=== PATIENT | female | born 1945 | race Caucasian/White ===

== ENCOUNTER → 2017-08-24 11:31 | Outpatient (CLI) | payer MEDICARE, SELFPAY ==
[2017-08-24 15:32] LABS: Absolute Lymphocyte Count 2.12 X10^3/ul (0.83-4.51); Absolute Neutrophil Count 5.3 X10^3/uL (2.0-7.7); Basophil# 0.02 X10^3/uL; Basophil% 0.2 % (0-1); Eosinophil# 0.14 X10^3/uL; Eosinophils% 1.7 % (0-5); Hematocrit 41.8 % (37-47); Hemoglobin 13.4 g/dl (12.0-15.0); Lymphocyte # 2.12 X10^3/ul (4.0); Lymphocyte % 25.7 % (19-41); Mean Corp Hgb Conc 32.1 g/gl (32-36); Mean Corpuscular Volume 93.5 fL (81-99); Mean Platelet Vol. 9.8 fl (6.2-12.0); Monocyte# 0.67 X10^3/uL; Monocyte% 8.1 % (0-10); Neutrophil # 5.28 X10^3/uL (2.7-7.7); Neutrophil % 64.2 % (47-70); Platelet Count 317 K/mm3 (150-450); RBC Distribution Width CV 13.1 % (11.6-14.6); RBC Distribution Width SD 44.9 fl (35.1-43.9); Red Blood Count 4.47 M/mm3 (4.2-5.4); White Blood Count 8.2 K/mm3 (4.4-11.0)
[2017-08-24 15:37] LABS: POSITIVE COUNT NO; POSITIVE DIFFERENTIAL NO; POSITIVE MORPHOLOGY NO
[2017-08-24 16:17] LABS: Vitamin D,25 Hydroxy 26.7 ng/mL (29.95-100.01)
[2017-08-24 16:21] LABS: AST(SGOT) 28 U/L (15-37); Alanine Aminotransfer ALT/SGPT 40 U/L (13-56); Albumin, Serum 3.7 g/dL (3.2-5.0); Alkaline Phosphatase 74 U/L (45-117); Anion Gap 7 (5-15); BUN 11 mg/dL (7-18); Calcium,Total 9.5 mg/dL (8.5-10.1); Chloride 107 mmol/L (98-107); Creatinine, Serum 0.79 mg/dL (0.55-1.02); EST Glomerular Filtration Rate 77 mL/min (>60); Est Glom Filt Rate - Afr Amer 93 mL/min (>60); Globulin 3.6 g/dL (2.2-4.2); Glucose 140 mg/dL (74-106); Potassium 4.1 mmol/L (3.5-5.1); Protein, Total 7.3 g/dL (6.4-8.2); Sodium Level 142 mmol/L (136-145); Thyroid Stim Hormone (TSH) 1.67 uIU/mL (0.358-3.74)
[2017-08-26 11:43] LABS: Hep C Antibodies 0.1 s/co ratio (0.0-0.9)
== END ==
PROVIDERS: Family Provider Family Medicine Geriatric Medicine; PCP Family Medicine Geriatric Medicine; Visit Provider Family Medicine Geriatric Medicine
DX: E11.9 Type 2 diabetes mellitus without complications (principal); I10 Essential (primary) hypertension; E55.9 Vitamin D deficiency, unspecified; Z13.89 Encounter for screening for other disorder
CPT/HCPCS: 36415; 80053; 82306; 84443; 85025; 86803

== ENCOUNTER → 2018-02-06 13:24 | Outpatient (CLI) | payer MEDICARE, OTHER, SELFPAY | PROVIDERS: Family Provider Family Medicine Geriatric Medicine; PCP Family Medicine Geriatric Medicine; Visit Provider Family Medicine Geriatric Medicine | DX: N39.0 Urinary tract infection, site not specified (principal) | CPT/HCPCS: 87086 ==

== ENCOUNTER → 2018-02-21 11:51 | Outpatient (CLI) | payer MEDICARE, OTHER, SELFPAY ==
[2018-02-21 12:32] LABS: Absolute Lymphocyte Count 1.87 X10^3/ul (0.83-4.51); Basophil# 0.03 X10^3/uL; Basophil% 0.4 % (0-1); Eosinophil# 0.18 X10^3/uL; Eosinophils% 2.3 % (0-5); Hemoglobin 13.5 g/dl (12.0-15.0); Lymphocyte # 1.87 X10^3/ul (4.0); Lymphocyte % 24.3 % (19-41); Mean Corp Hgb Conc 32.1 g/gl (32-36); Mean Corpuscular Hgb 30.3 pg (27.0-32.0); Mean Corpuscular Volume 94.2 fL (81-99); Monocyte# 0.62 X10^3/uL; Monocyte% 8.1 % (0-10); Neutrophil # 4.97 X10^3/uL (2.7-7.7); Neutrophil % 64.5 % (47-70); Platelet Count 280 K/mm3 (150-450); RBC Distribution Width SD 43.3 fl (35.1-43.9); Red Blood Count 4.46 M/mm3 (4.2-5.4); White Blood Count 7.7 K/mm3 (4.4-11.0)
[2018-02-21 12:41] LABS: POSITIVE COUNT NO; POSITIVE DIFFERENTIAL NO; POSITIVE MORPHOLOGY NO
[2018-02-21 12:52] LABS: Vitamin D,25 Hydroxy 18.6 ng/mL (29.95-100.01)
[2018-02-21 12:57] LABS: AST(SGOT) 40 U/L (15-37); Alanine Aminotransfer ALT/SGPT 53 U/L (13-56); Albumin, Serum 3.8 g/dL (3.2-5.0); Alkaline Phosphatase 78 U/L (45-117); Anion Gap 6 (5-15); BUN 9 mg/dL (7-18); BUN/Creat Ratio 11.9 RATIO (10-20); Calcium,Total 9.2 mg/dL (8.5-10.1); Chloride 105 mmol/L (98-107); Creatinine, Serum 0.76 mg/dL (0.55-1.02); EST Glomerular Filtration Rate 80 mL/min (>60); Est Glom Filt Rate - Afr Amer 97 mL/min (>60); Globulin 3.9 g/dL (2.2-4.2); Glucose 176 mg/dL (74-106); Protein, Total 7.7 g/dL (6.4-8.2); Sodium Level 139 mmol/L (136-145)
== END ==
PROVIDERS: PCP Family Medicine Geriatric Medicine; Visit Provider Family Medicine Geriatric Medicine
DX: E11.9 Type 2 diabetes mellitus without complications (principal); I10 Essential (primary) hypertension; E55.9 Vitamin D deficiency, unspecified
CPT/HCPCS: 36415; 80053; 82306; 84443; 85025

== ENCOUNTER → 2018-08-25 10:14 | Outpatient (CLI) | payer MEDICARE, OTHER, SELFPAY ==
[2017-12-21 13:46] VITALS: BMI 30.7
[2018-08-25 10:53] LABS: Absolute Lymphocyte Count 2.08 X10^3/ul (0.83-4.51); Basophil# 0.03 X10^3/uL; Basophil% 0.4 % (0-1); Eosinophils% 2.8 % (0-5); Hematocrit 41.6 % (37-47); Hemoglobin 13.5 g/dl (12.0-15.0); Lymphocyte # 2.08 X10^3/ul (4.0); Lymphocyte % 29.5 % (19-41); Mean Corp Hgb Conc 32.5 g/gl (32-36); Mean Corpuscular Hgb 29.8 pg (27.0-32.0); Mean Corpuscular Volume 91.8 fL (81-99); Mean Platelet Vol. 10.4 fl (6.2-12.0); Monocyte# 0.69 X10^3/uL; Monocyte% 9.8 % (0-10); Neutrophil # 4.04 X10^3/uL (2.7-7.7); Neutrophil % 57.2 % (47-70); Platelet Count 297 K/mm3 (150-450); RBC Distribution Width CV 13.1 % (11.6-14.6); RBC Distribution Width SD 43.2 fl (35.1-43.9); Red Blood Count 4.53 M/mm3 (4.2-5.4); White Blood Count 7.1 K/mm3 (4.4-11.0)
[2018-08-25 10:56] LABS: POSITIVE COUNT NO; POSITIVE DIFFERENTIAL NO; POSITIVE MORPHOLOGY NO
[2018-08-25 11:27] LABS: Vitamin D,25 Hydroxy 25.5 ng/mL (29.95-100.01)
[2018-08-25 11:34] LABS: AST(SGOT) 48 U/L (15-37); Alanine Aminotransfer ALT/SGPT 51 U/L (13-56); Albumin, Serum 3.7 g/dL (3.2-5.0); Alkaline Phosphatase 75 U/L (45-117); Anion Gap 2 (5-15); BUN 11 mg/dL (7-18); BUN/Creat Ratio 14.6 RATIO (10-20); Calcium,Total 9.7 mg/dL (8.5-10.1); Chloride 107 mmol/L (98-107); Creatinine, Serum 0.76 mg/dL (0.55-1.02); EST Glomerular Filtration Rate 80 mL/min (>60); Est Glom Filt Rate - Afr Amer 97 mL/min (>60); Globulin 3.8 g/dL (2.2-4.2); Glucose 177 mg/dL (74-106); Potassium 4.1 mmol/L (3.5-5.1); Protein, Total 7.5 g/dL (6.4-8.2); Sodium Level 138 mmol/L (136-145); Thyroid Stim Hormone (TSH) 3.28 uIU/mL (0.358-3.74)
== END ==
PROVIDERS: Family Provider Family Medicine Geriatric Medicine; PCP Family Medicine Geriatric Medicine; Referring Provider Family Medicine Geriatric Medicine; Visit Provider Family Medicine Geriatric Medicine
DX: E11.9 Type 2 diabetes mellitus without complications (principal); I10 Essential (primary) hypertension; E55.9 Vitamin D deficiency, unspecified
CPT/HCPCS: 36415; 80053; 82306; 84443; 85025

== ENCOUNTER → 2018-08-29 10:54 | Outpatient (CLI) | payer MEDICARE, OTHER, SELFPAY ==
--- NOTE | 2018-08-29 09:30 | LES_PTH ---
PATIENT: ALFRED HARRIS LOC: [facility] U#:[id number] AGE/SX: 79/F ROOM: RE08/29/[address]: Dr. Segundo Roper MD : [id number] BED: DIS: SPEC #: [id number] RECD: 08/29/18 12:49 STATUS: ARABELLA BERT #: [id number] DANIEL: 08/29/18 09:[address]: Segundo Roper Chi DEPT: SURGICAL PATHOLOGY RECD BY: Morgan Abdullahi Tissues: Skin of arm Procedures: Surgery Specimen Level IV HEADER OPERATION: Biopsy PRE-OP DIAGNOSIS: Left upper arm lesion TISSUE SUBMITTED: Left upper arm MICROSCOPIC DIAGNOSIS Skin of left upper arm, shave biopsy: Verrucoid keratosis, inflamed. Solar elastosis. No evidence of malignancy. See comment. AM:wencesalo 08/30/18 COMMENT The lesion is completely excised in the planes examined. MICROSCOPIC DESCRIPTION Slides are reviewed. GROSS DESCRIPTION Received is one container labeled with the patient's name and not further designated. The specimen consists of a light richard shave biopsy of skin measuring 1.2 x 1 cm. The cutaneous surface contains an exophytic richard-white lesion measuring 0.3 cm in maximal dimension. The specimen is inked, sectioned and totally submitted in one cassette. / AM:wenceslao 08/29/18 TC:5 [facility]: [id number]
== END ==
LOC: POLAB3 10:56 → LABSPEC 11:00
PROVIDERS: Family Provider Family Medicine Geriatric Medicine; PCP Family Medicine Geriatric Medicine; Visit Provider Family Medicine Geriatric Medicine
DX: L98.9 Disorder of the skin and subcutaneous tissue, unspecified (principal)
CPT/HCPCS: 88305

== ENCOUNTER → 2018-11-23 09:42 | Outpatient (CLI) | payer MEDICARE, OTHER, SELFPAY ==
[2017-12-21 13:46] VITALS: BMI 30.7
[2018-11-23 12:27] LABS: Absolute Lymphocyte Count 1.99 X10^3/uL (0.83-4.51); Absolute Neutrophil Count 3.9 X10^3/uL (2.0-7.7); Basophil# 0.06 X10^3/uL; Basophil% 0.9 % (0-1); Eosinophil# 0.26 X10^3/uL; Eosinophils% 3.8 % (0-5); Hematocrit 41.8 % (37-47); Hemoglobin 13.4 g/dL (12.0-15.0); Lymphocyte # 1.99 X10^3/ul (4.0); Lymphocyte % 29.4 % (19-41); Mean Corp Hgb Conc 32.1 g/dL (32-36); Mean Corpuscular Hgb 30.6 pg (27.0-32.0); Mean Corpuscular Volume 95.4 fL (81-99); Mean Platelet Vol. 11.2 fl (6.2-12.0); Monocyte# 0.56 X10^3/uL; Monocyte% 8.3 % (0-10); NRBC Flagged by Analyzer 0 % (0-5); Neutrophil # 3.88 X10^3/uL (2.7-7.7); Neutrophil % 57.3 % (47-70); Platelet Count 250 K/mm3 (150-450); RBC Distribution Width CV 12.7 % (11.6-14.6); RBC Distribution Width SD 44.4 fl (35.1-43.9); Red Blood Count 4.38 M/mm3 (4.2-5.4); White Blood Count 6.8 K/mm3 (4.4-11.0)
[2018-11-23 12:52] LABS: Vitamin D,25 Hydroxy 19.2 ng/mL (29.95-100.01)
[2018-11-23 12:55] LABS: AST(SGOT) 40 U/L (15-37); Alanine Aminotransfer ALT/SGPT 56 U/L (13-56); Albumin, Serum 3.8 g/dL (3.2-5.0); Alkaline Phosphatase 79 U/L (45-117); Anion Gap 6 (5-15); BUN 12 mg/dL (7-18); BUN/Creat Ratio 14.6 RATIO (10-20); Calcium,Total 9.5 mg/dL (8.5-10.1); Chloride 107 mmol/L (98-107); Creatinine, Serum 0.82 mg/dL (0.55-1.02); EST Glomerular Filtration Rate 73 mL/min (>60); Est Glom Filt Rate - Afr Amer 88 mL/min (>60); Glucose 212 mg/dL (74-106); Potassium 4.1 mmol/L (3.5-5.1); Protein, Total 7.8 g/dL (6.4-8.2); Sodium Level 138 mmol/L (136-145); Thyroid Stim Hormone (TSH) 3.55 uIU/mL (0.358-3.74)
== END ==
PROVIDERS: Family Provider Family Medicine Geriatric Medicine; PCP Family Medicine Geriatric Medicine; Visit Provider Family Medicine Geriatric Medicine
DX: E11.9 Type 2 diabetes mellitus without complications (principal); I10 Essential (primary) hypertension; E55.9 Vitamin D deficiency, unspecified
CPT/HCPCS: 36415; 80053; 82306; 84443; 85025

== ENCOUNTER → 2019-05-24 10:22 | Outpatient (CLI) | payer MEDICARE, OTHER, SELFPAY ==
[2018-12-29 15:09] VITALS: BMI 30.2
[2019-05-24 12:33] LABS: Absolute Lymphocyte Count 2.08 X10^3/uL (0.83-4.51); Absolute Neutrophil Count 4.1 X10^3/uL (2.0-7.7); Basophil# 0.05 X10^3/uL; Basophil% 0.7 % (0-1); Eosinophil# 0.38 X10^3/uL; Eosinophils% 5.2 % (0-5); Hematocrit 42.9 % (37-47); Hemoglobin 13.5 g/dL (12.0-15.0); Lymphocyte # 2.08 X10^3/ul (4.0); Lymphocyte % 28.4 % (19-41); Mean Corp Hgb Conc 31.5 g/dL (32-36); Mean Corpuscular Hgb 29.9 pg (27.0-32.0); Mean Corpuscular Volume 94.9 fL (81-99); Mean Platelet Vol. 10.5 fl (6.2-12.0); Monocyte# 0.68 X10^3/uL; Monocyte% 9.3 % (0-10); NRBC Flagged by Analyzer 0 % (0-5); Neutrophil # 4.13 X10^3/uL (2.7-7.7); Neutrophil % 56.3 % (47-70); Platelet Count 331 K/mm3 (150-450); RBC Distribution Width CV 13.1 % (11.6-14.6); RBC Distribution Width SD 45.4 fl (35.1-43.9); Red Blood Count 4.52 M/mm3 (4.2-5.4); White Blood Count 7.3 K/mm3 (4.4-11.0)
[2019-05-24 12:39] LABS: Vitamin D,25 Hydroxy 20.2 ng/mL (29.95-100.01)
[2019-05-24 12:42] LABS: AST(SGOT) 40 U/L (15-37); Alanine Aminotransfer ALT/SGPT 45 U/L (13-56); Albumin, Serum 3.8 g/dL (3.2-5.0); Alkaline Phosphatase 68 U/L (45-117); Anion Gap 4 (5-15); BUN 9 mg/dL (7-18); BUN/Creat Ratio 12.9 RATIO (10-20); Calcium,Total 9.5 mg/dL (8.5-10.1); Chloride 107 mmol/L (98-107); EST Glomerular Filtration Rate 88 mL/min (>60); Est Glom Filt Rate - Afr Amer 107 mL/min (>60); Globulin 3.9 g/dL (2.2-4.2); Glucose 150 mg/dL (74-106); Potassium 4.1 mmol/L (3.5-5.1); Protein, Total 7.7 g/dL (6.4-8.2); Sodium Level 141 mmol/L (136-145); Thyroid Stim Hormone (TSH) 2.76 uIU/mL (0.358-3.74)
== END ==
PROVIDERS: PCP Family Medicine Geriatric Medicine; Visit Provider Family Medicine Geriatric Medicine
DX: E11.65 Type 2 diabetes mellitus with hyperglycemia (principal); I10 Essential (primary) hypertension; E55.9 Vitamin D deficiency, unspecified
CPT/HCPCS: 36415; 80053; 82306; 84443; 85025

== ENCOUNTER → 2019-06-11 12:49 | Outpatient (CLI) | payer MEDICARE, OTHER, SELFPAY ==
[2019-06-06 09:08] VITALS: BMI 30.2
--- NOTE | 2019-06-11 12:50 | BI_ITS ---
MAMMOGRAPHY - BILATERAL SCREENING REASON FOR EXAM: Female, 73 years old. Routine annual screening examination. PERTINENT HISTORY: Non-contributory. TECHNIQUE: Digital bilateral breast antonio (3D mammographic acquisition) in the CC and MLO projections. 2-D mediolateral oblique (MLO) and craniocaudad (CC) views of both breasts were obtained. CAD: Full Field Digital Mammography with Computer Added Detection was performed. COMPARISON: Comparison is made with prior study of August 23, 2014 and August 18, 2011. FINDINGS: Breast Composition: There are scattered areas of fibroglandular density. There are no dominant masses or suspicious calcifications. Stable benign-appearing bilateral axillary lymph nodes. No other significant abnormalities are identified. There has been no significant change since the prior study. BI/SCREEN MAMM (CAD) W/ANTONIO BILAT IMPRESSION: Stable bilateral screening mammogram. Yearly follow-up mammogram recommended. (A) ASSESSMENT CATEGORY: BIRADS Category 2: Benign. A letter regarding these results will be sent to the patient by the facility within 30 days. Approximately 10% of breast cancers are not detected by mammography. A normal mammogram should not delay biopsy of a clinically suspicious abnormality. [id number] Electronically Signed: Kp Whitman, at 13:44 EDT , Service support ,
== END ==
PROVIDERS: PCP Family Medicine Geriatric Medicine; Referring Provider Nurse Practitioner Women's Health; Visit Provider Nurse Practitioner Women's Health
DX: Z12.31 Encounter for screening mammogram for malignant neoplasm of breast (principal)
CPT/HCPCS: 77063; 77067

== ENCOUNTER → 2019-08-29 14:10 | Outpatient (CLI) | payer MEDICARE, OTHER, SELFPAY ==
[2019-06-06 09:08] VITALS: BMI 30.2
[2019-08-29 15:53] LABS: Absolute Lymphocyte Count 3.02 X10^3/uL (0.83-4.51); Absolute Neutrophil Count 4.5 X10^3/uL (2.0-7.7); Basophil# 0.07 X10^3/uL; Basophil% 0.8 % (0-1); Eosinophil# 0.25 X10^3/uL; Eosinophils% 2.9 % (0-5); Hematocrit 41.2 % (37-47); Lymphocyte # 3.02 X10^3/ul (4.0); Mean Corp Hgb Conc 31.6 g/dL (32-36); Mean Corpuscular Hgb 29.7 pg (27.0-32.0); Mean Corpuscular Volume 94.1 fL (81-99); Monocyte# 0.78 X10^3/uL; NRBC Flagged by Analyzer 0 % (0-5); Neutrophil % 52.1 % (47-70); Platelet Count 334 K/mm3 (150-450); RBC Distribution Width SD 44.6 fl (35.1-43.9); Red Blood Count 4.38 M/mm3 (4.2-5.4); White Blood Count 8.6 K/mm3 (4.4-11.0)
[2019-08-29 16:08] LABS: Vitamin D,25 Hydroxy 20.8 ng/mL
[2019-08-29 16:19] LABS: ALB/GLOB Ratio 1.1 RATIO (0.9-2.4); AST(SGOT) 36 U/L (15-37); Alanine Aminotransfer ALT/SGPT 40 U/L (13-56); Albumin, Serum 3.9 g/dL (3.2-5.0); Alkaline Phosphatase 72 U/L (45-117); Anion Gap 8 (5-15); BUN 11 mg/dL (7-18); BUN/Creat Ratio 14.9 RATIO (10-20); Calcium,Total 9.9 mg/dL (8.5-10.1); Chloride 108 mmol/L (98-107); Creatinine, Serum 0.74 mg/dL (0.55-1.02); EST Glomerular Filtration Rate 82 mL/min (>60); Est Glom Filt Rate - Afr Amer 99 mL/min (>60); Globulin 3.7 g/dL (2.2-4.2); Glucose 90 mg/dL (74-106); Potassium 4.5 mmol/L (3.5-5.1); Protein, Total 7.6 g/dL (6.4-8.2); Sodium Level 142 mmol/L (136-145); Thyroid Stim Hormone (TSH) 2.41 uIU/mL (0.358-3.74)
== END ==
PROVIDERS: PCP Family Medicine Geriatric Medicine; Visit Provider Family Medicine Geriatric Medicine
DX: E11.9 Type 2 diabetes mellitus without complications (principal); I10 Essential (primary) hypertension; E55.9 Vitamin D deficiency, unspecified
CPT/HCPCS: 36415; 80053; 82306; 84443; 85025

== ENCOUNTER → 2019-12-17 15:28 | Outpatient (CLI) | payer MEDICARE, OTHER, SELFPAY ==
[2019-06-06 09:08] VITALS: BMI 30.2
--- NOTE | 2019-12-17 15:35 | RAD_ITS ---
STUDY: X-RAY - LUMBAR SPINE REASON FOR EXAM: Female, 74 years old. LOW BACK PAIN SINCE TUESDAY TECHNIQUE: 3 view(s) of the lumbar spine were obtained. COMPARISON: October 15, 2010 lumbar spine x-ray FINDINGS: Normal lumbar lordosis. There is no substantial scoliosis. There is a normal alignment of the vertebrae. There is multilevel mild disc space narrowing worse in prior studies. There is multilevel spondylosis. Findings are similar to the prior study. Findings a worsening at L5-S1. There is atherosclerotic calcification of the abdominal aorta without a demonstrated aneurysm. RAD/Lumbar Spine 2 or 3 Views IMPRESSION: Multilevel degenerative change of the lumbar spine with mild interval worsening over time since 2010. No visualized acute loss of height or alignment. Electronically Signed: Carla Barrett MD at 5:01 EDT Tel , Service support ,
== END ==
PROVIDERS: PCP Family Medicine Geriatric Medicine; Referring Provider Family Medicine Geriatric Medicine; Visit Provider Family Medicine Geriatric Medicine
DX: M54.5 Low back pain (principal)
CPT/HCPCS: 72100

== ENCOUNTER → 2020-02-21 13:39 | Outpatient (CLI) | payer MEDICARE, OTHER, SELFPAY ==
[2019-12-19 13:40] VITALS: BMI 29.7
[2020-02-21 17:08] LABS: Absolute Lymphocyte Count 2.36 X10^3/uL (0.83-4.51); Absolute Neutrophil Count 5.5 X10^3/uL (2.0-7.7); Basophil# 0.04 X10^3/uL; Basophil% 0.5 % (0-1); Eosinophil# 0.12 X10^3/uL; Eosinophils% 1.4 % (0-5); Hematocrit 41.3 % (37-47); Lymphocyte # 2.36 X10^3/ul (4.0); Lymphocyte % 27.3 % (19-41); Mean Corp Hgb Conc 31.5 g/dL (32-36); Mean Corpuscular Hgb 30.7 pg (27.0-32.0); Mean Corpuscular Volume 97.6 fL (81-99); Mean Platelet Vol. 10.6 fl (6.2-12.0); Monocyte# 0.64 X10^3/uL; Monocyte% 7.4 % (0-10); NRBC Flagged by Analyzer 0 % (0-5); Neutrophil # 5.45 X10^3/uL (2.7-7.7); Neutrophil % 63.1 % (47-70); Platelet Count 370 K/mm3 (150-450); RBC Distribution Width CV 13.2 % (11.6-14.6); RBC Distribution Width SD 47.2 fl (35.1-43.9); Red Blood Count 4.23 M/mm3 (4.2-5.4); White Blood Count 8.6 K/mm3 (4.4-11.0)
[2020-02-21 17:18] LABS: Vitamin D,25 Hydroxy 20.6 ng/mL
[2020-02-21 17:27] LABS: ALB/GLOB Ratio 1.2 RATIO (0.9-2.4); AST(SGOT) 26 U/L (15-37); Alanine Aminotransfer ALT/SGPT 37 U/L (13-56); Alkaline Phosphatase 57 U/L (45-117); Anion Gap 5 (5-15); BUN 15 mg/dL (7-18); BUN/Creat Ratio 19.7 RATIO (10-20); Calcium,Total 9.5 mg/dL (8.5-10.1); Chloride 105 mmol/L (98-107); Creatinine, Serum 0.76 mg/dL (0.55-1.02); EST Glomerular Filtration Rate 79 mL/min (>60); Est Glom Filt Rate - Afr Amer 96 mL/min (>60); Globulin 3.4 g/dL (2.2-4.2); Glucose 101 mg/dL (74-106); Potassium 4.2 mmol/L (3.5-5.1); Protein, Total 7.4 g/dL (6.4-8.2); Sodium Level 138 mmol/L (136-145); Thyroid Stim Hormone (TSH) 1.88 uIU/mL (0.358-3.74)
== END ==
PROVIDERS: PCP Family Medicine Geriatric Medicine; Visit Provider Family Medicine Geriatric Medicine
DX: E11.9 Type 2 diabetes mellitus without complications (principal); I10 Essential (primary) hypertension; E55.9 Vitamin D deficiency, unspecified
CPT/HCPCS: 36415; 80053; 82306; 84443; 85025

== ENCOUNTER → 2020-04-16 | Outpatient (CLI) | payer MEDICARE, OTHER, SELFPAY ==
[2019-12-19 13:40] VITALS: BMI 29.7
== END | disposition home or self-care (01) ==
LOC: LABSPEC 11:27
PROVIDERS: PCP Family Medicine Geriatric Medicine; Visit Provider Family Medicine Geriatric Medicine
DX: N39.0 Urinary tract infection, site not specified (principal)
CPT/HCPCS: 87086; 87088; 87186

== ENCOUNTER 2020-05-01 12:30 | Outpatient (RCR) | payer MEDICARE, OTHER, SELFPAY ==
[2019-12-19 13:40] VITALS: BMI 29.7
--- NOTE | 2020-04-23 12:56 | HP.PTEVAL ---
Patient's Visit Information ALFRED HARRIS is a 74 year old F referred to Physical Therapy by Dr. Segundo Roper MD with a diagnosis of LOW BACK PAIN. Date of Evaluation: 04/23/20 Physical Therapist: Sri Marcial PT, Cert MDT - Visit Plan Frequency: 2-3x /Week Duration: 4-6 Weeks Plan: US, POSTURE CORRECTION/STRENGTHENING, INSTRUCTION IN APPROPRIATE BODY MECHANICS AND ACTIVITY MODIFICATIONS. DLS STARTING WITH A NEUTRAL SPINE PROGRESSING ROM TOLERATED. ARISTEO LE ROM, STRETCHING AND STRENGTHENING. HEP INSTRUCTION. - Subjective Work/Leisure: RETIRED. Disability: NO. Present symptoms: ARISTEO LOW BACK PAIN RIGHT > LEFT. Present since: 4 MONTHS AGO. APRIL 14 2020 COULDN'T GET OUT OF BED. Pain Scale: WORST 12/10, LEAST 2/10. Currently: 2/10. Commenced as a result of: DROVE ABOUT 1,000 MILES IN A FEW DAYS AND THEN COULDN'T HARDLY WALK. Symptoms at onset: LOW BACK. Worse: SITTING, TRYING TO WALK, TRYING TO LIFT ANYTHING, ROLLING OVER IN BED, LAUGHING, RISING FROM SITTING. Better: STANDING STILL. Disturbed sleep: NO. Previous history/Previous treatment: 2010 HAD BACK PAIN AND HAD TESTING THAT REVEALED DDD. PAIN MEDS. Treatment this episode: PAIN MEDS. [address] HUSSEIN OFFICE. PREDNISONE - JUST WENT OFF OF IT YESTERDAY - HELPED A LOT. NO BACK SURGERY. NO ANDREA'S. Coughing/sneezing/straining: NO. Gait: NORMAL NOW - DID THREE MILES THE OTHER DAY. TWO MILES YESTERDAY. Difficulty initiating urinatin: CURRENTLY HAS UTI DX'D LAST WEEK. ON MEDICINE. Accidents: NO. Unexplained weight loss: NO. Imaging: RECENT LUMBAR X-RAYS DEC 2019 SHOWING PROGRESSED DDD. NO MRI. PMH: NIDDM. Recent major surgery: HEART CATH A FEW YEARS AGO. COLON RECONSTRUCTION FROM INFECTION A FEW YEARS AGO. - Objective Sitting/Standing Posture: POOR. Lordosis: REDUCED. Lateral shift: NO. Relevant shift: N/A. Active Correction of posture: NE. Other Observations: INDEP GAIT INTO PT WITH NO GROSS DEVIATIONS NOTED, NO AD'S. INDEP TRANSFER SIT TO STAND WITHOUT UE ASSIST. Motor deficit: ARISTEO LE'S GROSSLY 5/5 WITH MMT'ING EXCEPT HIPS 4/5. Sensory deficit: ARISTEO LE'S INTACT AND SYMMETRICAL. ROM deficit: TIGHT ARISTEO LE HIP FLEXORS, HS'S AND GASTROC SOLEUS COMPLEX'S. Reflexes: NT. Dural Signs: NEGATIVE ARISTEO LE'S. Lumbar mvmt loss: flex - MIN - PULLING IN LOW BACK AND BACK OF LEGS. ext - MOD - NE. R SG - MOD. L SG - MOD. PATIENT DENIES INCREASED PAIN WITH LUMBAR ROM TESTING ALL PLANES TODAY. Core strength: POOR. Palpation: INCREASED MUSCLE TONE ARISTEO LUMBAR PARASPINALS BUT NO ACUTE TENDERNESS. TREATMENT: NEUROMUSCULAR REEDUCATION - RETRAINING OF MVMT AND POSTURE FOR SITTING, LYING AND STANDING ACTIVITIES. - Goals Goal 1:: DECREASE C/O LOW BACK PAIN Goal Time Frame: 4-6 Weeks Goal 2:: IMPROVE LIFTING, SITTING, TRAVEL AND HOMEMAKING FUNCTION. Goal Time Frame: 4-6 Weeks Goal 3:: INSTRUCT IN PROPHYLAXIS Goal Time Frame: 4-6 Weeks - Anticipated Interventions Patient/Client Instruction: Educate patient on: Condition, Plan of Care, Risk Factors, Benefits of Fitness Program For the Purpose of:: To improve self management Therapeutic Exercise to Include: Strength training, Body mechanics, Postural training, Flexibilty training, Neuromotor development, Dynamic Lumbar Stabilization For the Purpose of:: To decrease pain, To increase ROM, To improve muscle performance and motor function, To increase tolerance to activity/condition/position, To improve ability of physical actions for home/community/work/leisure Cryotherapy (ice pack, ice massage): Yes Thermo therapy (hot pack): Yes Ultrasound (thermal/non thermal): Yes For the Purpose of:: To decrease pain, To improve nutrient delivery to tissue Thank you for the opportunity to evaluate your patient. For Medicare and Medicare HMO plans, please review the plan of care and approve it. It will need to be FAXED BACK to us at [phone] for Medicare purposes. For Medicare only, by signing this I certify the plan of care. Please let me know if there are questions or concerns regarding this plan of care. Physician Signature: Date:
--- NOTE | 2020-08-17 14:41 | HP.PT.NRP ---
ALFRED HARRIS was seen in my office for initial evaluation on 04/23/20. The following Plan of Care was established for this patient: Initial Frequency: 2-3x /Week Initial Duration: 4-6 Weeks Patient/Client Instruction: Educate patient on: Condition, Plan of Care, Risk Factors, Benefits of Fitness Program For the Purpose of:: To improve self management Therapeutic Exercise to Include: Strength training, Body mechanics, Postural training, Flexibilty training, Neuromotor development, Dynamic Lumbar Stabilization For the Purpose of:: To decrease pain, To increase ROM, To improve muscle performance and motor function, To increase tolerance to activity/condition/position, To improve ability of physical actions for home/community/work/leisure Cryotherapy (ice pack, ice massage): Yes Thermo therapy (hot pack): Yes Ultrasound (thermal/non thermal): Yes For the Purpose of:: To decrease pain, To improve nutrient delivery to tissue This patient was last seen in our office 05/01/20. Pertinent comments regarding their Physical therapy will appear below: This patient has not returned to Physical Therapy and is appropriate to return to MD for further follow-up as needed. At this point I will be discontinuing this patient from physical therapy. I would be happy to see this patient again in the future if found appropriate by the physician. Thank you! Sri Marcial, PT, Cert MDT
== END 2020-05-01 19:00 | disposition home or self-care (01) ==
LOC: PT 12:30
PROVIDERS: PCP Family Medicine Geriatric Medicine; Referring Provider Family Medicine Geriatric Medicine; Visit Provider Family Medicine Geriatric Medicine
DX: M54.5 Low back pain (principal)
CPT/HCPCS: 97110; 97112; 97162; 97530

== ENCOUNTER 2020-05-15 14:38 | Emergency (ER) | payer MEDICARE, OTHER, SELFPAY ==
[2019-12-19 13:40] VITALS: BMI 29.7
[2020-05-15 14:39] VITALS: BP 131/67; PULSE 96; RESP 18; TEMP 35.6; O2SAT 93; BMI 28.0
--- NOTE | 2020-05-15 14:53 | EKG12_ITS ---
Test Reason : GEN ILLNESS Blood Pressure : / mmHG Vent. Rate : 089 BPM Atrial Rate : 089 BPM P-R Int : 122 ms QRS Dur : 070 ms QT Int : 346 ms P-R-T Axes : 041 012 065 degrees QTc Int : 420 ms Normal sinus rhythm Nonspecific ST abnormality Abnormal ECG Confirmed by LINDA MORALES, ANA ([id number]), commercial production editor MARIANA MIMS ([id number]) on 05/19/2020 12:31:35 P M Referred By: CL Confirmed By:VONNIE MCKEON MD
--- NOTE | 2020-05-15 15:15 | RAD_ITS ---
STUDY: X-RAY CHEST REASON FOR EXAM: Female, 74 years old. COVID SYMPTOMS SINCE 05/06. PT STILL HAVING CHILLS, COUGH SORE THROAT TECHNIQUE: Single AP portable view of the chest. COMPARISON: None. FINDINGS: Ill-defined subpleural groundglass opacities are seen more prominent in the lung bases , may represent atypical pneumonia or viral pneumonia (COVID-19 ?). There is no demonstrated pleural abnormality. Normal size heart. Normal mediastinum and perla. Normal visualized pulmonary arteries. Normal visualized aortic arch and descending thoracic aorta. Normal visualized thoracic spine. Normal visualized ribs, clavicles, and shoulders. There is no demonstrated abnormality of the visualized soft tissue structures of the upper abdomen. RAD/Chest 1 View (Portable) IMPRESSION: Possible mild viral pneumonia (COVID-19 ?). Electronically Signed: Shayla Dickey MD at 16:18 EST Tel , Service support ,
[2020-05-15 15:32] LABS: Absolute Lymphocyte Count 1.17 X10^3/uL (0.83-4.51); Basophil# 0.01 X10^3/uL; Basophil% 0.2 % (0-1); Eosinophil# 0.03 X10^3/uL; Eosinophils% 0.5 % (0-5); Hematocrit 40.2 % (37-47); Lymphocyte # 1.17 X10^3/ul (4.0); Lymphocyte % 20.7 % (19-41); Mean Corp Hgb Conc 32.3 g/dL (32-36); Mean Corpuscular Hgb 30.3 pg (27.0-32.0); Mean Corpuscular Volume 93.7 fL (81-99); Mean Platelet Vol. 9.4 fl (6.2-12.0); Monocyte# 0.42 X10^3/uL; Monocyte% 7.4 % (0-10); NRBC Flagged by Analyzer 0 % (0-5); Neutrophil # 4.01 X10^3/uL (2.7-7.7); Neutrophil % 70.8 % (47-70); POSITIVE MORPHOLOGY YES; Platelet Count 333 K/mm3 (150-450); RBC Distribution Width CV 12.8 % (11.6-14.6); RBC Distribution Width SD 43.8 fl (35.1-43.9); Red Blood Count 4.29 M/mm3 (4.2-5.4); White Blood Count 5.7 K/mm3 (4.4-11.0)
--- NOTE | 2020-05-15 15:33 | ED.DCSUM_ITS ---
History of Present Illness Chief Complaint: General Illness Informant: Patient, Family Narrative: 74-year-old female presents with concern for feeling unwell. States is been present over the past 9 days. States that she has had a headache as well as chills. States she has slight cough. Complains of malaise with nausea. Denies any vomiting or abdominal pain. Denies any urinary symptoms. Patient is concerned she has coronavirus. No sick contacts. Past Medical History - Allergies and Home Meds Allergies/Adverse Reactions: Allergies chlorzoxazone [From Parafon Forte] Allergy (Verified 05/15/20 14:41) Unknown ciprofloxacin [From Cipro] Allergy (Verified 05/15/20 14:41) Unknown lovastatin [From Mevacor] Allergy (Verified 05/15/20 14:41) Unknown metronidazole [From Flagyl] Allergy (Verified 05/15/20 14:41) Unknown naproxen [From Naprosyn] Allergy (Verified 05/15/20 14:41) Unknown tramadol Allergy (Verified 05/15/20 14:41) Unknown Primary Care Physician: Segundo Roper Chi, MD [Primary Care Provider] - Prior records reviewed: Yes Past Medical History: - - HTN, DMII, Hypothyroidism Surgical History: noncontributory Lives: Spouse/ Significant Other Smoking Status: Former smoker Alcohol: None Drugs: None Review of Systems General: Reports: Chills, Malaise. Denies: Fever, Sweats Eyes: Denies: Visual changes - bilaterally, Diplopia ENT: Denies: Rhinorrhea, Sore throat Cardiovascular: Denies: Chest pain, Palpitations Respiratory: Reports: Cough. Denies: Dyspnea, Dyspnea on exertion Gastrointestinal: Reports: Nausea. Denies: Abdominal pain, Vomiting, Diarrhea, Melena, Hematochezia Genitourinary: Denies: Dysuria, Hematuria, Frequency Musculoskeletal: Denies: Back pain, Extremity Pain Skin: Denies: Rash, Wounds Neurological: Reports: Headache. Denies: Weakness, Numbness Physical Exam Vital Signs/Narrative: Vital Signs Temp Pulse Resp BP Pulse Ox 05/15/20 14:39 96.0 F L 96 18 131/67 H 93 Inital Vital Signs reviewed: Yes General: Well nourished, Well developed, No Acute Distress Head: Normocephalic, Atraumatic Eyes: Perrl, EOMI ENT: Moist mucous membranes, No rhinorrhea Neck: Supple, Nontender Cardiovascular: Regular rate, Regular rhythm, No murmurs Respiratory: No distress, CTA bilaterally, Chest nontender Abdomen: Soft, Nontender, Nondistended, Normal bowel sounds Back: Nontender, Normal Inspection Extremities: Nontender, No edema Skin: Normal color, No rash Neurological: Alert, Oriented x3, Cranial nerves II-XII grossly intact, Normal Strength, Normal Sensation Psychological: Normal affect, Normal Mood Diagnostic/Tx/Re-eval Chest X-Ray - ED: 1 View, Read by ED Physician, Read by Radiologist, Normal Clinical Impression(s) from Imaging Studies Chest X-Ray 05/15/20 15:15 IMPRESSION: Possible mild viral pneumonia (COVID-19 ?). Electronically Signed: Shayla Dickey MD at 16:18 EST Tel , Service support , Laboratory Data 05/15/20 05/15/20 05/15/20 15:25 15:25 15:25 WBC 5.7 RBC 4.29 Hgb 13.0 Hct 40.2 MCV 93.7 MCH 30.3 MCHC 32.3 RDW Std Deviation 43.8 RDW Coeff of Manish 12.8 Plt Count 333 MPV 9.4 Immature Gran % (Auto) 0.400 Neut % (Auto) 70.8 H Lymph % (Auto) 20.7 Mcnairy % (Auto) 7.4 Eos % (Auto) 0.5 Baso % (Auto) 0.2 Absolute Neuts (auto) 4.0 Absolute Lymphs (auto) 1.17 Nucleated RBC % 0 Atypical Lymphocytes RARE Platelet Estimate ADEQUATE Plt Morphology Comment LARGE RBC Morphology N CHROM Anisocytosis RARE Macrocytosis RARE Sodium 139 Potassium 3.8 Chloride 105 Carbon Dioxide 28.0 Anion Gap 6 BUN 9 Creatinine 0.71 Estim Creat Clear Calc 40.22 Est GFR (MDRD) Af Amer 103 Est GFR (MDRD) Non-Af 85 BUN/Creatinine Ratio 12.6 Glucose 101 Lactic Acid 1.7 Calcium 9.3 Total Bilirubin 0.30 AST 21 ALT 31 Alkaline Phosphatase 71 Troponin I < 0.015 C-React Prot Ext Range 16.90 H Total Protein 7.2 Albumin 3.4 Globulin 3.8 Albumin/Globulin Ratio 0.9 - Rhythm Strip Rhythm Strip: Sinus Rhythm Rate: 89 - EKG Initial EKG Interpretation: Sinus Rhythm - Sinus rhythm at 89 bpm. RI interval of 122 ms. QTC of [address] changes. No evidence of acute ischemia. - Medical Decision Making Patient appears well and nontoxic. Vital signs within normal limits. No hypoxemia. Lab work within normal limits. Chest x-ray interpreted by myself shows no evidence of cardiomegaly or infiltrate. Radiology concurs. Coronavirus positive. Patient ambulated and maintain oxygen saturations above 94%. Patient will be advised to continued self-isolation as well as supportive care at home. Asked to return for worsening shortness of breath. Patient agreeable and discharged home in stable condition. Impression: 1. COVID-19 2. Weakness ED Disposition - Plan for ED Patient: Disposition: Home or Assisted Living Instructions: Coronavirus Disease 2019 (COVID-19): Overview, Coronavirus Disease 2019 (COVID-19): Caring for Yourself or Others Referrals: Segundo Roper Chi, MD [Primary Care Provider] - 2 Days
[2020-05-15] MEDS: Acetaminophen 500 MG Tablet 1000 MG PO (15:36)
[2020-05-15 15:44] LABS: Differential Indicated SCAN CRITERIA MET
[2020-05-15 15:58] LABS: ALB/GLOB Ratio 0.9 RATIO (0.9-2.4); AST(SGOT) 21 U/L (15-37); Alanine Aminotransfer ALT/SGPT 31 U/L (13-56); Albumin, Serum 3.4 g/dL (3.2-5.0); Alkaline Phosphatase 71 U/L (45-117); Anion Gap 6 (5-15); BUN 9 mg/dL (7-18); BUN/Creat Ratio 12.6 RATIO (10-20); Calcium,Total 9.3 mg/dL (8.5-10.1); Chloride 105 mmol/L (98-107); Creatinine, Serum 0.71 mg/dL (0.55-1.02); EST Glomerular Filtration Rate 85 mL/min (>60); Est Glom Filt Rate - Afr Amer 103 mL/min (>60); Estimated Creatinine Clearance 40.22 ml/min; Globulin 3.8 g/dL (2.2-4.2); Glucose 101 mg/dL (74-106); Lactic Acid 1.7 mmol/L (0.4-1.9); Potassium 3.8 mmol/L (3.5-5.1); Protein, Total 7.2 g/dL (6.4-8.2); Sodium Level 139 mmol/L (136-145)
[2020-05-15 16:19] LABS: Anisocytosis RARE; Atypical Lymphocyte RARE %; Macrocytosis RARE; Platelet Estimate ADEQUATE (ADEQ); Platelet Morphology LARGE; Red Cell Morphology N CHROM NORMAL (NORM C&C)
[2020-05-15 16:52] VITALS: BP 106/64; PULSE 108; RESP 19; O2SAT 92
== END 2020-05-15 17:13 | disposition home or self-care (01) ==
PROVIDERS: Emergency Provider Emergency Medicine; PCP Family Medicine Geriatric Medicine
DX: U07.1 COVID-19 (principal); R53.1 Weakness; E11.9 Type 2 diabetes mellitus without complications; I10 Essential (primary) hypertension; E03.9 Hypothyroidism, unspecified; Z79.84 Long term (current) use of oral hypoglycemic drugs; Z79.82 Long term (current) use of aspirin; Z79.899 Other long term (current) drug therapy; Z87.891 Personal history of nicotine dependence
CPT/HCPCS: 71045; 80053; 83605; 84484; 85025; 86140; 87426; 87804; 93005; 96360; 96361; 99285; A4216

== ENCOUNTER 2020-07-31 06:56 | Outpatient (RCR) | payer MEDICARE, OTHER, SELFPAY | END 2020-09-09 23:59 | LOC: IMMUN 06:56 | PROVIDERS: PCP Family Medicine Geriatric Medicine; Referring Provider Family Medicine; Visit Provider Family Medicine | DX: Z23 Encounter for immunization (principal) | CPT/HCPCS: 0001A; 0002A; 91300 ==

== ENCOUNTER → 2020-09-11 11:19 | Outpatient (CLI) | payer MEDICARE, OTHER, SELFPAY ==
[2020-09-11 12:30] LABS: Absolute Lymphocyte Count 2.21 X10^3/uL (0.83-4.51); Absolute Neutrophil Count 5.5 X10^3/uL (2.0-7.7); Basophil# 0.06 X10^3/uL; Basophil% 0.7 % (0-1); Eosinophil# 0.13 X10^3/uL; Eosinophils% 1.5 % (0-5); Hematocrit 42.1 % (37-47); Hemoglobin 13.3 g/dL (12.0-15.0); Lymphocyte # 2.21 X10^3/ul (0.83-4.51); Lymphocyte % 25.5 % (19-41); Mean Corp Hgb Conc 31.6 g/dL (32-36); Mean Corpuscular Hgb 29.6 pg (27.0-32.0); Mean Corpuscular Volume 93.8 fL (81-99); Mean Platelet Vol. 10.6 fl (6.2-12.0); Monocyte# 0.79 X10^3/uL; Monocyte% 9.1 % (0-10); NRBC Flagged by Analyzer 0 % (0-5); Neutrophil # 5.45 X10^3/uL (2.7-7.7); Neutrophil % 62.9 % (47-70); Platelet Count 337 K/mm3 (150-450); RBC Distribution Width CV 13.2 % (11.6-14.6); RBC Distribution Width SD 45.4 fl (35.1-43.9); Red Blood Count 4.49 M/mm3 (4.2-5.4); White Blood Count 8.7 K/mm3 (4.4-11.0)
[2020-09-11 12:47] LABS: Vitamin D,25 Hydroxy 24.6 ng/mL
[2020-09-11 12:53] LABS: AST(SGOT) 23 U/L (15-37); Alanine Aminotransfer ALT/SGPT 34 U/L (13-56); Albumin, Serum 3.8 g/dL (3.2-5.0); Alkaline Phosphatase 63 U/L (45-117); Anion Gap 7 (5-15); BUN 9 mg/dL (7-18); BUN/Creat Ratio 11.9 RATIO (10-20); Calcium,Total 9.6 mg/dL (8.5-10.1); Chloride 108 mmol/L (98-107); Creatinine, Serum 0.75 mg/dL (0.55-1.02); EST Glomerular Filtration Rate 80 mL/min (>60); Est Glom Filt Rate - Afr Amer 97 mL/min (>60); Globulin 3.7 g/dL (2.2-4.2); Glucose 128 mg/dL (74-106); Potassium 4.3 mmol/L (3.5-5.1); Protein, Total 7.5 g/dL (6.4-8.2); Sodium Level 141 mmol/L (136-145); Thyroid Stim Hormone (TSH) 2.44 uIU/mL (0.358-3.74)
== END ==
PROVIDERS: PCP Family Medicine Geriatric Medicine; Visit Provider Family Medicine Geriatric Medicine
DX: E11.9 Type 2 diabetes mellitus without complications (principal); E55.9 Vitamin D deficiency, unspecified; I10 Essential (primary) hypertension
CPT/HCPCS: 36415; 80053; 82306; 84443; 85025

== ENCOUNTER → 2021-03-12 09:25 | Outpatient (CLI) | payer MEDICARE, OTHER, SELFPAY ==
[2021-03-12 12:08] LABS: Absolute Lymphocyte Count 2.14 X10^3/uL (0.83-4.51); Absolute Neutrophil Count 3.9 X10^3/uL (2.0-7.7); Basophil# 0.05 X10^3/uL; Basophil% 0.7 % (0-1); Eosinophil# 0.16 X10^3/uL; Eosinophils% 2.3 % (0-5); Hematocrit 41.3 % (37-47); Hemoglobin 13.3 g/dL (12.0-15.0); Lymphocyte # 2.14 X10^3/ul (0.83-4.51); Lymphocyte % 31.3 % (19-41); Mean Corp Hgb Conc 32.2 g/dL (32-36); Mean Corpuscular Hgb 30.3 pg (27.0-32.0); Mean Corpuscular Volume 94.1 fL (81-99); Mean Platelet Vol. 10.7 fl (6.2-12.0); Monocyte# 0.54 X10^3/uL; Monocyte% 7.9 % (0-10); NRBC Flagged by Analyzer 0 % (0-5); Neutrophil # 3.92 X10^3/uL (2.7-7.7); Neutrophil % 57.5 % (47-70); Platelet Count 323 K/mm3 (150-450); RBC Distribution Width CV 12.8 % (11.6-14.6); Red Blood Count 4.39 M/mm3 (4.2-5.4); White Blood Count 6.8 K/mm3 (4.4-11.0)
[2021-03-12 12:24] LABS: Vitamin D,25 Hydroxy 15.4 ng/mL
[2021-03-12 12:31] LABS: AST(SGOT) 31 U/L (15-37); Alanine Aminotransfer ALT/SGPT 44 U/L (13-56); Albumin, Serum 3.7 g/dL (3.2-5.0); Alkaline Phosphatase 59 U/L (45-117); Anion Gap 7 (5-15); BUN 10 mg/dL (7-18); BUN/Creat Ratio 12.6 RATIO (10-20); Calcium,Total 9.4 mg/dL (8.5-10.1); Chloride 106 mmol/L (98-107); EST Glomerular Filtration Rate 75 mL/min (>60); Est Glom Filt Rate - Afr Amer 91 mL/min (>60); Globulin 3.8 g/dL (2.2-4.2); Glucose 164 mg/dL (74-106); Potassium 4.3 mmol/L (3.5-5.1); Protein, Total 7.5 g/dL (6.4-8.2); Sodium Level 139 mmol/L (136-145); Thyroid Stim Hormone (TSH) 2.26 uIU/mL (0.358-3.74)
== END ==
PROVIDERS: PCP Family Medicine Geriatric Medicine; Visit Provider Family Medicine Geriatric Medicine
DX: E11.9 Type 2 diabetes mellitus without complications (principal); I10 Essential (primary) hypertension; E55.9 Vitamin D deficiency, unspecified
CPT/HCPCS: 36415; 80053; 82306; 84443; 85025

== ENCOUNTER → 2021-09-17 | Outpatient (CLI) | payer MEDICARE, OTHER, SELFPAY ==
[2021-09-17 11:52] LABS: Absolute Lymphocyte Count 2.67 X10^3/uL (0.83-4.51); Absolute Neutrophil Count 4.2 X10^3/uL (2.0-7.7); Basophil# 0.06 X10^3/uL; Basophil% 0.8 % (0-1); Eosinophil# 0.14 X10^3/uL; Eosinophils% 1.8 % (0-5); Hematocrit 39.3 % (37-47); Hemoglobin 12.6 g/dL (12.0-15.0); Lymphocyte # 2.67 X10^3/ul (0.83-4.51); Lymphocyte % 33.5 % (19-41); Mean Corp Hgb Conc 32.1 g/dL (32-36); Mean Corpuscular Hgb 30.1 pg (27.0-32.0); Mean Corpuscular Volume 93.8 fL (81-99); Mean Platelet Vol. 10.5 fl (6.2-12.0); Monocyte# 0.84 X10^3/uL; Monocyte% 10.6 % (0-10); NRBC Flagged by Analyzer 0 % (0-5); Neutrophil # 4.23 X10^3/uL (2.7-7.7); Platelet Count 332 K/mm3 (150-450); RBC Distribution Width SD 44.3 fl (35.1-43.9); Red Blood Count 4.19 M/mm3 (4.2-5.4)
[2021-09-17 12:08] LABS: Vitamin D,25 Hydroxy 21.3 ng/mL
[2021-09-17 12:18] LABS: ALB/GLOB Ratio 1.1 RATIO (0.9-2.4); AST(SGOT) 36 U/L (15-37); Alanine Aminotransfer ALT/SGPT 40 U/L (13-56); Albumin, Serum 3.8 g/dL (3.2-5.0); Alkaline Phosphatase 56 U/L (45-117); Anion Gap 8 (5-15); BUN 16 mg/dL (7-18); BUN/Creat Ratio 19.8 RATIO (10-20); Calcium,Total 9.3 mg/dL (8.5-10.1); Chloride 107 mmol/L (98-107); Creatinine, Serum 0.81 mg/dL (0.55-1.02); EST Glomerular Filtration Rate 74 mL/min (>60); Est Glom Filt Rate - Afr Amer 89 mL/min (>60); Globulin 3.6 g/dL (2.2-4.2); Glucose 131 mg/dL (74-106); Protein, Total 7.4 g/dL (6.4-8.2); Sodium Level 140 mmol/L (136-145); Thyroid Stim Hormone (TSH) 2.36 uIU/mL (0.358-3.74)
== END | disposition home or self-care (01) ==
LOC: POLAB3 09:02
PROVIDERS: PCP Family Medicine Geriatric Medicine; Visit Provider Family Medicine Geriatric Medicine
DX: I10 Essential (primary) hypertension (principal); E11.9 Type 2 diabetes mellitus without complications; E55.9 Vitamin D deficiency, unspecified
CPT/HCPCS: 36415; 80053; 82306; 84443; 85025

== ENCOUNTER → 2022-03-18 | Outpatient (CLI) | payer MEDICARE, OTHER, SELFPAY ==
[2022-03-18 10:33] LABS: Absolute Lymphocyte Count 2.32 X10^3/uL (0.83-4.51); Basophil# 0.05 X10^3/uL; Basophil% 0.7 % (0-1); Eosinophil# 0.17 X10^3/uL; Eosinophils% 2.4 % (0-5); Hematocrit 41.1 % (37-47); Lymphocyte # 2.32 X10^3/ul (0.83-4.51); Lymphocyte % 32.4 % (19-41); Mean Corp Hgb Conc 31.6 g/dL (32-36); Mean Corpuscular Hgb 29.9 pg (27.0-32.0); Mean Corpuscular Volume 94.5 fL (81-99); Mean Platelet Vol. 10.4 fl (6.2-12.0); Monocyte# 0.63 X10^3/uL; Monocyte% 8.8 % (0-10); NRBC Flagged by Analyzer 0 % (0-5); Neutrophil # 3.98 X10^3/uL (2.7-7.7); Neutrophil % 55.6 % (47-70); Platelet Count 314 K/mm3 (150-450); RBC Distribution Width CV 12.6 % (11.6-14.6); RBC Distribution Width SD 43.2 fl (35.1-43.9); Red Blood Count 4.35 M/mm3 (4.2-5.4); White Blood Count 7.2 K/mm3 (4.4-11.0)
[2022-03-18 11:52] LABS: ALB/GLOB Ratio 1.1 RATIO (0.9-2.4); AST(SGOT) 38 U/L (15-37); Alanine Aminotransfer ALT/SGPT 42 U/L (13-56); Albumin, Serum 3.9 g/dL (3.2-5.0); Alkaline Phosphatase 59 U/L (45-117); Anion Gap 5 (5-15); BUN 10 mg/dL (7-18); BUN/Creat Ratio 13.9 RATIO (10-20); Calcium,Total 9.8 mg/dL (8.5-10.1); Chloride 105 mmol/L (98-107); Creatinine, Serum 0.72 mg/dL (0.55-1.02); EST Glomerular Filtration Rate 84 mL/min (>60); Est Glom Filt Rate - Afr Amer 101 mL/min (>60); Globulin 3.7 g/dL (2.2-4.2); Glucose 129 mg/dL (74-106); Potassium 4.1 mmol/L (3.5-5.1); Protein, Total 7.6 g/dL (6.4-8.2); Sodium Level 140 mmol/L (136-145); Thyroid Stim Hormone (TSH) 3.14 uIU/mL (0.358-3.74)
== END | disposition home or self-care (01) ==
LOC: POLAB3 09:42
PROVIDERS: PCP Family Medicine Geriatric Medicine; Visit Provider Family Medicine Geriatric Medicine
DX: E55.9 Vitamin D deficiency, unspecified (principal); E11.21 Type 2 diabetes mellitus with diabetic nephropathy; I10 Essential (primary) hypertension
CPT/HCPCS: 36415; 80053; 82306; 84443; 85025

== ENCOUNTER → 2022-06-22 | Outpatient (CLI) | payer MEDICARE, OTHER, SELFPAY ==
--- NOTE | 2022-06-22 14:15 | RAD_ITS ---
INDICATION: CONGESTIONS OF RESP TRACT EXAMINATION/TECHNIQUE: X-RAY - XR Chest 2 Views COMPARISON: 05/15/2020 FINDINGS: LINES/DEVICES: None. LUNGS: New mild bibasilar interstitial infiltrates. MEDIASTINUM AND CARDIOVASCULAR STRUCTURES: Cardiac silhouette not enlarged. Central airways and mediastinal contour are unremarkable. BONES AND SOFT TISSUES: Unremarkable. RAD/Chest PA and Lateral IMPRESSION: Bibasilar interstitial infiltrates. Electronically Signed: Renan Dooley MD, KARY at 16:57 EDT ,
== END | disposition home or self-care (01) ==
LOC: RAD 14:06
PROVIDERS: PCP Family Medicine Geriatric Medicine; Visit Provider Family Medicine Geriatric Medicine
DX: R91.8 Other nonspecific abnormal finding of lung field (principal)
CPT/HCPCS: 71046

== ENCOUNTER 2022-06-23 17:34 | Inpatient (IN) | payer MEDICARE, OTHER, SELFPAY ==
[2022-06-23 17:34] VITALS: BP 156/87; PULSE 105; RESP 18; TEMP 36.4; O2SAT 96; BMI 28.9
[2022-06-23 17:51] VITALS: RESP 19; O2SAT 97
[2022-06-23 19:21] LABS: Absolute Lymphocyte Count 1.76 X10^3/uL (0.83-4.51); Absolute Neutrophil Count 16.7 X10^3/uL (2.0-7.7); Basophil# 0.04 X10^3/uL; Basophil% 0.2 % (0-1); Hemoglobin 12.6 g/dL (12.0-15.0); Lymphocyte # 1.76 X10^3/ul (0.83-4.51); Lymphocyte % 8.8 % (19-41); Mean Corp Hgb Conc 32.3 g/dL (32-36); Mean Corpuscular Hgb 30.2 pg (27.0-32.0); Mean Corpuscular Volume 93.5 fL (81-99); Monocyte# 1.34 X10^3/uL; Monocyte% 6.7 % (0-10); NRBC Flagged by Analyzer 0 % (0-5); Neutrophil % 83.6 % (47-70); Platelet Count 356 K/mm3 (150-450); RBC Distribution Width CV 13.2 % (11.6-14.6); RBC Distribution Width SD 44.8 fl (35.1-43.9); Red Blood Count 4.17 M/mm3 (4.2-5.4)
[2022-06-23 19:34] VITALS: PULSE 91; RESP 16; O2SAT 95; O2SAT 97
[2022-06-23 19:36] LABS: Anion Gap 9 (5-15); BUN 20 mg/dL (7-18); BUN/Creat Ratio 18.9 RATIO (10-20); Calcium,Total 9.6 mg/dL (8.5-10.1); Chloride 108 mmol/L (98-107); Creatinine, Serum 1.06 mg/dL (0.55-1.02); EST Glomerular Filtration Rate 54 mL/min (>60); Est Glom Filt Rate - Afr Amer 65 mL/min (>60); Estimated Creatinine Clearance 36.83 ml/min; Glucose 310 mg/dL (74-106); Potassium 4.5 mmol/L (3.5-5.1); Sodium Level 140 mmol/L (136-145)
--- NOTE | 2022-06-23 19:39 | EX.ED.DYSGE1 ---
HPI History of Present Illness Chief Complaint: Shortness of Breath Detail of Chief Complaint: Contacted by Dr. Roper because chest x-ray was interpreted as bilateral inte Informant: patient Onset/Context/Timing Onset: - (Sinus likes symptoms that started 2 weeks ago.) Context: Sudden Onset Timing: Lasts (No longer has upper respiratory symptoms.) Quality: Read HPI narrative Location: Per HPI narrative Maximum Severity: Moderate Worsened by: Midsternal chest discomfort with walking to the mailbox and going up and do Relieved by: Rest Associated Symptoms Associated Symptoms: Dyspnea Narrative Narrative: Patient is a 76-year-old woman who has history of heart disease, diabetes, hypertension, GERD who was sent to the emergency department because radiologist interpreted her chest x-ray as bilateral interstitial basilar infiltrates. The x-ray was reviewed by me. I do not agree with the radiology interpretation. Patient does report midsternal chest discomfort described as a pressure sensation that occurred when she walked to the mailbox today and stopped after resting for 3 minutes. She also had chest discomfort going up a flight of steps that was alleviated after she rested for several minutes. This was associated with shortness of breath. There was no nausea, vomiting or diaphoresis. The pain did not radiate. Patient denies fever, chills night sweats. She denies headache, ocular auditory symptoms. She states when she had the nasal congestion that started greater than 2 weeks ago she had pressure in the frontal region. Patient does report cough. She has cough productive of clear to white sputum for the past several days. She has not smoked in 14 years. She denies history of PE or DVT. She denies leg pain, swelling or discoloration. She denies symptoms of claudication. She denies pleuritic chest pain. She denies GI or symptoms. She denies neurologic symptoms. Prior similar symptoms: No Recent Illness/Hospitalization: No PFSH PFS Medical History Atherosclerotic heart disease of [place] coronary artery without angina pectoris GERD (gastroesophageal reflux disease) HTN (hypertension) Hyperlipidemia Hypothyroidism Type 2 diabetes mellitus Home Medications famotidine 40 mg tablet (Pepcid) 40 mg PO DAILY 10/11/16 [History Last Taken Unknown] levothyroxine 50 mcg tablet 50 mcg PO DAILY 10/11/16 [History Last Taken 10/12/16] losartan 50 mg tablet 50 mg PO DAILY 10/11/16 [History Last Taken 10/12/16] nitroglycerin 0.4 mg sublingual tablet 0.4 mg sublingual Q5M PRN Chest Pain 10/11/16 [History Last Taken Unknown] simvastatin 80 mg tablet 80 mg PO DAILY 10/11/16 [History Last Taken Unknown] clobetasol 0.05 % topical cream 1 applic topical DAILY 06/06/19 [History Last Taken Unknown] estradiol 0.01% (0.1 mg/gram) vaginal cream (Estrace) See Rx Instructions vaginal .COMPLEX #42.5 grams 06/06/19 [Rx Last Taken Unknown] metformin 500 mg tablet 500 mg PO TID 12/19/19 [History Last Taken Unknown] aspirin 81 mg tablet,delayed release 81 mg PO .every other day 03/13/21 [History Last Taken Unknown] albuterol sulfate 90 mcg/actuation aerosol inhaler 2 puff inhalation Q6H PRN Wheezing 06/23/22 [History Last Taken Unknown] cefdinir 300 mg capsule 300 mg PO BID 06/23/22 [History Last Taken Unknown] codeine 10 mg-guaifenesin 100 mg/5 mL oral liquid ml 06/23/22 [History Last Taken Unknown] doxycycline hyclate 100 mg tablet 100 mg PO BID 06/23/22 [History Last Taken Unknown] prednisone 10 mg tablet 10 mg PO BID 06/23/22 [History Last Taken Unknown] Allergy/AdvReac Type Severity Reaction Status Date / Time chlorzoxazone Allergy Unknown Verified 06/23/22 17:37 [From Parafon Forte] ciprofloxacin [From Cipro] Allergy Unknown Verified 06/23/22 17:37 lovastatin [From Mevacor] Allergy Unknown Verified 06/23/22 17:37 metronidazole [From Flagyl] Allergy Unknown Verified 06/23/22 17:37 naproxen [From Naprosyn] Allergy Unknown Verified 06/23/22 17:37 tramadol Allergy Unknown Verified 06/23/22 17:37 Family History Father Diabetes Brother Colon cancer 2015 diagnosis Surgical History History of delivery History of colon resection Social History Smoking Status: Former smoker alcohol intake: never substance use type: does not use caffeine: Yes what type of physical activity do you participate in: walking seatbelt use: always do you feel safe at home: Yes additional social history: [employer] are retired ROS ROS ED Constitutional Constitutional ED: Denies chills, fever(s), subjective, sweats or weight loss Eyes Eyes: Denies blurry vision, change in vision or diplopia ENT ENT ED: Denies ear pain, rhinorrhea or sore throat Cardiovascular Cardiovascular: Reports chest pain; Denies orthopnea, palpitations, paroxysmal nocturnal dyspnea or racing heartbeat Respiratory/Chest Respiratory/Chest: Reports cough, dyspnea, dyspnea on exertion and sputum; Denies orthopnea or paroxysmal nocturnal dyspnea Gastrointestinal Gastrointestinal: Denies abdominal pain, constipation, diarrhea, melena, nausea or vomiting Genitourinary Genitourinary ED: Denies dysuria, hematuria or urinary frequency Musculoskeletal Musculoskeletal: Denies arthralgias, back pain, myalgias or neck pain Integumentary Denies Abrasions or rash Neurologic Neurologic: Denies headache(s), paresthesias or weakness Psychiatric Psychiatric: Denies anxiety Endocrine Endocrinology: Denies cold intolerance or heat intolerance Hematologic/Lymphatic Hematologic/Lymphatic: Reports systems reviewed and no addt'l complaints, except as documented EXAM Physical Exam Const Vital Signs: 06/23/22 17:34 06/23/22 17:51 06/23/22 17:51 Temperature 97.5 F L Temperature Source Temporal Pulse Rate 105 H Respiratory Rate 18 19 H Respiratory Effort Respiratory Depth Respiratory Pattern Blood Pressure 156/87 H Blood Pressure Mean 110 Pulse Ox 96 97 97 Oxygen Delivery Method Room Air Room Air Room Air 06/23/22 19:34 06/23/22 19:34 06/23/22 21:31 Temperature 98.3 F Temperature Source Oral Pulse Rate 91 87 Respiratory Rate 16 18 Respiratory Effort Normal Non-Labored Respiratory Depth Normal Respiratory Pattern Normal Blood Pressure 123/68 H Blood Pressure Mean 86 Pulse Ox 97 95 Oxygen Delivery Method Room Air Room Air Room Air 06/23/22 21:31 06/23/22 22:30 Temperature 98.2 F Temperature Source Oral Pulse Rate 84 Respiratory Rate 18 Respiratory Effort Respiratory Depth Respiratory Pattern Blood Pressure 123/68 H 136/73 H Blood Pressure Mean 86 94 Pulse Ox 95 Oxygen Delivery Method Room Air Positive well nourished and well developed General Appearance ED: well developed and NAD; Negative for cyanotic or diaphoretic HEENT Reports moist mucous membranes HEENT Narrative: There is no tenderness over the frontal, ethmoid or maxillary sinuses. TMs are normal. Posterior pharynx out erythema or exudate. Uvula is midline. Nares patent without discharge. Eyes PERRL and EOMs intact bilaterally General Eye ED: Negative for pale conjunctiva or scleral icterus Neck no lymphadenopathy and supple Neck Narrative: Trachea is midline. The inspiratory expiratory stridor. Chest Wall inspection of chest normal and palpation of chest normal Resp normal respiratory effort and clear to auscultation bilaterally Resp Narrative: No egophony. There is no tactile or vocal fremitus. Auscultation: Negative for rales, rhonchi, wheezes or diminished lung sounds Cardio regular rhythm, S1 normal heart sound, S2 normal heart sound and no murmurs Rate: tachycardic GI normal to inspection, nondistended, normoactive bowel sounds, non-tender, non-distended and no masses; Negative for hepatosplenomegaly Auscultation: normoactive bowel sounds Palpation: soft Back/Spine no CVA tenderness Extremity normal to inspection Extremity Narrative: There is no asymmetry, swelling, discoloration, leg vein distention, palpable cords or tenderness along the distribution of the deep venous system. General Extremety ED: Negative for edema General Extremity: Negative for edema Neuro oriented x3 and CN's II-XII intact bilaterally Sensorium / Orientation: alert Skin no rashes or lesions noted, no wounds and skin turgor normal MDM MDM MDM Narrative Medical decision making narrative: Certain patient's chest discomfort is cardiac in etiology. Will obtain EKG to evaluate for ischemia and troponin to rule out injury. CBC was obtained to assess white count differential and H&H. Basic metabolic panel was obtained to assess for renal function in the event she needs a CTA because PE is in the differential. Chest x-ray was not repeated. The x-ray that was performed earlier today was reviewed and as previously stated I do not agree with the radiologist interpretation. History & Record Review Discussion w/independent historian: Patient and Family Additional record(s) reviewed:: Prior inpatient record and Prior labs Lab Data Attestation: I reviewed the patient's lab results. Lab results narrative: White count is elevated at 20,000 with slight shift with no bandemia. There is no evidence of anemia. Basic metabolic panel reveals a creatinine of 1.06 with a GFR of 54. Blood sugar is elevated 310 with a normal CO2 and anion gap. Labs: Laboratory Results - last 24 hr 06/23/22 06/23/22 06/23/22 19:15 19:15 19:15 WBC 20.0 H RBC 4.17 L Hgb 12.6 Hct 39.0 MCV 93.5 MCH 30.2 MCHC 32.3 RDW Std Deviation 44.8 H RDW Coeff of Manish 13.2 Plt Count 356 MPV 10.0 Immature Gran % (Auto) 0.700 Neut % (Auto) 83.6 H Lymph % (Auto) 8.8 L Hood % (Auto) 6.7 Eos % (Auto) 0.0 Baso % (Auto) 0.2 Absolute Neuts (auto) 16.7 H Absolute Lymphs (auto) 1.76 Nucleated RBC % 0 D-Dimer Quant (PE/DVT) Sodium 140 Potassium 4.5 Chloride 108 H Carbon Dioxide 23.0 Anion Gap 9 BUN 20 H Creatinine 1.06 H Estim Creat Clear Calc 36.83 Est GFR (MDRD) Af Amer 65 Est GFR (MDRD) Non-Af 54 L BUN/Creatinine Ratio 18.9 Glucose 310 H Lactic Acid Calcium 9.6 Troponin I High Sens 6 06/23/22 06/23/22 19:53 19:53 WBC RBC Hgb Hct MCV MCH MCHC RDW Std Deviation RDW Coeff of Manish Plt Count MPV Immature Gran % (Auto) Neut % (Auto) Lymph % (Auto) Hood % (Auto) Eos % (Auto) Baso % (Auto) Absolute Neuts (auto) Absolute Lymphs (auto) Nucleated RBC % D-Dimer Quant (PE/DVT) 0.39 Sodium Potassium Chloride Carbon Dioxide Anion Gap BUN Creatinine Estim Creat Clear Calc Est GFR (MDRD) Af Amer Est GFR (MDRD) Non-Af BUN/Creatinine Ratio Glucose Lactic Acid 3.5 H* Calcium Troponin I High Sens Radiography Diagnostic Testing: Clinical Impression(s) from Imaging Studies Chest CT 06/23/22 21:45 IMPRESSION: Tiny groundglass nodules scattered throughout both lungs are probably infectious/inflammatory. Electronically Signed: Tristin Ng MD at 22:13 EDT , EKG Initial EKG: Attestation: I personally reviewed and interpreted this EKG as follows: Interpretation: Sinus Rhythm (EKG is normal. Ventricular rate is 82. ID interval is 126. QRS duration 80 ms. QT durations 150 ms. [place] is normal.) Treatment and Re-Evaluation :: Patient received IV antibiotics. Case discussed with hospitalist. Discharge Plan Dx/Rx/DC Orders Clinical Impression: Bilateral interstitial pneumonia, Hyperlipidemia, Type 2 diabetes mellitus, HTN (hypertension), Acidosis, lactic, Exertional chest pain Disposition Disposition: Acute Care Hospital [facility]
[2022-06-23 20:37] LABS: D-Dimer Quantitative (DVT/PE) 0.39 FEU/ug/m (0.27-0.49)
[2022-06-23 20:43] LABS: Troponin-I HS 6 pg/mL (3.0-54.0)
[2022-06-23 20:56] LABS: Lactic Acid 3.5 mmol/L (0.4-1.9)
[2022-06-23 21:31] VITALS: BP 123/68; PULSE 87; RESP 18; TEMP 36.8; O2SAT 95
--- NOTE | 2022-06-23 21:45 | CT_ITS ---
INDICATION: Leukocytosis, respiratory symptoms EXAMINATION: CT CHEST WITHOUT CONTRAST - CT Chest W/O Contrast Injection TECHNIQUE: Helically acquired images were obtained of the chest. A radiation dose optimization technique was used for this scan. IV Contrast dosage and agent: None. COMPARISON: None. FINDINGS: LUNGS, PLEURA AND LARGE AIRWAYS: Numerous tiny groundglass nodules scattered throughout both lungs. No pleural effusion or thickening. No pneumothorax. THYROID: No thyroid lesions. HEART AND PERICARDIUM: Heart size is normal. No pericardial effusion. CORONARY ARTERIES: Coronary artery calcification is seen. VESSELS: Thoracic aorta is not dilated. MEDIASTINUM AND BIENVENIDO: No mediastinal or hilar adenopathy. Esophagus is unremarkable. No hiatal hernia. UPPER ABDOMEN: No acute abnormal finding. BONES: Thoracic spine degenerative change. CT/Chest without Contrast IMPRESSION: Tiny groundglass nodules scattered throughout both lungs are probably infectious/inflammatory. Electronically Signed: Tristin Ng MD at 22:13 EDT ,
[2022-06-23 22:30] VITALS: BP 136/73; PULSE 84; RESP 18; TEMP 36.8; O2SAT 95
--- NOTE | 2022-06-23 23:06 | HP.PCM_ITS ---
HPI - General General Date of Admission: 06/23/22 Date of Service: 06/23/22 Chief Complaint: Cough, congestion, dyspnea, chest heaviness. HPI Narrative The patient is a 76 y/o F w/ PMHx: Hx Bowel obstruction requiring partial resection, Overweight, HTN, HLD, GERD, Hypothyroidism, Diabetes mellitus type II, Nonobstructive CAD, Former tobacco use who presents to the [facility] ED on 06/23/22 from her PCP Office Dr. Roper secondary to history of persistent worsening cough, congestion, dyspnea, chest heaviness ongoing x2 weeks with recent checks x-ray demonstrating bilateral pneumonia with initially more sinus type symptoms that started at the onset 2 weeks prior with concurrent midsternal chest discomfort specifically while active improving with rest. She reported specifically discomfort when going to the mailbox and upstairs with associated dyspnea. She denies any nausea, emesis or diaphoresis. Pain remained in the midsternal chest region and was described as primarily a pressure-like sensation. She denies any recent history of fevers or chills with her recent viral illness. She does report a headache as well as pressure in the frontal sinus region initially with onset of her illness. She has been coughing with a white to clear sputum over the last several days. No one else in her family has been ill. Work-up in the ED included T97.5, heart rate 105, BP 156/87, respiratory rate 18, 96% on room air, CBC with WC 20, hemoglobin 12.6, platelet 356 with significant left shift, recent chest x-ray performed 06/22/2022 with noted bibasilar interstitial infiltrate, BMP with chloride 108, BUN/creatinine 20/1.06, glucose 310, lactic acid 3.5, troponin 6, D-dimer 0.39, CT Chest w/ tiny groundglass nodules scattered throughout both lungs are probably infectious/inflammatory, EKG SR without acute evidence of ischemia. In the ED patient ministered IV azithromycin and Rocephin. [facility] Medical History (Updated 06/24/22 @ 01:[address] Stacy Phan MD) Atherosclerotic heart disease of [place] coronary artery without angina pectoris Former tobacco use GERD (gastroesophageal reflux disease) HTN (hypertension) Hyperlipidemia Hypothyroidism Type 2 diabetes mellitus Home Medications famotidine 40 mg tablet (Pepcid) 40 mg PO QHS acid reflux 10/11/16 [History Last Taken Unknown] levothyroxine 50 mcg tablet 50 mcg PO DAILY hypothyroidism 10/11/16 [History Last Taken 10/12/16] losartan 50 mg tablet 50 mg PO DAILY high bp 10/11/16 [History Last Taken 10/12/16] nitroglycerin 0.4 mg sublingual tablet 0.4 mg sublingual Q5M PRN Chest Pain 10/11/16 [History Last Taken Unknown] simvastatin 80 mg tablet 80 mg PO DAILY high cholesterol 10/11/16 [History Last Taken Unknown] clobetasol 0.05 % topical cream 1 applic topical DAILY itching 06/06/19 [History Last Taken Unknown] metformin 500 mg tablet 500 mg PO TID diabetes 12/19/19 [History Last Taken Unknown] aspirin 81 mg tablet,delayed release 81 mg PO .every other day heart health 03/13/21 [History Last Taken Unknown] albuterol sulfate 90 mcg/actuation aerosol inhaler 2 puff inhalation Q6H PRN Wheezing 06/23/22 [History Last Taken Unknown] cefdinir 300 mg capsule 300 mg PO BID resp infection 06/23/22 [History Last Taken Unknown] codeine 10 mg-guaifenesin 100 mg/5 mL oral liquid 10 ml PO Q4H cough 06/23/22 [History Last Taken Unknown] doxycycline hyclate 100 mg tablet 100 mg PO BID resp infection 06/23/22 [History Last Taken Unknown] prednisone 10 mg tablet 10 mg PO BID resp infection 06/23/22 [History Last Taken Unknown] Allergy/AdvReac Type Severity Reaction Status Date / Time chlorzoxazone Allergy Unknown Verified 06/23/22 17:37 [From Parafon Forte] ciprofloxacin [From Cipro] Allergy Unknown Verified 06/23/22 17:37 lovastatin [From Mevacor] Allergy Unknown Verified 06/23/22 17:37 metronidazole [From Flagyl] Allergy Unknown Verified 06/23/22 17:37 naproxen [From Naprosyn] Allergy Unknown Verified 06/23/22 17:37 tramadol Allergy Unknown Verified 06/23/22 17:37 Family History (Updated 06/24/22 @ 01:[address] Stacy Phan MD) Father Diabetes Brother Colon cancer 2015 diagnosis Mother Thyroid disorder Surgical History (Updated 06/24/22 @ 01:[address] Stacy Phan MD) History of delivery History of colon resection Social History (Updated 06/24/22 @ 01:[address] Stacy Phan MD) household members: spouse and family Smoking Status: Former smoker how long ago did patient quit smoking: Quit age 62, smoked 1/2 ppd from teen until quit. alcohol intake: never substance use type: does not use caffeine: Yes what type of physical activity do you participate in: walking seatbelt use: always do you feel safe at home: Yes additional social history: Randolph- Both are retired ROS ROS Narrative Admission Review of Systems: CONSTITUTIONAL: No weight loss, fever, chills, + weakness or fatigue. HEENT: Facial pressure/congestion. Eyes: No visual loss, blurred vision, double vision or yellow sclerae. Ears, Nose, Throat: No hearing loss, sneezing. SKIN: No rash or itching, lesions, wounds. CARDIOVASCULAR: + chest pain, chest pressure or chest discomfort. No palpita tions, edema, orthopnea, syncopal events. RESPIRATORY: + shortness of breath, cough without marked sputum. No wheezing, hemoptysis. GASTROINTESTINAL: No anorexia, nausea, vomiting or diarrhea, abdominal pain, melena, BRBPR. GENITOURINARY: No dysuria, frequency, urgency or retention. NEUROLOGICAL: No headache, dizziness, syncope, paralysis, ataxia, numbness or tingling in the extremities, focal weakness, change in bowel or bladder control, seizure. MUSCULOSKELETAL: No muscle, back pain, joint pain or stiffness. HEMATOLOGIC: No anemia, bleeding or bruising. LYMPHATICS: No enlarged nodes. No history of splenectomy. PSYCHIATRIC: No history of depression or anxiety. ENDOCRINOLOGIC: No reports of sweating, cold or heat intolerance. No polyuria or polydipsia. ALLERGIES: No history of asthma, hives, eczema or rhinitis Vital Signs Vital Signs Vital Signs: 06/23/22 17:34 06/23/22 17:51 06/23/22 17:51 Temperature 97.5 F L Temperature Source Temporal Pulse Rate 105 H Respiratory Rate 18 19 H Respiratory Effort Respiratory Depth Respiratory Pattern Blood Pressure 156/87 H Blood Pressure Mean 110 Pulse Ox 96 97 97 Oxygen Delivery Method Room Air Room Air Room Air 06/23/22 19:34 06/23/22 19:34 06/23/22 21:31 Temperature 98.3 F Temperature Source Oral Pulse Rate 91 87 Respiratory Rate 16 18 Respiratory Effort Normal Non-Labored Respiratory Depth Normal Respiratory Pattern Normal Blood Pressure 123/68 H Blood Pressure Mean 86 Pulse Ox 97 95 Oxygen Delivery Method Room Air Room Air Room Air 06/23/22 21:31 06/23/22 22:30 Temperature 98.2 F Temperature Source Oral Pulse Rate 84 Respiratory Rate 18 Respiratory Effort Respiratory Depth Respiratory Pattern Blood Pressure 123/68 H 136/73 H Blood Pressure Mean 86 94 Pulse Ox 95 Oxygen Delivery Method Room Air Weight Weight: 158 lb Body Mass Index (BMI) 28.9 Physical Exam Narrative Physical Examination: General: Awake, alert, oriented x 3 and cooperative, seated upright in the ED bed, fatigued, no acute distress. Skin: Normal color, normal turgor, no icterus, no cyanosis. HEENT: AT/NC, EOMI, PERRLA, mildly dry MM, no carotid bruits or JVD noted. Lungs: Diminished, greater bases, mildly decreased right base to mid posteriorly compared to left, mildly coarse right base, no current wheezing or any evidence of respiratory distress. Heart: Mildly tachycardic with regular rhythm; no gallop, rub audible. Abdomen: Soft, overweight, NTTP, ND, mildly hyperactive BS, no HSM. Extremities: No cyanosis, clubbing, or edema. Neurological: Patient awake, alert, oriented as noted, cognitive function in tact; pupils equally reactive to light and accommodation, cranial nerves II-XII grossly normal, moving all 4 extremities, no focal deficits, strength mildly to moderately decreased given ongoing illness and acute presentation. Psychiatric: Affect appears fatigued, no acute evidence of depressive or anxiety feelings. Results Lab / Micro Data Result Diagrams: 06/23/22 19:15 06/23/22 19:15 Labs: Laboratory Results - last 24 hr 06/23/22 19:15: WBC 20.0 H, RBC 4.17 L, Hgb 12.6, Hct 39.0, MCV 93.5, MCH 30.2, MCHC 32.3, RDW Std Deviation 44.8 H, RDW Coeff of Manish 13.2, Plt Count 356, MPV 10.0, Immature Gran % (Auto) 0.700, Neut % (Auto) 83.6 H, Lymph % (Auto) 8.8 L, [place] % (Auto) 6.7, Eos % (Auto) 0.0, Baso % (Auto) 0.2, Absolute Neuts (auto) 16.7 H, Absolute Lymphs (auto) 1.76, Nucleated RBC % 0 06/23/22 19:15: Sodium 140, Potassium 4.5, Chloride 108 H, Carbon Dioxide 23.0, Anion Gap 9, BUN 20 H, Creatinine 1.06 H, Estim Creat Clear Calc 36.83, Est GFR (MDRD) Af Amer 65, Est GFR (MDRD) Non-Af 54 L, BUN/Creatinine Ratio 18.9, Glu cose 310 H, Calcium 9.6 06/23/22 19:15: Troponin I High Sens 6 06/23/22 19:53: D-Dimer Quant (PE/DVT) 0.39 06/23/22 19:53: Lactic Acid 3.5 H* Radiology Impression Chest CT 06/23/22 21:45 IMPRESSION: Tiny groundglass nodules scattered throughout both lungs are probably infectious/inflammatory. Electronically Signed: Tristin Ng MD at 22:13 EDT , Assessment & Plan Assessment/Plan (1) Bilateral interstitial pneumonia: PLAN: Plan The patient is a 76 y/o F w/ PMHx: Hx Bowel obstruction requiring partial resection, Overweight, HTN, HLD, GERD, Hypothyroidism, Diabetes mellitus type II, Nonobstructive CAD, Former tobacco use who presents to the [facility] ED on 06/23/22 from her PCP Office Dr. Roper secondary to history of persistent worsening cough, congestion, dyspnea, chest heaviness ongoing x2 weeks with recent checks x-ray demonstrating bilateral pneumonia with initially more sinus type symptoms that started at the onset 2 weeks prior with concurrent midsternal chest discomfort specifically while active improving with rest. #1. Bilateral bibasilar pneumonia, community-acquired with associated lactic acidosis: Will PCU given concurrent #2, maintain on oxygen with wean as tolerated to room air, PRN albuterol, maintained on IV Rocephin and Azithromycin, HOB, IS parameters w/ pending sputum cultures, full respiratory viral panel, COVID PCR and urine antigens. Bld cx x 2 obtained in the ED. #2. Chest Pain, likely related with #1 but still certainly given underlying h istory does have elevated cardiac risk factors: EKG in ED SR without acute evidence of ischemia, initial trop 6. Will maintain on monitored bed to assure no acute myocardial infarction with serial cardiac enzymes and EKGs. Given number 1 we will continue to treat and if appropriate may necessitate future cardiac stress testing pending further enzyme trending, EKGs. Magnesium level requested. FLP in AM. ASA, NG, morphine. #3. Mild acute renal insufficiency: Admission BUN/creatinine 20/1.06, baseline creatinine primarily 0.7-0.8, will continue hydration, repeat CMP in AM. #4. Nonobstructive CAD: Patient previously following with Dr. Lundberg, will continue aspirin, statin, losartan, not on any beta-yoandy therapy. #5. Diabetes mellitus type II with hyperglycemia, likely secondary to acute presentation #1: Hold oral home regimen, ADA diet, accu checks w/ ISS. #6. Hypertension: Continue home regimen including losartan, PRN hydralazine. #7. Hyperlipidemia: We will continue patient on statin therapy. #8. Hypothyroidism: We will continue patient home levothyroxine regimen. #9. GERD: We will continue patient on famotidine regimen. #10. Overweight: Weight loss and lifestyle changes encouraged. #11. Former tobacco use: Encourage continued tobacco cessation. #12. DVT prophylaxis: Lovenox. #13. CODE status: Patient AMBROSE is her and daughter as secondary and living will is currently in place. Discussed CODE status at length including difference between FULL code, DNR-CCA and DNR-CC status. Following discussions about the differences in these status, requested Full Code status. Advanced Care Planning Face to Face Time: 16 minutes. Admission Evaluation Time spent evaluating chart, patient history, patient evaluation, care planning and discussion with specialists: 76 minutes. Charges/Coding Visit Charges Inpatient E&M: 43808 Init Hosp L3 Procedures Hospitalists Procedures: 25275 Advncd Care Plan 30 Min
[2022-06-23 23:27] LABS: Magnesium 1.5 mg/dL (1.6-2.6)
[2022-06-24] VITALS (8 sets, daily range): BP systolic 119–136; BP diastolic 64–77; PULSE 71–86; RESP 15–20; TEMP 36.6–36.9; O2SAT 95–99; BMI 28.5
[2022-06-24 00:15] LABS: Reflex Lactate? Y
[2022-06-24] MEDS: 0.9% Normal Saline 1,000 ML 125 ML IV (01:00)
[2022-06-24 01:22] LABS: Lactic Acid 3.9 mmol/L (0.4-1.9)
[2022-06-24 01:58] LABS: Troponin-I HS 6 pg/mL (3.0-54.0)
[2022-06-24 03:59] LABS: Absolute Lymphocyte Count 1.69 X10^3/uL (0.83-4.51); Absolute Neutrophil Count 13.8 X10^3/uL (2.0-7.7); Basophil# 0.02 X10^3/uL; Basophil% 0.1 % (0-1); Hematocrit 35.6 % (37-47); Hemoglobin 11.8 g/dL (12.0-15.0); Lymphocyte # 1.69 X10^3/ul (0.83-4.51); Mean Corp Hgb Conc 33.1 g/dL (32-36); Mean Corpuscular Hgb 31.2 pg (27.0-32.0); Mean Corpuscular Volume 94.2 fL (81-99); Mean Platelet Vol. 10.2 fl (6.2-12.0); Monocyte# 1.33 X10^3/uL; Monocyte% 7.8 % (0-10); NRBC Flagged by Analyzer 0 % (0-5); Neutrophil % 81.3 % (47-70); Platelet Count 309 K/mm3 (150-450); RBC Distribution Width CV 13.2 % (11.6-14.6); RBC Distribution Width SD 44.9 fl (35.1-43.9); Red Blood Count 3.78 M/mm3 (4.2-5.4)
[2022-06-24 04:18] LABS: Troponin-I HS 6 pg/mL (3.0-54.0)
[2022-06-24 04:27] LABS: AST(SGOT) 21 U/L (15-37); Alanine Aminotransfer ALT/SGPT 35 U/L (13-56); Albumin, Serum 3.3 g/dL (3.2-5.0); Alkaline Phosphatase 57 U/L (45-117); Anion Gap 9 (5-15); BUN 22 mg/dL (7-18); BUN/Creat Ratio 23.3 RATIO (10-20); Calcium,Total 8.9 mg/dL (8.5-10.1); Chloride 110 mmol/L (98-107); Cholesterol 134 mg/dL (200); Creatinine, Serum 0.94 mg/dL (0.55-1.02); EST Glomerular Filtration Rate 61 mL/min (>60); Est Glom Filt Rate - Afr Amer 74 mL/min (>60); Estimated Creatinine Clearance 41.53 ml/min; Globulin 3.2 g/dL (2.2-4.2); Glucose 331 mg/dL (74-106); High Density Lipoprotein 43 mg/dL; Potassium 4.5 mmol/L (3.5-5.1); Protein, Total 6.5 g/dL (6.4-8.2); Sodium Level 142 mmol/L (136-145); Triglycerides 102 mg/dL; Very Low Density Lipoprotein 20 mg/dL (5-40)
[2022-06-24] MEDS: Levothyroxine 50 MCG Tablet PO (05:56)
[2022-06-24] MEDS: Insulin Lispro 100 UNIT/ML INSULN.PEN SC ×2 (06:41→11:44)
[2022-06-24 07:05] LABS: Bedside Glucose 206 mg/dL (74-106)
[2022-06-24 07:12] LABS: M R Staph aureus DNA By PCR Negative (Negative); Probe Check PASS; Specimen Processing Control PASS
[2022-06-24] MEDS: Aspirin E.C. 81 MG Tablet PO (08:33)
[2022-06-24] MEDS: Famotidine 20 MG Tablet 40 MG PO (08:33)
[2022-06-24] MEDS: Enoxaparin 40 MG/0.4 ML Syringe SC (08:33)
[2022-06-24] MEDS: Losartan Potassium 50 MG Tablet PO (08:34)
[2022-06-24] MEDS: Glucerna Shake 120 ML LIQUID PO ×2 (08:35→11:45)
--- NOTE | 2022-06-24 09:22 | PN.HOSP_ITS ---
Reason for Visit Reason for Visit: Diagnoses Interstitial pulmonary disease, unspecified (06/23/22) Subjective Subjective Patient is a 76-year-old lady admitted with shortness of breath and persistent cough. Checks x-ray demonstrated bilateral infiltrates. An assessment of pneumonia made admitted for further inpatient treatment Objective Data Objective Data Vital Signs: Vital Signs Temp Pulse Resp BP Pulse Ox O2 Del Method 97.8 F 71 15 129/65 H 95 Room Air 06/24/22 08:28 06/24/22 08:28 06/24/22 08:28 06/24/22 08:28 06/24/22 08:28 06/24/22 08:30 Oxygen Delivery Method Room Air Weight: 70.8 kg Body Mass Index (BMI) 28.5 Intake & Output: Intake and Output for Last 24 Hours 06/22/22 06/23/22 06/24/22 23:59 23:59 23:59 Intake Total 305 / 305 Balance 305 / 305 Lab / Micro Data Result Diagrams: 06/24/22 03:37 06/24/22 03:37 Labs: Laboratory Results - last 24 hr 06/23/22 19:15: WBC 20.0 H, RBC 4.17 L, Hgb 12.6, Hct 39.0, MCV 93.5, MCH 30.2, MCHC 32.3, RDW Std Deviation 44.8 H, RDW Coeff of Manish 13.2, Plt Count 356, MPV 10.0, Immature Gran % (Auto) 0.700, Neut % (Auto) 83.6 H, Lymph % (Auto) 8.8 L, [place] % (Auto) 6.7, Eos % (Auto) 0.0, Baso % (Auto) 0.2, Absolute Neuts (auto) 16.7 H, Absolute Lymphs (auto) 1.76, Nucleated RBC % 0 06/23/22 19:15: Sodium 140, Potassium 4.5, Chloride 108 H, Carbon Dioxide 23.0, Anion Gap 9, BUN 20 H, Creatinine 1.06 H, Estim Creat Clear Calc 36.83, Est GFR (MDRD) Af Amer 65, Est GFR (MDRD) Non-Af 54 L, BUN/Creatinine Ratio 18.9, Glucose 310 H, Calcium 9.6 06/23/22 19:15: Troponin I High Sens 6 06/23/22 19:15: Magnesium 1.5 L 06/23/22 19:53: D-Dimer Quant (PE/DVT) 0.39 06/23/22 19:53: Lactic Acid 3.5 H* 06/23/22 23:25: COVID-19 (MAGGY) Not Detected 06/24/22 00:40: Lactic Acid 3.9 H* 06/24/22 01:20: MRSA (PCR) Negative 06/24/22 01:30: Troponin I High Sens 6 06/24/22 03:37: WBC 17.0 H, RBC 3.78 L, Hgb 11.8 L, Hct 35.6 L, MCV 94.2, MCH 31.2, MCHC 33.1, RDW Std Deviation 44.9 H, RDW Coeff of Manish 13.2, Plt Count 309, MPV 10.2, Immature Gran % (Auto) 0.800, Neut % (Auto) 81.3 H, Lymph % (Auto) 10.0 L, [place] % (Auto) 7.8, Eos % (Auto) 0.0, Baso % (Auto) 0.1, Absolute Neuts (auto) 13.8 H, Absolute Lymphs (auto) 1.69, Nucleated RBC % 0 06/24/22 03:37: Sodium 142, Potassium 4.5, Chloride 110 H, Carbon Dioxide 23.0, Anion Gap 9, BUN 22 H, Creatinine 0.94, Estim Creat Clear Calc 41.53, Est GFR (MDRD) Af Amer 74, Est GFR (MDRD) Non-Af 61, BUN/Creatinine Ratio 23.3 H, Glucose 331 H, Calcium 8.9, Total Bilirubin 0.10 L, AST 21, ALT 35, Alkaline Phosphatase 57, Total Protein 6.5, Albumin 3.3, Globulin 3.2, Albumin/Globulin Ratio 1.0, Triglycerides 102, Cholesterol 134, LDL Cholesterol 71, VLDL Cholesterol 20, HDL Cholesterol 43 06/24/22 03:37: Troponin I High Sens 6 06/24/22 06:42: POC Glucose 206 H Micro: Microbiology 06/24/22 01:15 Urine, Clean Catch Streptococcus pneumoniae Antigen (M - Final 06/24/22 01:15 Urine, Clean Catch Legionella Antigen - Final 06/23/22 23:25 Mucosa - Nasopharyngeal Respiratory Panel (PCR) - Final Radiography Diagnostic Testing: Radiology Impression Chest CT 06/23/22 21:45 IMPRESSION: Tiny groundglass nodules scattered throughout both lungs are probably infectious/inflammatory. Electronically Signed: Tristin Ng MD at 22:13 EDT , Physical Exam Narrative GENERAL: cooperative HEENT: Atraumatic; normocephalic EYES; Anicteric, Normal Conjunctiva NECK; supple, normal thyroid, RESPIRATORY: Diminished to auscultation CARDIOVASCULAR: Regular S1 S2, GI: soft, normoactive bowel sounds, : No Renal angle tenderness; EXTREMITIES: No edema, no clubbing, MUSCULOSKELETAL: no muscle wasting NEURO: Awake; no lateralizing signs. SKIN: No Rash PSYCH; Flat affect Assessment & Plan Assessment/Plan (1) Bilateral interstitial pneumonia: PLAN: Plan Patient is a 76-year-old lady admitted with shortness of breath and persistent cough. Checks x-ray demonstrated bilateral infiltrates. An assessment of pneumonia made admitted for further inpatient treatment 1. Pneumonia - Suspected to be secondary to streptococcal pneumonia, Blood and sputum cultures sent. Patient placed on Rocephin and Zithromax and placed on oxygen titrated to keep Pulse Ox greater than 90 2. Lactic acidosis ? Patient did not meet criteria for sepsis lactic acidosis attributed to increased work of breathing as well as patient being on metformin 3. Diabetes mellitus type II -patient's oral hypoglycemics held. Placed on long acting insulin, Accu-Cheks a.c. and at bedtime and covered with sliding scale insulin 4. Dyslipidemia -Patient is on statin therapy, continued at home dose 5. Hypertension - Blood pressure controlled, home medications continued with dose adjustment as needed 6. Hypothyroidism - Patient is on levothyroxine home dose continued 7. GERD ? Patient is on Pepcid at home 8. DVT prophylaxis - On enoxaparin Time spent in the patient's overall evaluation,decision-making process, review of diagnostic data, adjustment of management, discussion with other providers, nursing nursing and ancillary staff involved in patient's care documentation,40 Minutes Charges/Coding Visit Charges Inpatient E&M: 28717 Subs Hosp L2
--- NOTE | 2022-06-24 10:48 | DS.PCM_ITS ---
Providers Date of Admission: 06/23/22 Primary Care Physician: Dr. Segundo Roper MD Reason For Visit: BL PNA, CHEST PAIN Diagnosis Discharge Diagnosis (1) Bilateral interstitial pneumonia: Status: Acute Code(s): J84.9 - Interstitial pulmonary disease, unspecified Plan Patient is a 76-year-old lady admitted with shortness of breath and persistent cough. Checks x-ray demonstrated bilateral infiltrates. An assessment of pneum onia made admitted for further inpatient treatment 1. Pneumonia - Suspected to be secondary to streptococcal pneumonia, Blood and sputum cultures sent. Patient placed on Rocephin and Zithromax and placed on oxygen titrated to keep Pulse Ox greater than 90 2. Lactic acidosis ? Patient did not meet criteria for sepsis lactic acidosis attributed to increased work of breathing as well as patient being on metformin 3. Diabetes mellitus type II -patient's oral hypoglycemics held. Placed on long acting insulin, Accu-Cheks a.c. and at bedtime and covered with sliding scale insulin 4. Dyslipidemia -Patient is on statin therapy, continued at home dose 5. Hypertension - Blood pressure controlled, home medications continued with dose adjustment as needed 6. Hypothyroidism - Patient is on levothyroxine home dose continued 7. GERD ? Patient is on Pepcid at home 8. DVT prophylaxis - On enoxaparin Patient was expected to stay for at least 2 midnight however her recovery was much faster than anticipated and moreover patient requested to be discharged home. She was discharged home on azithromycin and cefdinir for 5 additional days. Time spent in the patient's overall evaluation,decision-making process, review of diagnostic data, adjustment of management, discussion with other providers, nursing nursing and ancillary staff involved in patient's care documentation,40 Minutes Medications at Discharge Home Medications famotidine 40 mg tablet (Pepcid) 40 mg PO QHS acid reflux 10/11/16 levothyroxine 50 mcg tablet 50 mcg PO DAILY hypothyroidism 10/11/16 losartan 50 mg tablet 50 mg PO DAILY high bp 10/11/16 nitroglycerin 0.4 mg sublingual tablet 0.4 mg sublingual Q5M PRN Chest Pain 10/11/16 simvastatin 80 mg tablet 80 mg PO DAILY high cholesterol 10/11/16 clobetasol 0.05 % topical cream 1 applic topical DAILY itching 06/06/19 metformin 500 mg tablet 500 mg PO TID diabetes 12/19/19 aspirin 81 mg tablet,delayed release 81 mg PO .every other day heart health 03/13/21 albuterol sulfate 90 mcg/actuation aerosol inhaler 2 puff inhalation Q6H PRN Wheezing 06/23/22 codeine 10 mg-guaifenesin 100 mg/5 mL oral liquid 10 ml PO Q4H cough 06/23/22 prednisone 10 mg tablet 10 mg PO BID resp infection 06/23/22 azithromycin 500 mg tablet (Zithromax) 500 mg PO DAILY 5 days #5 tabs 06/24/22 cefdinir 300 mg capsule 300 mg PO BID resp infection #10 caps 06/24/22 Hospital Course Summary of Care Provided Minutes Spent on Discharge: 35 Physical Exam Narrative GENERAL: cooperative HEENT: Atraumatic; normocephalic EYES; Anicteric, Normal Conjunctiva NECK; supple, normal thyroid, RESPIRATORY: Diminished to auscultation CARDIOVASCULAR: Regular S1 S2, GI: soft, normoactive bowel sounds, : No Renal angle tenderness; EXTREMITIES: No edema, no clubbing, MUSCULOSKELETAL: no muscle wasting NEURO: Awake; no lateralizing signs. SKIN: No Rash PSYCH; Flat affect Weight / BMI Weight Weight: 70.8 kg Body Mass Index (BMI) 28.5 ABG / Lab / Microbiology Data Result Diagrams: 06/24/22 03:37 06/24/22 03:37 Laboratory: Laboratory Results - last 24 hr 06/23/22 19:15: WBC 20.0 H, RBC 4.17 L, Hgb 12.6, Hct 39.0, MCV 93.5, MCH 30.2, MCHC 32.3, RDW Std Deviation 44.8 H, RDW Coeff of Manish 13.2, Plt Count 356, MPV 10.0, Immature Gran % (Auto) 0.700, Neut % (Auto) 83.6 H, Lymph % (Auto) 8.8 L, [place] % (Auto) 6.7, Eos % (Auto) 0.0, Baso % (Auto) 0.2, Absolute Neuts (auto) 16.7 H, Absolute Lymphs (auto) 1.76, Nucleated RBC % 0 06/23/22 19:15: Sodium 140, Potassium 4.5, Chloride 108 H, Carbon Dioxide 23.0, Anion Gap 9, BUN 20 H, Creatinine 1.06 H, Estim Creat Clear Calc 36.83, Est GFR (MDRD) Af Amer 65, Est GFR (MDRD) Non-Af 54 L, BUN/Creatinine Ratio 18.9, Glucose 310 H, Calcium 9.6 06/23/22 19:15: Troponin I High Sens 6 06/23/22 19:15: Magnesium 1.5 L 06/23/22 19:53: D-Dimer Quant (PE/DVT) 0.39 06/23/22 19:53: Lactic Acid 3.5 H* 06/23/22 23:25: COVID-19 (MAGGY) Not Detected 06/24/22 00:40: Lactic Acid 3.9 H* 06/24/22 01:20: MRSA (PCR) Negative 06/24/22 01:30: Troponin I High Sens 6 06/24/22 03:37: WBC 17.0 H, RBC 3.78 L, Hgb 11.8 L, Hct 35.6 L, MCV 94.2, MCH 31.2, MCHC 33.1, RDW Std Deviation 44.9 H, RDW Coeff of Manish 13.2, Plt Count 309, MPV 10.2, Immature Gran % (Auto) 0.800, Neut % (Auto) 81.3 H, Lymph % (Auto) 10.0 L, [place] % (Auto) 7.8, Eos % (Auto) 0.0, Baso % (Auto) 0.1, Absolute Neuts (auto) 13.8 H, Absolute Lymphs (auto) 1.69, Nucleated RBC % 0 06/24/22 03:37: Sodium 142, Potassium 4.5, Chloride 110 H, Carbon Dioxide 23.0, Anion Gap 9, BUN 22 H, Creatinine 0.94, Estim Creat Clear Calc 41.53, Est GFR (MDRD) Af Amer 74, Est GFR (MDRD) Non-Af 61, BUN/Creatinine Ratio 23.3 H, Glucose 331 H, Calcium 8.9, Total Bilirubin 0.10 L, AST 21, ALT 35, Alkaline Phosphatase 57, Total Protein 6.5, Albumin 3.3, Globulin 3.2, Albumin/Globulin Ratio 1.0, Triglycerides 102, Cholesterol 134, LDL Cholesterol 71, VLDL Cholesterol 20, HDL Cholesterol 43 06/24/22 03:37: Troponin I High Sens 6 06/24/22 06:42: POC Glucose 206 H Microbiology: Microbiology 06/24/22 01:15 Urine, Clean Catch Streptococcus pneumoniae Antigen (M - Final 06/24/22 01:15 Urine, Clean Catch Legionella Antigen - Final 06/23/22 23:25 Mucosa - Nasopharyngeal Respiratory Panel (PCR) - Final Radiography Diagnostic Testing: Radiology Impression Chest CT 06/23/22 21:45 IMPRESSION: Tiny groundglass nodules scattered throughout both lungs are probably infectious/inflammatory. Electronically Signed: Tristin Ng MD at 22:13 EDT , D/C Instructions Discharge Diet: No restrictions Discharge Activity: Return to Normal Activity Call your doctor if you observe: Fever of 101 or Higher, Shortness of breath, Fainting spells and Chest pain Meaningful Use Info Meaningful Use Diagnoses (Choose all that apply): None applicable Discharge Plan Admission Admit Date/Time: 06/23/22 23:07 Attending Provider: Guanako Gary Primary Care Provider: Segundo Roper Chi Consulting Providers: Stacy Phan Discharge Orders/Prescriptions Prescriptions: New azithromycin [Zithromax] 500 mg tablet 500 mg PO DAILY 5 Days Qty: 5 0RF Continued clobetasol 0.05 % cream 1 applic TOPICAL DAILY losartan 50 MG tablet 50 mg PO DAILY famotidine [Pepcid] 40 MG tablet 40 mg PO QHS simvastatin 80 MG tablet 80 mg PO DAILY levothyroxine 50 MCG tablet 50 mcg PO DAILY nitroglycerin 0.4 MG tablet 0.4 mg SUBLINGUAL Q5M PRN (Reason: Chest Pain) metformin 500 mg tablet 500 mg PO TID aspirin 81 mg tablet,delayed release (DR/EC) 81 mg PO .every other day prednisone 10 mg tablet 10 mg PO BID Label Comments: TAKE 3 TABLETS BY MOUTH EVERY DAY FOR 2 DAYS, then TAKE 2 TABLETS BY MOUTH EVERY DAY FOR 2 DAYS, then TAKE 1 TABLET BY MOUTH EVERY DAY FOR 2 DAYS Rx Instructions: taper codeine-guaifenesin 10-100 mg/5 mL liquid 10 ml PO Q4H Label Comments: Take 10ml BY MOUTH EVERY 4 HOURS albuterol sulfate 90 mcg/actuation HFA aerosol inhaler 2 puff INHALATION Q6H PRN (Reason: Wheezing) Label Comments: Inhale 2 (TWO) puffs EVERY 4 HOURS NEEDED cefdinir 300 mg capsule 300 mg PO BID Qty: 10 0RF Discontinued doxycycline hyclate 100 mg tablet 100 mg PO BID Label Comments: TAKE 1 TABLET BY MOUTH TWICE DAILY Referrals / Follow Up: Segundo Roper Chi, MD [Primary Care Provider] - Disposition Disposition (needs filled in before D/C Order can be placed): Home, Self Care Charges/Coding Visit Charges Inpatient E&M: 17134 Disch Hosp >30min
--- NOTE | 2022-06-24 11:30 | CASEMGMT ---
RN CM Face to Face with patient for initial transition planning/care coordination assessment. RN CM introduced self and role at [facility]. Patient lying in bed, alert and oriented. Patient willing to participate in assessment and is able to answer all questions appropriately. Care providers, pharmacy, and demographics verified. Patient wishes to discharge home, denies need for home health at this time. Patient states she has no further needs or concerns at this time. CM to follow for discharge planning needs that may arise. 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 3 steps and railing to enter the home. Transportation: self, DME/HHC: Patient states she has raised toilet. Patient denies previous HHC or SNF. Disposition Plan: Patient to discharge home with family support and follow-up plans in place. Britney MARTINEZ, RN, CM
[2022-06-24 12:06] LABS: Bedside Glucose 224 mg/dL (74-106)
== END 2022-06-24 12:57 | disposition home or self-care (01) | DRG 195 ==
LOC: ED 23:28 → PCU 23:32
PROVIDERS: Admitting Provider Family Medicine; Emergency Provider Emergency Medicine; PCP Family Medicine Geriatric Medicine; Visit Provider Internal Medicine
DX: J15.4 Pneumonia due to other streptococci (principal); E03.9 Hypothyroidism, unspecified; E11.65 Type 2 diabetes mellitus with hyperglycemia; I25.10 Atherosclerotic heart disease of native coronary artery without angina pectoris; I10 Essential (primary) hypertension; K21.9 Gastro-esophageal reflux disease without esophagitis; E78.5 Hyperlipidemia, unspecified; E66.3 Overweight; Z68.28 Body mass index [BMI] 28.0-28.9, adult; Z79.82 Long term (current) use of aspirin; Z79.84 Long term (current) use of oral hypoglycemic drugs; Z79.890 Hormone replacement therapy; Z79.899 Other long term (current) drug therapy; Z87.891 Personal history of nicotine dependence; N28.9 Disorder of kidney and ureter, unspecified
CPT/HCPCS: 36415; 71046; 71250; 80048; 80053; 80061; 82962; 83605; 83735; 84484; 85025; 85379; 87040; 87449; 87633; 87635; 87641; 93005; 94668; 94760; 97802; 99285; J7030; A4216; J0696; U0003; U0005

== ENCOUNTER → 2022-07-02 | Outpatient (CLI) | payer MEDICARE, OTHER, SELFPAY ==
--- NOTE | 2022-07-02 11:56 | RAD_ITS ---
EXAM: XR ABDOMEN, 1 VIEW CLINICAL INDICATION: DIARRHEA TECHNIQUE: Frontal supine view of the abdomen/pelvis. This report was created using [employer] report generation technology. COMPARISON: None. FINDINGS: LOWER THORAX: The visualized lung bases are clear. GASTROINTESTINAL TRACT: 3 views of the abdomen show scattered gas within the colon which is normal in caliber. Air-fluid levels are seen within the ascending colon, consistent with the clinical history of diarrhea. No large or small bowel distention is identified. ORGANS: Unremarkable as visualized. No organomegaly. No abnormal calcifications. BONES/JOINTS: Mild lumbar levoscoliosis. Degenerative spurring about the lumbar disc spaces with disc space narrowing at the L3/4 and L4/5 levels. Lumbar facet arthritis. SOFT TISSUES: Atherosclerotic vascular calcification. No acute pathology. RAD/Abd Inc Decub and/or Erect IMPRESSION: Air-fluid levels within the descending colon consistent with the clinical history of diarrhea. No colonic distention. No findings of small bowel obstruction. Electronically Signed: Tuan Munoz MD at 23:51 EDT ,
== END | disposition home or self-care (01) ==
PROVIDERS: PCP Family Medicine Geriatric Medicine; Visit Provider Family Medicine Geriatric Medicine
DX: R19.7 Diarrhea, unspecified (principal)
CPT/HCPCS: 74019; 82274; 83630; 87177; 87209; 87493

== ENCOUNTER → 2022-09-22 | Outpatient (CLI) | payer MEDICARE, OTHER, SELFPAY ==
[2022-09-22 10:24] LABS: Absolute Neutrophil Count 4.1 X10^3/uL (2.0-7.7); Basophil# 0.07 X10^3/uL; Basophil% 0.9 % (0-1); Eosinophil# 0.26 X10^3/uL; Eosinophils% 3.4 % (0-5); Hematocrit 41.5 % (37-47); Hemoglobin 12.8 g/dL (12.0-15.0); Lymphocyte % 32.7 % (19-41); Mean Corp Hgb Conc 30.8 g/dL (32-36); Mean Corpuscular Hgb 29.8 pg (27.0-32.0); Mean Corpuscular Volume 96.5 fL (81-99); Mean Platelet Vol. 10.3 fl (6.2-12.0); Monocyte# 0.68 X10^3/uL; Monocyte% 8.9 % (0-10); NRBC Flagged by Analyzer 0 % (0-5); Neutrophil # 4.12 X10^3/uL (2.7-7.7); Neutrophil % 53.8 % (47-70); Platelet Count 309 K/mm3 (150-450); RBC Distribution Width CV 12.6 % (11.6-14.6); RBC Distribution Width SD 44.7 fl (35.1-43.9); White Blood Count 7.7 K/mm3 (4.4-11.0)
[2022-09-22 10:56] LABS: Vitamin D,25 Hydroxy 25.6 ng/mL
[2022-09-22 11:02] LABS: ALB/GLOB Ratio 1.2 RATIO (0.9-2.4); AST(SGOT) 32 U/L (15-37); Alanine Aminotransfer ALT/SGPT 38 U/L (13-56); Alkaline Phosphatase 53 U/L (45-117); Anion Gap 3 (5-15); BUN 13 mg/dL (7-18); BUN/Creat Ratio 19.4 RATIO (10-20); Calcium,Total 9.5 mg/dL (8.5-10.1); Chloride 109 mmol/L (98-107); Creatinine, Serum 0.67 mg/dL (0.55-1.02); EST Glomerular Filtration Rate 91 mL/min (>60); Est Glom Filt Rate - Afr Amer 111 mL/min (>60); Globulin 3.4 g/dL (2.2-4.2); Glucose 137 mg/dL (74-106); Potassium 5.2 mmol/L (3.5-5.1); Protein, Total 7.4 g/dL (6.4-8.2); Sodium Level 140 mmol/L (136-145); Thyroid Stim Hormone (TSH) 2.93 uIU/mL (0.358-3.74)
== END | disposition home or self-care (01) ==
LOC: LAB 09:49
PROVIDERS: PCP Family Medicine Geriatric Medicine; Referring Provider Family Medicine Geriatric Medicine; Visit Provider Family Medicine Geriatric Medicine
DX: E11.65 Type 2 diabetes mellitus with hyperglycemia (principal); I10 Essential (primary) hypertension; E55.9 Vitamin D deficiency, unspecified
CPT/HCPCS: 36415; 80053; 82306; 84443; 85025

== ENCOUNTER → 2022-09-29 | Outpatient (CLI) | payer MEDICARE, OTHER, SELFPAY ==
[2022-09-29 11:04] LABS: Anion Gap 5 (5-15); BUN 10 mg/dL (7-18); BUN/Creat Ratio 12.2 RATIO (10-20); Calcium,Total 9.8 mg/dL (8.5-10.1); Chloride 106 mmol/L (98-107); Creatinine, Serum 0.82 mg/dL (0.55-1.02); EST Glomerular Filtration Rate 72 mL/min (>60); Est Glom Filt Rate - Afr Amer 88 mL/min (>60); Glucose 162 mg/dL (74-106); Potassium 4.1 mmol/L (3.5-5.1); Sodium Level 140 mmol/L (136-145)
== END | disposition home or self-care (01) ==
LOC: LAB 09:57
PROVIDERS: PCP Family Medicine Geriatric Medicine; Referring Provider Family Medicine Geriatric Medicine; Visit Provider Family Medicine Geriatric Medicine
DX: E87.5 Hyperkalemia (principal)
CPT/HCPCS: 36415; 80048

== ENCOUNTER → 2023-03-21 | Outpatient (CLI) | payer MEDICARE, OTHER, SELFPAY ==
[2023-03-21 11:22] LABS: Absolute Lymphocyte Count 2.16 X10^3/uL (0.83-4.51); Absolute Neutrophil Count 3.6 X10^3/uL (2.0-7.7); Basophil# 0.05 X10^3/uL; Basophil% 0.8 % (0-1); Eosinophil# 0.25 X10^3/uL; Eosinophils% 3.8 % (0-5); Hematocrit 39.1 % (37-47); Hemoglobin 12.2 g/dL (12.0-15.0); Lymphocyte # 2.16 X10^3/ul (0.83-4.51); Lymphocyte % 32.7 % (19-41); Mean Corp Hgb Conc 31.2 g/dL (32-36); Mean Corpuscular Hgb 29.5 pg (27.0-32.0); Mean Corpuscular Volume 94.7 fL (81-99); Mean Platelet Vol. 10.5 fl (6.2-12.0); Monocyte% 7.6 % (0-10); NRBC Flagged by Analyzer 0 % (0-5); Neutrophil # 3.64 X10^3/uL (2.7-7.7); Neutrophil % 54.9 % (47-70); Platelet Count 299 K/mm3 (150-450); RBC Distribution Width CV 12.5 % (11.6-14.6); RBC Distribution Width SD 43.4 fl (35.1-43.9); Red Blood Count 4.13 M/mm3 (4.2-5.4); White Blood Count 6.6 K/mm3 (4.4-11.0)
[2023-03-21 11:35] LABS: Vitamin D,25 Hydroxy 15.2 ng/mL
[2023-03-21 11:46] LABS: AST(SGOT) 31 U/L (15-37); Alanine Aminotransfer ALT/SGPT 35 U/L (13-56); Albumin, Serum 3.7 g/dL (3.2-5.0); Alkaline Phosphatase 62 U/L (45-117); Anion Gap 5 (5-15); BUN 10 mg/dL (7-18); BUN/Creat Ratio 12.6 RATIO (10-20); Calcium,Total 9.3 mg/dL (8.5-10.1); Chloride 108 mmol/L (98-107); Creatinine, Serum 0.79 mg/dL (0.55-1.02); EST Glomerular Filtration Rate 75 mL/min (>60); Est Glom Filt Rate - Afr Amer 91 mL/min (>60); Globulin 3.7 g/dL (2.2-4.2); Glucose 193 mg/dL (74-106); Potassium 4.2 mmol/L (3.5-5.1); Protein, Total 7.4 g/dL (6.4-8.2); Sodium Level 142 mmol/L (136-145); Thyroid Stim Hormone (TSH) 2.92 uIU/mL (0.358-3.74)
== END | disposition home or self-care (01) ==
LOC: POLAB3 10:21
PROVIDERS: PCP Family Medicine Geriatric Medicine; Visit Provider Family Medicine Geriatric Medicine
DX: E11.65 Type 2 diabetes mellitus with hyperglycemia (principal); I10 Essential (primary) hypertension; E55.9 Vitamin D deficiency, unspecified
CPT/HCPCS: 36415; 80053; 82306; 84443; 85025

== ENCOUNTER → 2023-03-25 | Outpatient (CLI) | payer MEDICARE, OTHER, SELFPAY ==
--- NOTE | 2023-03-25 08:15 | US_ITS ---
STUDY: ABDOMINAL ULTRASOUND - RIGHT UPPER QUADRANT REASON FOR VISIT: Female, 77 years old Diarrhea TECHNIQUE: Ultrasound evaluation of the right upper quadrant was performed with real-time and static garces-scale imaging. TECHNICAL QUALITY: Adequate. COMPARISON: None. FINDINGS: Liver: The liver measures 16.7 cm. There is increased echogenicity consistent with fatty infiltration. The bile ducts are within normal limits. There is hepatic color flow. The direction of portal flow is hepatopetal. There is no demonstrated mass lesion. Gallbladder: Normal distended gallbladder. The gallbladder wall measures 2.0 mm. There is a negative sonographic Camilo''s sign. There is no pericholecystic fluid. There are no gallstones. Common Bile Duct (C.B.D.): The common bile duct measures 5.1 mm. Pancreas: Normal size of the head, body and tail of the pancreas. There is normal echogenicity of the pancreas. There is no demonstrated pancreatic mass or cyst. Right Kidney: Normal size of the right kidney. The right kidney measures 11 cm x 4.8 centimeter x 4.3 cm. Normal renal cortex. The right cortex measures 1.4 cm. There is no demonstrated renal mass or cyst. There is no right hydronephrosis. US/Abdomen Limited IMPRESSION: Fatty infiltration of the liver. Electronically Signed: Kp Whitman MD at 13:26 EST ,
== END | disposition home or self-care (01) ==
LOC: US 08:14
PROVIDERS: PCP Family Medicine Geriatric Medicine; Referring Provider Family Medicine Geriatric Medicine; Visit Provider Family Medicine Geriatric Medicine
DX: R19.7 Diarrhea, unspecified (principal)
CPT/HCPCS: 76705

== ENCOUNTER → 2023-09-26 | Outpatient (CLI) | payer MEDICARE, OTHER, SELFPAY ==
[2023-09-26 12:15] LABS: Absolute Lymphocyte Count 2.66 X10^3/uL (0.83-4.51); Absolute Neutrophil Count 4.2 X10^3/uL (2.0-7.7); Basophil# 0.07 X10^3/uL; Basophil% 0.9 % (0-1); Eosinophil# 0.29 X10^3/uL; Eosinophils% 3.7 % (0-5); Hematocrit 40.8 % (37-47); Hemoglobin 12.8 g/dL (12.0-15.0); Lymphocyte # 2.66 X10^3/ul (0.83-4.51); Lymphocyte % 33.8 % (19-41); Mean Corp Hgb Conc 31.4 g/dL (32-36); Mean Corpuscular Hgb 28.8 pg (27.0-32.0); Mean Corpuscular Volume 91.9 fL (81-99); Mean Platelet Vol. 10.5 fl (6.2-12.0); Monocyte# 0.68 X10^3/uL; Monocyte% 8.6 % (0-10); NRBC Flagged by Analyzer 0 % (0-5); Neutrophil # 4.15 X10^3/uL (2.7-7.7); Neutrophil % 52.7 % (47-70); Platelet Count 276 K/mm3 (150-450); RBC Distribution Width CV 13.2 % (11.6-14.6); RBC Distribution Width SD 45.3 fl (35.1-43.9); Red Blood Count 4.44 M/mm3 (4.2-5.4); White Blood Count 7.9 K/mm3 (4.4-11.0)
[2023-09-26 12:46] LABS: Vitamin D,25 Hydroxy 21.2 ng/mL
[2023-09-26 13:07] LABS: AST(SGOT) 30 U/L (15-37); Alanine Aminotransfer ALT/SGPT 32 U/L (13-56); Albumin, Serum 3.8 g/dL (3.2-5.0); Alkaline Phosphatase 66 U/L (45-117); Anion Gap 6 (5-15); BUN 9 mg/dL (7-18); BUN/Creat Ratio 10.6 RATIO (10-20); Calcium,Total 9.7 mg/dL (8.5-10.1); Chloride 107 mmol/L (98-107); Creatinine, Serum 0.85 mg/dL (0.55-1.02); EST Glomerular Filtration Rate 69 mL/min (>60); Est Glom Filt Rate - Afr Amer 84 mL/min (>60); Globulin 3.7 g/dL (2.2-4.2); Glucose 117 mg/dL (74-106); Protein, Total 7.5 g/dL (6.4-8.2); Sodium Level 141 mmol/L (136-145)
== END | disposition home or self-care (01) ==
LOC: LAB 11:06
PROVIDERS: PCP Family Medicine Geriatric Medicine; Visit Provider Family Medicine Geriatric Medicine
DX: I10 Essential (primary) hypertension (principal); E55.9 Vitamin D deficiency, unspecified
CPT/HCPCS: 36415; 80053; 82306; 84443; 85025

== ENCOUNTER → 2023-11-07 | Outpatient (CLI) | payer MEDICARE, OTHER, SELFPAY ==
[2023-11-07 12:58] LABS: Thyroid Stim Hormone (TSH) 1.85 uIU/mL (0.358-3.74)
== END | disposition home or self-care (01) ==
PROVIDERS: PCP Family Medicine Geriatric Medicine; Referring Provider Family Medicine Geriatric Medicine; Visit Provider Family Medicine Geriatric Medicine
DX: E03.9 Hypothyroidism, unspecified (principal)
CPT/HCPCS: 36415; 84443

== ENCOUNTER → 2023-11-18 | Outpatient (CLI) | payer MEDICARE, OTHER, SELFPAY ==
--- NOTE | 2023-11-18 08:39 | US_ITS ---
STUDY: ABDOMINAL ULTRASOUND - RIGHT UPPER QUADRANT; ELASTOGRAPHY REASON FOR VISIT: Female, 78 years old. Fatty infiltration of liver. TECHNIQUE: Ultrasound evaluation of the right upper quadrant was performed with real-time and static garces-scale imaging. Point quantification shear wave elastography was performed ([email or web address]). TECHNICAL QUALITY: Adequate. COMPARISON: Comparison is made with prior study March 25, [id number]. FINDINGS: Liver: The liver measures 17.8 cm. There is increased echogenicity consistent with fatty infiltration. The bile ducts are within normal limits. There is hepatic color flow. The direction of portal flow is hepatopetal. There is no demonstrated mass lesion. Median liver stiffness measured 13.5 kPa. Gallbladder: Normal distended gallbladder. The gallbladder wall measures 2.3 mm. There is a negative sonographic Camilo''s sign. There is no pericholecystic fluid. There are no gallstones. Common Bile Duct (C.B.D.): The common bile duct measures 5. mm. Pancreas: There is normal echogenicity of the visualized pancreas. There is no demonstrated pancreatic mass or cyst. Right Kidney: Normal size of the right kidney. The right kidney measures 10.1 cm x 4.6 x 3.9 cm. Normal renal cortex. The right cortex measures 1.0 cm. There is no demonstrated renal mass or cyst. There is no right hydronephrosis. US/ABD Limited w/ Elastography IMPRESSION: 1. Liver stiffness measures 13.5 kPa compatible with F3-F4 (Moderate to severe liver fibrosis) Metavir score. Electronically Signed: Kp Whitman MD at 13:28 EDT ,
== END | disposition home or self-care (01) ==
LOC: US 08:37
PROVIDERS: PCP Family Medicine Geriatric Medicine; Referring Provider Family Medicine Geriatric Medicine; Visit Provider Family Medicine Geriatric Medicine
DX: K74.60 Unspecified cirrhosis of liver (principal); K76.0 Fatty (change of) liver, not elsewhere classified
CPT/HCPCS: 76705; 76981

== ENCOUNTER 2023-12-01 08:46 | Outpatient (CLI) | payer MEDICARE, OTHER, SELFPAY ==
[2023-12-01] VITALS (13 sets, daily range): BP systolic 107–141; BP diastolic 55–96; PULSE 64–70; RESP 10–18; TEMP 36.6; O2SAT 91–100; BMI 26.6
[2023-12-01 09:11] LABS: Platelet Count 281 K/mm3 (150-450)
[2023-12-01 09:13] LABS: Partial Thromboplast Time 27.3 Seconds (24.1-36.2); Prothrombin Time (Protime)PT. 13.2 SECONDS (11.7-14.9)
[2023-12-01] MEDS: 0.9% Normal Saline (250mL Bag) 250 ML 15 ML IV (09:36)
[2023-12-01] MEDS: Midazolam 2 MG/2 ML Syringe IV (09:49)
[2023-12-01] MEDS: fentaNYL 100 MCG/2 ML Ampul IV (09:51)
[2023-12-01] MEDS: 0.9% Saline Lock 10 ML Syringe IV (09:57)
[2023-12-01] MEDS: Lidocaine 2% (20 ml mdv) 20 ML Vial INFILT (10:08)
--- NOTE | 2023-12-01 10:10 | LIVB_PTH ---
PATHOLOGY RESULTS PATIENT: ALFRED HARRIS LOC: CT U#:[id number] AGE/SX: 78/F ROOM: RE12/01/[address]: Dr. Segundo Roper MD : 1945 BED: DIS: 12/01/2023 SPEC #: [id number] RECD: 12/01/23 10:21 STATUS: ARABELLA NATALIOZabrina #: [id number] DANIEL: 12/01/23 10:[address]: Segundo Roper Chi DEPT: SURGICAL PATHOLOGY RECD BY: Beto Avina ENTERED: 12/01/23 11:19 SP TYPE: LIVER BX Tissues: Liver, NOS Procedures: PAS with Diastase (control) Trichrome (control) Special Stain Group I PAS Stain (control) Surgery Specimen Level V Retic (control) Iron Stain (control) HEADER OPERATION: CT guided liver biopsy PRE-OP DIAGNOSIS: Cirrhosis TISSUE SUBMITTED: 18 gauge x4 cores MICROSCOPIC DIAGNOSIS Liver, CT guided core biopsy: Consistent with cirrhosis. See microscopic description and comment. 12/02/2023 COMMENT Correlation with clinical, laboratory, radiologic findings and appropriate follow up are necessary. MICROSCOPIC DESCRIPTION Slides are reviewed. The specimen showed liver parenchymal tissue with distortion of normal lobular architecture into multiple nodules divided by fibrous septa. Hepatocytes in the nodules show macrovesicular steatosis. Fibrous septa in between the nodules show chronic inflammatory cell infiltrates. Iron stain does not show iron deposition. Trichrome and reticulin stain highlights the fibrous septa in between the hepatocyte nodules. PAS statin with and without diastase do not abnormal accumulation of protein. All stains are performed with appropriate matched controls. GROSS DESCRIPTION Received is one container labeled with the patient's name and not further designated. The specimen consists of multiple elongated fragments of richard soft tissue measuring in aggregate 1.5 x 0.5 x 0.1cm. The entire specimen is submitted in one cassette. 12/01/2023 TC:5 CPT:11269, 77111 x5
--- NOTE | 2023-12-01 11:37 | PCM.OP.PRO ---
Procedure Report Date of Procedure: 12/01/23 Assessment & Plan Assessment/Plan (1) Fatty liver: PLAN: PROCEDURE: CT DIRECTED CORE LIVER BIOPSY ORDERING PROVIDER: Dr. oRper INDICATION: Female, 78 years old. Fatty liver. PROVIDER: CAROL Garcia CONSENT: Written informed consent was obtained having explained the risks, benefits and alternatives in detail with the patient who accepted the risks and agreed to proceed. Laboratory review and clinical assessment was performed. PRE-PROCEDURE SEDATION ASSESSMENT: Current history and physical dictated by referring provider and reviewed. No clinical changes since date of exam. Patient has a Mallampati Score of Class 1 and ASA Class of 3. PROCEDURAL SEDATION PROTOCOL: The Drugs used were: 2 mg Versed, IV, and 50 mcg Fentanyl, IV. The sedation time was: 23 minutes, starting at 9:49 AM and terminated at 10:12 AM. The procedural sedation protocol was independently monitored by the department nurse. RADIATION DOSAGE (If Supplied By Facility): CTDIvol = 20.04 mGy, DLP = 772.99 mGycm Individualized dose optimization techniques were used for this CT. TECHNIQUE: The patient was placed in a supine position. Using CT image guidance with image documentation, a suitable location in the left lobe of the liver was identified. The skin surface was prepped with betadine and draped in a sterile fashion. 2% lidocaine was used for local anesthesia. Using an anterior approach, puncture of the liver was uneventful with an 18-gauge core needle system. 6, 18-gauge core samples were obtained, and submitted in formalin to the pathologist for further assessment. The needle was removed. An occlusive sterile dressing was applied. Patient tolerated the procedure well, and returned to the holding bay for nursing monitoring. IMPRESSION: 1. CT directed core needle biopsy of the liver, using CT image guidance with image documentation as described. 2. Procedural Sedation protocol utilized with independent monitoring. Procedures Radiology Radiology CT Procedures: 53666 Biopsy Liver Multi Select Codes Radiology Radiology CT Procedures: 76057-07 CT guidance parenchymal tissue
== END 2023-12-01 23:59 | disposition home or self-care (01) ==
LOC: CT 08:47
PROVIDERS: Nurse Practitioner Acute Care; PCP Family Medicine Geriatric Medicine; Referring Provider Family Medicine Geriatric Medicine; Visit Provider Family Medicine Geriatric Medicine
DX: K74.60 Unspecified cirrhosis of liver (principal); E11.65 Type 2 diabetes mellitus with hyperglycemia; E03.9 Hypothyroidism, unspecified; K86.81 Exocrine pancreatic insufficiency; D49.0 Neoplasm of unspecified behavior of digestive system; I10 Essential (primary) hypertension; K22.10 Ulcer of esophagus without bleeding; K21.9 Gastro-esophageal reflux disease without esophagitis; E55.9 Vitamin D deficiency, unspecified; E87.5 Hyperkalemia; M54.31 Sciatica, right side; Z79.899 Other long term (current) drug therapy
CPT/HCPCS: 47000; 36415; 77012; 85049; 85610; 85730; 88307; 88312; 99156; J7050; A4216

== ENCOUNTER → 2023-12-21 | Outpatient (CLI) | payer MEDICARE, OTHER, SELFPAY ==
[2023-12-21 15:32] LABS: CRP < 2.90 mg/L (0.0-3.0)
[2023-12-23 16:10] LABS: Endomysial Antibody IgA Negative (Negative); Immunoglobulin A 291 mg/dL (64-422); t-Transglutaminase IgA <2 U/mL (0-3)
[2023-12-27 03:07] LABS: Pancreatic Elastase, Fecal > 800 (>200)
[2023-12-29 18:08] LABS: Fats, Neutral Normal (.); Fats, Total Increased (.)
== END | disposition home or self-care (01) ==
PROVIDERS: PCP Family Medicine Geriatric Medicine; Referring Provider Internal Medicine Gastroenterology; Visit Provider Internal Medicine Gastroenterology
DX: R19.7 Diarrhea, unspecified (principal)
CPT/HCPCS: 36415; 82653; 82705; 82784; 83516; 86140; 86255

== ENCOUNTER → 2024-01-09 | Outpatient (CLI) | payer MEDICARE, OTHER, SELFPAY ==
[2024-01-11 05:07] LABS: Pancreatic Elastase, Fecal > 800 (>200)
== END | disposition home or self-care (01) ==
LOC: LAB.FUTURE 10:42 → LABSPEC 10:42
PROVIDERS: PCP Family Medicine Geriatric Medicine; Referring Provider Internal Medicine Gastroenterology; Visit Provider Internal Medicine Gastroenterology
DX: R19.5 Other fecal abnormalities (principal)
CPT/HCPCS: 82653

== ENCOUNTER → 2024-03-26 | Outpatient (CLI) | payer MEDICARE, OTHER, SELFPAY ==
[2024-03-26 12:11] LABS: Absolute Lymphocyte Count 2.21 X10^3/uL (0.83-4.51); Absolute Neutrophil Count 4.6 X10^3/uL (2.0-7.7); Basophil# 0.04 X10^3/uL; Basophil% 0.5 % (0-1); Eosinophil# 0.22 X10^3/uL; Eosinophils% 2.8 % (0-5); Hematocrit 40.9 % (37-47); Hemoglobin 12.6 g/dL (12.0-15.0); Lymphocyte # 2.21 X10^3/ul (0.83-4.51); Lymphocyte % 28.6 % (19-41); Mean Corp Hgb Conc 30.8 g/dL (32-36); Mean Corpuscular Hgb 28.8 pg (27.0-32.0); Mean Corpuscular Volume 93.6 fL (81-99); Mean Platelet Vol. 10.5 fl (6.2-12.0); Monocyte# 0.64 X10^3/uL; Monocyte% 8.3 % (0-10); NRBC Flagged by Analyzer 0 % (0-5); Neutrophil # 4.59 X10^3/uL (2.7-7.7); Neutrophil % 59.5 % (47-70); Platelet Count 303 K/mm3 (150-450); RBC Distribution Width CV 12.6 % (11.6-14.6); RBC Distribution Width SD 43.1 fl (35.1-43.9); Red Blood Count 4.37 M/mm3 (4.2-5.4); White Blood Count 7.7 K/mm3 (4.4-11.0)
[2024-03-26 12:43] LABS: Vitamin D,25 Hydroxy 8.3 ng/mL
[2024-03-26 12:50] LABS: AST(SGOT) 23 U/L (15-37); Alanine Aminotransfer ALT/SGPT 30 U/L (13-56); Albumin, Serum 3.8 g/dL (3.2-5.0); Alkaline Phosphatase 73 U/L (45-117); Anion Gap 4 (5-15); BUN 11 mg/dL (7-18); BUN/Creat Ratio 13.4 RATIO (10-20); Calcium,Total 9.8 mg/dL (8.5-10.1); Chloride 108 mmol/L (98-107); Creatinine, Serum 0.82 mg/dL (0.55-1.02); EST Glomerular Filtration Rate 72 mL/min (>60); Est Glom Filt Rate - Afr Amer 87 mL/min (>60); Glucose 151 mg/dL (74-106); Protein, Total 7.8 g/dL (6.4-8.2); Sodium Level 141 mmol/L (136-145)
== END | disposition home or self-care (01) ==
LOC: LAB 11:12
PROVIDERS: PCP Family Medicine Geriatric Medicine; Referring Provider Family Medicine Geriatric Medicine; Visit Provider Family Medicine Geriatric Medicine
DX: E11.65 Type 2 diabetes mellitus with hyperglycemia (principal); I10 Essential (primary) hypertension; E55.9 Vitamin D deficiency, unspecified
CPT/HCPCS: 36415; 80053; 82306; 84443; 85025

== ENCOUNTER → 2024-06-07 | Outpatient (CLI) | payer MEDICARE, OTHER, SELFPAY ==
[2024-06-07 12:35] LABS: Hematocrit 38.2 % (37-47); Hemoglobin 12.2 g/dL (12.0-15.0); Mean Corp Hgb Conc 31.9 g/dL (32-36); Mean Corpuscular Hgb 29.7 pg (27.0-32.0); Mean Corpuscular Volume 92.9 fL (81-99); Mean Platelet Vol. 10.3 fl (6.2-12.0); Platelet Count 273 K/mm3 (150-450); RBC Distribution Width CV 12.9 % (11.6-14.6); RBC Distribution Width SD 43.8 fl (35.1-43.9); Red Blood Count 4.11 M/mm3 (4.2-5.4); White Blood Count 6.7 K/mm3 (4.4-11.0)
[2024-06-07 12:47] LABS: Partial Thromboplast Time 27.7 Seconds (24.1-36.2); Prothrombin Time (Protime)PT. 13.4 SECONDS (11.7-14.9)
[2024-06-07 13:15] LABS: ALB/GLOB Ratio 1.5 RATIO (0.9-2.4); AST(SGOT) 36 U/L (<=31); Alanine Aminotransfer ALT/SGPT 30 U/L (<=34); Albumin, Serum 4.2 g/dL (3.4-4.8); Alkaline Phosphatase 68 U/L (35-104); Anion Gap 13 (5-15); BUN 11 mg/dL (4-19); BUN/Creat Ratio 12.2 RATIO (10-20); Calcium,Total 9.8 mg/dL (7.6-11.0); Carbon Dioxide 23.4 mmol/L (21.0-32.0); Chloride 105 mmol/L (98-108); Creatinine, Serum 0.88 mg/dL (0.70-1.20); EST Glomerular Filtration Rate 68 (>60); Globulin 2.9 g/dL (2.2-4.2); Glucose 251 mg/dL (70-99); Potassium 4.1 mmol/L (3.3-5.1); Protein, Total 7.1 g/dL (5.9-8.4); Sodium Level 141 mmol/L (133-145); Total Bilirubin 0.32 mg/dL (0.00-1.30)
[2024-06-08 04:07] LABS: AFP, Tumor Marker 2.1 ng/mL (0.0-9.2)
== END | disposition home or self-care (01) ==
PROVIDERS: PCP Family Medicine Geriatric Medicine; Referring Provider Internal Medicine Gastroenterology; Visit Provider Internal Medicine Gastroenterology
DX: K74.60 Unspecified cirrhosis of liver (principal)
CPT/HCPCS: 36415; 80053; 82105; 85027; 85610; 85730

== ENCOUNTER → 2024-06-27 | Outpatient (CLI) | payer MEDICARE, OTHER, SELFPAY ==
--- NOTE | 2024-06-27 10:29 | MRI_ITS ---
PROCEDURE: MRI of the abdomen without and with intravenous contrast. 06/27/2024 REASON FOR EXAM: Liver cirrhosis. TECHNIQUE: Multiplanar, multisequence MRI images of the abdomen were obtained without and with intravenous contrast. 13 cc Clariscan IV contrast was administered. COMPARISON: Abdominal ultrasound 11/18/2023 no prior abdominal MRI. FINDINGS: [id number] degenerative changes of the present in the spine. The included osseous structures otherwise grossly unremarkable. Heart is not enlarged. No sizable pericardial effusion. Lower lungs are grossly clear. No large abdominal wall defect. The included bowel segments are unremarkable, although evaluation is limited. No upper abdominal ascites or adenopathy. No filling defects in the gallbladder. No abnormal dilation of the biliary tree. Patchy wall thickening of the stomach may be due to lack of distention versus peristalsis. No significant signal dropout of the liver parenchyma on out of phase images, to suggest significant fatty metamorphosis. The abdominal aorta is normal in caliber with a moderate amount of atherosclerotic change. The adrenal glands and spleen are unremarkable. Kidneys are symmetric in size and enhancement. No solid-appearing renal mass or obstructive uropathy. There is a nonenhancing T2 hyperintense well-marginated 7 mm cyst of the pancreatic tail image 58 axial postcontrast images. The remainder of the pancreas is unremarkable. Gently lobulated contour of the liver may be due to early cirrhosis. No enhancing T2 hyperintense liver lesion. MRI/MRI Abd WITH and W/O Contrast IMPRESSION: Gently lobulated contour of the liver may be due to early cirrhosis. No enhanc ing liver lesion. No upper abdominal ascites or adenopathy. Nonenhancing 7 mm cyst distal pancreatic tail. This could represent a mildly d ilated side duct or IPMN. Suggest follow-up abdominal MRI in 6 months to document stability. The remaining solid organs of the abdomen are unremarkable. No filling defects in the gallbladder or abnormal dilation of the biliary tree. Moderate atherosclerotic change of the abdominal aorta. Reading Location: [facility]
== END | disposition home or self-care (01) ==
LOC: MRI 10:07
PROVIDERS: PCP Family Medicine Geriatric Medicine; Referring Provider Internal Medicine Gastroenterology; Visit Provider Internal Medicine Gastroenterology
DX: K74.60 Unspecified cirrhosis of liver (principal)
CPT/HCPCS: 74183

== ENCOUNTER → 2024-07-17 | Outpatient (CLI) | payer MEDICARE, OTHER, SELFPAY ==
[2024-07-17 18:32] LABS: Hemoglobin 12.4 g/dL (12.0-15.0); Mean Corp Hgb Conc 32.6 g/dL (32-36); Mean Corpuscular Hgb 29.9 pg (27.0-32.0); Mean Corpuscular Volume 91.6 fL (81-99); Platelet Count 291 K/mm3 (150-450); RBC Distribution Width CV 12.7 % (11.6-14.6); Red Blood Count 4.15 M/mm3 (4.2-5.4); White Blood Count 8.3 K/mm3 (4.4-11.0)
[2024-07-17 18:40] LABS: Prothrombin Time (Protime)PT. 13.4 SECONDS (11.7-14.9)
[2024-07-17 19:04] LABS: ALB/GLOB Ratio 1.5 RATIO (0.9-2.4); AST(SGOT) 34 U/L (<=31); Alanine Aminotransfer ALT/SGPT 27 U/L (<=34); Albumin, Serum 4.4 g/dL (3.4-4.8); Alkaline Phosphatase 68 U/L (35-104); Anion Gap 14 (5-15); BUN 11 mg/dL (4-19); BUN/Creat Ratio 14.3 RATIO (10-20); Calcium,Total 10.2 mg/dL (7.6-11.0); Carbon Dioxide 22.4 mmol/L (21.0-32.0); Chloride 106 mmol/L (98-108); Creatinine, Serum 0.77 mg/dL (0.70-1.20); EST Glomerular Filtration Rate 79 (>60); Glucose 102 mg/dL (70-99); Potassium 4.5 mmol/L (3.3-5.1); Protein, Total 7.4 g/dL (5.9-8.4); Sodium Level 142 mmol/L (133-145); Total Bilirubin 0.26 mg/dL (0.00-1.30)
[2024-07-17 19:58] LABS: Partial Thromboplast Time 28.1 Seconds (24.1-36.2)
== END | disposition home or self-care (01) ==
LOC: MTLAB 14:06
PROVIDERS: PCP Family Medicine Geriatric Medicine; Referring Provider Internal Medicine Gastroenterology; Visit Provider Internal Medicine Gastroenterology
DX: K74.60 Unspecified cirrhosis of liver (principal)
CPT/HCPCS: 36415; 80053; 82105; 85027; 85610; 85730

== ENCOUNTER → 2024-09-26 | Outpatient (CLI) | payer MEDICARE, OTHER, SELFPAY ==
[2024-09-26 11:05] LABS: Absolute Lymphocyte Count 2.34 X10^3/uL (0.83-4.51); Absolute Neutrophil Count 4.2 X10^3/uL (2.0-7.7); Basophil# 0.06 X10^3/uL; Basophil% 0.8 % (0-1); Eosinophil# 0.21 X10^3/uL; Eosinophils% 2.8 % (0-5); Hematocrit 37.9 % (37-47); Hemoglobin 12.2 g/dL (12.0-15.0); Lymphocyte # 2.34 X10^3/ul (0.83-4.51); Lymphocyte % 31.3 % (19-41); Mean Corp Hgb Conc 32.2 g/dL (32-36); Mean Corpuscular Hgb 29.5 pg (27.0-32.0); Mean Corpuscular Volume 91.5 fL (81-99); Mean Platelet Vol. 10.2 fl (6.2-12.0); Monocyte# 0.66 X10^3/uL; Monocyte% 8.8 % (0-10); NRBC Flagged by Analyzer 0 % (0-5); Neutrophil % 56.2 % (47-70); Platelet Count 277 K/mm3 (150-450); RBC Distribution Width CV 12.7 % (11.6-14.6); Red Blood Count 4.14 M/mm3 (4.2-5.4); White Blood Count 7.5 K/mm3 (4.4-11.0)
[2024-09-26 11:59] LABS: ALB/GLOB Ratio 1.5 RATIO (0.9-2.4); AST(SGOT) 39 U/L (<=31); Alanine Aminotransfer ALT/SGPT 27 U/L (<=34); Albumin, Serum 4.2 g/dL (3.4-4.8); Alkaline Phosphatase 69 U/L (35-104); Anion Gap 11 (5-15); BUN 10 mg/dL (4-19); BUN/Creat Ratio 12.9 RATIO (10-20); Calcium,Total 9.9 mg/dL (7.6-11.0); Carbon Dioxide 25.2 mmol/L (21.0-32.0); Chloride 104 mmol/L (98-108); EST Glomerular Filtration Rate 76 (>60); Globulin 2.9 g/dL (2.2-4.2); Glucose 183 mg/dL (70-99); Potassium 4.4 mmol/L (3.3-5.1); Protein, Total 7.1 g/dL (5.9-8.4); Sodium Level 141 mmol/L (133-145); Total Bilirubin 0.34 mg/dL (0.00-1.30)
[2024-09-26 12:05] LABS: Thyroid Stim Hormone (TSH) 0.598 uIU/mL (0.300-4.200); Vitamin D,25 Hydroxy 19.3 ng/mL (30-100)
== END | disposition home or self-care (01) ==
LOC: LAB 10:51
PROVIDERS: PCP Family Medicine Geriatric Medicine; Referring Provider Family Medicine Geriatric Medicine; Visit Provider Family Medicine Geriatric Medicine
DX: E11.65 Type 2 diabetes mellitus with hyperglycemia (principal); I10 Essential (primary) hypertension; E55.9 Vitamin D deficiency, unspecified
CPT/HCPCS: 36415; 80053; 82306; 84443; 85025

== ENCOUNTER → 2025-02-04 | Outpatient (CLI) | payer MEDICARE, OTHER, SELFPAY ==
[2025-02-04 18:03] LABS: Hematocrit 37.8 % (37-47); Hemoglobin 12.1 g/dL (12.0-15.0); Mean Corp Hgb Conc 32.0 g/dL (32-36); Mean Corpuscular Volume 91.1 fL (81-99); Mean Platelet Vol. 11.0 fl (6.2-12.0); Platelet Count 309 K/mm3 (150-450); RBC Distribution Width CV 12.9 % (11.6-14.6); RBC Distribution Width SD 42.3 fl (35.1-43.9); Red Blood Count 4.15 M/mm3 (4.2-5.4); White Blood Count 8.1 K/mm3 (4.4-11.0)
[2025-02-04 18:09] LABS: AST(SGOT) 29 U/L (<=31); Alanine Aminotransfer ALT/SGPT 21 U/L (<=34); Albumin, Serum 4.4 g/dL (3.4-4.8); Alkaline Phosphatase 68 U/L (35-104); Anion Gap 13 (5-15); BUN 11 mg/dL (4-19); BUN/Creat Ratio 13.0 RATIO (10-20); Calcium,Total 9.9 mg/dL (7.6-11.0); Carbon Dioxide 23.9 mmol/L (21.0-32.0); Chloride 104 mmol/L (98-108); Globulin 3.0 g/dL (2.2-4.2); Glucose 107 mg/dL (70-99); Potassium 4.2 mmol/L (3.3-5.1)
[2025-02-04 18:40] LABS: Prothrombin Time (Protime)PT. 13.1 SECONDS (11.7-14.9)
[2025-02-04 18:41] LABS: Partial Thromboplast Time 28.0 Seconds (24.1-36.2)
== END | disposition home or self-care (01) ==
LOC: MTLAB 15:34
PROVIDERS: PCP Family Medicine Geriatric Medicine; Referring Provider Internal Medicine Gastroenterology; Visit Provider Internal Medicine Gastroenterology
DX: K74.60 Unspecified cirrhosis of liver (principal)
CPT/HCPCS: 36415; 80053; 82105; 85027; 85610; 85730

== ENCOUNTER → 2025-02-16 | Outpatient (CLI) | payer MEDICARE, OTHER, SELFPAY ==
--- OUTSIDE RECORDS SUMMARY | 2025-02-16 07:38 | XMS RPT_ITS | CCD ---
Author Organization [facility] Care Team Providers Care Network Support Manager Name Role Phone Bianka Barrett Unavailable Mala GE, Bernie Manzanares Unavailable Unavailable Nela GE, Anni Mosley Unavailable Stormy Bautista Unavailable Unavailable Stormy Bautista Unavailable Unavailable Bianka Barrett Unavailable Nela GE, Anni Mosley Unavailable Bebo Hoyt Unavailable Unavailable [facility] Nurse Unavailable Unavailable Nela GE, Anni Mosley Unavailable Haider, JOO, Pamela Ann Unavailable UnavailDr. Segundo Hinds Chi Primary Care Provider Dr. Jaspreet Bahena Emergency Provider [phone] Stacy Phan Admit Provider Dr. Stacy Phan Other Provider Dr. Guanako Gary Attending Provider Unavailable Dr. Guanako Gary Other Provider Unavailable Judson, Segundo Chi Primary Care Provider [phone] RAMANA MULTANI Attending Unavailable JUDSON, SEGUNDO CHI Primary Care Unavailable CLAYTON, TEMI Tijerina Referring Unavailable JUDSON, SEGUNDO CHI Primary Care Unavailable CLAYTONTEMI Referring Unavailable CLAYTONTEMI T Referring Unavailable JUDSON, SEGUNDO CHI Primary Care Unavailable CLAYTON TEMI T Attending Unavailable JUDSON, SEGUNDO CHI Primary Care Unavailable CLAYTON TEMI T Attending Unavailable JUDSON, SEGUNDO CHI Primary Care Unavailable JUDSON, SEGUNDO CHI Primary Care Unavailable CLAYTON TEMI T Attending Unavailable CLAYTON TEMI T Referring Unavailable JUDSON, SEGUNDO CHI Primary Care Unavailable CLAYTON TEMI T Referring Unavailable JUDSON, SEGUNDO CHI Primary Care Unavailable Judson MORALES, Dr. Segundo Posadas Primary Care Provider Judson MORALES, Dr. Segundo Posadas Attending Provider Judson MORALES, Dr. Segundo Posadas Referring Provider Mala MORALES, Dr. Rothman Attending Provider Mala MORALES, Dr. Rothman Referring Provider Judson MORALES, Dr. Segundo Posadas Primary Care Provider Judson MORALES, Dr. Segundo Posadas Attending Provider Judson MORALES, Dr. Segundo Posadas Referring Provider Jabour, Vincent Referring Unavailable Jabour, Vincent Attending Unavailable Judson, Segundo Chi Primary Care Unavailable Jabour, Vincent Referring Unavailable Jabour, Vincent Attending Unavailable Judson, Segundo Chi Primary Care Unavailable Jabour, Vincent Referring Unavailable Jabour, Vincent Attending Unavailable Judson, Segundo Chi Primary Care Unavailable Judson, Segundo Chi Primary Care Unavailable Judson, Segundo Chi Attending Unavailable Judson, Segundo Chi Referring Unavailable Jabour, Dougieent Referring Unavailable Judson, Segundo Chi Primary Care Unavailable Jabour, Dougieent Attending Unavailable Judson, Segundo Chi Primary Care Unavailable Jabour, Dougieent Referring Unavailable Jabour, Dougieent Attending Unavailable Judson, Segundo Chi Attending Unavailable Judson, Segundo Chi Referring Unavailable Judson, Segundo Chi Primary Care Unavailable Allergies Allergy Classification Reported Allergen(s) Allergy Type Date of Onset Reaction(s) Facility (11 sources) ciprofloxacin drug allergy 09-22-2016 [facility] Work Phone: (11 sources) lovastatin drug allergy 09-22-2016 [facility] Work Phone: (11 sources) metroNIDAZOLE drug allergy 09-22-2016 [facility] Work Phone: (11 sources) naproxen drug allergy 09-22-2016 [facility] Work Phone: (20 sources) traMADol; Translations: [TRAMADOL] drug allergy 09-22-2016 Unknown [facility] Work Phone: (11 sources) PARAFON FORTE drug allergy 09-22-2016 [facility] Work Phone: (20 sources) Chlorzoxazone; Translations: [CHLORZOXAZONE] Drug Allergy 12-08-2004 Unknown [facility] (20 sources) Ciprofloxacin; Translations: [CIPROFLOXACIN] Drug Allergy 12-08-2004 Unknown [facility] (20 sources) Lovastatin; Translations: [LOVASTATIN] Drug Allergy 12-08-2004 Unknown [facility] (13 sources) metroNIDAZOLE Drug Allergy 03-13-2021 Unknown [facility] (20 sources) Naproxen; Translations: [NAPROXEN] Drug Allergy 12-08-2004 [facility] (12 sources) metroNIDAZOLE; Translations: [METRONIDAZOLE HCL] Drug Allergy 12-08-2004 [facility] (1 source) Chlorzoxazone Drug Allergy 06-23-2022 [facility] Repository (1 source) Ciprofloxacin Drug Allergy 06-23-2022 [facility] Repository (1 source) Lovastatin Drug Allergy 06-23-2022 [facility] Repository (1 source) metroNIDAZOLE Drug Allergy 06-23-2022 [facility] Repository (1 source) Naproxen Drug Allergy 06-23-2022 [facility] Repository Medications Current Medications Medication Drug Class(es) Dates Sig (Normalized) Sig (Original) atorvastatin 40 mg oral tablet (10 sources) HMG-CoA Reductase Inhibitor Start: 04-30-2010 take 1 tablet by mouth once daily atorvastatin (LIPITOR) 40 mg ORAL tablet Indications: Other and unspecified hyperlipidemia Take one(1) tablet daily. 30 Tab 11 04/30/2010 Active CALTRATE-600 PLUS VITAMIN D3 600 MG-400 UNIT TAB (10 sources) Start: 06-21-2006 CALTRATE-600 PLUS VITAMIN D3 600 MG-400 UNIT TAB Take one(1) tablet daily. 0 06/21/2006 Active enteric contrast (will be provided with radiology test) (1 source) Start: 08-24-2023 End: 08-25-2023 enteric contrast (will be provided with radiology test) For CT ABD/PEL W IVCON Routine order Administer, As Directed One Time Only, via Oral, Rectal, both Oral and Rectal, Enteric Tube, Stoma or Indwelling Catheter, Enteric Contrast as designated per enteric contrast guidelines 1 Each 0 08/24/2023 08/25/2023 Active estradiol 0.1 mg/ml vaginal cream (3 sources) Estrogen Start: 06-06-2019 Estradiol (Estrace) 0.01 % (0.1 mg/gram) cream Active 0 VAGINAL .COMPLEX 42.5 June 06, 2019 1:00am pea sized amount VAGINAL twice a week famotidine 40 mg oral tablet (20 sources) Histamine-2 Receptor Antagonist Start: 09-22-2016 take 1 tablet by mouth at bedtime Famotidine (Pepcid) 40 MG tablet Active 40 mg PO AT BEDTIME October 11, 2016 12:00am acid reflux iv contrast (will be provided with radiology test) (2 sources) Start: 09-11-2023 End: 09-12-2023 iv contrast (will be provided with radiology test) MRI PANC/ARISTEO Inject, intravenously, once for 1 dose. No IV access, insert saline lock prior to the beginning of sedation, infusion, injection of imaging exam. Discontinue saline lock post exam. If Pt. has a central line or IVAD, may access for administration according to line specific nursing protocol. Once exam is complete flush line and de-access according to line specific nursing protocol in the MR contrast administration guidelines link. 1 Each 0 09/11/2023 09/12/2023 Active Start: 08-24-2023 End: 08-25-2023 iv contrast (will be provide d with radiology test) CT ABD/PEL -Inject, intravenously, once for 1 dose.No IV access, insert saline lock prior to the beginning of sedation, infusion, injection of imaging exam. Discontinue saline lock post exam. If Pt. has a central line or IVAD, may access for administration according to line specific nursing protocol. Once exam is complete flush line and de-access according to line specific nursing protocol in the CT contrast administration guidelines link. 1 Each 0 08/24/2023 08/25/2023 Active levothyroxine sodium 0.05 mg oral tablet (20 sources) l-Thyroxine Start: 09-22-2016 take 1 tablet by mouth once daily Levothyroxine 50 MCG tablet Active 50 ug PO DAILY October 11, 2016 12:00am hypothyroidism take 1 capsule by [facility] once daily before breakfast levothyroxine 50 mcg cap Take 50 mcg by mouth daily before breakfast. 0 Active losartan potassium 50 mg oral tablet (20 sources) Angiotensin 2 Receptor Yoandy Start: 09-22-2016 take 1 tablet by mouth once daily Losartan 50 MG tablet Active 50 mg PO DAILY October 11, 2016 12:00am high bp metFORMIN hydrochloride 500 mg oral tablet (20 sources) Biguanide Start: 12-19-2019 take 1 tablet by mouth three times daily Metformin 500 mg tablet Active 500 mg PO THREE TIMES A DAY December 19, 2019 1:41pm diabetes Start: 09-22-2016 End: 12-19-2019 take 1 tablet by mouth twice daily at mealtime Metformin 500 MG tablet Discontinued 500 mg PO TWICE DAILY WITH MEALS October 11, 2016 12:00am December 19, 2019 1:43pm naproxen sodium 220 mg oral capsule (10 sources) Nonsteroidal Anti-inflammatory Drug naproxen sodium (ALEVE) 220 mg cap Take by mouth as needed (pain). 0 Active omega-3 fatty acids(FISH OIL 500 MG CAP) (10 sources) Start: 008 omega-3 fatty acids(FISH OIL 500 MG CAP) two capsules daily 0 03/15/2008 Active omeprazole 40 mg delayed release oral capsule (10 sources) Proton Pump Inhibitor Start: End: take 1 capsule by mouth once daily omeprazole (PRILOSEC) 40 mg capsule Take 1 capsule by mouth once daily. 30 capsule 0 08/15/2023 Active ONE DAILY MULTI-VITAMIN TAB (10 sources) Start: 007 ONE DAILY MULTI-VITAMIN TAB Take one(1) tablet daily. 0 06/21/2006 Active polyethylene glycol 3350 94068 mg powder for oral solution (10 sources) Osmotic Laxative Start: 011 Polyethylene Glycol 3350 (MIRALAX) 17 gram/dose ORAL powder Indications: Unspecified constipation Use as directed. 4 g 11 04/30/2010 Active polyethylene glycol 3350 945421 mg / potassium chloride 2970 mg / sodium bicarbonate 6740 mg / sodium chloride 5860 mg / sodium sulfate 64710 mg powder for oral solution (12 sources) Osmotic Laxative Start: 024 peg 3350-Electrolytes (GOLYTELY) 236-22.74-6.74 -5.86 gram suspension Indications: Abdominal pain, right lower quadrant Take as directed. 1 Each 0 08/12/2023 Active Start: 08-12-2023 End: 08-12-2023 peg 3350-Electrolytes (GOLYT RYAN) 236-22.74-6.74 -5.86 gram suspension Indications: Abdominal pain, right lower quadrant , Abnormal weight loss , Diarrhea, unspecified type Take 4,000 mL by mouth one time only for 1 dose. Refer to printed prep instructions from your provider. 4000 mL 0 08/12/2023 08/12/2023 Start: 11-06-2009 End: 08-12-2023 PEG 3350-ELECTROLYTES 236 G- 22.74 G-6.74 G-5.86 G ORAL SOLUTION Indications: Diverticulitis of colon (without mention of hemorrhage)(562.11) , Abdominal pain, right lower quadrant Take as directed. 1 0 11/06/2009 08/12/2023 Discontinued simvastatin 80 mg oral tablet (20 sources) HMG-CoA Reductase Inhibitor Start: 09-22-2016 take 1 tablet by mouth once daily Simvastatin 80 MG tablet Active 80 mg PO DAILY October 11, 2016 12:00am high cholesterol Completed/Discontinued Medications Medication Drug Class(es) Dates Sig (Normalized) Sig (Original) [id number] 200 actuat albuterol 0.09 mg/actuat metered dose inhaler (20 sources) beta2-Adrenergic Agonist Start: 06-23-2022 End: 12-01-2023 Albuterol Sulfate 90 mcg/actuation HFA aerosol inhaler Discontinued 2 NMA INHALATION EVERY 6 HOURS as needed for Wheezing June 23, 2022 12:00am December 01, 2023 9:18am Start: 06-23-2022 take 1 puff(s) by in halation every six hours Albuterol Sulfate Active 2 PUFF INHALATION EVERY 6 HOURS June 22, 2022 11:00pm Start: 02-23-2010 take 1 puff(s) by in halation once daily as needed for wheezing albuterol 90 mcg/Actuation INHALATION Aero Indications: Cough Inhale one(1) - two(2) puffs four(4) times a day as needed for wheezing and shortness of breath. 1 Inhaler 0 02/23/2010 Active aspirin 81 mg delayed release oral tablet (20 sources) Nonsteroidal Anti-inflammatory Drug Start: 03-13-2021 End: 12-01-2023 take 1 tablet by mouth every other day Aspirin 81 mg tablet,delayed release (DR/EC) Discontinued 81 mg PO .every other day March 13, 2021 12:02pm December 01, 2023 9:18am heart health Start: 09-23-2016 End: 03-13-2021 take 1 tablet by mouth once daily Aspirin 81 MG tablet,delayed release (DR/EC) Discontinued 81 mg PO DAILY October 11, 2016 12:00am March 13, 2021 12:02pm azithromycin 500 mg oral tablet (10 sources) Macrolide Antimicrobial Start: 06-24-2022 End: 12-01-2023 take 1 tablet by mouth once daily Azithromycin (Zithromax) 500 mg tablet Discontinued 500 mg PO DAILY 5 5 0 June 24, 2022 12:00am December 01, 2023 9:19am calcium chloride 0.0014 meq/ml / potassium chloride 0.004 meq/ml / sodium chloride 0.103 meq/ml / sodium lactate 0.028 meq/ml injectable solution (1 source) Start: 08-15-2023 End: 08-15-2023 lactated ringers iv infusion cefdinir 300 mg oral capsule (20 sources) Cephalosporin Antibacterial Start: 06-23-2022 End: 12-01-2023 take 1 capsule by mouth twice daily Cefdinir 300 mg capsule Discontinued 300 mg PO TWICE A DAY 10 0 June 24, 2022 10:42am December 01, 2023 9:19am resp infection clobetasol propionate 0.5 mg/ml topical cream (20 sources) Corticosteroid Start: 06-06-2019 End: 12-01-2023 Clobetasol 0.05 % cream Discontinued 1 NMA TOPICAL DAILY June 06, 2019 1:00am December 01, 2023 9:19am itching clobetasol (YUDY VATE) 0.05 % cream Apply 1 g to affected area two times a day. 0 Active clopidogrel 75 mg oral tablet (20 sources) P2Y12 Platelet Inhibitor Start: 09-23-2016 End: 12-21-2017 take 1 tablet by mouth once daily Clopidogrel 75 MG tablet Discontinued 75 mg PO DAILY October 11, 2016 12:00am December 21, 2017 1:47pm codeine phosphate 2 mg/ml / guaiFENesin 20 mg/ml oral solution (11 sources) Opioid Agonist Start: 06-23-2022 End: 12-01-2023 take 1 mL by mouth every four hours Codeine-Guaifenesin 10-100 mg/5 mL liquid Discontinued 10 mL PO Q4H June 23, 2022 12:00am December 01, 2023 9:19am cough Start: 06-23-2022 take 1 mL by mouth e very four hours Codeine-Guaifenesin Active 10 ML PO Q4H June 22, 2022 11:00pm Start: 06-23-2022 Codeine-Guaife nesin Active ML June 23, 2022 12:00am doxycycline hyclate 100 mg oral tablet (11 sources) Tetracycline-class Drug Start: 06-23-2022 End: 06-24-2022 take 1 tablet by mouth twice daily Doxycycline Hyclate 100 mg tablet Discontinued 100 mg PO TWICE A DAY June 23, 2022 12:00am June 24, 2022 10:41am resp infection lansoprazole 30 mg delayed release oral capsule (1 source) Proton Pump Inhibitor Start: 03-02-2010 End: 08-12-2023 take 1 tablet by mouth once daily lansoprazole (PREVACID) 30 mg ORAL capsule Take one(1) tablet daily. 30 Cap 11 03/02/2010 08/12/2023 Discontinued (Other) lisinopril 5 mg oral tablet (20 sources) Angiotensin Converting Enzyme Inhibitor Start: 09-22-2016 End: 09-23-2016 take 1 tablet by mouth once daily LISINOPRIL 5 MG TABS One tablet by mouth daily LISINOPRIL [id number] Anni Rondon RN nitroglycerin 0.4 mg sublingual tablet (20 sources) Nitrate Vasodilator Start: 09-23-2016 End: 12-01-2023 Nitroglycerin 0.4 MG tablet Discontinued 0.4 mg SL Q5M as needed for Chest Pain October 11, 2016 12:00am December 01, 2023 9:20am predniSONE 10 mg oral tablet (11 sources) Start: 06-23-2022 End: 12-01-2023 take 1 tablet by mouth twice daily Prednisone 10 mg tablet Discontinued 10 mg PO TWICE A DAY June 23, 2022 12:00am December 01, 2023 9:20am resp infection taper Vitamin B Complex (20 sources) Start: 10-11-2016 End: 12-21-2017 Vitamin B Complex Discontinued 1 EACH PO DAILY October 10, 2016 11:00pm December 21, 2017 12:47pm Start: 10-11-2016 End: 12-21-2017 Vitamin B Complex Discontinu ed 1 EACH PO DAILY October 11, 2016 12:00am December 21, 2017 1:47pm Start: 09-22-2016 take 1 tablet by bishop [facility] once daily VITAMIN B COMPLEX TABS One tablet by mouth daily B COMPLEX VITAMINS [id number] Anni Rondon RN Start: 09-22-2016 End: 12-23-2016 take 1 tablet by mouth once daily VITAMIN B COMPLEX TABS One tablet by mouth daily B COMPLEX VITAMINS [id number] Tristin Lundberg MD Start: 09-22-2016 End: 12-23-2016 take 1 tablet by mouth once daily VITAMIN B COMPLEX TABS One tablet by mouth daily B COMPLEX VITAMINS [id number] Tristin Lundberg MD Start: 09-22-2016 take 1 tablet by bishop [facility] once daily VITAMIN B COMPLEX TABS One tablet by mouth daily B COMPLEX VITAMINS [id number] Anni Rondon RN Vitamin B Complex 1 EACH tablet (4 sources) Start: 10-11-2016 End: 12-21-2017 Vitamin B Complex 1 EACH tab let Discontinued 1 NMA PO DAILY October 11, 2016 12:00am December 21, 2017 1:47pm Problems Active Problems Problem Classification Problem Date Documented Da te Episodic/Chronic Abdominal hernia (10 sources) Diaphragmatic hernia; Translations: [Diaphragmatic hernia without obstruction or gangrene] 03-08-2005 Episodic Abdominal pain (20 sources) Right lower quadrant pain; Translations: [Right lower quadrant pain] Onset: 8 Resolved: 1 08-12-2023 Episodic Coronary atherosclerosis and other heart disease (20 sources) Coronary arteriosclerosis; Translations: [Angina pectoris] Onset: 7 12-23-2016 Chronic Diabetes mellitus with complications (1 source) Type 2 diabetes mellitus with hyperglycemia; Translations: [Type 2 diabetes mellitus with hyperglycemia] Onset: 5 Chronic Diabetes mellitus without complication (20 sources) Type 2 diabetes mellitus without complications; Translations: [Type 2 diabetes mellitus] 09-22-2016 Chronic Disorders of lipid metabolism (20 sources) Hyperlipidemia; Translations: [Hyperlipidemia, unspecified] Onset: 5 09-22-2016 Chronic Diverticulosis and diverticulitis (20 sources) Diverticulitis of large intestine without perforation or abscess without bleeding; Translations: [Diverticulitis of colon (without mention of hemorrhage)] Onset: 8 Resolved: 0 03-19-2008 Chronic Esophageal disorders (20 sources) Gastroesophageal reflux disease; Translations: [Gastro-esophageal reflux disease without esophagitis] Onset: 5 09-22-2016 Chronic Essential hypertension (19 sources) Hypertensive disorder; Translations: [Essential (primary) hypertension] 06-23-2022 Chronic Fluid and electrolyte disorders (17 sources) Lactic acidosis; Translations: [Lactic acidosis] 06-23-2022 Episodic Heart valve disorders (10 sources) Rheumatic mitral valve disease, unspecified; Translations: [Mitral valve disorders] Onset: 5 12-08-2004 Chronic Neoplasms of unspecified nature or uncertain behavior (1 source) Benign neoplasm of pancreas; Translations: [Neoplasm of unspecified behavior of digestive system] 10-25-2023 Episodic Nonspecific chest pain (17 sources) Chest pain on exertion; Translations: [Chest pain, unspecified] 06-23-2022 Episodic Osteoarthritis (20 sources) Degenerative joint disease involving multiple joints; Translations: [Polyosteoarthritis, unspecified] Onset: 5 Resolved: 0 03-08-2005 Chronic Other gastrointestinal disorders (2 sources) Diarrhea; Translations: [Diarrhea, unspecified] 08-12-2023 Episodic Other gastrointestinal disorders (1 source) Diarrhea, unspecified; Translations: [Diarrhea, unspecified type] Onset: 4 Episodic Other liver diseases (4 sources) Steatosis of liver; Translations: [Fatty (change of) liver, not elsewhere classified] 12-01-2023 Chronic Other liver diseases (2 sources) Unspecified cirrhosis of liver; Translations: [Unspecified cirrhosis of liver] Onset: 5 Chronic Other lower respiratory disease (11 sources) Interstitial pneumonia; Translations: [Interstitial pulmonary disease, unspecified] 06-23-2022 Chronic Other lower respiratory disease (6 sources) Interstitial pulmonary disease, unspecified; Translations: [Other specified alveolar and parietoalveolar pneumonopathies] 06-23-2022 Chronic Other lower respiratory disease (1 source) Multiple nodules of lung; Translations: [Other nonspecific abnormal finding of lung field] 10-25-2023 Episodic Other nutritional; endocrine; and metabolic disorders (9 sources) Body mass index (BMI) 31.0-31.9, adult; Translations: [Body mass index (BMI) 31.0-31.9, adult] Onset: 7 09-23-2016 Chronic Other nutritional; endocrine; and metabolic disorders (4 sources) Abnormal weight loss; Translations: [Abnormal weight loss] 08-12-2023 Episodic Other nutritional; endocrine; and metabolic disorders (1 source) Abnormal weight loss; Translations: [Abnormal weight loss] Onset: 4 Episodic Other screening for suspected conditions (not mental disorders or infectious disease) (2 sources) Patient encounter status; Translations: [Encounter for screening for malignant neoplasm of colon] Onset: 4 08-15-2023 Episodic Pancreatic disorders (not diabetes) (3 sources) Mass of pancreas; Translations: [Other specified diseases of pancreas] Onset: 4 09-11-2023 Episodic Thyroid disorders (20 sources) Hypothyroidism; Translations: [Hypothyroidism, unspecified] 09-22-2016 Chronic Past or Other Problems Problem Classification Problem Date Documented Da te Episodic/Chronic Cardiac dysrhythmias (2 sources) Palpitations; Translations: [Palpitations] Onset: 12-23-2016 12-23-2016 Episodic Gastrointestinal hemorrhage (10 sources) Hematochezia; Translations: [Melena] Onset: 08-13-2005 Resolved: 10-29-2009 10-29-2009 Episodic Hemorrhoids (10 sources) Hemorrhoids; Translations: [Unspecified hemorrhoids] Onset: 06-14-2005 06-14-2005 Episodic Other gastrointestinal disorders (10 sources) Constipation; Translations: [Constipation, unspecified] Onset: 11-28-2009 11-28-2009 Episodic Other inflammatory condition of skin (10 sources) Psoriasis; Translations: [Other psoriasis] Onset: 03-07-2006 Resolved: 10-29-2009 10-29-2009 Chronic Other non-traumatic joint disorders (10 sources) Soft tissue lesion of shoulder region; Translations: [Other specified joint disorders, unspecified shoulder] Onset: 11-07-2008 Resolved: 10-29-2009 10-29-2009 Episodic Other screening for suspected conditions (not mental disorders or infectious disease) (11 sources) Abnormal result of cardiovascular function study, unspecified; Translations: [Abnormal result of cardiovascular function study, unspecified] Onset: 09-22-2016 09-22-2016 Episodic Results Test Name Value Interpretation Reference Range Facility AFP, Tumor Markeron 02-07-20 25 AFP TUMOR AMRIYA < 1.8 Normal 0.0-9.2 [facility] Comment on above: Order Comment: N Result Comment: [facility] Electrochemiluminescence Immunoassay (ECLIA) Values obtained with different assay methods or kits cannot be used interchangeably. Results cannot be interpreted as absolute evidence of the presence or absence of malignant disease. This test is not interpretable in females. Performed at: [address] [id number] Barrel Cleaner: Stephan Smith PhD, Phone: [phone] Performed By: #### L 300.3900, L3300.0700, L100.0500, L300.4310, L500.4050 #### [facility] [address] [place], [address] CBC-Complete Blood Cnt No Di ffon 02-04-2025 Erythrocyte distribution width (RBC) [Ratio] 12.9 % Normal 11.6-14.6 [facility] Comment on above: Performed By: #### L 300.3900, L3300.0700, L100.0500, L300.4310, L500.4050 #### [facility] [address] [place], [address] Hematocrit (Bld) [Volume fraction] 37.8 % Normal 37-47 [facility] Comment on above: Performed By: #### L 300.3900, L3300.0700, L100.0500, L300.4310, L500.4050 #### [facility] [address] [place], [address] Hemoglobin (Bld) [Mass/Vol] 12.1 g/dL Normal 12.0-15.0 [facility] Comment on above: Performed By: #### L 300.3900, L3300.0700, L100.0500, L300.4310, L500.4050 #### [facility] [address] [place], [address] MCH (RBC) [Entitic mass] 29.2 pg Normal 27.0-32.0 [facility] Comment on above: Performed By: #### L 300.3900, L3300.0700, L100.0500, L300.4310, L500.4050 #### [facility] [address] [place], [address] MCHC (RBC) [Mass/Vol] 32.0 g/dL Normal 32-36 [facility] Comment on above: Performed By: #### L 300.3900, L3300.0700, L100.0500, L300.4310, L500.4050 #### [facility] [address] [place], [address] MCV (RBC) [Entitic vol] 91.1 fL Normal 81-99 [facility] Comment on above: Performed By: #### L 300.3900, L3300.0700, L100.0500, L300.4310, L500.4050 #### [facility] [address] [place], [address] Platelet mean volume (Bld) [Entitic vol] 11.0 fL Normal 6.2-12.0 [facility] Comment on above: Performed By: #### L 300.3900, L3300.0700, L100.0500, L300.4310, L500.4050 #### [facility] Laboratory [address] [place], [address] Platelets (Bld) [#/Vol] 309 10*3/uL Normal 150-450 [facility] Comment on above: Performed By: #### L 300.3900, L3300.0700, L100.0500, L300.4310, L500.4050 #### [facility] Laboratory [address] [place], [address] RBC (Bld) [#/Vol] 4.15 10*6/uL Low 4.2-5.4 [facility] Comment on above: Performed By: #### L 300.3900, L3300.0700, L100.0500, L300.4310, L500.4050 #### [facility] Laboratory [address] [place], [address] RDW SD 42.3 fl Normal 35.1-43.9 [facility] Comment on above: Performed By: #### L 300.3900, L3300.0700, L100.0500, L300.4310, L500.4050 #### [facility] Laboratory [address] [place], [address] WBC (Bld) [#/Vol] 8.1 10*3/uL Normal 4.4-11.0 [facility] Comment on above: Performed By: #### L 300.3900, L3300.0700, L100.0500, L300.4310, L500.4050 #### [facility] Laboratory [address] [place], [address] Comprehensive Metabolic Prof [facility] 02-04-2025 Albumin [Mass/Vol] 4.4 g/dL Normal 3.4-4.8 [facility] Comment on above: Order Comment: COPY TO DR. CONN Performed By: #### L 300.3900, L3300.0700, L100.0500, L300.4310, L500.4050 #### [facility] Laboratory [address] [place], [address] Albumin/Globulin [Mass ratio] 1.5 {ratio} Normal 0.9-2.4 [facility] Comment on above: Order Comment: COPY TO DR. CONN Performed By: #### L 300.3900, L3300.0700, L100.0500, L300.4310, L500.4050 #### [facility] Laboratory [address] [place], [address] ALK PHOS 68 U/L Normal 35-104 [facility] Comment on above: Order Comment: COPY TO DR. CONN Performed By: #### L 300.3900, L3300.0700, L100.0500, L300.4310, L500.4050 #### [facility] Laboratory [address] [place], [address] ALT [Catalytic activity/Vol] 21 U/L Normal <=34 [facility] Comment on above: Order Comment: COPY TO DR. CONN Performed By: #### L 300.3900, L3300.0700, L100.0500, L300.4310, L500.4050 #### [facility] Laboratory [address] [place], [address] AST [Catalytic activity/Vol] 29 U/L Normal <=31 [facility] Comment on above: Order Comment: COPY TO DR. CONN Performed By: #### L 300.3900, L3300.0700, L100.0500, L300.4310, L500.4050 #### [facility] Laboratory [address] [place], [address] Bilirubin [Mass/Vol] 0.34 mg/dL Normal 0.00-1.30 [facility] Comment on above: Order Comment: COPY TO DR. CONN Performed By: #### L 300.3900, L3300.0700, L100.0500, L300.4310, L500.4050 #### [facility] Laboratory [address] [place], [address] BUN/CRE 13.0 RATIO Normal 10-20 [facility] Comment on above: Order Comment: COPY TO DR. CONN Performed By: #### L 300.3900, L3300.0700, L100.0500, L300.4310, L500.4050 #### [facility] Laboratory [address] [place], [address] Calcium [Mass/Vol] 9.9 mg/dL Normal 7.6-11.0 [facility] Comment on above: Order Comment: COPY TO DR. CONN Performed By: #### L 300.3900, L3300.0700, L100.0500, L300.4310, L500.4050 #### [facility] Laboratory [address] [place], [address] Chloride [Moles/Vol] 104 mmol/L Normal 98-108 [facility] Comment on above: Order Comment: COPY TO DR. CONN Performed By: #### L 300.3900, L3300.0700, L100.0500, L300.4310, L500.4050 #### [facility] Laboratory [address] [place], [address] CO2 [Moles/Vol] 23.9 mmol/L Normal 21.0-32.0 [facility] Comment on above: Order Comment: COPY TO DR. CONN Performed By: #### L 300.3900, L3300.0700, L100.0500, L300.4310, L500.4050 #### [facility] Laboratory [address] [place], [address] Creatinine [Mass/Vol] 0.83 mg/dL Normal 0.70-1.20 [facility] Comment on above: Order Comment: COPY TO DR. CONN Performed By: #### L 300.3900, L3300.0700, L100.0500, L300.4310, L500.4050 #### [facility] Laboratory [address] [place], [address] GAP 13 Normal 5-15 [facility] Comment on above: Order Comment: COPY TO DR. CONN Performed By: #### L 300.3900, L3300.0700, L100.0500, L300.4310, L500.4050 #### [facility] Laboratory [address] [place], [address] GFR/1.73 sq M.predicted among non-blacks MDRD (S/P/Bld) [Vol rate/Area] 73 mL/min/{1.73_m2} Normal >60 [facility] Comment on above: Order Comment: COPY TO DR. CONN Result Comment: mL/m in/1.73m2 CKD-EPI Creatinine Equation (2020) Performed By: #### L 300.3900, L3300.0700, L100.0500, L300.4310, L500.4050 #### [facility] Laboratory [address] [place], [address] Globulin (S) [Mass/Vol] 3.0 g/dL Normal 2.2-4.2 [facility] Comment on above: Order Comment: COPY TO DR. CONN Performed By: #### L 300.3900, L3300.0700, L100.0500, L300.4310, L500.4050 #### [facility] Laboratory [address] [place], [address] Glucose [Mass/Vol] 107 mg/dL High 70-99 [facility] Comment on above: Order Comment: COPY TO DR. CONN Performed By: #### L 300.3900, L3300.0700, L100.0500, L300.4310, L500.4050 #### [facility] Laboratory [address] [place], [address] Potassium [Moles/Vol] 4.2 mmol/L Normal 3.3-5.1 [facility] Comment on above: Order Comment: COPY TO DR. CONN Performed By: #### L 300.3900, L3300.0700, L100.0500, L300.4310, L500.4050 #### [facility] Laboratory [address] [place], [address] Sodium [Moles/Vol] 141 mmol/L Normal 133-145 [facility] Comment on above: Order Comment: COPY TO DR. CONN Performed By: #### L 300.3900, L3300.0700, L100.0500, L300.4310, L500.4050 #### [facility] Laboratory [address] [place], [address] T PROT 7.4 g/dL Normal 5.9-8.4 [facility] Comment on above: Order Comment: COPY TO DR. CONN Performed By: #### L 300.3900, L3300.0700, L100.0500, L300.4310, L500.4050 #### [facility] Laboratory [address] [place], [address] Urea nitrogen [Mass/Vol] 11 mg/dL Normal 4-19 [facility] Comment on above: Order Comment: COPY TO DR. CONN Performed By: #### L 300.3900, L3300.0700, L100.0500, L300.4310, L500.4050 #### [facility] Laboratory [address] [place], [address] ( Partial Thromboplast Timeon 02-04-2025 aPTT Coag (Bld) [Time] 28.0 s Normal 24.1-36.2 [facility] Comment on above: Performed By: #### L 300.3900, L3300.0700, L100.0500, L300.4310, L500.4050 #### [facility] Laboratory [address] [place], [address] Prothrombin Time w/INRon INR Coag (PPP) [Relative time] 1.0 {INR} Normal [facility] Comment on above: Performed By: #### L 300.3900, L3300.0700, L100.0500, L300.4310, L500.4050 #### [facility] Laboratory [address] [place], [place], [address] PT Coag (PPP) [Time] 13.1 s Normal 11.7-14.9 [facility] Comment on above: Performed By: #### L 300.3900, L3300.0700, L100.0500, L300.4310, L500.4050 #### [facility] Laboratory [address] [place], [place], [address] Absolute lymphocyte countOrd ered By: Segundo Conn on 09-26-2024 Lymphocytes Auto (Unsp spec) [#/Vol] 2.34 10*3/uL 0.83-4.51 [facility] Absolute neutrophil countOrd ered By: Segunod Alvarezok on 09-26-2024 Neutrophils (Bld) [#/Vol] 4.2 10*3/uL 2.0-7.7 [facility] Anion gap in Serum or Plasma Ordered By: Segundo Judson on 09-26-2024 Anion gap [Moles/Vol] 11 mmol/L 5- [facility] Automated lymphocyte count a s percentage of total leukocytesOrdered By: Segundo Conn on 09-26-2024 Lymphocytes/100 WBC Auto (Unsp spec) 31.3 % - [facility] BUN/creatinine ratioOrdered By: Segundo Judson on 09-26-2024 Urea nitrogen/Creatinine [Mass ratio] 12.9 mg/mg 10-20 [facility] Basophil percentageOrdered B y: Segundo Conn on 09-26-2024 Basophils/100 WBC (Bld) 0.8 % 0-1 [facility] Bilirubin, totalOrdered By: Segundo Conn on 09-26-2024 Bilirubin [Mass/Vol] 0.34 mg/dL 0.00-1.30 [facility] CBC W/Diff, Automatedon 09-03 Absolute Lymph 2.34 X10 3/uL Normal 0.83-4.51 [facility] Comment on above: Performed By: #### L 300.3900, L3300.0700, L100.0500, L300.4310, L500.4050 #### [facility] Laboratory [address] [place], [address] Absolute Neut 4.2 X10 3/uL Normal 2.0-7.7 [facility] Comment on above: Performed By: #### L 300.3900, L3300.0700, L100.0500, L300.4310, L500.4050 #### [facility] Laboratory [address] [place], [address] Basophils/100 WBC (Bld) 0.8 % Normal 0-1 [facility] Comment on above: Performed By: #### L 300.3900, L3300.0700, L100.0500, L300.4310, L500.4050 #### [facility] Laboratory [address] [place], [address] Eosinophils/100 WBC (Bld) 2.8 % Normal 0-5 [facility] Comment on above: Performed By: #### L 300.3900, L3300.0700, L100.0500, L300.4310, L500.4050 #### [facility] Laboratory [address] [place], [address] Erythrocyte distribution width (RBC) [Ratio] 12.7 % Normal 11.6-14.6 [facility] Comment on above: Performed By: #### L 300.3900, L3300.0700, L100.0500, L300.4310, L500.4050 #### [facility] Laboratory [address] [place], [address] Hematocrit (Bld) [Volume fraction] 37.9 % Normal 37-47 [facility] Comment on above: Performed By: #### L 300.3900, L3300.0700, L100.0500, L300.4310, L500.4050 #### [facility] Laboratory [address] [place], [address] Hemoglobin (Bld) [Mass/Vol] 12.2 g/dL Normal 12.0-15.0 [facility] Comment on above: Performed By: #### L 300.3900, L3300.0700, L100.0500, L300.4310, L500.4050 #### [facility] Laboratory [address] [place], [address] IG% 0.100 Normal 0.0-0.9 [facility] Comment on above: Result Comment: IG% - Immature Granulocytes (promyelocytes, myelocytes and metamyelocytes) > 1% indicates that a LEFT SHIFT is Present. Performed By: #### L 300.3900, L3300.0700, L100.0500, L300.4310, L500.4050 #### [facility] Laboratory [address] [place], [address] Lymphocytes/100 WBC (Bld) 31.3 % Normal 19-41 [facility] Comment on above: Performed By: #### L 300.3900, L3300.0700, L100.0500, L300.4310, L500.4050 #### [facility] Laboratory [address] [place], [address] MCH (RBC) [Entitic mass] 29.5 pg Normal 27.0-32.0 [facility] Comment on above: Performed By: #### L 300.3900, L3300.0700, L100.0500, L300.4310, L500.4050 #### [facility] Laboratory [address] [place], [address] MCHC (RBC) [Mass/Vol] 32.2 g/dL Normal 32-36 [facility] Comment on above: Performed By: #### L 300.3900, L3300.0700, L100.0500, L300.4310, L500.4050 #### [facility] Laboratory [address] [place], [address] MCV (RBC) [Entitic vol] 91.5 fL Normal 81-99 [facility] Comment on above: Performed By: #### L 300.3900, L3300.0700, L100.0500, L300.4310, L500.4050 #### [facility] Laboratory [address] [place], [address] Monocytes/100 WBC (Bld) 8.8 % Normal 0-10 [facility] Comment on above: Performed By: #### L 300.3900, L3300.0700, L100.0500, L300.4310, L500.4050 #### [facility] Laboratory [address] [place], [address] Neutrophils/100 WBC (Bld) 56.2 % Normal 47-70 [facility] Comment on above: Performed By: #### L 300.3900, L3300.0700, L100.0500, L300.4310, L500.4050 #### [facility] Laboratory [address] [place], [address] Nucleated RBC (Bld) [#/Vol] 0 10*3/uL Normal 0-5 [facility] Comment on above: Performed By: #### L 300.3900, L3300.0700, L100.0500, L300.4310, L500.4050 #### [facility] Laboratory [address] [place], [address] Platelet mean volume (Bld) [Entitic vol] 10.2 fL Normal 6.2-12.0 [facility] Comment on above: Performed By: #### L 300.3900, L3300.0700, L100.0500, L300.4310, L500.4050 #### [facility] Laboratory [address] [place], [address] Platelets (Bld) [#/Vol] 277 10*3/uL Normal 150-450 [facility] Comment on above: Performed By: #### L 300.3900, L3300.0700, L100.0500, L300.4310, L500.4050 #### [facility] Laboratory [address] [place], [address] RBC (Bld) [#/Vol] 4.14 10*6/uL Low 4.2-5.4 [facility] Comment on above: Performed By: #### L 300.3900, L3300.0700, L100.0500, L300.4310, L500.4050 #### [facility] Laboratory [address] [place], [address] RDW SD 42.0 fl Normal 35.1-43.9 [facility] Comment on above: Performed By: #### L 300.3900, L3300.0700, L100.0500, L300.4310, L500.4050 #### [facility] Laboratory [address] [place], [address] WBC (Bld) [#/Vol] 7.5 10*3/uL Normal 4.4-11.0 [facility] Comment on above: Performed By: #### L 300.3900, L3300.0700, L100.0500, L300.4310, L500.4050 #### [facility] Laboratory [address] [place], [address] Carbon dioxide, total [Moles /volume] in Central venous bloodOrdered By: Segundo Conn on 09-26-2024 CO2 [Moles/Vol] 25.2 mmol/L 21.0-32.0 [facility] Chloride assayOrdered By: Rex Conn on 09-26-2024 Chloride [Moles/Vol] 104 mmol/L 98-108 [facility] Comprehensive Metabolic Prof ilon 09-26-2024 Albumin [Mass/Vol] 4.2 g/dL Normal 3.4-4.8 [facility] Comment on above: Performed By: #### L 300.3900, L3300.0700, L100.0500, L300.4310, L500.4050 #### [facility] Laboratory [address] [place], [address] Albumin/Globulin [Mass ratio] 1.5 {ratio} Normal 0.9-2.4 [facility] Comment on above: Performed By: #### L 300.3900, L3300.0700, L100.0500, L300.4310, L500.4050 #### [facility] Laboratory [address] [place], [address] ALK PHOS 69 U/L Normal 35-104 [facility] Comment on above: Performed By: #### L 300.3900, L3300.0700, L100.0500, L300.4310, L500.4050 #### [facility] Laboratory [address] [place], [address] ALT [Catalytic activity/Vol] 27 U/L Normal <=34 [facility] Comment on above: Performed By: #### L 300.3900, L3300.0700, L100.0500, L300.4310, L500.4050 #### [facility] Laboratory [address] [place], [address] AST [Catalytic activity/Vol] 39 U/L High <=31 [facility] Comment on above: Performed By: #### L 300.3900, L3300.0700, L100.0500, L300.4310, L500.4050 #### [facility] Laboratory [address] [place], [address] Bilirubin [Mass/Vol] 0.34 mg/dL Normal 0.00-1.30 [facility] Comment on above: Performed By: #### L 300.3900, L3300.0700, L100.0500, L300.4310, L500.4050 #### [facility] Laboratory [address] [place], [address] BUN/CRE 12.9 RATIO Normal 10-20 [facility] Comment on above: Performed By: #### L 300.3900, L3300.0700, L100.0500, L300.4310, L500.4050 #### [facility] Laboratory [address] [place], [address] Calcium [Mass/Vol] 9.9 mg/dL Normal 7.6-11.0 [facility] Comment on above: Performed By: #### L 300.3900, L3300.0700, L100.0500, L300.4310, L500.4050 #### [facility] Laboratory [address] [place], [address] Chloride [Moles/Vol] 104 mmol/L Normal 98-108 [facility] Comment on above: Performed By: #### L 300.3900, L3300.0700, L100.0500, L300.4310, L500.4050 #### [facility] Laboratory [address] [place], [address] CO2 [Moles/Vol] 25.2 mmol/L Normal 21.0-32.0 [facility] Comment on above: Performed By: #### L 300.3900, L3300.0700, L100.0500, L300.4310, L500.4050 #### [facility] Laboratory [address], [address] Creatinine [Mass/Vol] 0.80 mg/dL Normal 0.70-1.20 [facility] Comment on above: Performed By: #### L 300.3900, L3300.0700, L100.0500, L300.4310, L500.4050 #### [facility] Laboratory [address], [address] GAP 11 Normal 5-15 [facility] Comment on above: Performed By: #### L 300.3900, L3300.0700, L100.0500, L300.4310, L500.4050 #### [facility] Laboratory [address] [place], [address] GFR/1.73 sq M.predicted among non-blacks MDRD (S/P/Bld) [Vol rate/Area] 76 mL/min/{1.73_m2} Normal >60 [facility] Comment on above: Result Comment: mL/m in/1.73m2 CKD-EPI Creatinine Equation (2020) Performed By: #### L 300.3900, L3300.0700, L100.0500, L300.4310, L500.4050 #### [facility] Laboratory [address] [place], [address] Globulin (S) [Mass/Vol] 2.9 g/dL Normal 2.2-4.2 [facility] Comment on above: Performed By: #### L 300.3900, L3300.0700, L100.0500, L300.4310, L500.4050 #### [facility] Laboratory [address] [place], [address] Glucose [Mass/Vol] 183 mg/dL High 70-99 [facility] Comment on above: Performed By: #### L 300.3900, L3300.0700, L100.0500, L300.4310, L500.4050 #### [facility] Laboratory [address] [place], [address] Potassium [Moles/Vol] 4.4 mmol/L Normal 3.3-5.1 [facility] Comment on above: Performed By: #### L 300.3900, L3300.0700, L100.0500, L300.4310, L500.4050 #### [facility] Laboratory [address] [place], [address] Sodium [Moles/Vol] 141 mmol/L Normal 133-145 [facility] Comment on above: Performed By: #### L 300.3900, L3300.0700, L100.0500, L300.4310, L500.4050 #### [facility] Laboratory [address] [place], [address] T PROT 7.1 g/dL Normal 5.9-8.4 [facility] Comment on above: Performed By: #### L 300.3900, L3300.0700, L100.0500, L300.4310, L500.4050 #### [facility] Laboratory [address] [place], [address] Urea nitrogen [Mass/Vol] 10 mg/dL Normal 4-19 [facility] Comment on above: Performed By: #### L 300.3900, L3300.0700, L100.0500, L300.4310, L500.4050 #### [facility] Laboratory [address] [place], [place], [address] Eosinophil percentageOrdered By: Segundo Conn on 09-26-2024 Eosinophils/100 WBC (Bld) 2.8 % 0-5 [facility] Erythrocyte distribution wid th ratioOrdered By: Segundo Conn on 09-26-2024 Erythrocyte distribution width (RBC) [Ratio] 12.7 % 11.6-14.6 [facility] Erythrocyte distribution wid th standard deviationOrdered By: Segundo Conn on 09-26-2024 Erythrocyte distribution width (RBC) [Ratio] 42.0 fl 35.1-43.9 [facility] Glomerular filtration rate ( GFR) estimation/1.73 sq m using serum, plasma, or whole bOrdered By: Segundo Conn on 09-26-2024 GFR/1.73 sq M.predicted among non-blacks MDRD (S/P/Bld) [Vol rate/Area] 76 mL/min/{1.73_m2} >60 [facility] Comment on above: mL/min/1.73m2 CKD-EP I Creatinine Equation (2020) Hematocrit Auto (Bld) [Volum e fraction]Ordered By: Segundo Conn on 09-26-2024 Hematocrit (Bld) [Volume fraction] 37.9 % 37-47 [facility] Hemoglobin measurementOrdere d By: Segundo Conn on 09-26-2024 Hemoglobin (Bld) [Mass/Vol] 12.2 g/dL 12.0-15.0 [facility] Immature granulocytes/100 WB C Auto (Bld)Ordered By: Segundo Conn on 09-26-2024 Immature granulocytes/100 WBC (Bld) 0.100 % 0.0-0.9 [facility] Comment on above: IG% - Immature Granu locytes (promyelocytes, myelocytes and metamyelocytes) > 1% indicates that a LEFT SHIFT is Present. Laboratory - Chemistry and C hemistry - challengeOrdered By: Segundo Conn on 09-26-2024 AST [Catalytic activity/Vol] 39 U/L High <32 [facility] MCV (mean corpuscular volume ) determinationOrdered By: Segundo Conn on 09-26-2024 MCV (RBC) [Entitic vol] 91.5 fL 81-99 [facility] Mean corpuscular hemoglobin (MCH) determinationOrdered By: Segundo Conn on 09-26-2024 MCH (RBC) [Entitic mass] 29.5 pg 27.0-32.0 [facility] Mean corpuscular hemoglobin concentration (MCHC) determinationOrdered By: Segundo Conn on 09-26-2024 MCHC (RBC) [Mass/Vol] 32.2 g/dL 32-36 [facility] Mean platelet volume determi nationOrdered By: Segundo Conn on 09-26-2024 Platelet mean volume (Bld) [Entitic vol] 10.2 fL 6.2-12.0 [facility] Monocyte percentageOrdered B y: Segundo Conn on 09-26-2024 Monocytes/100 WBC (Bld) 8.8 % 0-10 [facility] Neutrophil percentageOrdered By: Segundo Conn on 09-26-2024 Neutrophils/100 WBC (Bld) 56.2 % 47-70 [facility] Nucleated red blood cell per centageOrdered By: Segundo Conn on 09-26-2024 Nucleated RBC/100 WBC (Bld) [Ratio] 0 % 0-5 [facility] Platelet countOrdered By: Rex Conn on 09-26-2024 Platelets (Bld) [#/Vol] 277 10*3/uL 150-450 [facility] Potassium measurement (mass/ volume)Ordered By: Segundo Conn on 09-26-2024 Potassium (Unsp spec) [Mass/Vol] 4.4 mmol/L 3.3-5.1 [facility] RBC Auto (Bld) [#/Vol]Ordere d By: Segundo Conn on 09-26-2024 RBC (Bld) [#/Vol] 4.14 10*6/uL Low 4.2-5.4 [facility] Serum creatinine measurement (mass/volume)Ordered By: Segundo Conn on 09-26-2024 Creatinine [Mass/Vol] 0.80 mg/dL 0.70-1.20 [facility] Serum globulin measurementOr dered By: Segundo Conn on 09-26-2024 Globulin (S) [Mass/Vol] 2.9 g/dL 2.2-4.2 [facility] Serum glucose measurement (m ass/volume)Ordered By: Segundo Conn 09-26-2024 Glucose [Mass/Vol] 183 mg/dL High 70-99 [facility] Serum or plasma alanine fontana otransferase (ALT) measurementOrdered By: Segundo Conn 09-26-2024 ALT [Catalytic activity/Vol] 27 U/L <35 [facility] Serum or plasma albumin adiel urement (mass/volume)Ordered By: Segundo Conn 09-26-2024 Albumin [Mass/Vol] 4.2 g/dL 3.4-4.8 [facility] Serum or plasma albumin/glob ulin mass ratioOrdered By: Segundo Conn 09-26-2024 Albumin/Globulin [Mass ratio] 1.5 {ratio} 0.9-2.4 [facility] Serum or plasma alkaline jesus sphatase measurementOrdered By: Segundo Conn 09-26-2024 ALP [Catalytic activity/Vol] 69 U/L 35-104 [facility] Serum or plasma calcium adiel urement (mass/volume)Ordered By: Segundo Conn 09-26-2024 Calcium [Mass/Vol] 9.9 mg/dL 7.6-11.0 [facility] Serum or plasma urea nitroge n measurement (mass/volume)Ordered By: Segundo Conn on 09-26-2024 Urea nitrogen [Mass/Vol] 10 mg/dL 4-19 [facility] Sodium levelOrdered By: Segundo Conn on 09-26-2024 Sodium [Moles/Vol] 141 mmol/L 133-145 [facility] TSH DL <= 0.005 mIU/L QnOrde red By: Segundo Conn on 09-26-2024 TSH Qn 0.598 uIU/mL 0.300-4.20 0 [facility] Thyroid Stim Hormone (TSH)on 09-26-2024 TSH 0.598 uIU/mL Normal 0.300-4.20 0 [facility] Comment on above: Performed By: #### L 300.3900, L3300.0700, L100.0500, L300.4310, L500.4050 #### [facility] Laboratory [address] [place], [address] Total proteinOrdered By: Segundo Conn on 09-26-2024 Protein [Mass/Vol] 7.1 g/dL 5.9-8.4 [facility] Vitamin D,25 Hydroxyon 09-26 Vitamin D 25-OH 19.3 ng/mL Low 30-100 [facility] Comment on above: Result Comment: Shahana min D Status Deficiency: <20 ng/mL (50nmol/L) Insufficiency: 20-30 ng/mL (50-75 nmol/L) Sufficiency: 30-100 ng/mL (75-250 nmol/L) Toxicity: >100 ng/mL (>250 nmol/L) Performed By: #### L 300.3900, L3300.0700, L100.0500, L300.4310, L500.4050 #### [facility] Laboratory [address] [place], [place], [id number] White blood cell (WBC) count Ordered By: Segundo Conn on 09-26-2024 WBC (Bld) [#/Vol] 7.5 10*3/uL 4.4-11.0 [facility] AFP, Tumor Markeron 07-20-19 25 AFP TUMOR MARIYA 2.0 ng/mL Normal 0.0-9.2 [facility] Comment on above: Order Comment: COPY TO DR. CONN Result Comment: [facility] [employer] Electrochemiluminescence Immunoassay (ECLIA) Values obtained with different assay methods or kits cannot be used interchangeably. Results cannot be interpreted as absolute evidence of the presence or absence of malignant disease. This test is not interpretable in females. Performed at: [facility] [address], [place] [id number] Barrel Cleaner: Stephan Smith PhD, Phone: [phone] Performed By: #### L 300.3900, L3300.0700, L100.0500, L300.4310, L500.4050 #### [facility] Laboratory [address] [place], [address] Activated partial thrombopla stin time (aPTT) in platelet poor plasma by coagulation aOrdered By: Stephan Medeiros on 07-17-2024 aPTT Coag (PPP) [Time] 28.1 s 24.1-36.2 [facility] Alpha fetoprotein measuremen t as tumor markerOrdered By: Stephan Medeiros on 07-17-2024 Tumor Marker Alpha Fetoprotein 2.0 ng/mL 0.0-9.2 [facility] Comment on above: [facility] El ectrochemiluminescence Immunoassay(ECLIA)Values obtained with different assay methods or kits cannotbe used interchangeably. Results cannot be interpreted asabsolute evidence of the presence or absence of malignantdisease.This test is not interpretable in females.Performed at: [facility], [place] [id number] Director: Stephan Smith PhD, Phone: [phone] Anion gap in Serum or Plasma Ordered By: Stephan Medeiros on 07-17-2024 Anion gap [Moles/Vol] 14 mmol/L 08-16 [facility] BUN/creatinine ratioOrdered By: Stephan Medeiros on 07-17-2024 Urea nitrogen/Creatinine [Mass ratio] 14.3 mg/mg 01-21 [facility] Bilirubin, totalOrdered By: Stephan Medeiros on 07-17-2024 Bilirubin [Mass/Vol] 0.26 mg/dL 0.00-1.30 [facility] CBC-Complete Blood Cnt No Di ffon 07-17-2024 Erythrocyte distribution width (RBC) [Ratio] 12.7 % Normal 11.6-14.6 [facility] Comment on above: Performed By: #### L 300.3900, L3300.0700, L100.0500, L300.4310, L500.4050 #### [facility] Laboratory [address] [place], [address] Hematocrit (Bld) [Volume fraction] 38.0 % Normal 37-47 [facility] Comment on above: Performed By: #### L 300.3900, L3300.0700, L100.0500, L300.4310, L500.4050 #### [facility] Laboratory [address] [place], [address] Hemoglobin (Bld) [Mass/Vol] 12.4 g/dL Normal 12.0-15.0 [facility] Comment on above: Performed By: #### L 300.3900, L3300.0700, L100.0500, L300.4310, L500.4050 #### [facility] Laboratory [address] [place], [address] MCH (RBC) [Entitic mass] 29.9 pg Normal 27.0-32.0 [facility] Comment on above: Performed By: #### L 300.3900, L3300.0700, L100.0500, L300.4310, L500.4050 #### [facility] Laboratory [address] [place], [address] MCHC (RBC) [Mass/Vol] 32.6 g/dL Normal 32-36 [facility] Comment on above: Performed By: #### L 300.3900, L3300.0700, L100.0500, L300.4310, L500.4050 #### [facility] Laboratory [address] [place], [address] MCV (RBC) [Entitic vol] 91.6 fL Normal 81-99 [facility] Comment on above: Performed By: #### L 300.3900, L3300.0700, L100.0500, L300.4310, L500.4050 #### [facility] Laboratory [address] [place], [address] Platelet mean volume (Bld) [Entitic vol] 11.0 fL Normal 6.2-12.0 [facility] Comment on above: Performed By: #### L 300.3900, L3300.0700, L100.0500, L300.4310, L500.4050 #### [facility] Laboratory [address] [place], [address] Platelets (Bld) [#/Vol] 291 10*3/uL Normal 150-450 [facility] Comment on above: Performed By: #### L 300.3900, L3300.0700, L100.0500, L300.4310, L500.4050 #### [facility] [address] [place], [address] RBC (Bld) [#/Vol] 4.15 10*6/uL Low 4.2-5.4 [facility] Comment on above: Performed By: #### L 300.3900, L3300.0700, L100.0500, L300.4310, L500.4050 #### [facility] [address] [place], [address] RDW SD 42.0 fl Normal 35.1-43.9 [facility] Comment on above: Performed By: #### L 300.3900, L3300.0700, L100.0500, L300.4310, L500.4050 #### [facility] Laboratory [address] [place], [address] WBC (Bld) [#/Vol] 8.3 10*3/uL Normal 4.4-11.0 [facility] Comment on above: Performed By: #### L 300.3900, L3300.0700, L100.0500, L300.4310, L500.4050 #### [facility] Laboratory [address] [place], [address] Carbon dioxide, total [Moles /volume] in Central venous bloodOrdered By: Stephan Medeiros on 07-17-2024 CO2 [Moles/Vol] 22.4 mmol/L 21.0-32.0 [facility] Chloride assayOrdered By: Betsy Medeiros on 07-17-2024 Chloride [Moles/Vol] 106 mmol/L 98-108 [facility] Comprehensive Metabolic Prof ilon 07-17-2024 Albumin [Mass/Vol] 4.4 g/dL Normal 3.4-4.8 [facility] Comment on above: Performed By: #### L 300.3900, L3300.0700, L100.0500, L300.4310, L500.4050 #### [facility] Laboratory [address] [place], [address] Albumin/Globulin [Mass ratio] 1.5 {ratio} Normal 0.9-2.4 [facility] Comment on above: Performed By: #### L 300.3900, L3300.0700, L100.0500, L300.4310, L500.4050 #### [facility] Laboratory [address] [place], [address] ALK PHOS 68 U/L Normal 35-104 [facility] Comment on above: Performed By: #### L 300.3900, L3300.0700, L100.0500, L300.4310, L500.4050 #### [facility] Laboratory [address] [place], [address] ALT [Catalytic activity/Vol] 27 U/L Normal <=34 [facility] Comment on above: Performed By: #### L 300.3900, L3300.0700, L100.0500, L300.4310, L500.4050 #### [facility] Laboratory [address] [place], [address] AST [Catalytic activity/Vol] 34 U/L High <=31 [facility] Comment on above: Performed By: #### L 300.3900, L3300.0700, L100.0500, L300.4310, L500.4050 #### [facility] Laboratory [address] [place], [address] Bilirubin [Mass/Vol] 0.26 mg/dL Normal 0.00-1.30 [facility] Comment on above: Performed By: #### L 300.3900, L3300.0700, L100.0500, L300.4310, L500.4050 #### [facility] [address] [place], [address] BUN/CRE 14.3 RATIO Normal 10-20 [facility] Comment on above: Performed By: #### L 300.3900, L3300.0700, L100.0500, L300.4310, L500.4050 #### [facility] Laboratory [address] [place], [address] Calcium [Mass/Vol] 10.2 mg/dL Normal 7.6-11.0 [facility] Comment on above: Performed By: #### L 300.3900, L3300.0700, L100.0500, L300.4310, L500.4050 #### [facility] [address] [place], [address] Chloride [Moles/Vol] 106 mmol/L Normal 98-108 [facility] Comment on above: Performed By: #### L 300.3900, L3300.0700, L100.0500, L300.4310, L500.4050 #### [facility] [address] [place], [address] CO2 [Moles/Vol] 22.4 mmol/L Normal 21.0-32.0 [facility] Comment on above: Performed By: #### L 300.3900, L3300.0700, L100.0500, L300.4310, L500.4050 #### [facility] [address] [place], [address] Creatinine [Mass/Vol] 0.77 mg/dL Normal 0.70-1.20 [facility] Comment on above: Performed By: #### L 300.3900, L3300.0700, L100.0500, L300.4310, L500.4050 #### [facility] [address] [place], [address] GAP 14 Normal 5-15 [facility] Comment on above: Performed By: #### L 300.3900, L3300.0700, L100.0500, L300.4310, L500.4050 #### [facility] Laboratory [address] [place], [address] GFR/1.73 sq M.predicted among non-blacks MDRD (S/P/Bld) [Vol rate/Area] 79 mL/min/{1.73_m2} Normal >60 [facility] Comment on above: Result Comment: mL/m in/1.73m2 CKD-EPI Creatinine Equation (2020) Performed By: #### L 300.3900, L3300.0700, L100.0500, L300.4310, L500.4050 #### [facility] [address] [place], [address] Globulin (S) [Mass/Vol] 3.0 g/dL Normal 2.2-4.2 [facility] Comment on above: Performed By: #### L 300.3900, L3300.0700, L100.0500, L300.4310, L500.4050 #### [facility] [address] [place], [address] Glucose [Mass/Vol] 102 mg/dL High 70-99 [facility] Comment on above: Performed By: #### L 300.3900, L3300.0700, L100.0500, L300.4310, L500.4050 #### [facility] [address] [place], [address] Potassium [Moles/Vol] 4.5 mmol/L Normal 3.3-5.1 [facility] Comment on above: Performed By: #### L 300.3900, L3300.0700, L100.0500, L300.4310, L500.4050 #### [facility] [address], [address] Sodium [Moles/Vol] 142 mmol/L Normal 133-145 [facility] Comment on above: Performed By: #### L 300.3900, L3300.0700, L100.0500, L300.4310, L500.4050 #### [facility] [address] [place], [address] T PROT 7.4 g/dL Normal 5.9-8.4 [facility] Comment on above: Performed By: #### L 300.3900, L3300.0700, L100.0500, L300.4310, L500.4050 #### [facility] [address] [place], [address] Urea nitrogen [Mass/Vol] 11 mg/dL Normal 4-19 [facility] Comment on above: Performed By: #### L 300.3900, L3300.0700, L100.0500, L300.4310, L500.4050 #### [facility] Laboratory [address] [place], [address] Erythrocyte distribution wid th (RBC) [Ratio]Ordered By: Stephan Medeiros on 07-17-2024 Erythrocyte distribution width (RBC) [Entitic vol] 42.0 fL 35.1-43.9 [facility] Erythrocyte distribution wid th ratioOrdered By: Stephan Meediros on 07-17-2024 Erythrocyte distribution width (RBC) [Ratio] 12.7 % 11.6-14.6 [facility] Erythrocyte distribution wid th standard deviationOrdered By: Stephan Medeiros on 07-17-2024 Erythrocyte distribution width (RBC) [Ratio] 42.0 fl 35.1-43.9 [facility] GFR/1.73 sq M.predicted mariela g non-blacks MDRD (S/P/Bld) [Vol rate/Area]Ordered By: Stephan Medeiros on 07-17-2024 Estimated GFR (MDRD) Non-Af Amer 79 >60 [facility] Comment on above: mL/min/1.73m2 CKD-EP I Creatinine Equation (2020) Glomerular filtration rate ( GFR) estimation/1.73 sq m using serum, plasma, or whole bOrdered By: Stephan Medeiros on 07-17-2024 GFR/1.73 sq M.predicted among non-blacks MDRD (S/P/Bld) [Vol rate/Area] 79 mL/min/{1.73_m2} >60 [facility] Comment on above: mL/min/1.73m2 CKD-EP I Creatinine Equation (2020) Hematocrit Auto (Bld) [Volum e fraction]Ordered By: Stephan Medeiros on 07-17-2024 Hematocrit (Bld) [Volume fraction] 38.0 % 37-47 [facility] Hemoglobin measurementOrdere d By: Stephan Medeiros on 07-17-2024 Hemoglobin (Bld) [Mass/Vol] 12.4 g/dL 12.0-15.0 [facility] International normalized rat io (INR) calculationOrdered By: Stephan Medeiros on 07-17-2024 INR Coag (Bld) [Relative time] 1.0 {INR} [facility] Laboratory - Chemistry and C hemistry - challengeOrdered By: Stephan Medeiros on 07-17-2024 AST [Catalytic activity/Vol] 34 U/L High <32 [facility] MCV (mean corpuscular volume ) determinationOrdered By: Stephan Medeiros on 07-17-2024 MCV (RBC) [Entitic vol] 91.6 fL 81-99 [facility] Mean corpuscular hemoglobin (MCH) determinationOrdered By: Stephan Medeiros on 07-17-2024 MCH (RBC) [Entitic mass] 29.9 pg 27.0-32.0 [facility] Mean corpuscular hemoglobin concentration (MCHC) determinationOrdered By: Stephan Medeiros on 07-17-2024 MCHC (RBC) [Mass/Vol] 32.6 g/dL 32-36 [facility] Mean platelet volume determi nationOrdered By: Stephan Medeiros on 07-17-2024 Platelet mean volume (Bld) [Entitic vol] 11.0 fL 6.2-12.0 [facility] Partial Thromboplast Timeon 07-17-2024 aPTT Coag (Bld) [Time] 28.1 s Normal 24.1-36.2 [facility] Comment on above: Performed By: #### L 300.3900, L3300.0700, L100.0500, L300.4310, L500.4050 #### [facility] [address] [place], [place], [address] Platelet countOrdered By: Betsy Medeiros on 07-17-2024 Platelets (Bld) [#/Vol] 291 10*3/uL 150-450 [facility] Potassium (Unsp spec) [Mass/ Vol]Ordered By: Stephan Medeiros on 07-17-2024 Potassium [Moles/Vol] 4.5 mmol/L 3.3-5.1 [facility] Potassium measurement (mass/ volume)Ordered By: Stephan Medeiros on 07-17-2024 Potassium (Unsp spec) [Mass/Vol] 4.5 mmol/L 3.3-5.1 [facility] Prothrombin Time w/INRon INR Coag (PPP) [Relative time] 1.0 {INR} Normal [facility] Comment on above: Performed By: #### L 300.3900, L3300.0700, L100.0500, L300.4310, L500.4050 #### [facility] Laboratory [address] [place], [address] PT Coag (PPP) [Time] 13.4 s Normal 11.7-14.9 [facility] Comment on above: Performed By: #### L 300.3900, L3300.0700, L100.0500, L300.4310, L500.4050 #### [facility] Laboratory [address] [place], [address] Prothrombin timeOrdered By: Stephan Medeiros on 07-17-2024 PT Coag (PPP) [Time] 13.4 s 11.7-14.9 [facility] RBC Auto (Bld) [#/Vol]Ordere d By: Stephan Medeiros on 07-17-2024 RBC (Bld) [#/Vol] 4.15 10*6/uL Low 4.2-5.4 [facility] Serum creatinine measurement (mass/volume)Ordered By: Stephan Medeiros on 07-17-2024 Creatinine [Mass/Vol] 0.77 mg/dL 0.70-1.20 [facility] Serum globulin measurementOr dered By: Stephan Medeiros on 07-17-2024 Globulin (S) [Mass/Vol] 3.0 g/dL 2.2-4.2 [facility] Serum glucose measurement (m ass/volume)Ordered By: Stephan Medeiros on 07-17-2024 Glucose [Mass/Vol] 102 mg/dL High 70-99 [facility] Serum or plasma alanine fontana otransferase (ALT) measurementOrdered By: Stephan Medeiros on 07-17-2024 ALT [Catalytic activity/Vol] 27 U/L <35 [facility] Serum or plasma albumin adiel urement (mass/volume)Ordered By: Stephan Medeiros on 07-17-2024 Albumin [Mass/Vol] 4.4 g/dL 3.4-4.8 [facility] Serum or plasma albumin/glob ulin mass ratioOrdered By: Stephan Medeiros on 07-17-2024 Albumin/Globulin [Mass ratio] 1.5 {ratio} 0.9-2.4 [facility] Serum or plasma alkaline jesus sphatase measurementOrdered By: Stephan Medeiros on 07-17-2024 ALP [Catalytic activity/Vol] 68 U/L 35-104 [facility] Serum or plasma calcium adiel urement (mass/volume)Ordered By: Stephan Medeiros on 07-17-2024 Calcium [Mass/Vol] 10.2 mg/dL 7.6-11.0 [facility] Serum or plasma urea nitroge n measurement (mass/volume)Ordered By: Stephan Medeiros on 07-17-2024 Urea nitrogen [Mass/Vol] 11 mg/dL 4-19 [facility] Sodium levelOrdered By: Dougie Medeiros on 07-17-2024 Sodium [Moles/Vol] 142 mmol/L 133-145 [facility] Total proteinOrdered By: Timothy Medeiros on 07-17-2024 Protein [Mass/Vol] 7.4 g/dL 5.9-8.4 [facility] White blood cell (WBC) count Ordered By: Stephan Medeiros on 07-17-2024 WBC (Bld) [#/Vol] 8.3 10*3/uL 4.4-11.0 [facility] aPTT Coag (PPP) [Time]Ordere d By: Stephan Medeiros on 07-17-2024 aPTT Coag (Bld) [Time] 28.1 s 24.1-36.2 [facility] Magnetic resonance imaging r eportOrdered By: Jeremy Bland on 06-28-2024 Study report [facility] Imaging Services [address] [place] [address] MRI Abd WITH and W/O Contrast MR#: [id number] Acct: [id number] Name: ALFRED JACKSON Rep #: [id number] : 1945 F 78 From: [place] DO PCP: Dr. Segundo Conn MD Status: REG C LI Study:MRI Abd WITH and W/O Contrast Date of E xam: 06/27/24 Exam# [id number] Ordering Dr: Aureliano Medeiros MD PROCEDURE: MRI of the abdomen without and with intravenous contrast. 06/27/2024 REASON FOR EXAM: Liver cirrhosis. TECHNIQUE: Multiplanar, multisequence MRI images of the abdomen were obtained without and with intravenous contrast. 13 cc Clariscan IV contrast was administered. COMPARISON: Abdominal ultrasound 11/18/2023 no prior abdominal MRI. FINDINGS: [id number] degenerative changes of the present in the spine. The includedosseous structures otherwise grossly unremarkable. Heart is not enlarged. No sizable pericardial effusion. Lower lungs are grossly clear. No large abdominal wall defect. The included bowel segments are unremarkable, although evaluation is limited. No upper abdominal ascites or adenopathy. No filling defects in the gallbladder. No abnormal dilation of the biliary tree. Patchy wall thickening of the stomach may be due to lack of distention versus peristalsis. No significant signal dropout of the liver parenchyma on out of phase images, to suggest significant fatty metamorphosis. The abdominal aorta is normal in caliber with a moderate amount of atherosclerotic change. The adrenal glands and spleen are unremarkable. Kidneys are symmetric in size and enhancement. No solid-appearing renal mass or obstructive uropathy. There is a nonenhancing T2 hyperintense well-marginated 7 mm cyst of the pancreatic tail image 58 axial postcontrast images. The remainder of the pancreas is unremarkable. Gently lobulated contour of the liver may be due to early cirrhosis. No enhancing T2 hyperintense liver lesion. MRI/MRI Abd WITH and W/O Contrast IMPRESSION: Gently lobulated contour of the liver may be due to early cirrhosis. No enhancing liver lesion. No upper abdominal ascites or adenopathy. Nonenhancing 7 mm cyst distal pancreatic tail. This could represent a mildly dilated side duct or IPMN. Suggest follow-up abdominal MRI in 6 months to document stability. The remaining solid organs of the abdomen are unremarkable. No filling defects in the gallbladder or abnormal dilation of the biliary tree. Moderate atherosclerotic change of the abdominal aorta. Reading Location: [facility] CC: Dr. Segundo Conn MD; Dr. Stephan Medeiros MD ~ Circulation Worker: Signed [facility] MRI Abd WITH and W/O Contras ton 06-27-2024 MRI Abd WITH and W/O Contrast [facility] Imaging Services [address] [place], [place] [address] MRI Abd WITH and W/O Contrast MR#: [id number] Acct: [id number] Name: ALFRED JACKSON Rep #: [id number] : 1945 F 78 From: Jeremy Brush i, DO PCP: Dr. Segundo Conn MD Status: REG CLI Study: MRI Abd WITH and W/O Contrast Date of Exam: Exam# [id number] Ordering Dr: Stephan Medeiros MD PROCEDURE: MRI of the abdomen without and with intravenous contrast. 06/27/2024 REASON FOR EXAM: Liver cirrhosis. TECHNIQUE: Multiplanar, multisequence MRI images of the abdomen were obtained without and with intravenous contrast. 13 cc Clariscan IV contrast was administered. COMPARISON: Abdominal ultrasound 11/18/2023 no prior abdominal MRI. FINDINGS: [id number] degenerative changes of the present in the spine. The included osseous structures otherwise grossly unremarkable. Heart is not enlarged. No sizable pericardial effusion. Lower lungs are grossly clear. No large abdominal wall defect. The included bowel segments are unremarkable, although evaluation is limited. No upper abdominal ascites or adenopathy. No filling defects in the gallbladder. No abnormal dilation of the biliary tree. Patchy wall thickening of the stomach may be due to lack of distention versus peristalsis. No significant signal dropout of the liver parenchyma on out of phase images, to suggest significant fatty metamorphosis. The abdominal aorta is normal in caliber with a moderate amount of atherosclerotic change. The adrenal glands and spleen are unremarkable. Kidneys are symmetric in size and enhancement. No solid-appearing renal mass or obstructive uropathy. There is a nonenhancing T2 hyperintense well-marginated 7 mm cyst of the pancreatic tail image 58 axial postcontrast images. The remainder of the pancreas is unremarkable. Gently lobulated contour of the liver may be due to early cirrhosis. No enhancing T2 hyperintense liver lesion. MRI/MRI Abd WITH and W/O Contrast IMPRESSION: Gently lobulated contour of the liver may be due to early cirrhosis. No enhancing liver lesion. No upper abdominal ascites or adenopathy. Nonenhancing 7 mm cyst distal pancreatic tail. This could represent a mildly dilated side duct or IPMN. Suggest follow-up abdominal MRI in 6 months to document stability. The remaining solid organs of the abdomen are unremarkable. No filling defects in the gallbladder or abnormal dilation of the biliary tree. Moderate atherosclerotic change of the abdominal aorta. Reading Location: [facility] CC: Dr. Segundo Conn MD; Dr. Stephan Medeiros MD Circulation Worker: Signed Normal [facility] AFP, Tumor Markeron 06-09-19 25 AFP TUMOR MARIYA 2.1 ng/mL Normal 0.0-9.2 [facility] Comment on above: Order Comment: COPY TO DR. CONN Result Comment: [facility] Electrochemiluminescence Immunoassay (ECLIA) Values obtained with different assay methods or kits cannot be used interchangeably. Results cannot be interpreted as absolute evidence of the presence or absence of malignant disease. This test is not interpretable in females. Performed at: [facility] [address] [id number] Barrel Cleaner: Stephan Smith PhD, Phone: [phone] Performed By: #### L 300.3900, L3300.0700, L100.0500, L300.4310, L500.4050 #### [facility] Laboratory [address] [place], [place], [address] Activated partial thrombopla stin time (aPTT) in platelet poor plasma by coagulation aOrdered By: Stephan Medeiros on 06-07-2024 aPTT Coag (PPP) [Time] 27.7 s 24.1-36.2 [facility] Alpha fetoprotein measuremen t as tumor markerOrdered By: Stephan Medeiros on 06-07-2024 Tumor Marker Alpha Fetoprotein 2.1 ng/mL 0.0-9.2 [facility] Comment on above: [facility] El ectrochemiluminescence Immunoassay(ECLIA)Values obtained with different assay methods or kits cannotbe used interchangeably. Results cannot be interpreted asabsolute evidence of the presence or absence of malignantdisease.This test is not interpretable in females.Performed at: [facility] [address] [place] [id number] Director: Stephan Smith PhD, Phone: [phone] Anion gap in Serum or Plasma Ordered By: Stephan Medeiros on 06-07-2024 Anion gap [Moles/Vol] 13 mmol/L 5-15 [facility] BUN/creatinine ratioOrdered By: Stephan Medeiros on 06-07-2024 Urea nitrogen/Creatinine [Mass ratio] 12.2 mg/mg 10- [facility] Bilirubin, totalOrdered By: Stephan Medeiros on 06-07-2024 Bilirubin [Mass/Vol] 0.32 mg/dL 0.00-1.30 [facility] CBC-Complete Blood Cnt No Di ffon 06-07-2024 Erythrocyte distribution width (RBC) [Ratio] 12.9 % Normal 11.6-14.6 [facility] Comment on above: Performed By: #### L 3300.0700, L500.4050, L300.4310, L100.0500, L300.3900 #### [facility] [address] [place], [address] Hematocrit (Bld) [Volume fraction] 38.2 % Normal 37-47 [facility] Comment on above: Performed By: #### L 3300.0700, L500.4050, L300.4310, L100.0500, L300.3900 #### [facility] [address] [place], [address] Hemoglobin (Bld) [Mass/Vol] 12.2 g/dL Normal 12.0-15.0 [facility] Comment on above: Performed By: #### L 3300.0700, L500.4050, L300.4310, L100.0500, L300.3900 #### [facility] [address] [place], [address] MCH (RBC) [Entitic mass] 29.7 pg Normal 27.0-32.0 [facility] Comment on above: Performed By: #### L 3300.0700, L500.4050, L300.4310, L100.0500, L300.3900 #### [facility] [address] [place], [address] MCHC (RBC) [Mass/Vol] 31.9 g/dL Low 32-36 [facility] Comment on above: Performed By: #### L 3300.0700, L500.4050, L300.4310, L100.0500, L300.3900 #### [facility] [address] [place], [address] MCV (RBC) [Entitic vol] 92.9 fL Normal 81-99 [facility] Comment on above: Performed By: #### L 3300.0700, L500.4050, L300.4310, L100.0500, L300.3900 #### [facility] [address] [place], [address] Platelet mean volume (Bld) [Entitic vol] 10.3 fL Normal 6.2-12.0 [facility] Comment on above: Performed By: #### L 3300.0700, L500.4050, L300.4310, L100.0500, L300.3900 #### [facility] [address] [place], [address] Platelets (Bld) [#/Vol] 273 10*3/uL Normal 150-450 [facility] Comment on above: Performed By: #### L 3300.0700, L500.4050, L300.4310, L100.0500, L300.3900 #### [facility] [address] [place], [address] RBC (Bld) [#/Vol] 4.11 10*6/uL Low 4.2-5.4 [facility] Comment on above: Performed By: #### L 3300.0700, L500.4050, L300.4310, L100.0500, L300.3900 #### [facility] [address] [place], [address] RDW SD 43.8 fl Normal 35.1-43.9 [facility] Comment on above: Performed By: #### L 3300.0700, L500.4050, L300.4310, L100.0500, L300.3900 #### [facility] [address] [place], [address] WBC (Bld) [#/Vol] 6.7 10*3/uL Normal 4.4-11.0 [facility] Comment on above: Performed By: #### L 3300.0700, L500.4050, L300.4310, L100.0500, L300.3900 #### [facility] [address] [place], [place], [id number] (870) Carbon dioxide, total [Moles /volume] in Central venous bloodOrdered By: Stephan Medeiros on 06-07-2024 CO2 [Moles/Vol] 23.4 mmol/L 21.0-32.0 [facility] Chloride assayOrdered By: Betsy Medeiros on 06-07-2024 Chloride [Moles/Vol] 105 mmol/L 98-108 [facility] Comprehensive Metabolic Prof ilon 06-07-2024 Albumin [Mass/Vol] 4.2 g/dL Normal 3.4-4.8 [facility] Comment on above: Performed By: #### L 300.3900, L3300.0700, L100.0500, L300.4310, L500.4050 #### [facility] [address] [place], [address] Albumin/Globulin [Mass ratio] 1.5 {ratio} Normal 0.9-2.4 [facility] Comment on above: Performed By: #### L 300.3900, L3300.0700, L100.0500, L300.4310, L500.4050 #### [facility] [address] [place], [address] ALK PHOS 68 U/L Normal 35-104 [facility] Comment on above: Performed By: #### L 300.3900, L3300.0700, L100.0500, L300.4310, L500.4050 #### [facility] [address], [address] ALT [Catalytic activity/Vol] 30 U/L Normal <=34 [facility] Comment on above: Performed By: #### L 300.3900, L3300.0700, L100.0500, L300.4310, L500.4050 #### [facility] [address] [place], [address] AST [Catalytic activity/Vol] 36 U/L High <=31 [facility] Comment on above: Performed By: #### L 300.3900, L3300.0700, L100.0500, L300.4310, L500.4050 #### [facility] [address] [place], [address] Bilirubin [Mass/Vol] 0.32 mg/dL Normal 0.00-1.30 [facility] Comment on above: Performed By: #### L 300.3900, L3300.0700, L100.0500, L300.4310, L500.4050 #### [facility] [address] [place], [address] BUN/CRE 12.2 RATIO Normal 10-20 [facility] Comment on above: Performed By: #### L 300.3900, L3300.0700, L100.0500, L300.4310, L500.4050 #### [facility] [address] [place], [address] Calcium [Mass/Vol] 9.8 mg/dL Normal 7.6-11.0 [facility] Comment on above: Performed By: #### L 300.3900, L3300.0700, L100.0500, L300.4310, L500.4050 #### [facility] [address] [place], [address] Chloride [Moles/Vol] 105 mmol/L Normal 98-108 [facility] Comment on above: Performed By: #### L 300.3900, L3300.0700, L100.0500, L300.4310, L500.4050 #### [facility] [address] [place], [address] CO2 [Moles/Vol] 23.4 mmol/L Normal 21.0-32.0 [facility] Comment on above: Performed By: #### L 300.3900, L3300.0700, L100.0500, L300.4310, L500.4050 #### [facility] [address] [place], [address] Creatinine [Mass/Vol] 0.88 mg/dL Normal 0.70-1.20 [facility] Comment on above: Performed By: #### L 300.3900, L3300.0700, L100.0500, L300.4310, L500.4050 #### [facility] [address] [place], [address] GAP 13 Normal 5-15 [facility] Comment on above: Performed By: #### L 300.3900, L3300.0700, L100.0500, L300.4310, L500.4050 #### [facility] [address] [place], [address] GFR/1.73 sq M.predicted among non-blacks MDRD (S/P/Bld) [Vol rate/Area] 68 mL/min/{1.73_m2} Normal >60 [facility] Comment on above: Result Comment: mL/m in/1.73m2 CKD-EPI Creatinine Equation (2020) Performed By: #### L 300.3900, L3300.0700, L100.0500, L300.4310, L500.4050 #### [facility] [address] [place], [address] Globulin (S) [Mass/Vol] 2.9 g/dL Normal 2.2-4.2 [facility] Comment on above: Performed By: #### L 300.3900, L3300.0700, L100.0500, L300.4310, L500.4050 #### [facility] [address] [place], [address] Glucose [Mass/Vol] 251 mg/dL High 70-99 [facility] Comment on above: Performed By: #### L 300.3900, L3300.0700, L100.0500, L300.4310, L500.4050 #### [facility] [address] [place], [address] Potassium [Moles/Vol] 4.1 mmol/L Normal 3.3-5.1 [facility] Comment on above: Performed By: #### L 300.3900, L3300.0700, L100.0500, L300.4310, L500.4050 #### [facility] [address] [place], [address] Sodium [Moles/Vol] 141 mmol/L Normal 133-145 [facility] Comment on above: Performed By: #### L 300.3900, L3300.0700, L100.0500, L300.4310, L500.4050 #### [facility] [address] [place], [address] T PROT 7.1 g/dL Normal 5.9-8.4 [facility] Comment on above: Performed By: #### L 300.3900, L3300.0700, L100.0500, L300.4310, L500.4050 #### [facility] [address] [place], [place], [id number] Urea nitrogen [Mass/Vol] 11 mg/dL Normal 4-19 [facility] Comment on above: Performed By: #### L 300.3900, L3300.0700, L100.0500, L300.4310, L500.4050 #### [facility] [address] [place], [place], [address] Erythrocyte distribution wid th ratioOrdered By: Stephan Medeiros on 06-07-2024 Erythrocyte distribution width (RBC) [Ratio] 12.9 % 11.6-14.6 [facility] Erythrocyte distribution wid th standard deviationOrdered By: Stephan Medeiros on 06-07-2024 Erythrocyte distribution width (RBC) [Entitic vol] 43.8 fL 35.1-43.9 [facility] Erythrocyte distribution width (RBC) [Ratio] 43.8 fl 35.1-43.9 [facility] GFR/1.73 sq M.predicted mariela g non-blacks MDRD (S/P/Bld) [Vol rate/Area]Ordered By: Stephan Medeiros on 06-07-2024 Estimated GFR (MDRD) Non-Af Amer 68 >60 [facility] Comment on above: mL/min/1.73m2 CKD-EP I Creatinine Equation (2020) Glomerular filtration rate ( GFR) estimation/1.73 sq m using serum, plasma, or whole bOrdered By: Stephan Medeiros on 06-07-2024 GFR/1.73 sq M.predicted among non-blacks MDRD (S/P/Bld) [Vol rate/Area] 68 mL/min/{1.73_m2} >60 [facility] Comment on above: mL/min/1.73m2 CKD-EP I Creatinine Equation (2020) Hematocrit Auto (Bld) [Volum e fraction]Ordered By: Stephan Medeiros on 06-07-2024 Hematocrit (Bld) [Volume fraction] 38.2 % 37-47 [facility] Hemoglobin measurementOrdere d By: Stephan Medeiros on 06-07-2024 Hemoglobin (Bld) [Mass/Vol] 12.2 g/dL 12.0-15.0 [facility] International normalized rat io (INR) calculationOrdered By: Stephan Medeiros on 06-07-2024 INR Coag (Bld) [Relative time] 1.0 {INR} [facility] Laboratory - Chemistry and C hemistry - challengeOrdered By: Stephan Medeiros on 06-07-2024 AST [Catalytic activity/Vol] 36 U/L High <32 [facility] MCV (mean corpuscular volume ) determinationOrdered By: Stephan Medeiros on 06-07-2024 MCV (RBC) [Entitic vol] 92.9 fL 81-99 [facility] Mean corpuscular hemoglobin (MCH) determinationOrdered By: Stephan Medeiros on 06-07-2024 MCH (RBC) [Entitic mass] 29.7 pg 27.0-32.0 [facility] Mean corpuscular hemoglobin concentration (MCHC) determinationOrdered By: Stephan Medeiros on 06-07-2024 MCHC (RBC) [Mass/Vol] 31.9 g/dL Low 32-36 [facility] Mean platelet volume determi nationOrdered By: Stephan Medeiros on 06-07-2024 Platelet mean volume (Bld) [Entitic vol] 10.3 fL 6.2-12.0 [facility] Partial Thromboplast Timeon 06-07-2024 aPTT Coag (Bld) [Time] 27.7 s Normal 24.1-36.2 [facility] Comment on above: Performed By: #### L 300.3900, L3300.0700, L100.0500, L300.4310, L500.4050 #### [facility] [address] [place], [address] Platelet countOrdered By: Betsy Medeiros on 06-07-2024 Platelets (Bld) [#/Vol] 273 10*3/uL 150-450 [facility] Potassium (Unsp spec) [Mass/ Vol]Ordered By: Stephan Medeiros on 06-07-2024 Potassium [Moles/Vol] 4.1 mmol/L 3.3-5.1 [facility] Potassium measurement (mass/ volume)Ordered By: Stephan Medeiros on 06-07-2024 Potassium (Unsp spec) [Mass/Vol] 4.1 mmol/L 3.3-5.1 [facility] Prothrombin Time w/INRon INR Coag (PPP) [Relative time] 1.0 {INR} Normal [facility] Comment on above: Performed By: #### L 300.3900, L3300.0700, L100.0500, L300.4310, L500.4050 #### [facility] [address] [place], [address] PT Coag (PPP) [Time] 13.4 s Normal 11.7-14.9 [facility] Comment on above: Performed By: #### L 300.3900, L3300.0700, L100.0500, L300.4310, L500.4050 #### [facility] [address] [place], [place], [id number] Prothrombin timeOrdered By: Stephan Medeiros on 06-07-2024 PT Coag (PPP) [Time] 13.4 s 11.7-14.9 [facility] RBC Auto (Bld) [#/Vol]Ordere d By: Stephan Medeiros on 06-07-2024 RBC (Bld) [#/Vol] 4.11 10*6/uL Low 4.2-5.4 [facility] Serum creatinine measurement (mass/volume)Ordered By: Stephan Medeiros on 06-07-2024 Creatinine [Mass/Vol] 0.88 mg/dL 0.70-1.20 [facility] Serum globulin measurementOr dered By: Stephan Medeiros on 06-07-2024 Globulin (S) [Mass/Vol] 2.9 g/dL 2.2-4.2 [facility] Serum glucose measurement (m ass/volume)Ordered By: Stephan Medeiros on 06-07-2024 Glucose [Mass/Vol] 251 mg/dL High 70-99 [facility] Serum or plasma alanine fontana otransferase (ALT) measurementOrdered By: Stephan Medeiros on 06-07-2024 ALT [Catalytic activity/Vol] 30 U/L <35 [facility] Serum or plasma albumin adiel urement (mass/volume)Ordered By: Stephan Medeiros on 06-07-2024 Albumin [Mass/Vol] 4.2 g/dL 3.4-4.8 [facility] Serum or plasma albumin/glob ulin mass ratioOrdered By: Stephan Medeiros on 06-07-2024 Albumin/Globulin [Mass ratio] 1.5 {ratio} 0.9-2.4 [facility] Serum or plasma alkaline jesus sphatase measurementOrdered By: Stephan Medeiros on 06-07-2024 ALP [Catalytic activity/Vol] 68 U/L 35-104 [facility] Serum or plasma calcium adiel urement (mass/volume)Ordered By: Stephan Medeiros on 06-07-2024 Calcium [Mass/Vol] 9.8 mg/dL 7.6-11.0 [facility] Serum or plasma urea nitroge n measurement (mass/volume)Ordered By: Stephan Medeiros on 06-07-2024 Urea nitrogen [Mass/Vol] 11 mg/dL 4-19 [facility] Sodium levelOrdered By: Dougie Medeiros on 06-07-2024 Sodium [Moles/Vol] 141 mmol/L 133-145 [facility] Total proteinOrdered By: Timothy Medeiros on 06-07-2024 Protein [Mass/Vol] 7.1 g/dL 5.9-8.4 [facility] White blood cell (WBC) count Ordered By: Stephan Medeiros on 06-07-2024 WBC (Bld) [#/Vol] 6.7 10*3/uL 4.4-11.0 [facility] aPTT Coag (PPP) [Time]Ordere d By: Stephan Medeiros on 06-07-2024 aPTT Coag (Bld) [Time] 27.7 s 24.1-36.2 [facility] 30-KA-Jfunncp DOrdered By: Sparkle Conn on 03-26-2024 Vitamin D 25-Hydroxy 8.3 ng/mL [facility] Comment on above: Vitamin D 25(OH) Sta tus Range Deficiency <20 ng/mL (50nmol/L) Insufficiency 20 - 30 ng/mL (50 - 75 nmol/L) Sufficiency 30 - 100 ng/mL (75 - 250 nmol/L) Toxicity >100 ng/mL (>250 nmol/L) Absolute neutrophil countOrd ered By: Segundo Conn on 03-26-2024 Neutrophils (Bld) [#/Vol] 4.6 10*3/uL 2.0-7.7 [facility] Albumin to globulin ratioOrd ered By: Segundo Conn on 03-26-2024 Albumin/Globulin [Mass ratio] 1.0 {ratio} 0.9-2.4 [facility] Basophil percentageOrdered B y: Segundo Judson on 03-26-2024 Basophils/100 WBC (Bld) 0.5 % 0-1 [facility] Bilirubin, totalOrdered By: Segundo Conn on 03-26-2024 Bilirubin [Mass/Vol] 0.40 mg/dL 0.20-1.00 [facility] Comment on above: For patients on eltr ombopag therapy, use of Dimension [place] TBIL is not recommended. Blood urea nitrogen (BUN)/cr eatinine ratioOrdered By: Segundo Conn on 03-26-2024 Urea nitrogen/Creatinine [Mass ratio] 13.4 mg/mg 01-21 [facility] CBC W/Diff, Automatedon 03-05 Absolute Lymph 2.21 X10 3/uL Normal 0.83-4.51 [facility] Comment on above: Performed By: #### L 100.0100, L506.1000, L500.4050, L501.9520 #### [facility] [address] [place], [address] Absolute Neut 4.6 X10 3/uL Normal 2.0-7.7 [facility] Comment on above: Performed By: #### L 100.0100, L506.1000, L500.4050, L501.9520 #### [facility] [address] [place], [address] Basophils/100 WBC (Bld) 0.5 % Normal 0-1 [facility] Comment on above: Performed By: #### L 100.0100, L506.1000, L500.4050, L501.9520 #### [facility] [address] [place], [address] Eosinophils/100 WBC (Bld) 2.8 % Normal 0-5 [facility] Comment on above: Performed By: #### L 100.0100, L506.1000, L500.4050, L501.9520 #### [facility] [address] [place], [address] Erythrocyte distribution width (RBC) [Ratio] 12.6 % Normal 11.6-14.6 [facility] Comment on above: Performed By: #### L 100.0100, L506.1000, L500.4050, L501.9520 #### [facility] [address] [place], [address] Hematocrit (Bld) [Volume fraction] 40.9 % Normal 37-47 [facility] Comment on above: Performed By: #### L 100.0100, L506.1000, L500.4050, L501.9520 #### [facility] [address] [place], [address] Hemoglobin (Bld) [Mass/Vol] 12.6 g/dL Normal 12.0-15.0 [facility] Comment on above: Performed By: #### L 100.0100, L506.1000, L500.4050, L501.9520 #### [facility] [address] [place], [address] IG% 0.300 Normal 0.0-0.9 [facility] Comment on above: Result Comment: IG% - Immature Granulocytes (promyelocytes, myelocytes and metamyelocytes) > 1% indicates that a LEFT SHIFT is Present. Performed By: #### L 100.0100, L506.1000, L500.4050, L501.9520 #### [facility] [address] [place], [address] Lymphocytes/100 WBC (Bld) 28.6 % Normal 19-41 [facility] Comment on above: Performed By: #### L 100.0100, L506.1000, L500.4050, L501.9520 #### [facility] [address] [place], [address] MCH (RBC) [Entitic mass] 28.8 pg Normal 27.0-32.0 [facility] Comment on above: Performed By: #### L 100.0100, L506.1000, L500.4050, L501.9520 #### [facility] [address] [place], [address] MCHC (RBC) [Mass/Vol] 30.8 g/dL Low 32-36 [facility] Comment on above: Performed By: #### L 100.0100, L506.1000, L500.4050, L501.9520 #### [facility] [address] [place], [address] MCV (RBC) [Entitic vol] 93.6 fL Normal 81-99 [facility] Comment on above: Performed By: #### L 100.0100, L506.1000, L500.4050, L501.9520 #### [facility] [address] [place], [address] Monocytes/100 WBC (Bld) 8.3 % Normal 0-10 [facility] Comment on above: Performed By: #### L 100.0100, L506.1000, L500.4050, L501.9520 #### [facility] [address] [place], [address] Neutrophils/100 WBC (Bld) 59.5 % Normal 47-70 [facility] Comment on above: Performed By: #### L 100.0100, L506.1000, L500.4050, L501.9520 #### [facility] [address] [place], [address] Nucleated RBC (Bld) [#/Vol] 0 10*3/uL Normal 0-5 [facility] Comment on above: Performed By: #### L 100.0100, L506.1000, L500.4050, L501.9520 #### [facility] [address] [place], [address] Platelet mean volume (Bld) [Entitic vol] 10.5 fL Normal 6.2-12.0 [facility] Comment on above: Performed By: #### L 100.0100, L506.1000, L500.4050, L501.9520 #### [facility] [address] [place], [address] Platelets (Bld) [#/Vol] 303 10*3/uL Normal 150-450 [facility] Comment on above: Performed By: #### L 100.0100, L506.1000, L500.4050, L501.9520 #### [facility] [address] [place], [address] RBC (Bld) [#/Vol] 4.37 10*6/uL Normal 4.2-5.4 [facility] Comment on above: Performed By: #### L 100.0100, L506.1000, L500.4050, L501.9520 #### [facility] [address] [place], [address] RDW SD 43.1 fl Normal 35.1-43.9 [facility] Comment on above: Performed By: #### L 100.0100, L506.1000, L500.4050, L501.9520 #### [facility] [address] [place], [address] WBC (Bld) [#/Vol] 7.7 10*3/uL Normal 4.4-11.0 [facility] Comment on above: Performed By: #### L 100.0100, L506.1000, L500.4050, L501.9520 #### [facility] [address] [place], [address] Carbon dioxide measurementOr dered By: Segundo Conn on 03-26-2024 CO2 [Moles/Vol] 29.0 mmol/L 21.0-32.0 [facility] Chloride measurementOrdered By: Segundo Conn on 03-26-2024 Chloride [Moles/Vol] 108 mmol/L High 98-107 [facility] Comprehensive Metabolic Prof ilon 03-26-2024 Albumin [Mass/Vol] 3.8 g/dL Normal 3.2-5.0 [facility] Comment on above: Performed By: #### L 100.0100, L506.1000, L500.4050, L501.9520 #### [facility] [address] [place], [address] Albumin/Globulin [Mass ratio] 1.0 {ratio} Normal 0.9-2.4 [facility] Comment on above: Performed By: #### L 100.0100, L506.1000, L500.4050, L501.9520 #### [facility] [address] [place], [address] ALK P 73 U/L Normal 45-117 [facility] Comment on above: Performed By: #### L 100.0100, L506.1000, L500.4050, L501.9520 #### [facility] [address] [place], [address] ALT [Catalytic activity/Vol] 30 U/L Normal 13-56 [facility] Comment on above: Performed By: #### L 100.0100, L506.1000, L500.4050, L501.9520 #### [facility] [address] [place], [address] AST [Catalytic activity/Vol] 23 U/L Normal 15-37 [facility] Comment on above: Performed By: #### L 100.0100, L506.1000, L500.4050, L501.9520 #### [facility] [address] [place], [address] Bilirubin [Mass/Vol] 0.40 mg/dL Normal 0.20-1.00 [facility] Comment on above: Result Comment: For patients on eltrombopag therapy, use of Dimension [place] TBIL is not recommended. Performed By: #### L 100.0100, L506.1000, L500.4050, L501.9520 #### [facility] [address] [place], [address] BUN/CRE 13.4 RATIO Normal 10-20 [facility] Comment on above: Performed By: #### L 100.0100, L506.1000, L500.4050, L501.9520 #### [facility] [address] [place], [address] CA,Total 9.8 mg/dL Normal 8.5-10.1 [facility] Comment on above: Performed By: #### L 100.0100, L506.1000, L500.4050, L501.9520 #### [facility] [address] [place], [address] Chloride [Moles/Vol] 108 mmol/L High 98-107 [facility] Comment on above: Performed By: #### L 100.0100, L506.1000, L500.4050, L501.9520 #### [facility] [address] [place], [address] CO2 [Moles/Vol] 29.0 mmol/L Normal 21.0-32.0 [facility] Comment on above: Performed By: #### L 100.0100, L506.1000, L500.4050, L501.9520 #### [facility] [address] [place], [address] Creatinine [Mass/Vol] 0.82 mg/dL Normal 0.55-1.02 [facility] Comment on above: Result Comment: The validity of the calculated GFR GFRAA in patients over 70 years has not been determined. Clinical correlation is essential. Performed By: #### L 100.0100, L506.1000, L500.4050, L501.9520 #### [facility] [address] [place], [address] EST GFR - AA 87 mL/min Normal >60 [facility] Comment on above: Result Comment: Afri can Malagasy GFR Calc Performed By: #### L 100.0100, L506.1000, L500.4050, L501.9520 #### [facility] [address] [place], [address] GAP 4 Low 5-15 [facility] Comment on above: Performed By: #### L 100.0100, L506.1000, L500.4050, L501.9520 #### [facility] [address] [place], [address] GFR/1.73 sq M.predicted among non-blacks MDRD (S/P/Bld) [Vol rate/Area] 72 mL/min/{1.73_m2} Normal >60 [facility] Comment on above: Result Comment: Non- GFR Calc Performed By: #### L 100.0100, L506.1000, L500.4050, L501.9520 #### [facility] [address] [place], [address] Globulin (S) [Mass/Vol] 4.0 g/dL Normal 2.2-4.2 [facility] Comment on above: Performed By: #### L 100.0100, L506.1000, L500.4050, L501.9520 #### [facility] [address] [place], [address] Glucose [Mass/Vol] 151 mg/dL High 74-106 [facility] Comment on above: Result Comment: Fast ing Glucose result greater than or equal to 126 mg/dL suggests DIABETES MELLITUS per A.D.A. criteria. Performed By: #### L 100.0100, L506.1000, L500.4050, L501.9520 #### [facility] [address] [place], [address] Potassium [Moles/Vol] 4.0 mmol/L Normal 3.5-5.1 [facility] Comment on above: Performed By: #### L 100.0100, L506.1000, L500.4050, L501.9520 #### [facility] [address] [place], [address] Sodium [Moles/Vol] 141 mmol/L Normal 136-145 [facility] Comment on above: Performed By: #### L 100.0100, L506.1000, L500.4050, L501.9520 #### [facility] [address] [place], [address] T PROT 7.8 g/dL Normal 6.4-8.2 [facility] Comment on above: Performed By: #### L 100.0100, L506.1000, L500.4050, L501.9520 #### [facility] [address] [place], [address] Urea nitrogen [Mass/Vol] 11 mg/dL Normal 7-18 [facility] Comment on above: Performed By: #### L 100.0100, L506.1000, L500.4050, L501.9520 #### [facility] [address] [place], [address] Eosinophil percentageOrdered By: Segundo Judson on 03-26-2024 Eosinophils/100 WBC (Bld) 2.8 % 0-5 [facility] Erythrocyte distribution wid th ratioOrdered By: Segundo Alvarezok on 03-26-2024 Erythrocyte distribution width (RBC) [Ratio] 12.6 % 11.6-14.6 [facility] Erythrocyte distribution wid th standard deviationOrdered By: Segundo Judson on 03-26-2024 Erythrocyte distribution width (RBC) [Entitic vol] 43.1 fL 35.1-43.9 [facility] Estimated glomerular filtrat ion rate (GFR) AmericanOrdered By: [facility] Judson on 03-26-2024 Estimated GFR (MDRD) Amer 87 mL/min >60 [facility] Comment on above: GFR Calc Glomerular filtration rate ( GFR) estimationOrdered By: Segundo Judson 03-26-2024 Estimated GFR (MDRD) Non-Af Amer 72 mL/min >60 [facility] Comment on above: Non- GFR Calc Glucose measurementOrdered B y: Segundo Judson on 03-26-2024 Glucose [Mass/Vol] 151 mg/dL High 74-106 [facility] Comment on above: Fasting Glucose resu lt greater than or equal to 126 mg/dL suggests DIABETES MELLITUS per A.D.A. criteria. Hematocrit Auto (Bld) [Volum e fraction]Ordered By: Segundo Judson 03-26-2024 Hematocrit (Bld) [Volume fraction] 40.9 % 37-47 [facility] Hemoglobin measurementOrdere d By: Segundo Conn 03-26-2024 Hemoglobin (Bld) [Mass/Vol] 12.6 g/dL 12.0-15.0 [facility] Immature granulocytes/100 WB C Auto (Bld)Ordered By: Segudno Judson 03-26-2024 Immature granulocytes/100 WBC (Bld) 0.300 % 0.0-0.9 [facility] Comment on above: IG% - Immature Granu locytes (promyelocytes, myelocytes and metamyelocytes) > 1% indicates that a LEFT SHIFT is Present. Laboratory - Chemistry and C hemistry - challengeOrdered By: Segundo Conn 03-26-2024 AST [Catalytic activity/Vol] 23 U/L 15-37 [facility] Lymphocytes Auto (Unsp spec) [#/Vol]Ordered By: Segundo Conn on 03-26-2024 Lymphocytes (Bld) [#/Vol] 2.21 10*3/uL 0.83-4.51 [facility] Lymphocytes/100 WBC Auto (Un sp spec)Ordered By: Segundo Conn on 03-26-2024 Lymphocytes/100 WBC (Bld) 28.6 % 19-41 [facility] MCV (mean corpuscular volume ) determinationOrdered By: Segundo Conn on 03-26-2024 MCV (RBC) [Entitic vol] 93.6 fL 81-99 [facility] Mean corpuscular hemoglobin (MCH) determinationOrdered By: Segundo Alvarezok on 03-26-2024 MCH (RBC) [Entitic mass] 28.8 pg 27.0-32.0 [facility] Mean corpuscular hemoglobin concentration (MCHC) determinationOrdered By: Segundo Conn on 03-26-2024 MCHC (RBC) [Mass/Vol] 30.8 g/dL Low 32-36 [facility] Mean platelet volume determi nationOrdered By: Segundo Conn on 03-26-2024 Platelet mean volume (Bld) [Entitic vol] 10.5 fL 6.2-12.0 [facility] Monocyte percentageOrdered B y: Segundo Alvarezok on 03-26-2024 Monocytes/100 WBC (Bld) 8.3 % 0-10 [facility] Neutrophil percentageOrdered By: Segundo Alvarezok on 03-26-2024 Neutrophils/100 WBC (Bld) 59.5 % 47-70 [facility] Nucleated red blood cell per centageOrdered By: Segundo Alvarezok on 03-26-2024 Nucleated RBC/100 WBC (Bld) [Ratio] 0 % 0-5 [facility] Platelet countOrdered By: Rex Conn on 03-26-2024 Platelets (Bld) [#/Vol] 303 10*3/uL 150-450 [facility] Potassium measurementOrdered By: Segundo Conn on 03-26-2024 Potassium [Moles/Vol] 4.0 mmol/L 3.5-5.1 [facility] RBC Auto (Bld) [#/Vol]Ordere d By: Segundo Conn on 03-26-2024 RBC (Bld) [#/Vol] 4.37 10*6/uL 4.2-5.4 [facility] Serum anion gap measurementO rdered By: Segundo Conn on 03-26-2024 Anion gap [Moles/Vol] 4 mmol/L Low 5-15 [facility] Serum globulin measurementOr dered By: Segundo Conn 03-26-2024 Globulin (S) [Mass/Vol] 4.0 g/dL 2.2-4.2 [facility] Serum or plasma alanine fontana otransferase (ALT) measurementOrdered By: Segundo Conn 03-26-2024 ALT [Catalytic activity/Vol] 30 U/L 13-56 [facility] Serum or plasma albumin adiel urement (mass/volume)Ordered By: Segundo Conn 03-26-2024 Albumin [Mass/Vol] 3.8 g/dL 3.2-5.0 [facility] Serum or plasma alkaline jesus sphatase measurementOrdered By: Segundo Conn 03-26-2024 ALP [Catalytic activity/Vol] 73 U/L 45-117 [facility] Serum or plasma calcium adiel urement (mass/volume)Ordered By: Segundo Conn 03-26-2024 Calcium [Mass/Vol] 9.8 mg/dL 8.5-10.1 [facility] Serum or plasma creatinine m easurement (mass/volume)Ordered By: Segundo Conn 03-26-2024 Creatinine [Mass/Vol] 0.82 mg/dL 0.55-1.02 [facility] Comment on above: The validity of the calculated GFR & GFRAA in patients over 70 years has not been determined. Clinical correlation is essential. Serum or plasma urea nitroge n measurement (mass/volume)Ordered By: Segundo Conn 03-26-2024 Urea nitrogen [Mass/Vol] 11 mg/dL 7-18 [facility] Sodium levelOrdered By: Segundo Conn 03-26-2024 Sodium [Moles/Vol] 141 mmol/L 136-145 [facility] TSH QnOrdered By: Segundo Conn o n 03-26-2024 Thyroid Stimulating Hormone (TSH) 1.190 uIU/mL 0.358-3.74 0 [facility] Thyroid Stim Hormone (TSH)on 03-26-2024 TSH 1.190 uIU/mL Normal 0.358-3.74 0 [facility] Comment on above: Performed By: #### L 100.0100, L506.1000, L500.4050, L501.9520 #### [facility] [address] [place], [address] Total proteinOrdered By: Segundo Conn on 03-26-2024 Protein [Mass/Vol] 7.8 g/dL 6.4-8.2 [facility] Vitamin D,25 Hydroxyon 03-26 Vitamin D 25-OH 8.3 ng/mL Normal [facility] Comment on above: Result Comment: Shahana min D 25(OH) Status Range Deficiency <20 ng/mL (50nmol/L) Insufficiency 20 - 30 ng/mL (50 - 75 nmol/L) Sufficiency 30 - 100 ng/mL (75 - 250 nmol/L) Toxicity >100 ng/mL (>250 nmol/L) Performed By: #### L 100.0100, L506.1000, L500.4050, L501.9520 #### [facility] [address] [place], [place], [address] White blood cell (WBC) count Ordered By: Segundo Conn on 03-26-2024 WBC (Bld) [#/Vol] 7.7 10*3/uL 4.4-11.0 [facility] CNOVon 10-25-2023 CNOV Office Visit (LULUS ) -- ALFRED JACKSON ([id number]) 1945 F Date Time Provider Department 10/25/23 4:00 PM TEMI ARNOLD During your visit today, we recorded the following information about you: Temi Arnold MD 10/25/2023 5:02 PM Signed FOLLOW UP ENDOSCOPY - RESULTS NAME: Alfred Jackson CLINIC NO.: [id number] : 1945 DATE: October 25, 2023 PRIMARY CARE PROVIDER: Segundo Conn MD Alfrde Jackson is a patient referred for endoscopy for Abdominal pain, weight loss, and diarrhea. The patient is a 77 year old female referred for endoscopy. Alfred notes the following GI complaints: Alfred notes abdominal pain. The pain occurs in the following locations: lower regions . Alfred notes diarrhea. The diarrhea she notes to be watery and occur very soon after eating. At first it was happening every day. Now she notes that happens every 2 to 3 days. Alfred denies constipation. Alfred notes a change in bowel habits. Alfred denies melena. Alfred denies bright red blood per rectum. Alfred denies hemorrhoids. The patient notes no history of upper GI complaints. Alfred has undergone prior endoscopy. This was approximately [id number]. The patient is being seen by me at the request of Dr. Segundo Conn MD for my opinion and advice regarding diarrhea and lower abdominal cramping. I performed upper and lower endoscopy on August 15, 2023. The patient was found to have: Upper Endoscopy Impression: - Normal examined jejunum. Biopsied. - A single duodenal polyp. Resected and retrieved. - Gastritis. Biopsied. - Small hiatal hernia. - Moderately severe reflux esophagitis with bleeding. Biopsied. - Low-grade of narrowing Schatzki ring. - Normal middle third of esophagus. Biopsied. Lower Endoscopy Impression: - The entire examined colon is normal. Biopsied. - Patent functional end-to-end colo-rectal anastomosis, characterized by healthy appearing mucosa. - Diverticulosis in the sigmoid colon. - The examination was otherwise normal on direct and retroflexion views. She was treated on Prilosec given the upper endoscopy findings Pathology demonstrated: FINAL DIAGNOSIS A. 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 - No evidence of adenoma. B. Gastric antrum, biopsy: - Mild chronic inactive gastritis. - Immunohistochemical stain for Helicobacter pylori pending. C. Duodenum, biopsy: - No significant pathologic change. D. Gastric polyp, biopsy: - Fundic gland polyp. - Negative for dysplasia. E. "Distal esophagus", biopsy: - Fragments of unremarkable duodenal mucosa. - Squamous mucosa not identified. F. Mid esophagus, biopsy: - Squamous mucosa with active esophagitis. - No evidence of eosinophilia. G-H. Ascending and descending colon, biopsies: - No significant pathologic change. - No evidence of lymphocytic or collagenous colitis. ANNELISE/alexy 08/17/2023 Given the background of chronic gastritis a Helicobacter pylori immunostain was performed on block B and is negative for Helicobacter pylori organisms. The patient is still noting left lower quadrant discomfort and a bloating feeling persisting in her lower abdomen. IMPRESSION: Diarrhea, weight loss, gastritis, otherwise relatively unremarkable random biopsies for diarrhea PLAN: INSTRUCTIONS FOLLOWING A NORMAL COLONOSCOPY 10YR I discussed with you the findings of your colonoscopy. Since there were no worrisome abnormalities, I recommend you undergo repeat endoscopic screening every 10 years. This is the current recommendation for colon cancer screening. If you note bleeding, change in bowel habits, or other suspicious colon related symptoms before that time, those symptoms should be evaluated as necessary. INSTRUCTIONS FOR PEPTIC ULCER DISEASE/GASTRITIS I discussed with you the findings of your upper endoscopy. Your upper endoscopy demonstrated signs of peptic ulcer disease or irritation. This can be seen as a range of issues from actual ulcers in the stomach or duodenum (first part of the small bowel) or irritation ranging from redness to more significant irritation with erosions of the stomach or duodenum. These conditions are usually caused from a combination of too much acid production or too little protective mucus production in the stomach. Factors that increase acid production include smoking and stress. If you smoke, stopping smoking will often cure these issues without needing other medications. Factors that decrease the stomach's production of protective mucus include alcohol consumption, smoking, aspirin and other anti-inflammatory use. Over the counter medications including antiacids and acid reducing medications including H2 blockers (Zantac and the like) and proton pump inhibitors (prilosec, prevacid and the like) neutralize or pr (more content not included)... Normal [facility] MRI 3D POST PROCESSINGon MRI 3D POST PROCESSING * * *Final Report * * * DATE OF EXAM: Oct 18 2023 11:01AM [facility] 0280 - MRI 3D POST PROCESSING / PROCEDURE REASON: multiple diagnoses * * * * Physician Interpretation * * * * Examination: MRI PANC/ARISTEO WO/W IVCON, MRI 3D POST PROCESSING History: Abdominal pain, right lower quadrant Abnormal weight loss Pancreatic mass CLINICAL HISTORY: Pancreatic tail cyst. Cirrhosis COMPARISON: CT scans of 09/05/2023. TECHNIQUE: Using the torso phased array coil, axial STIR, T1 weighted in- and [id number]-xhiwe and axial and coronal HASTE (multslice MRCP) images were obtained. Thick-slab heavily T2 weighted images (projection MRCP) were also obtained. Then, using a 3-D GRE T1 weighted sequence, dynamic images were obtained before, during and after the administration of intravenous Dotarem 12 cc Three dimensional imaging was created on a dedicated stand-alone 3D workstation . RESULT: Diffuse signal loss throughout the liver on T1-weighted out of phase imaging is consistent with fatty infiltration. No focal hepatic abnormality or mass. No pathologic enhancement. Cirrhotic hepatic configuration No intrahepatic or extrahepatic biliary dilatation. Common duct is normal in course and caliber. No filling defect within it. Gallbladder is unremarkable. Pancreatic duct is normal in caliber. No divisum. Nonenhancing cystic lesion in the tail of the pancreas of 1 cm. 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 The spleen is unremarkable. No suspicious renal lesion or gross obstructive uropathy. No ascites or lymphadenopathy. Lung bases appear normal. Aorta is normal in caliber. Celiac artery and superior mesenteric artery are patent. Portal vein, splenic vein and superior mesenteric vein are patent. IVC and hepatic veins are patent. Multilevel degenerative disc disease. IMPRESSION: 1 CM PANCREATIC TAIL CYST. NONENHANCING. LIKELY SIDE BRANCH IPMN FATTY INFILTRATION OF THE LIVER. CIRRHOTIC HEPATIC CONFIGURATION. No suspicious mass or adenopathy in the visualized abdomen Circulation Worker: [facility] Transcribe Date/Time: Oct 20 2023 1:55P Dictated by : ANITRA HERNANDEZ MD This examination was interpreted and the report reviewed and electronically signed by: ANITRA HERNANDEZ MD on Oct 20 2023 2:06PM EST [id number] [facility] MRI PANC/ARISTEO WO/W IVCONon MRI PANC/ARISTEO WO/W IVCON * * *Final Repor t* * * DATE OF EXAM: Oct 18 2023 11:01AM [facility] 0730 - MRI PANC/ARISTEO WO/W IVCON / PROCEDURE REASON: multiple diagnoses * * * * Physician Interpretation * * * * Examination: MRI PANC/ARISTEO WO/W IVCON, MRI 3D POST PROCESSING History: Abdominal pain, right lower quadrant Abnormal weight loss Pancreatic mass CLINICAL HISTORY: Pancreatic tail cyst. Cirrhosis COMPARISON: CT scans of 09/05/2023. TECHNIQUE: Using the torso phased array coil, axial STIR, T1 weighted in- and [id number]-ao-jeppd and axial and coronal HASTE (multslice MRCP) images were obtained. Thick-slab heavily T2 weighted images (projection MRCP) were also obtained. Then, using a 3-D GRE T1 weighted sequence, dynamic images were obtained before, during and after the administration of intravenous Dotarem 12 cc Three dimensional imaging was created on a dedicated stand-alone 3D workstation . RESULT: Diffuse signal loss throughout the liver on T1-weighted out of phase imaging is consistent with fatty infiltration. No focal hepatic abnormality or mass. No pathologic enhancement. Cirrhotic hepatic configuration No intrahepatic or extrahepatic biliary dilatation. Common duct is normal in course and caliber. No filling defect within it. Gallbladder is unremarkable. Pancreatic duct is normal in caliber. No divisum. Nonenhancing cystic lesion in the tail of the pancreas of 1 cm. 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 The spleen is unremarkable. No suspicious renal lesion or gross obstructive uropathy. No ascites or lymphadenopathy. Lung bases appear normal. Aorta is normal in caliber. Celiac artery and superior mesenteric artery are patent. Portal vein, splenic vein and superior mesenteric vein are patent. IVC and hepatic veins are patent. Multilevel degenerative disc disease. IMPRESSION: 1 CM PANCREATIC TAIL CYST. NONENHANCING. LIKELY SIDE BRANCH IPMN FATTY INFILTRATION OF THE LIVER. CIRRHOTIC HEPATIC CONFIGURATION. No suspicious mass or adenopathy in the visualized abdomen Circulation Worker: [email or web address] Transcribe Date/Time: Oct 20 2023 1:55P Dictated by : ANITRA HERNANDEZ MD This examination was interpreted and the report reviewed and electronically signed by: ANITRA HERNANDEZ MD on Oct 20 2023 2:06PM EST [id number] [facility] (MetaCDN) -- ALFRED JACKSON ([id number]) 1945 F Date Time Provider Department 09/14/23 TEMI ARNOLD During your visit today, we recorded the following information about you: Deyanira Coon LPN 09/14/2023 1:51 PM Signed Temi Arnold MD [facility] General Surgery Pool The patient did have a cystic structure in her pancreas we will order a follow-up MRI and then have her follow-up in the office. Thanks-Rich Called patient, patient is scheduled for MRI 10/18/23, scheduled patient to see Dr. Arnold 10/25/23 in [place]. Deyanira Coon LPN September 14, 2023 1:51 PM Allergies As of Date: 09/14/2023 Noted Allergy Reaction CIPRO (CIPROFLOXACIN) 12/08/2004 FLAGYL (METRONIDAZOLE HCL) 12/08/2004 MEVACOR (LOVASTATIN) 12/08/2004 NAPROSYN (NAPROXEN) 12/08/2004 PARAFON FORTE DSC (CHLORZOXAZONE) 12/08/2004 TRAMADOL 06/21/2023 16 - Unknown Date Reviewed: 09/02/2023 Reviewed by: Kalie Reddy, RT(R) - Fully Assessed Reason for Visit: Results [95] Prescriptions as of 09/14/2023 - omeprazole (PRILOSEC) 40 mg capsule Take 1 capsule by mouth once daily. - naproxen sodium (ALEVE) 220 mg cap Take by mouth as needed (pain). - peg 3350-Electrolytes (GOLYTELY) 236-22.74-6.74 -5.86 gram suspension Take as directed. - aspirin, enteric coated (ADULT LOW DOSE ASPIRIN) 81 mg EC tablet Take 81 mg by mouth once daily. - simvastatin (ZOCOR) 80 mg tablet Take 80 mg by mouth daily at bedtime. - clobetasol (TEMOVATE) 0.05 % cream Apply 1 g to affected area two times a day. - levothyroxine 50 mcg cap Take 50 mcg by mouth daily before breakfast. - famotidine (PEPCID) 40 mg tablet Take 40 mg by mouth once daily. - metFORMIN (GLUCOPHAGE) 500 mg tablet Take 500 mg by mouth three times a day. - losartan (COZAAR) 50 mg tablet Take 50 mg by mouth once daily. - Polyethylene Glycol 3350 (MIRALAX) 17 gram/dose ORAL powder Use as directed. - atorvastatin (LIPITOR) 40 mg ORAL tablet Take one(1) tablet daily. - albuterol 90 mcg/Actuation INHALATION Aero Inhale one(1) - two(2) puffs four(4) times a day as needed for wheezing and shortness of breath. - omega-3 fatty acids(FISH OIL 500 MG CAP) two capsules daily - CALTRATE-600 PLUS VITAMIN D3 600 MG-400 UNIT TAB Take one(1) tablet daily. - ONE DAILY MULTI-VITAMIN TAB Take one(1) tablet daily. Problem List As Of Date 09/14/2023 Noted Resolved Abdominal Pain [789.0] 03/07/1998 Class: Chronic HYPERLIPIDEMIA NEC/NOS [E78.5] 12/08/2004 ESOPHAGEAL REFLUX [K21.9] 12/08/2004 Osteoarth NOS-Unspec [M19.90] 12/08/2004 10/29/2009 MITRAL VALVE DISORDER [I05.9] 12/08/2004 Diverticulosis of Colon (without Mention of Hem* 10/29/2009 DIAPHRAGMATIC HERNIA [K44.9] GENERAL OSTEOARTHROSIS [M15.9] HEMORRHOIDS NOS [K64.9] 06/14/2005 BLOOD IN FECES [K92.1] 08/13/2005 10/29/2009 Other Psoriasis [L40.8] 03/07/2006 10/29/2009 DIVERTICULITIS OF COLON W/O BLEED [K57.32] 03/19/2008 Other Affections of Shoulder Region, not Elsewh*11/07/2008 10/29/2009 Abdominal pain, right lower quadrant [R10.31] 11/06/2009 04/30/2010 Unspecified Constipation [K59.00] 11/28/2009 Encounter Status:Closed by DEYANIRA COON on 09/14/23 [facility] 09-11-2023 [facility] Telephone (EarlyTracks) -- ALFRED JACKSON ([id number]) 1945 F Date Time Provider Department 09/11/23 TEMI ARNOLD During your visit today, we recorded the following information about you: Temi Arnold MD 09/11/2023 6:[address] scan showed cirrhosis with likely portal hypertension and a mass in the tail of the pancreas and recommended MRI. I have ordered the MRI please contact patient to arrange for MRI and then have patient follow-up in my office after the study. Thanks-Deyanira Pinedo LPN 09/12/2023 4:45 PM Signed Called patient, no answer. LVM to call back for results below. Please transfer patient to schedule MRI. Deyanira Coon LPN September 12, 2023 4:45 PM Verónica Siddiqi MA 09/12/2023 4:51 PM Signed Patient returned call. Given results and providers response. Patient verbalized understanding and transferred to [facility] to schedule the MRI. Allergies As of Date: 09/11/2023 Noted Allergy Reaction CIPRO (CIPROFLOXACIN) 12/08/2004 FLAGYL (METRONIDAZOLE HCL) 12/08/2004 MEVACOR (LOVASTATIN) 12/08/2004 NAPROSYN (NAPROXEN) 12/08/2004 PARAFON FORTE DSC (CHLORZOXAZONE) 12/08/2004 TRAMADOL 06/21/2023 16 - Unknown Date Reviewed: 09/02/2023 Reviewed by: Kalie Reddy, RT(R) - Fully Assessed Reason for Visit: Results [95] Primary Visit Diagnosis:Abdominal pain, right lower quadrant [R10.31] Other Visit Diagnoses:Abnormal weight loss [R63.4] Pancreatic mass [K86.89] Order(s):MRI PANC/ARISTEO WO/W IVCON [[id number]] Order #: [id number] FUTURE MRI 3D POST PROCESSING [[id number]] Order #: [id number] FUTURE iv contrast (will be provided with radiology test)MRI PANC/ARISTEO Inject, intravenously, once for 1 dose. No IV access, insert saline lock prior to the beginning of sedation, infusion, injection of imaging exam. Discontinue saline lock post exam. If Pt. has a central line or IVAD, may access for administration according to line specific nursing protocol. Once exam is complete flush line and de-access according to line specific nursing protocol in the MR contrast administration guidelines link.Disp: 1 EachRfl: 0 Prescriptions as of 09/12/2023 - iv contrast (will be provided with radiology test) MRI PANC/ARISTEO Inject, intravenously, once for 1 dose. No IV access, insert saline lock prior to the beginning of sedation, infusion, injection of imaging exam. Discontinue saline lock post exam. If Pt. has a central line or IVAD, may access for administration according to line specific nursing protocol. Once exam is complete flush line and de-access according to line specific nursing protocol in the MR contrast administration guidelines link. - omeprazole (PRILOSEC) 40 mg capsule Take 1 capsule by mouth once daily. - naproxen sodium (ALEVE) 220 mg cap Take by mouth as needed (pain). - peg 3350-Electrolytes (GOLYTELY) 236-22.74-6.74 -5.86 gram suspension Take as directed. - aspirin, enteric coated (ADULT LOW DOSE ASPIRIN) 81 mg EC tablet Take 81 mg by mouth once daily. - simvastatin (ZOCOR) 80 mg tablet Take 80 mg by mouth daily at bedtime. - clobetasol (TEMOVATE) 0.05 % cream Apply 1 g to affected area two times a day. - levothyroxine 50 mcg cap Take 50 mcg by mouth daily before breakfast. - famotidine (PEPCID) 40 mg tablet Take 40 mg by mouth once daily. - metFORMIN (GLUCOPHAGE) 500 mg tablet Take 500 mg by mouth three times a day. - losartan (COZAAR) 50 mg tablet Take 50 mg by mouth once daily. - Polyethylene Glycol 3350 (MIRALAX) 17 gram/dose ORAL powder Use as directed. - atorvastatin (LIPITOR) 40 mg ORAL tablet Take one(1) tablet daily. - albuterol 90 mcg/Actuation INHALATION Aero Inhale one(1) - two(2) puffs four(4) times a day as needed for wheezing and shortness of breath. - omega-3 fatty acids(FISH OIL 500 MG CAP) two capsules daily - CALTRATE-600 PLUS VITAMIN D3 600 MG-400 UNIT TAB Take one(1) tablet daily. - ONE DAILY MULTI-VITAMIN TAB Take one(1) tablet daily. Problem List As Of Date 09/11/2023 Noted Resolved Abdominal Pain [789.0] 03/07/1998 Class: Chronic HYPERLIPIDEMIA NEC/NOS [E78.5] 12/08/2004 ESOPHAGEAL REFLUX [K21.9] 12/08/2004 Osteoarth NOS-Unspec [M19.90] 12/08/2004 10/29/2009 MITRAL VALVE DISORDER [I05.9] 12/08/2004 Diverticulosis of Colon (without Mention of Hem* 10/29/2009 DIAPHRAGMATIC HERNIA [K44.9] GENERAL OSTEOARTHROSIS [M15.9] HEMORRHOIDS NOS [K64.9] 06/14/2005 BLOOD IN FECES [K92.1] 08/13/2005 10/29/2009 Other Psoriasis [L40.8] 03/07/2006 10/29/2009 DIVERTICULITIS OF COLON W/O BLEED [K57.32] 03/19/2008 Other Affections of Shoulder Region, not Elsewh*11/07/2008 10/29/2009 Abdominal pain, right lower quadrant [R10.31] 11/06/2009 04/30/2010 Unspecified Constipation [K59.00] 11/28/2009 Prescriptions ordered this encounter Disp Refills Start End IV CONTRAST (RADIOLOGY PROCEDURE) 1 Ea* 0 09/11/2023 09/12/2023 Class: In (more content not included)... Normal [facility] CT ABD/PEL W IVCONon 09-04- 024 CT ABD/PEL W IVCON * * *Final Report* * * DATE OF EXAM: Sep 05 2023 11:54AM [facility] 0530 - CT ABD/PEL W IVCON / PROCEDURE REASON: Lower abdominal pain * * * * Physician Interpretation * * * * EXAMINATION: CT ABD/PEL W IVCON INDICATION: Lower abdominal pain LLQ abdominal pain, previous sigmoid resection for diverticulitis COMPARISON: 11/07/2009 TECHNIQUE: CT of the abdomen and pelvis was performed using standard technique, scanning from just above the dome of the diaphragm to the pubic symphysis. Contrast: IV: 100 ml of Omnipaque 300 Oral: 10 ml of Omni 240 10-25ml diluted with water CT Radiation dose: Integrated Dose-length product (DLP) for this visit = 475 mGy*cm. CT Dose Reduction Employed: Automated exposure control(AEC) and iterative recon FINDINGS: Lower Thorax: Less than 6 mm lower lobe nodules (new in the RLL and not imaged previously in the LLL, nonspecific. Liver: Nodular contour. No mass. Gallbladder/Biliary: Unremarkable. No bile duct dilation. Spleen: Unremarkable. Pancreas: Pancreatic tail cystic lesion with calcification (1 cm). No main duct dilation. Adrenals: No mass. Kidneys: No suspicious mass. No hydronephrosis. Vasculature: Atherosclerotic disease without abdominal aortic aneurysm. Likely small GE junction varices and recanalized paraumbilical vein. GI Tract: Sigmoidectomy. Diverticulosis. No wall thickening or obstruction. Normal appendix. Pelvis: No pelvic mass. Underdistended bladder. Mesentery/Peritoneum/Retro peritoneum: No free air or fluid Lymph Nodes: Prominent ben hepatis and gastrohepatic nodes, probably reactive. Bones and soft tissues: Degenerative changes. No acute findings. Client Resource Specialist (topogram) images: No additional findings. IMPRESSION: 1. No acute abnormality. 2. Findings of cirrhosis with developing portal hypertension. 3. Pancreatic tail cystic lesion (1 cm); suggest follow-up MRI/MRCP. 4. Partially small pulmonary nodules (<6 mm); consider 12 month follow-up chest CT. ACTIONABLE RESULT: FOLLOW-UP Acuity: Actionable Findings: Pancreas/Biliary Routing Code: PB_1 Recommendation: Unlisted Recommendation (see report) Time Frame: At the discretion of the clinical team. COMMUNICATION: Results will be communicated with the ordering provider via [employer] staff message or phone message by [employer] within 2 business days of report finalization. --END OF FINDING-- Acuity: Actionable Findings: Thoracic-LUNG NODULES Routing Code: RI_1 Recommendation: CT Chest WO IVCON TimeFrame: In one year. --END OF FINDING-- Circulation Worker: ELISEO Transcribe Date/Time: Sep 10 2023 2:48P Dictated by : PK OLIVIA MD This examination was interpreted and the report reviewed and electronically signed by: PK OLIVIA MD on Sep 10 2023 3:01PM EST [id number] ACTIONABLE Invalid Interpretation Code [facility] 2000 panelon 08-25-2023 Albumin [Mass/Vol] 4.3 g/dL Normal 3.9-4.9 [facility] Comment on above: Order Comment: Speci men Type: BLOOD SPECIMEN Ordering Facility: [facility] Address: [address] [place] [address] Performed By: #### 2 4323-8 #### [facility] CLIA [id number] [address] [place] [address] [place] ALP [Catalytic activity/Vol] 62 U/L Normal 34-123 [facility] Comment on above: Order Comment: Speci men Type: BLOOD SPECIMEN Ordering Facility: [facility] Address: [address] [place] [address] Performed By: #### 2 4323-8 #### [facility] CLIA [id number] [address] [place] [address] [place] ALT [Catalytic activity/Vol] 20 U/L Normal 7-38 [facility] Comment on above: Order Comment: Speci men Type: BLOOD SPECIMEN Ordering Facility: [facility] Address: [address] [place] [address] Performed By: #### 2 4323-8 #### [facility] CLIA [id number] [address] [place] [address] [place] Anion gap [Moles/Vol] 11 mmol/L Normal 9-18 [facility] Comment on above: Order Comment: Speci men Type: BLOOD SPECIMEN Ordering Facility: [facility] Address: [address] [place] [address] Performed By: #### 2 4323-8 #### [facility] CLIA [id number] [address] [place] [address] [place] AST [Catalytic activity/Vol] 27 U/L Normal 13-35 [facility] Comment on above: Order Comment: Speci men Type: BLOOD SPECIMEN Ordering Facility: [facility] Address: [address] [place] [address] Performed By: #### 2 4323-8 #### [facility] CLIA [id number] [address] [place] [address] [place] Bilirubin [Mass/Vol] 0.2 mg/dL Normal 0.2-1.3 [facility] Comment on above: Order Comment: Speci men Type: BLOOD SPECIMEN Ordering Facility: [facility] Address: [address] [place] [address] Performed By: #### 2 4323-8 #### [facility] CLIA [id number] [address] [place] [address] [place] Calcium [Mass/Vol] 10.3 mg/dL High 8.5-10.2 [facility] Comment on above: Order Comment: Speci men Type: BLOOD SPECIMEN Ordering Facility: [facility] Address: [address] [place] [address] Performed By: #### 2 4323-8 #### [facility] CLIA [id number] [address] [place] [address] [place] Chloride [Moles/Vol] 104 mmol/L Normal 97-105 [facility] Comment on above: Order Comment: Speci men Type: BLOOD SPECIMEN Ordering Facility: [facility] Address: [address] [place] [address] Performed By: #### 2 4323-8 #### [facility] CLIA [id number] [address] [place] [address] [place] CO2 [Moles/Vol] 24 mmol/L Normal 22-30 [facility] Comment on above: Order Comment: Speci men Type: BLOOD SPECIMEN Ordering Facility: [facility] Address: [address] [place] [address] Performed By: #### 2 4323-8 #### [facility] CLIA [id number] [address] [place] [address] [place] Creatinine [Mass/Vol] 0.65 mg/dL Normal 0.58-0.96 [facility] Comment on above: Order Comment: Sergey martinez Type: BLOOD SPECIMEN Ordering Facility: [facility] Address: [address] [place] [address] Performed By: #### 2 4323-8 #### [id number] [address] [place] [address] [place] Creatinine and Glomerular filtration rate.predicted panel (S/P/Bld) 91 mL/min/1.73m??? Normal >=60 [facility] Comment on above: Order Comment: Sergey martinez Type: BLOOD SPECIMEN Ordering Facility: [facility] Address: [address] [place] [address] Result Comment: Juanita mated Glomerular Filtration Rate (eGFR) is calculated using the 2020 CKD-EPI creatinine equation. This equation utilizes serum creatinine, sex, and age as parameters. The creatinine assay has traceable calibration to isotope dilution-mass spectrometry. Refer to KDIGO guidelines for clinical interpretation. In patients with unstable renal function, e.g. those with acute kidney injury, the eGFR may not accurately reflect actual GFR. Performed By: #### 2 4323-8 #### [id number] [address] [place] [address] [place] Glucose [Mass/Vol] 196 mg/dL High 74-99 [facility] Comment on above: Order Comment: Sergey martinez Type: BLOOD SPECIMEN Ordering Facility: [facility] Address: [address] [place] [address] Result Comment: The [place] [employer] (ADA) provides guidance for cutoff values for fasting glucose and random glucose. The ADA defines fasting as no caloric intake for at least 8 hours. Fasting plasma glucose results between 100 to 125 mg/dL indicate increased risk for diabetes (prediabetes). Fasting plasma glucose results greater than or equal to 126 mg/dL meet the criteria for diagnosis of diabetes. In the absence of unequivocal hyperglycemia, results should be confirmed by repeat testing. In a patient with classic symptoms of hyperglycemia or hyperglycemic crisis, random plasma glucose results greater than or equal to 200 mg/dL meet the criteria for diagnosis of diabetes. Reference: Standards of Medical Care in Diabetes 2016, [place] [employer]. Diabetes Care. 2016.39(Suppl 1). Performed By: #### 2 4323-8 #### [facility] CLIA [id number] [address] [place] [address] [place] Potassium [Moles/Vol] 4.1 mmol/L Normal 3.7-5.1 [facility] Comment on above: Order Comment: Speci men Type: BLOOD SPECIMEN Ordering Facility: [facility] Address: [address] [id number] Performed By: #### 2 4323-8 #### [facility] CLIA [id number] [address] [place] [address] [place] Protein [Mass/Vol] 7.2 g/dL Normal 6.3-8.0 [facility] Comment on above: Order Comment: Speci men Type: BLOOD SPECIMEN Ordering Facility: [facility] Address: [address] [id number] Performed By: #### 2 4323-8 #### [facility] CLIA [id number] [address] [place] [address] [place] Sodium [Moles/Vol] 139 mmol/L Normal 136-144 [facility] Comment on above: Order Comment: Speci men Type: BLOOD SPECIMEN Ordering Facility: [facility] Address: [address] [place] [address] Performed By: #### 2 4323-8 #### [facility] CLIA [id number] [address] [place] [address] [place] Urea nitrogen [Mass/Vol] 10 mg/dL Normal 7-21 [facility] Comment on above: Order Comment: Speci men Type: BLOOD SPECIMEN Ordering Facility: [facility] Address: [address] [place] [address] Performed By: #### 2 4323-8 #### [facility] CLIA [id number] [address] [place] [address] [place] CNCOon 08-24-2023 CNCO Letter Text Normal [facility] CNOVon 08-24-2023 CNOV Office Visit (GENSME ) -- ALFRED JACKSON ([id number]) 1945 F Date Time Provider Department 08/24/23 2:30 PM TEMI ARNOLD During your visit today, we recorded the following information about you: Temi Arnold MD 08/24/2023 6:11 PM Signed FOLLOW UP ENDOSCOPY - RESULTS AND RECOMMENDATIONS NAME: Alfred Jackson CLINIC NO.: [id number] : 1945 DATE: August 21, 2023 PRIMARY CARE PROVIDER: Segundo Conn MD Alfred Jackson is a patient referred for endoscopy for Abdominal pain, weight loss, and diarrhea. The patient is a 77 year old female referred for endoscopy. Alfred notes the following GI complaints: Alfred notes abdominal pain. The pain occurs in the following locations: lower regions . Alfred notes diarrhea. The diarrhea she notes to be watery and occur very soon after eating. At first it was happening every day. Now she notes that happens every 2 to 3 days. Alfred denies constipation. Alfred notes a change in bowel habits. Alfred denies melena. Alfred denies bright red blood per rectum. Alfred denies hemorrhoids. The patient notes no history of upper GI complaints. Alfred has undergone prior endoscopy. This was approximately 8724-6350. The patient is being seen by me at the request of Dr. Segundo Conn MD for my opinion and advice regarding diarrhea and lower abdominal cramping. I performed upper and lower endoscopy on August 15, 2023. The patient was found to have: Upper Endoscopy Impression: - Normal examined jejunum. Biopsied. - A single duodenal polyp. Resected and retrieved. - Gastritis. Biopsied. - Small hiatal hernia. - Moderately severe reflux esophagitis with bleeding. Biopsied. - Low-grade of narrowing Schatzki ring. - Normal middle third of esophagus. Biopsied. Lower Endoscopy Impression: - The entire examined colon is normal. Biopsied. - Patent functional end-to-end colo-rectal anastomosis, characterized by healthy appearing mucosa. - Diverticulosis in the sigmoid colon. - The examination was otherwise normal on direct and retroflexion views. She was treated on Prilosec given the upper endoscopy findings Pathology demonstrated: FINAL DIAGNOSIS A. 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 - No evidence of adenoma. B. Gastric antrum, biopsy: - Mild chronic inactive gastritis. - Immunohistochemical stain for Helicobacter pylori pending. C. Duodenum, biopsy: - No significant pathologic change. D. Gastric polyp, biopsy: - Fundic gland polyp. - Negative for dysplasia. E. "Distal esophagus", biopsy: - Fragments of unremarkable duodenal mucosa. - Squamous mucosa not identified. F. Mid esophagus, biopsy: - Squamous mucosa with active esophagitis. - No evidence of eosinophilia. G-H. Ascending and descending colon, biopsies: - No significant pathologic change. - No evidence of lymphocytic or collagenous colitis. ANNELISE/alexy 08/17/2023 Given the background of chronic gastritis a Helicobacter pylori immunostain was performed on block B and is negative for Helicobacter pylori organisms. The patient is still noting left lower quadrant discomfort and a bloating feeling persisting in her lower abdomen. IMPRESSION: Diarrhea, weight loss, gastritis, otherwise relatively unremarkable random biopsies for diarrhea PLAN: INSTRUCTIONS FOLLOWING A NORMAL COLONOSCOPY 10YR I discussed with you the findings of your colonoscopy. Since there were no worrisome abnormalities, I recommend you undergo repeat endoscopic screening every 10 years. This is the current recommendation for colon cancer screening. If you note bleeding, change in bowel habits, or other suspicious colon related symptoms before that time, those symptoms should be evaluated as necessary. INSTRUCTIONS FOR PEPTIC ULCER DISEASE/GASTRITIS I discussed with you the findings of your upper endoscopy. Your upper endoscopy demonstrated signs of peptic ulcer disease or irritation. This can be seen as a range of issues from actual ulcers in the stomach or duodenum (first part of the small bowel) or irritation ranging from redness to more significant irritation with erosions of the stomach or duodenum. These conditions are usually caused from a combination of too much acid production or too little protective mucus production in the stomach. Factors that increase acid production include smoking and stress. If you smoke, stopping smoking will often cure these issues without needing other medications. Factors that decrease the stomach's production of protective mucus include alcohol consumption, smoking, aspirin and other anti-inflammatory use. Over the counter medications including antiacids and acid reducing medications including H2 blockers (Zantac and the like) and proton pump inhibitors (prilosec, prevacid and the lik (more content not included)... Normal [facility] CNPNon 08-21-2023 CNPN Telephone (GENSWS) -- ALFRED JACKSON ([id number]) 1945 F Date Time Provider Department 08/21/23 TEMI ARNOLD [employer] During your visit today, we recorded the following information about you: Temi Arnold MD 08/21/2023 6:25 AM Signed FOLLOW UP ENDOSCOPY - RESULTS AND RECOMMENDATIONS NAME: Alfred Jackson CLINIC NO.: [id number] : 1945 DATE: August 21, 2023 PRIMARY CARE PROVIDER: Segundo Conn MD Alfred Jackson is a patient referred for endoscopy for Abdominal pain, weight loss, and diarrhea. The patient is a 77 year old female referred for endoscopy. Alfred notes the following GI complaints: Alfred notes abdominal pain. The pain occurs in the following locations: lower regions . Alfred notes diarrhea. The diarrhea she notes to be watery and occur very soon after eating. At first it was happening every day. Now she notes that happens every 2 to 3 days. Alfred denies constipation. Alfred notes a change in bowel habits. Alfred denies melena. Alfred denies bright red blood per rectum. Alfred denies hemorrhoids. The patient notes no history of upper GI complaints. Alfred has undergone prior endoscopy. This was approximately 4657-9570. The patient is being seen by me at the request of Dr. Segundo Conn MD for my opinion and advice regarding diarrhea and lower abdominal cramping. I performed upper and lower endoscopy on August 15, 2023. The patient was found to have: Upper Endoscopy Impression: - Normal examined jejunum. Biopsied. - A single duodenal polyp. Resected and retrieved. - Gastritis. Biopsied. - Small hiatal hernia. - Moderately severe reflux esophagitis with bleeding. Biopsied. - Low-grade of narrowing Schatzki ring. - Normal middle third of esophagus. Biopsied. Lower Endoscopy Impression: - The entire examined colon is normal. Biopsied. - Patent functional end-to-end colo-rectal anastomosis, characterized by healthy appearing mucosa. - Diverticulosis in the sigmoid colon. - The examination was otherwise normal on direct and retroflexion views. She was treated on Prilosec given the upper endoscopy findings Pathology demonstrated: FINAL DIAGNOSIS A. 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 - No evidence of adenoma. B. Gastric antrum, biopsy: - Mild chronic inactive gastritis. - Immunohistochemical stain for Helicobacter pylori pending. C. Duodenum, biopsy: - No significant pathologic change. D. Gastric polyp, biopsy: - Fundic gland polyp. - Negative for dysplasia. E. "Distal esophagus", biopsy: - Fragments of unremarkable duodenal mucosa. - Squamous mucosa not identified. F. Mid esophagus, biopsy: - Squamous mucosa with active esophagitis. - No evidence of eosinophilia. G-H. Ascending and descending colon, biopsies: - No significant pathologic change. - No evidence of lymphocytic or collagenous colitis. ANNELISE/alexy 08/17/2023 IMPRESSION: Diarrhea, weight loss, gastritis, otherwise relatively unremarkable random biopsies for diarrhea PLAN: INSTRUCTIONS FOLLOWING A NORMAL COLONOSCOPY 10YR I discussed with you the findings of your colonoscopy. Since there were no worrisome abnormalities, I recommend you undergo repeat endoscopic screening every 10 years. This is the current recommendation for colon cancer screening. If you note bleeding, change in bowel habits, or other suspicious colon related symptoms before that time, those symptoms should be evaluated as necessary. INSTRUCTIONS FOR PEPTIC ULCER DISEASE/GASTRITIS I discussed with you the findings of your upper endoscopy. Your upper endoscopy demonstrated signs of peptic ulcer disease or irritation. This can be seen as a range of issues from actual ulcers in the stomach or duodenum (first part of the small bowel) or irritation ranging from redness to more significant irritation with erosions of the stomach or duodenum. These conditions are usually caused from a combination of too much acid production or too little protective mucus production in the stomach. Factors that increase acid production include smoking and stress. If you smoke, stopping smoking will often cure these issues without needing other medications. Factors that decrease the stomach's production of protective mucus include alcohol consumption, smoking, aspirin and other anti-inflammatory use. Over the counter medications including antiacids and acid reducing medications including H2 blockers (Zantac and the like) and proton pump inhibitors (prilosec, prevacid and the like) neutralize or prevent acid production. Prescription strength proton pump inhibitors (PPIs) may be necessary if your symptoms persist. Carafate may be added to PPI treatment in refractory cases. Avoiding smoking, alcohol and antiinflammatory medications are important in the s (more content not included)... Normal [facility] ANES POSTPROC EVALon 024 ANES POSTPROC EVAL HNO ID: [id number] Author: RAMANA MULTANI DO Service: Anesthesiology Author Type: Anesthesiologist Type: Anesthesia Postprocedure Evaluation Filed: 08/15/2023 17:29 Note Text: POST ANESTHESIA EVALUATION NOTE : 1945 Procedure Summary Date: 08/15/23 Room / Location: [facility] Endoscopy Anesthesia Start: 1457 Anesthesia Stop: 1540 Procedures: COLONOSCOPY DIAGNOSTIC EGD DIAGNOSTIC Diagnosis: Abdominal pain, right lower quadrant Abnormal weight loss Diarrhea, unspecified type (Lower abdominal pain) (Clinically significant diarrhea of unexplained origin) Scheduled Providers: Temi Arnold MD; Gracy Solitario APRN.MOLDING MACHINE OPERATOR HELPER; Ramana Multani DO Responsible Provider: Ramana Multani DO Anesthesia Type: MAC ASA Status: 3 Anesthesia Type: MAC Last Vitals Vitals Value Taken Time BP 138/68 08/15/23 1630 Temp 36.1 ?C (97 ?F) 08/15/23 1610 HR SpO2 65 08/15/23 1630 Resp 16 08/15/23 1630 SpO2 96 % 08/15/23 1630 Post Anesthesia Patient Status Patient Evaluation: PACU. PACU/ICU Patient Condition: stable. Anticipated Disposition: phase 2 then home. Neurological Status: aware and responsive. Pulmonary Status: breathing comfortably on room air Airway Control: returned to baseline unsupported. Cardiovascular Status: stable. Pain Management: clinically adequate Postoperative Hydration: acceptable. Intraoperative Events: no significant anesthesia events Post Operative Nausea/Vomiting Status: no significant post operative nausea or vomiting Recommendation: continue current plan of care and further care per PACU/ICU/floor team. Anesthesia Observations No Documentation SIGNATURE: Ramnaa Multani DO PATIENT NAME: Alfred Jackson DATE: August 15, 2023 TIME: 5:29 PM CSN: [id number] Normal [facility] ANES PRE-OPon 08-15-2023 ANES PRE-OP HNO ID: [id number] Author: RAMANA MULTANI DO Service: Anesthesiology Author Type: Anesthesiologist Type: Anesthesia Preprocedure Evaluation Filed: 08/15/2023 12:27 Note Text: ANESTHESIOLOGY DAY OF SURGERY NOTE : 1945 Procedure Information Date/Time: 08/15/23 1445 Scheduled providers: Temi Arnold MD; Gracy Solitario APRN.MOLDING MACHINE OPERATOR HELPER; Ramana Multani DO Procedures: COLONOSCOPY DIAGNOSTIC EGD DIAGNOSTIC Location: [facility] Endoscopy Estimated body mass index is 26.21 kg/m? as calculated from the following: Height as of this encounter: 156.2 cm (5' 1.5"). Weight as of this encounter: 64 kg (141 lb). Most recent hematocrit and potassium results: No results found for this basename: HCT,HEMATOCRIT,K,POTASSIUM Relevant Problems CARDIO (+) Unspecified hemorrhoids without mention of complication GI (+) Esophageal reflux I - PHYSICAL EVALUATION AIRWAY Patient intubated: No. Tracheostomy tube not present Mallampati: I. TM distance: >3 FB. Neck ROM: full ROM without neurological symptoms. Mouth opening: adequate. Short neck: no. Thick neck: no DENTAL Dental findings: edentulous. II - ANESTHESIA PLAN ASA Score: 3 Anesthetic Plan: MAC NPO Status: adequate Beta Yoandy Monitoring Plan Monitoring plan: standard ASA. Post Procedure Analgesic Plan Postoperative analgesic plan: parenteral or oral opioids. Informed Consent Anesthetic risks, benefits, alternatives, personnel and consent discussed: yes. Patient / Responsible Libertarian agrees to proceed: yes Patient / Surrogate agrees to blood products: Yes DNR status not reviewed with patient and/or family prior to surgery. Significant changes in the patient condition since the History and Physical, not otherwise documented in primary service progress note: no. Potential Anesthesia issues that may suggest increased risk of complications or contraindication to planned procedure: none. Vitals Value Taken Time BP 143/63 08/15/23 1219 Pulse Resp 18 08/15/23 1219 Temp 36.5 ?C (97.7 ?F) 08/15/23 1219 SpO2 95 % 08/15/23 1219 Outpatient Medications as of 08/15/2023 Medication Sig simvastatin (ZOCOR) 80 mg tablet Take 80 mg by mouth daily at bedtime. levothyroxine 50 mcg cap Take 50 mcg by mouth daily before breakfast. famotidine (PEPCID) 40 mg tablet Take 40 mg by mouth once daily. metFORMIN (GLUCOPHAGE) 500 mg tablet Take 500 mg by mouth three times a day. losartan (COZAAR) 50 mg tablet Take 50 mg by mouth once daily. naproxen sodium (ALEVE) 220 mg cap Take by mouth as needed (pain). peg 3350-Electrolytes (GOLYTELY) 236-22.74-6.74 -5.86 gram suspension Take as directed. aspirin, enteric coated (ADULT LOW DOSE ASPIRIN) 81 mg EC tablet Take 81 mg by mouth once daily. (Patient not taking: Reported on 08/12/2023) clobetasol (TEMOVATE) 0.05 % cream Apply 1 g to affected area two times a day. (Patient not taking: Reported on 08/12/2023) Polyethylene Glycol 3350 (MIRALAX) 17 gram/dose ORAL powder Use as directed. (Patient not taking: Reported on 08/12/2023) atorvastatin (LIPITOR) 40 mg ORAL tablet Take one(1) tablet daily. (Patient not taking: Reported on 08/12/2023) albuterol 90 mcg/Actuation INHALATION Aero Inhale one(1) - two(2) puffs four(4) times a day as needed for wheezing and shortness of breath. (Patient not taking: Reported on 08/12/2023) omega-3 fatty acids(FISH OIL 500 MG CAP) two capsules daily (Patient not taking: Reported on 08/12/2023) CALTRATE-600 PLUS VITAMIN D3 600 MG-400 UNIT TAB Take one(1) tablet daily. (Patient not taking: Reported on 08/12/2023) ONE DAILY MULTI-VITAMIN TAB Take one(1) tablet daily. (Patient not taking: Reported on 08/12/2023) Facility-Administered Medications as of 08/15/2023 Medication Dose Route Frequency lactated ringers iv infusion 30 mL/hr INTRAVENOUS CONTINUOUS I have interviewed and examined the patient. I have reviewed the medical record and/or the pre-anesthesia evaluation, pertinent labs, and test results. This contains updated information obtained within 48 hours of Surgery/Procedure. SIGNATURE: Ramana Multani DO PATIENT NAME: Alfred Jackson DATE: August 15, 2023 TIME: 12:25 PM CSN: [id number] Normal [facility] Colonoscopyon 08-15-[address] [facility] Gastrointestinal Endoscopy Patient Name: Alfred Jackson Procedure Date: 08/15/2023 2:46 PM Date of : 1945 Admit Type: Outpatient Age: 77 Room: [facility] Gender: Female Note Status: Finalized Attending MD: Temi Arnold MD, [id number] Procedure: Colonoscopy Indications: Clinically significant diarrhea of unexplained origin Providers: Temi Arnold MD Patient Profile: This is a 77 year old female. Refer to note in patient chart for documentation of history and physical. Last Colonoscopy: date unknown. Unable to locate last colonoscopy report. Referring Physician: Temi Arnold MD (Referring MD) Medicines: Monitored Anesthesia Care Complications: No immediate complications. Requesting Provider: Procedure: Pre-Anesthesia Assessment: - Prior to the procedure, a History and Physical was performed, and patient medications and allergies were reviewed. The patient is competent. The risks and benefits of the procedure and the sedation options and risks were discussed with the patient. All questions were answered and informed consent was obtained. Patient identification and proposed procedure were verified by the physician, the nurse and the substation operator automatic in the procedure room. Respiratory Examination: clear to auscultation. Prophylactic Antibiotics: The patient does not require prophylactic antibiotics. Prior Anticoagulants: The patient has taken no anticoagulant or antiplatelet agents. ASA Grade Assessment: III - A patient with severe systemic disease. After reviewing the risks and benefits, the patient was deemed in satisfactory condition to undergo the procedure. The anesthesia plan was to use monitored anesthesia care (MAC). Immediately prior to administration of medications, the patient was re-assessed for adequacy to receive sedatives. The heart rate, respiratory rate, oxygen saturations, blood pressure, adequacy of pulmonary ventilation, and response to care were monitored throughout the procedure. The physical status of the patient was re-assessed after the procedure. After I obtained informed consent, the scope was passed under direct vision. Throughout the procedure, the patient's blood pressure, pulse, and oxygen saturations were monitored continuously. The Colonoscope was introduced through the anus and advanced to the cecum, identified by the appendiceal orifice, ileocecal valve and palpation. The colonoscopy was performed without difficulty. The patient tolerated the procedure well. The quality of the bowel preparation was good. The ileocecal valve, appendiceal orifice, and rectum were photographed. Scope Withdrawal Time: 0 hours 8 minutes 9 seconds Moderate Sedation: MAC anesthesia was administered by the anesthesia team. Total Procedure Duration: 0 hours 12 minutes 40 seconds Findings: The perianal and digital rectal examinations were normal. The colon (entire examined portion) appeared normal. Biopsies for histology were taken with a cold forceps from the ascending colon and descending colon for evaluation of microscopic colitis. There was evidence of a prior functional end-to-end colo-rectal anastomosis in the recto-sigmoid colon. This was patent and was characterized by healthy appearing mucosa. A few small-mouthed diverticula were found in the sigmoid colon. The exam was otherwise without abnormality on direct and retroflexion views. Impression: - The entire examined colon is normal. Biopsied. - Patent functional end-to-end colo-rectal anastomosis, characterized by healthy appearing mucosa. - Diverticulosis in the sigmoid colon. - The examination was otherwise normal on direct and retroflexion views. Recommendation: - Discharge patient to home. - Resume previous diet. - Continue present medications. - Repeat colonoscopy for surveillance based on pathology results. - Return to my office in 1 week. - Patient has a contact number available for emergencies. The signs and symptoms of potential delayed complications were discussed with the patient. Return to normal activities tomorrow. Written discharge instructions were provided to the patient. Procedure Code(s): --- Professional --- 00828, Colonoscopy, flexible; with biopsy, single or multiple CPT copyright 2020 [employer]. All rights reserved. The codes documented in this report are preliminary and upon medical coder review may be revised to meet current compliance requirements. Attending Participation: I personally performed the entire procedure. Scope In: 3:21:36 PM Scope Out: 3:34:16 PM MD Temi Lopez MD 08/15/2023 3:53:17 PM This report has been signed electronically by Temi Arnold MD Number of Addenda: 0 Note Initiated On: 08/15/2023 2:46 PM Estimated Blood Loss: Estimated blood loss: none. Normal [facility] EGD Study observation Janak greco 08-15-2023 [facility] Gastrointestinal Endoscopy Patient Name: Alfred Jackson Procedure Date: 08/15/2023 2:46 PM Date of : 1945 Admit Type: Outpatient Age: 77 Room: [facility] Gender: Female Note Status: Finalized Attending MD: Temi Arnold MD, [id number] Procedure: Colonoscopy Indications: Clinically significant diarrhea of unexplained origin Providers: Temi Arnold MD Patient Profile: This is a 77 year old female. Refer to note in patient chart for documentation of history and physical. Last Colonoscopy: date unknown. Unable to locate last colonoscopy report. Referring Physician: Temi Arnold MD (Referring MD) Medicines: Monitored Anesthesia Care Complications: No immediate complications. Requesting Provider: Procedure: Pre-Anesthesia Assessment: - Prior to the procedure, a History and Physical was performed, and patient medications and allergies were reviewed. The patient is competent. The risks and benefits of the procedure and the sedation options and risks were discussed with the patient. All questions were answered and informed consent was obtained. Patient identification and proposed procedure were verified by the physician, the nurse and the substation operator automatic in the procedure room. Respiratory Examination: clear to auscultation. Prophylactic Antibiotics: The patient does not require prophylactic antibiotics. Prior Anticoagulants: The patient has taken no anticoagulant or antiplatelet agents. ASA Grade Assessment: III - A patient with severe systemic disease. After reviewing the risks and benefits, the patient was deemed in satisfactory condition to undergo the procedure. The anesthesia plan was to use monitored anesthesia care (MAC). Immediately prior to administration of medications, the patient was re-assessed for adequacy to receive sedatives. The heart rate, respiratory rate, oxygen saturations, blood pressure, adequacy of pulmonary ventilation, and response to care were monitored throughout the procedure. The physical status of the patient was re-assessed after the procedure. After I obtained informed consent, the scope was passed under direct vision. Throughout the procedure, the patient's blood pressure, pulse, and oxygen saturations were monitored continuously. The Colonoscope was introduced through the anus and advanced to the cecum, identified by the appendiceal orifice, ileocecal valve and palpation. The colonoscopy was performed without difficulty. The patient tolerated the procedure well. The quality of the bowel preparation was good. The ileocecal valve, appendiceal orifice, and rectum were photographed. Scope Withdrawal Time: 0 hours 8 minutes 9 seconds Moderate Sedation: MAC anesthesia was administered by the anesthesia team. Total Procedure Duration: 0 hours 12 minutes 40 seconds Findings: The perianal and digital rectal examinations were normal. The colon (entire examined portion) appeared normal. Biopsies for histology were taken with a cold forceps from the ascending colon and descending colon for evaluation of microscopic colitis. There was evidence of a prior functional end-to-end colo-rectal anastomosis in the recto-sigmoid colon. This was patent and was characterized by healthy appearing mucosa. A few small-mouthed diverticula were found in the sigmoid colon. The exam was otherwise without abnormality on direct and retroflexion views. Impression: - The entire examined colon is normal. Biopsied. - Patent functional end-to-end colo-rectal anastomosis, characterized by healthy appearing mucosa. - Diverticulosis in the sigmoid colon. - The examination was otherwise normal on direct and retroflexi (more content not included)... PROVATION [facility] Radiology Study observation (narrative) [facility] Flexible sigmoidoscopy study on 08-15-2023 [facility] Gastrointestinal Endoscopy Patient Name: Alfred Jackson Procedure Date: 08/15/2023 2:47 PM Date of : 1945 Admit Type: Outpatient Age: 77 Room: [facility] Gender: Female Note Status: Finalized Attending MD: Temi Arnold MD, [id number] Procedure: Upper GI endoscopy Indications: Lower abdominal pain Providers: Temi Arnold MD Patient Profile: This is a 77 year old female. Refer to note in patient chart for documentation of history and physical. Referring Physician: Temi Arnold MD (Referring MD) Medicines: Monitored Anesthesia Care Complications: No immediate complications. Requesting Provider: Procedure: Pre-Anesthesia Assessment: - Prior to the procedure, a History and Physical was performed, and patient medications and allergies were reviewed. The patient is competent. The risks and benefits of the procedure and the sedation options and risks were discussed with the patient. All questions were answered and informed consent was obtained. Patient identification and proposed procedure were verified by the physician, the nurse and the substation operator automatic in the procedure room. Respiratory Examination: clear to auscultation. CV Examination: normal. Prophylactic Antibiotics: The patient does not require prophylactic antibiotics. Prior Anticoagulants: The patient has taken no anticoagulant or antiplatelet agents. ASA Grade Assessment: III - A patient with severe systemic disease. After reviewing the risks and benefits, the patient was deemed in satisfactory condition to undergo the procedure. The anesthesia plan was to use monitored anesthesia care (MAC). Immediately prior to administration of medications, the patient was re-assessed for adequacy to receive sedatives. The heart rate, respiratory rate, oxygen saturations, blood pressure, adequacy of pulmonary ventilation, and response to care were monitored throughout the procedure. The physical status of the patient was re-assessed after the procedure. After obtaining informed consent, the endoscope was passed under direct vision. Throughout the procedure, the patient's blood pressure, pulse, and oxygen saturations were monitored continuously. The Colonoscope was introduced through the mouth, and advanced to the jejunum. The upper GI endoscopy was accomplished without difficulty. The patient tolerated the procedure well. Moderate Sedation: MAC anesthesia was administered by the anesthesia team. Total Procedure Duration: 0 hours 12 minutes 22 seconds Findings: The examined jejunum was normal. Biopsies for histology were taken with a cold forceps for evaluation of celiac disease. A single 7 mm sessile polyp with bleeding was found in the duodenal bulb. The polyp was removed with a cold snare. Resection and retrieval were complete. Scattered mild inflammation characterized by erosions, erythema, granularity and linear erosions was found in the stomach. Biopsies were taken with a cold forceps for histology. A small hiatal hernia was present. Moderately severe esophagitis with bleeding was found in the lower third of the esophagus. Biopsies were taken with a cold forceps for histology. A low-grade of narrowing Schatzki ring was found in the lower third of the esophagus. The middle third of the esophagus was normal. Biopsies were taken with a cold forceps for histology. Impression: - Normal examined jejunum. Biopsied. - A single duodenal polyp. Resected and retrieved. - Gastritis. Biopsied. - Small hiatal hernia. - Moderately severe reflux esophagitis with bleeding. Biopsied. - Low-grade of narrowing Schatzki ring. - Normal middle third of esophagus. Biopsied. Recommendation: - Discharge patient to home. (more content not included)... [facility]ATION [facility] Radiology Study observation (narrative) [facility] GLUCOSE, BLOOD (POC)on 08-14 Glucose [Mass/Vol] 111 mg/dL Abnormal 74 - 99 mg/dL [facility] Comment on above: Location:[facility], [address], [place], [address] The Accu-Chek Inform II glucose meter has not been approved for testing on patients receiving intensive medical intervention or therapy and results from this point of care glucose test should not be used for patient management decisions in these cases. Inaccurate results may also occur from other interfering factors, such as N-acetylcysteine (blood concentrations of greater than 5mg/dL), galactose, extremes of hematocrit (<10 or >65), or high doses of ascorbic acid (vitamin C) greater than 3mg/dL. Consider alternate testing mechanisms (e.g. core lab, blood gas instrument) in the above situations. Interpretation and review of laboratory results Abnormal [facility] HISTORY PHYSICALon HISTORY PHYSICAL HNO ID: [id number] Author: TEMI ARNOLD MD Service: General Surgery Author Type: Physician Type: H&P Filed: 08/15/2023 14:18 Note Text: HISTORY AND PHYSICAL Alfred Jackson 1945 REFERRING PHYSICIAN: Segundo Conn MD CHIEF COMPLAINT: Consult, Abdominal Pain, and Diarrhea HPI: The patient is a 77 year old female referred for endoscopy. Alfred notes the following GI complaints: Alfred notes abdominal pain. The pain occurs in the following locations: lower regions . Alfred notes diarrhea. The diarrhea she notes to be watery and occur very soon after eating. At first it was happening every day. Now she notes that happens every 2 to 3 days. Alfred denies constipation. Alfred notes a change in bowel habits. Alfred denies melena. Alfred denies bright red blood per rectum. Alfred denies hemorrhoids. The patient notes no history of upper GI complaints. Alfred has undergone prior endoscopy. This was approximately 5960-8952. The patient is being seen by me today at the request of Dr. Segundo Conn MD for my opinion and advice regarding diarrhea and lower abdominal cramping. PAST MEDICAL HISTORY PAST MEDICAL HISTORY Diagnosis Date Abdominal pain, right lower quadrant Benign skin lesion of forehead Diabetes mellitus (HCC) Diaphragmatic hernia without mention of obstruction or gangrene Hiatal hernia Diarrhea 03/21/2023 x 6 months Diverticulosis of colon (without mention of hemorrhage) Diverticulosis Generalized osteoarthrosis, unspecified site GERD (gastroesophageal reflux disease) Hyperkalemia Hyperlipidemia Hypertension Hypothyroidism Low back pain Mitral valve disorders(424.0) Neuralgia and neuritis, unspecified Other lichen planus Pneumonia, viral Radiculopathy, lumbar region Right sided sciatica Vitamin D deficiency PAST SURGICAL HISTORY PAST SURGICAL HISTORY Procedure Laterality Date COLONOSCOPY FLX DX W/COLLJ SPEC WHEN PFRMD 08/16/05 Colonoscopy COLONOSCOPY FLX DX W/COLLJ SPEC WHEN PFRMD failed colonooscopy advanced to 40cm - tortuous COLONOSCOPY FLX DX W/COLLJ SPEC WHEN PFRMD 11/21/09 normal to cecum-per HM repeat in LAPS COLECTOMY PRTL W/COLOPXTSTMY LW ANAST 05/24/2008 PAST SURGICAL HISTORY OF x 3 CURRENT MEDICATIONS Current Outpatient Medications Medication Sig naproxen sodium (ALEVE) 220 mg cap Take by mouth as needed (pain). simvastatin (ZOCOR) 80 mg tablet Take 80 mg by mouth daily at bedtime. levothyroxine 50 mcg cap Take 50 mcg by mouth daily before breakfast. famotidine (PEPCID) 40 mg tablet Take 40 mg by mouth once daily. metFORMIN (GLUCOPHAGE) 500 mg tablet Take 500 mg by mouth three times a day. losartan (COZAAR) 50 mg tablet Take 50 mg by mouth once daily. peg 3350-Electrolytes (GOLYTELY) 236-22.74-6.74 -5.86 gram suspension Take 4,000 mL by mouth one time only for 1 dose. Refer to printed prep instructions from your provider. peg 3350-Electrolytes (GOLYTELY) 236-22.74-6.74 -5.86 gram suspension Take as directed. aspirin, enteric coated (ADULT LOW DOSE ASPIRIN) 81 mg EC tablet Take 81 mg by mouth once daily. (Patient not taking: Reported on 08/12/2023) clobetasol (TEMOVATE) 0.05 % cream Apply 1 g to affected area two times a day. (Patient not taking: Reported on 08/12/2023) Polyethylene Glycol 3350 (MIRALAX) 17 gram/dose ORAL powder Use as directed. (Patient not taking: Reported on 08/12/2023) atorvastatin (LIPITOR) 40 mg ORAL tablet Take one(1) tablet daily. (Patient not taking: Reported on 08/12/2023) albuterol 90 mcg/Actuation INHALATION Aero Inhale one(1) - two(2) puffs four(4) times a day as needed for wheezing and shortness of breath. (Patient not taking: Reported on 08/12/2023) omega-3 fatty acids(FISH OIL 500 MG CAP) two capsules daily (Patient not taking: Reported on 08/12/2023) CALTRATE-600 PLUS VITAMIN D3 600 MG-400 UNIT TAB Take one(1) tablet daily. (Patient not taking: Reported on 08/12/2023) ONE DAILY MULTI-VITAMIN TAB Take one(1) tablet daily. (Patient not taking: Reported on 08/12/2023) No current facility-administered medications for this visit. ALLERGIES: Cipro [Ciprofloxacin], Flagyl [Metronidazole Hcl], Mevacor [Lovastatin], Naprosyn [Naproxen], Parafon Forte Dsc [Chlorzoxazone], and Tramadol PERSONAL HISTORY: SOCIAL HISTORY Social History Tobacco Use Smoking status: Former Packs/day: 0.50 Years: 40.00 Additional pack years: 0.00 Total pack years: 20.00 Types: Cigarettes Smokeless tobacco: Never Tobacco comments: Quit 15 years ago Substance Use Topics Alcohol use: Not Currently Comment: once or twice a year Drug use: No FAMILY HISTORY: FAMILY HISTORY FAMILY HISTORY Problem Relation Age of Onset Cancer Mother skin cancers Diabetes Father Pancreatic Cancer Maternal Grandmother REVIEW OF SYMPTOMS: The review of systems data was entered by the nurse and reviewed by la Nursing Notes: Nancy Bryant MA 5/ (more content not included)... [facility] SURGICAL PATHOLOGYon 024 ADDENDUM 1: [facility] Comment on above: Order Comment: Speci men Type: TISSUE SPECIMEN Ordering Facility: [facility] Address: [address] [place] [address] Result Comment: Rex castro the background of chronic gastritis a Helicobacter pylori immunostain was performed on block B and is negative for Helicobacter pylori organisms. ANNELISE/gamal 08/18/2023 Laboratory Developed Test (LDT) Disclaimer: Performance characteristics of immunohistochemical, immunofluorescent and chromogenic in-situ hybridization tests have been determined by the performing laboratory within [facility]???s [facility] ([facility], [facility], [facility], [facility], [facility], [facility], or [facility]) in a manner consistent with CLIA requirements. One or more of these tests have not been cleared or approved by the FDA. [facility] is regulated under CLIA as qualified to perform high-complexity testing. These tests are used for clinical purposes. They should not be regarded as investigational or for research. Positive and negative controls stain appropriately. Addendum electronically signed by Reji Haines MD on 08/19/2023 at 12:09 PM Performed By: #### S #### [facility] CLIA [id number] [address] [place] [address] [place] [facility] CLIA [id number] [address] [place] [address] [place] CASE REPORT Normal [facility] Comment on above: Order Comment: Speci men Type: TISSUE SPECIMEN Ordering Facility: [facility] Address: [address] [place] [address] Result Comment: Surg [facility] Pathology Report Case: [id number] Authorizing Provider: Temi Arnold MD Collected: 08/15/2023 03:05 PM Ordering Location: [facility] Endoscopy Received: 08/16/2023 08:24 AM Pathologist: Reji Haines MD Specimens: A) - Small Bowel, Polyp, Duodenal Polyp B) - Stomach, Antrum, Biopsy C) - Small Bowel, Duodenum, Biopsy D) - Stomach, Polyp, Biopsy, Fundic Gland Polyp E) - Esophagus, Distal, Biopsy F) - Esophagus, Mid, Biopsy G) - Colon, Biopsy, ascending H) - Colon, Descending, Biopsy Performed By: #### S #### [facility] CLIA [id number] [address] [place] [address] [place] [facility] CLIA [id number] [address] [place] [address] [place] FINAL DIAGNOSIS [facility] Comment on above: Order Comment: Speci men Type: TISSUE SPECIMEN Ordering Facility: [facility] Address: [address] [place] [address] Result Comment: A. 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 - No evidence of adenoma. B. Gastric antrum, biopsy: - Mild chronic inactive gastritis. - Immunohistochemical stain for Helicobacter pylori pending. C. Duodenum, biopsy: - No significant pathologic change. D. Gastric polyp, biopsy: - Fundic gland polyp. - Negative for dysplasia. E. "Distal esophagus", biopsy: - Fragments of unremarkable duodenal mucosa. - Squamous mucosa not identified. F. Mid esophagus, biopsy: - Squamous mucosa with active esophagitis. - No evidence of eosinophilia. G-H. Ascending and descending colon, biopsies: - No significant pathologic change. - No evidence of lymphocytic or collagenous colitis. ANNELISE/alexy 08/17/2023 Performed By: #### S #### [facility] CLIA [id number] [address] [place] [address] [place] [facility] CLIA [id number] [address] [place] [address] [place] FINAL PERFORMING LAB [facility] Comment on above: Order Comment: Speci juan Type: TISSUE SPECIMEN Ordering Facility: [facility] Address: [address] [place] [address] Result Comment: Diag nostic interpretation performed at [facility], [address] [place] [address] CLIA# [id number] [employer] Mate: Anaya Fowler M.D. Performed By: #### S #### [facility] CLIA [id number] [address] [place] [address] [place] [facility] CLIA [id number] [address] [place] [address] [place] GROSS DESCRIPTION [facility] Comment on above: Order Comment: Speci men Type: TISSUE SPECIMEN Ordering Facility: [facility] Address: [address] [place] [address] Result Comment: A. S mall Bowel, Polyp Received in formalin are multiple pieces of richard, soft tissue aggregating to 0.6 x 0.5 x 0.2 cm. Totally submitted in one cassette. B. Stomach, Antrum, Biopsy Received in formalin is one piece of richard, soft tissue measuring 0.2 x 0.1 x 0.1 cm. Totally submitted in one cassette. C. Small Bowel, Duodenum, Biopsy Received in formalin is one piece of richard, soft tissue measuring 0.2 x 0.2 x 0.2 cm. Totally submitted in one cassette. D. Stomach, Polyp, Biopsy Received in formalin is one piece of irchard, soft tissue measuring 0.4 x 0.2 x 0.2 cm. Totally submitted in one cassette. E. Esophagus, Distal, Biopsy Received in formalin is one piece of richard, soft tissue measuring 0.3 x 0.2 x 0.2 cm. Totally submitted in one cassette. F. Esophagus, Mid, Biopsy Received in formalin is one piece of richard, soft tissue measuring 0.3 x 0.2 x 0.1 cm. Totally submitted in one cassette. G. Colon, Biopsy Received in formalin are two pieces of richard, soft tissue aggregating to 0.4 x 0.2 x 0.1 cm. Totally submitted in one cassette. H. Colon, Descending, Biopsy Received in formalin are two pieces of richard, soft tissue aggregating to 0.3 x 0.2 x 0.1 cm. Totally submitted in one cassette. JTS August 16, 2023 1:05 PM Gross examination performed at [facility], [address] [place] [address], [place] [address] Performed By: #### S #### [facility] CLIA [id number] [place] [address] [place] [facility] CLIA [id number] [address] [place] [address] [place] Upper GI endoscopyon 08-14- [address] [facility] Gastrointestinal Endoscopy Patient Name: Alfred Jackson Procedure Date: 08/15/2023 2:47 PM Date of : 1945 Admit Type: Outpatient Age: 77 Room: [facility] Gender: Female Note Status: Finalized Attending MD: Temi Arnold MD, [id number] Procedure: Upper GI endoscopy Indications: Lower abdominal pain Providers: Temi Arnold MD Patient Profile: This is a 77 year old female. Refer to note in patient chart for documentation of history and physical. Referring Physician: Temi Arnold MD (Referring MD) Medicines: Monitored Anesthesia Care Complications: No immediate complications. Requesting Provider: Procedure: Pre-Anesthesia Assessment: - Prior to the procedure, a History and Physical was performed, and patient medications and allergies were reviewed. The patient is competent. The risks and benefits of the procedure and the sedation options and risks were discussed with the patient. All questions were answered and informed consent was obtained. Patient identification and proposed procedure were verified by the physician, the nurse and the substation operator automatic in the procedure room. Respiratory Examination: clear to auscultation. CV Examination: normal. Prophylactic Antibiotics: The patient does not require prophylactic antibiotics. Prior Anticoagulants: The patient has taken no anticoagulant or antiplatelet agents. ASA Grade Assessment: III - A patient with severe systemic disease. After reviewing the risks and benefits, the patient was deemed in satisfactory condition to undergo the procedure. The anesthesia plan was to use monitored anesthesia care (MAC). Immediately prior to administration of medications, the patient was re-assessed for adequacy to receive sedatives. The heart rate, respiratory rate, oxygen saturations, blood pressure, adequacy of pulmonary ventilation, and response to care were monitored throughout the procedure. The physical status of the patient was re-assessed after the procedure. After obtaining informed consent, the endoscope was passed under direct vision. Throughout the procedure, the patient's blood pressure, pulse, and oxygen saturations were monitored continuously. The Colonoscope was introduced through the mouth, and advanced to the jejunum. The upper GI endoscopy was accomplished without difficulty. The patient tolerated the procedure well. Moderate Sedation: MAC anesthesia was administered by the anesthesia team. Total Procedure Duration: 0 hours 12 minutes 22 seconds Findings: The examined jejunum was normal. Biopsies for histology were taken with a cold forceps for evaluation of celiac disease. A single 7 mm sessile polyp with bleeding was found in the duodenal bulb. The polyp was removed with a cold snare. Resection and retrieval were complete. Scattered mild inflammation characterized by erosions, erythema, granularity and linear erosions was found in the stomach. Biopsies were taken with a cold forceps for histology. A small hiatal hernia was present. Moderately severe esophagitis with bleeding was found in the lower third of the esophagus. Biopsies were taken with a cold forceps for histology. A low-grade of narrowing Schatzki ring was found in the lower third of the esophagus. The middle third of the esophagus was normal. Biopsies were taken with a cold forceps for histology. Impression: - Normal examined jejunum. Biopsied. - A single duodenal polyp. Resected and retrieved. - Gastritis. Biopsied. - Small hiatal hernia. - Moderately severe reflux esophagitis with bleeding. Biopsied. - Low-grade of narrowing Schatzki ring. - Normal middle third of esophagus. Biopsied. Recommendation: - Discharge patient to home. - Resume previous diet. - Continue present medications. Procedure Code(s): --- Professional --- 86484, 59, Esophagogastroduodenoscopy , flexible, transoral; with biopsy, single or multiple CPT copyright 2020 [employer]. All rights reserved. The codes documented in this report are preliminary and upon medical coder review may be revised to meet current compliance requirements. Attending Participation: I was present and participated during the entire procedure, including non-mathis portions, and during the administration and monitoring of Moderate Sedation. Scope In: 3:03:54 PM Scope Out: 3:16:16 PM MD Temi Lopez MD 08/15/2023 3:50:06 PM This report has been signed electronically by Temi Arnold MD Number of Addenda: 0 Note Initiated On: 08/15/2023 2:47 PM Estimated Blood Loss: Estimated blood loss: none. Normal [facility] 08-12-2023 CNOV Office Visit (GENSWS ) -- ALFRED JACKSON ([id number]) 1945 F Date Time Provider Department 08/12/23 2:45 PM CLAYTONTEMI CH During your visit today, we recorded the following information about you: Pulse Blood pressure Weight Height 88/minute 132/64 65.8 kg 1.562 m Nancy Bryant MA 08/12/2023 2:43 PM Signed REVIEW OF SYSTEMS: General: The patient denies fatigue, NOTES weight loss, denies weight gain, denies feeling hot, and denies feelings of cold. Eyes: The patient denies glaucoma, denies eye injury/surgery, wears glasses or contacts. Ear/Nose/Throat: The patient denies allergies, denies hayfever, denies ear infections, and denies bloody noses. Cardiovascular: The patient denies chest pain, denies heart disease, NOTES high blood pressure,denies cardiac stent, denies prior heart attack, denies irregular heart beat, denies high cholesterol, denies poor circulation, denies heart failure, other cardiac issues, denies claudication, denies cold feet, denies peripheral arterial stent. Respiratory: The patient denies tuberculosis, denies pneumonia, denies frequent cough, denies pulmonary embolism, denies shortness of breath, and denies coughing up blood. Gastrointestinal: The patient denies difficulty swallowing, NOTES acid reflux, denies ulcers, denies vomiting, denies jaundice/hepatitis, denies gallbladder problems, denies black or tarry stools, denies hemorrhoids, denies bleeding from rectum, denies diverticulitis, denies constipation, NOTES diarrhea, denies loss of stool control, and denies hernias. Kidney/Bladder: The patient denies kidney stones, denies urine infections, and denies bloody urine. Skin: The patient denies a history of skin cancer, denies bleeding/changing moles, and denies a history of skin rash. Neurologic: The patient denies a history of epilepsy/convulsions, denies headaches, denies head/spinal injuries, and denies stroke/TIA. Psychiatric: The patient denies psychiatric medications, denies depression, and denies voices, denies substance abuse. Endocrine: The patient NOTES thyroid disorders, NOTES diabetes, and denies hormonal problems. Hematologic: The patient denies a history of bruising, denies bleeding, and denies anemia, denies blood clots. Infections: The patient NOTES a history of measles and mumps, denies rheumatic fever, and denies sexually transmitted diseases. Musculoskeletal: The patient denies back pain/injury, denies back problems, denies sciatica, denies knee/foot trouble, denies arthritis, or denies gout. When was patient's last Mammogram screening? N/A Last Colonoscopy: 2009 MARCUS Heard Richard T, MD 08/12/2023 3:22 PM Signed Bowel Preparation Instructions for: Golytely, Nulytely, Trilyte or Colyte (polyethylene glycol 3350 and electrolytes) IF YOU DO NOT FOLLOW THESE DIRECTIONS, YOUR COLONOSCOPY WILL BE CANCELLED. Mathis Instructions: Your bowel must be empty so that your doctor can clearly view your colon. Follow all of the instructions in this handout EXACTLY as they are written. Do NOT eat any solid food the ENTIRE day before your colonoscopy. Drink only clear liquids. Buy your bowel preparation at least 5 days before your colonoscopy. TRANSPORTATION on the Day of Your Exam A responsible person MUST be present with you at Check In prior to your colonoscopy and REMAIN in the endoscopy area until you are discharged. You are NOT ALLOWED to drive, take a taxi or bus, or leave the Endoscopy Center ALONE. If you do not have a responsible front load trash truck driver (family member or friend) with you to take you home, your exam cannot be done with sedation and will be cancelled. Please bring a list of all of your current medications, including any Over-the Counter medications with you. Medications If you take insulin, diabetic medications or blood thinners such as Coumadin (warfarin), Plavix (clopidogrel), Ticlid (ticlopidine hydrochloride), Agrylin (anagrelide), Xarelto (Rivaroxaban), Pradaxa (Dabigatran), Eliquis (Apixaban), and Effient (Prasugrel). You MUST call the doctors who orders those medicines for instructions on altering the dosage before your colonoscopy. All other medications should be taken the day of the exam with a sip of water including ASPIRIN. Five (5) Days Before Your Colonoscopy Do NOT take medicines that stop diarrhea - such as Imodium, Kaopectate, or Pepto Bismol. Do NOT take fiber supplements - such as Metamucil, Citrucel, or Perdiem. Do NOT take products that contain iron - such as multi-vitamins (the label lists what is in the products). Do NOT take Vitamin E. Buy the prescription bowel preparation solution at your local pharmacy or drugstore pharmacy. 03/2019 Bowel Preparation Instructions for: Golytely, Nulytely, Trilyte or Colyte (polyethylene glycol 3350 and electrolytes) Three (3) Days Before Your (more content not included)... Normal [facility] Absolute lymphocyte countOrd ered By: Segundo Conn on 03-21-2023 Lymphocytes Auto (Unsp spec) [#/Vol] 2.16 10*3/uL 0.83-4.51 [facility] Basophil percentageOrdered B y: Segundo Conn on 03-21-2023 Basophils/100 WBC (Bld) 0.8 % 0-1 [facility] Bilirubin [Mass/Vol] 0.40 mg/dL 0.20-1.00 [facility] Comment on above: For patients on eltr ombopag therapy, use of Dimension [place] TBIL is not recommended. Chloride [Moles/Vol] 108 mmol/L 98-107 [facility] Eosinophils/100 WBC (Bld) 3.8 % 0-5 [facility] Glucose [Mass/Vol] 193 mg/dL 74-106 [facility] Comment on above: Fasting Glucose resu lt greater than or equal to 126 mg/dL suggests DIABETES MELLITUS per A.D.A. criteria. Neutrophils (Bld) [#/Vol] 3.6 10*3/uL 2.0-7.7 [facility] Neutrophils/100 WBC (Bld) 54.9 % 47-70 [facility] Potassium [Moles/Vol] 4.2 mmol/L 3.5-5.1 [facility] Protein [Mass/Vol] 7.4 g/dL 6.4-8.2 [facility] Sodium [Moles/Vol] 142 mmol/L 136-145 [facility] WBC (Bld) [#/Vol] 6.6 10*3/uL 4.4-11.0 [facility] Blood erythrocytes count (nu mber/volume)Ordered By: Segundo Conn on 03-21-2023 RBC (Bld) [#/Vol] 4.13 10*6/uL 4.2-5.4 [facility] Blood hemoglobin measurement (mass/volume)Ordered By: Segundo Conn on 03-21-2023 Hemoglobin (Bld) [Mass/Vol] 12.2 g/dL 12.0-15.0 [facility] Blood lymphocytes/100 leukoc ytesOrdered By: [facility] on 03-21-2023 Lymphocytes/100 WBC (Bld) 32.7 % 19-41 [facility] Blood monocytes/100 leukocyt esOrdered By: [facility] on 03-21-2023 Monocytes/100 WBC (Bld) 7.6 % 0-10 [facility] Blood platelet mean volumeOr dered By: [facility] on 03-21-2023 Platelet mean volume (Bld) [Entitic vol] 10.5 fL 6.2-12.0 [facility] Determination of erythrocyte mean corpuscular volume (MCV)Or[facility] 03-21-2023 MCV (RBC) [Entitic vol] 94.7 fL 81-99 [facility] Hematocrit Auto (Bld) [Volum e fraction]Ordered By: [facility] on 03-21-2023 Hematocrit (Bld) [Volume fraction] 39.1 % 37-47 [facility] Laboratory - Chemistry and C hemistry - challengeOrdered By: [facility] 03-21-2023 ALP [Catalytic activity/Vol] 62 U/L 45-117 [facility] ALT [Catalytic activity/Vol] 35 U/L 13-56 [facility] CO2 [Moles/Vol] 29.0 mmol/L 21.0-32.0 [facility] Globulin (S) [Mass/Vol] 3.7 g/dL 2.2-4.2 [facility] Urea nitrogen/Creatinine [Mass ratio] 12.6 mg/mg 10-20 [facility] Laboratory - Hematology and Cell countsOrdered By: [facility] on 03-21-2023 Erythrocyte distribution width (RBC) [Entitic vol] 43.4 fL 35.1-43.9 [facility] Erythrocyte distribution width (RBC) [Ratio] 12.5 % 11.6-14.6 [facility] Immature granulocytes/100 WBC (Bld) 0.200 % 0.0-0.9 [facility] Comment on above: IG% - Immature Granu locytes (promyelocytes, myelocytes and metamyelocytes) > 1% indicates that a LEFT SHIFT is Present. MCH (RBC) [Entitic mass] 29.5 pg 27.0-32.0 [facility] Nucleated RBC/100 WBC (Bld) [Ratio] 0 % 0-5 [facility] MCHC Auto (RBC) [Mass/Vol]Or dered By: Segundo Conn on 03-21-2023 MCHC (RBC) [Mass/Vol] 31.2 g/dL 32-36 [facility] No Panel InformationOrdered By: Segundo Conn on 03-21-2023 Estimated GFR (MDRD) Amer 91 mL/min >60 [facility] Comment on above: GFR Calc Estimated GFR (MDRD) Non-Af Amer 75 mL/min >60 [facility] Comment on above: Non- GFR Calc Thyroid Stimulating Hormone (TSH) 2.92 uIU/mL 0.358-3.74 [facility] Vitamin D 25-Hydroxy 15.2 ng/mL [facility] Comment on above: Vitamin D 25(OH) Sta tus Range Deficiency <20 ng/mL (50nmol/L) Insufficiency 20 - 30 ng/mL (50 - 75 nmol/L) Sufficiency 30 - 100 ng/mL (75 - 250 nmol/L) Toxicity >100 ng/mL (>250 nmol/L) Platelets bldOrdered By: Segundo Conn on 03-21-2023 Platelets (Bld) [#/Vol] 299 10*3/uL 150-450 [facility] Serum or plasma albumin adiel urement (mass/volume)Ordered By: Segundo Conn on 03-21-2023 Albumin [Mass/Vol] 3.7 g/dL 3.2-5.0 [facility] Serum or plasma albumin/glob ulin mass ratioOrdered By: Segundo Conn on 03-21-2023 Albumin/Globulin [Mass ratio] 1.0 {ratio} 0.9-2.4 [facility] Serum or plasma calcium adiel urement (mass/volume)Ordered By: Segundo Conn on 03-21-2023 Calcium [Mass/Vol] 9.3 mg/dL 8.5-10.1 [facility] Serum or plasma creatinine m easurement (mass/volume)Ordered By: Segundo Conn on 03-21-2023 Creatinine [Mass/Vol] 0.79 mg/dL 0.55-1.02 [facility] Comment on above: The validity of the calculated GFR & GFRAA in patients over 70 years has not been determined. Clinical correlation is essential. Serum or plasma urea nitroge n measurement (mass/volume)Ordered By: Segundo Conn on 03-21-2023 Urea nitrogen [Mass/Vol] 10 mg/dL 7-18 [facility] Thin prep Papanicolaou smear with manual screeningOrdered By: Segundo Conn on 03-21-2023 Thin prep Papanicolaou smear with manual screening 31 U/L 15-37 [facility] Thin prep Papanicolaou smear with manual screening 5 5-15 [facility] Basophil percentageOrdered B y: Segundo Conn on 09-29-2022 Chloride [Moles/Vol] 106 mmol/L 98-107 [facility] Glucose [Mass/Vol] 162 mg/dL 74-106 [facility] Comment on above: Fasting Glucose resu lt greater than or equal to 126 mg/dL suggests DIABETES MELLITUS per A.D.A. criteria. Potassium [Moles/Vol] 4.1 mmol/L 3.5-5.1 [facility] Sodium [Moles/Vol] 140 mmol/L 136-145 [facility] Laboratory - Chemistry and C hemistry - challengeOrdered By: Segundo Conn on 09-29-2022 CO2 [Moles/Vol] 29.0 mmol/L 21.0-32.0 [facility] Urea nitrogen/Creatinine [Mass ratio] 12.2 mg/mg 10-20 [facility] No Panel InformationOrdered By: Segundo Conn on 09-29-2022 Estimated GFR (MDRD) Amer 88 mL/min >60 [facility] Comment on above: GFR Calc Estimated GFR (MDRD) Non-Af Amer 72 mL/min >60 [facility] Comment on above: Non- GFR Calc Serum or plasma calcium adiel urement (mass/volume)Ordered By: Segundo Conn on 09-29-2022 Calcium [Mass/Vol] 9.8 mg/dL 8.5-10.1 [facility] Serum or plasma creatinine m easurement (mass/volume)Ordered By: Segundo Conn on 09-29-2022 Creatinine [Mass/Vol] 0.82 mg/dL 0.55-1.02 [facility] Comment on above: The validity of the calculated GFR & GFRAA in patients over 70 years has not been determined. Clinical correlation is essential. Serum or plasma urea nitroge n measurement (mass/volume)Ordered By: Segundo Conn on 09-29-2022 Urea nitrogen [Mass/Vol] 10 mg/dL 7-18 [facility] Thin prep Papanicolaou smear with manual screeningOrdered By: Segundo Conn on 09-29-2022 Thin prep Papanicolaou smear with manual screening 5 5-15 [facility] Absolute lymphocyte countOrd ered By: Dr. Conn on 09-22-2022 Lymphocytes Auto (Unsp spec) [#/Vol] 2.50 10*3/uL 0.83-4.51 [facility] Basophil percentageOrdered B y: Dr. Conn on 09-22-2022 Basophils/100 WBC (Bld) 0.9 % 0-1 [facility] Bilirubin [Mass/Vol] 0.30 mg/dL 0.20-1.00 [facility] Comment on above: For patients on eltr ombopag therapy, use of Dimension [place] TBIL is not recommended. Chloride [Moles/Vol] 109 mmol/L 98-107 [facility] Eosinophils/100 WBC (Bld) 3.4 % 0-5 [facility] Glucose [Mass/Vol] 137 mg/dL 74-106 [facility] Comment on above: Fasting Glucose resu lt greater than or equal to 126 mg/dL suggests DIABETES MELLITUS per A.D.A. criteria. Neutrophils (Bld) [#/Vol] 4.1 10*3/uL 2.0-7.7 [facility] Neutrophils/100 WBC (Bld) 53.8 % 47-70 [facility] Potassium [Moles/Vol] 5.2 mmol/L 3.5-5.1 [facility] Protein [Mass/Vol] 7.4 g/dL 6.4-8.2 [facility] Sodium [Moles/Vol] 140 mmol/L 136-145 [facility] WBC (Bld) [#/Vol] 7.7 10*3/uL 4.4-11.0 [facility] Blood erythrocytes count (nu mber/volume)Ordered By: Dr. Conn on 09-22-2022 RBC (Bld) [#/Vol] 4.30 10*6/uL 4.2-5.4 [facility] Blood hemoglobin measurement (mass/volume)Ordered By: Dr. Conn on 09-22-2022 Hemoglobin (Bld) [Mass/Vol] 12.8 g/dL 12.0-15.0 [facility] Blood lymphocytes/100 leukoc ytesOrdered By: Dr. Conn on 09-22-2022 Lymphocytes/100 WBC (Bld) 32.7 % 19-41 [facility] Blood monocytes/100 leukocyt esOrdered By: Dr. Conn on 09-22-2022 Monocytes/100 WBC (Bld) 8.9 % 0-10 [facility] Blood platelet mean volumeOr dered By: Dr. Conn on 09-22-2022 Platelet mean volume (Bld) [Entitic vol] 10.3 fL 6.2-12.0 [facility] Determination of erythrocyte mean corpuscular volume (MCV)Ordered By: Dr. Conn on 09-22-2022 MCV (RBC) [Entitic vol] 96.5 fL 81-99 [facility] Hematocrit Auto (Bld) [Volum e fraction]Ordered By: Dr. Conn on 09-22-2022 Hematocrit (Bld) [Volume fraction] 41.5 % 37-47 [facility] Laboratory - Chemistry and C hemistry - challengeOrdered By: Dr. Conn on 09-22-2022 ALP [Catalytic activity/Vol] 53 U/L 45-117 [facility] ALT [Catalytic activity/Vol] 38 U/L 13-56 [facility] CO2 [Moles/Vol] 28.0 mmol/L 21.0-32.0 [facility] Globulin (S) [Mass/Vol] 3.4 g/dL 2.2-4.2 [facility] Urea nitrogen/Creatinine [Mass ratio] 19.4 mg/mg 10-20 [facility] Laboratory - Hematology and Cell countsOrdered By: Dr. Conn on 09-22-2022 Erythrocyte distribution width (RBC) [Entitic vol] 44.7 fL 35.1-43.9 [facility] Erythrocyte distribution width (RBC) [Ratio] 12.6 % 11.6-14.6 [facility] Immature granulocytes/100 WBC (Bld) 0.300 % 0.0-0.9 [facility] Comment on above: IG% - Immature Granu locytes (promyelocytes, myelocytes and metamyelocytes) > 1% indicates that a LEFT SHIFT is Present. MCH (RBC) [Entitic mass] 29.8 pg 27.0-32.0 [facility] Nucleated RBC/100 WBC (Bld) [Ratio] 0 % 0-5 [facility] MCHC Auto (RBC) [Mass/Vol]Or dered By: Dr. Conn on 09-22-2022 MCHC (RBC) [Mass/Vol] 30.8 g/dL 32-36 [facility] No Panel InformationOrdered By: Dr. Conn on 09-22-2022 Estimated GFR (MDRD) Amer 111 mL/min >60 [facility] Comment on above: GFR Calc Estimated GFR (MDRD) Non-Af Amer 91 mL/min >60 [facility] Comment on above: Non- GFR Calc Thyroid Stimulating Hormone (TSH) 2.93 uIU/mL 0.358-3.74 [facility] Vitamin D 25-Hydroxy 25.6 ng/mL [facility] Comment on above: Vitamin D 25(OH) Sta tus Range Deficiency <20 ng/mL (50nmol/L) Insufficiency 20 - 30 ng/mL (50 - 75 nmol/L) Sufficiency 30 - 100 ng/mL (75 - 250 nmol/L) Toxicity >100 ng/mL (>250 nmol/L) Platelets bldOrdered By: Dr. Conn on 09-22-2022 Platelets (Bld) [#/Vol] 309 10*3/uL 150-450 [facility] Serum or plasma albumin adiel urement (mass/volume)Ordered By: Dr. Conn on 09-22-2022 Albumin [Mass/Vol] 4.0 g/dL 3.2-5.0 [facility] Serum or plasma albumin/glob ulin mass ratioOrdered By: Dr. Conn on 09-22-2022 Albumin/Globulin [Mass ratio] 1.2 {ratio} 0.9-2.4 [facility] Serum or plasma calcium adiel urement (mass/volume)Ordered By: Dr. Conn on 09-22-2022 Calcium [Mass/Vol] 9.5 mg/dL 8.5-10.1 [facility] Serum or plasma creatinine m easurement (mass/volume)Ordered By: Dr. Conn on 09-22-2022 Creatinine [Mass/Vol] 0.67 mg/dL 0.55-1.02 [facility] Comment on above: The validity of the calculated GFR & GFRAA in patients over 70 years has not been determined. Clinical correlation is essential. Serum or plasma urea nitroge n measurement (mass/volume)Ordered By: Dr. Conn on 09-22-2022 Urea nitrogen [Mass/Vol] 13 mg/dL 7-18 [facility] Thin prep Papanicolaou smear with manual screeningOrdered By: Dr. Conn on 09-22-2022 Thin prep Papanicolaou smear with manual screening 32 U/L 15-37 [facility] Thin prep Papanicolaou smear with manual screening 3 5-15 [facility] Ova and parasitesOrdered By: Dr. Conn on 07-09-2022 Ova and parasites identified LM Nom (Unsp spec) [facility] No Panel InformationOrdered By: Dr. Conn on 07-02-2022 Miscellaneous Test See comment [facility] Comment on above: STOOL CULTURETEST RE SULT REFERENCE INTERVALSALMONELLA/SHIGELLASCREEN RESULT 1 NO SALMONELLA OR SHIGELLA RECOVEREDCAMPYLOBACTER CULTUREFINAL REPORT NO CAMPYLOBACTER SPECIES ISOLATEDE COLI SHIGA TOXIN EIA NEGATIVE NEGATIVE ___ TESTING PERFORMED AT [facility]. ORIGINAL REPORT ON FILE IN LAB CONTAINS ADDITIONAL TEST SITE INFORMATION. Ova and parasitesOrdered By: Segundo Conn on 07-02-2022 Ova and parasites identified LM Nom (Unsp spec) [facility] Laboratory - Microbiology an d Antimicrobial susceptibilityOrdered By: Dr. Bahena on 06-29-2022 Bacteria identified Cx Nom (Bld) No growth in 5 days. [facility] Bacteria identified Cx Nom (Bld) No growth in 5 days. [facility] Absolute lymphocyte countOrd ered By: Dr. Pahn on 06-24-2022 Lymphocytes Auto (Unsp spec) [#/Vol] 1.69 10*3/uL 0.83-4.51 [facility] Basophil percentageOrdered B y: Dr. Phan on 06-24-2022 Basophils/100 WBC (Bld) 0.1 % 0-1 [facility] Bilirubin [Mass/Vol] 0.10 mg/dL 0.20-1.00 [facility] Comment on above: For patients on eltr ombopag therapy, use of Dimension [place] TBIL is not recommended. Chloride [Moles/Vol] 110 mmol/L 98-107 [facility] Cholesterol [Mass/Vol] 134 mg/dL <200 [facility] Comment on above: <200 mg/dL Desirable 200-240 mg/dL Borderline >240 mg/dL High Risk Eosinophils/100 WBC (Bld) 0.0 % 0-5 [facility] Glucose [Mass/Vol] 331 mg/dL 74-106 [facility] Comment on above: Glucose result great er than or equal to 200 mg/dLsuggests DIABETES MELLITUS per A.D.A. criteria. Neutrophils (Bld) [#/Vol] 13.8 10*3/uL 2.0-7.7 [facility] Neutrophils/100 WBC (Bld) 81.3 % 47-70 [facility] Potassium [Moles/Vol] 4.5 mmol/L 3.5-5.1 [facility] Protein [Mass/Vol] 6.5 g/dL 6.4-8.2 [facility] Sodium [Moles/Vol] 142 mmol/L 136-145 [facility] Triglyceride [Mass/Vol] 102 mg/dL <199 [facility] Comment on above: The drugs N-Acetylcy steine and Metamizole may falsely depress this assay.Serum Triglycerides Reference Interval Normal <150 mg/dL Borderline high 150 - 199 mg/dL High 200 - 499 mg/dL Very High > or = 500 mg/dL WBC (Bld) [#/Vol] 17.0 10*3/uL 4.4-11.0 [facility] Basophil percentageOrdered B y: Dr. Bahena on 06-24-2022 Lactate [Moles/Vol] 3.9 mmol/L 0.4-2.0 [facility] Comment on above: Critical Result(s) C alled at: 01:28:27 06/24/2022 by: OBED PHAN TO TOÑITO CONWAY. Results read back by same. Blood erythrocytes count (nu mber/volume)Ordered By: Dr. Phan on 06-24-2022 RBC (Bld) [#/Vol] 3.78 10*6/uL 4.2-5.4 [facility] Blood hemoglobin measurement (mass/volume)Ordered By: Dr. Phan on 06-24-2022 Hemoglobin (Bld) [Mass/Vol] 11.8 g/dL 12.0-15.0 [facility] Blood lymphocytes/100 leukoc ytesOrdered By: Dr. Phan on 06-24-2022 Lymphocytes/100 WBC (Bld) 10.0 % 19-41 [facility] Blood monocytes/100 leukocyt esOrdered By: Dr. Phan on 06-24-2022 Monocytes/100 WBC (Bld) 7.8 % 0-10 [facility] Blood platelet mean volumeOr dered By: Dr. Phan on 06-24-2022 Platelet mean volume (Bld) [Entitic vol] 10.2 fL 6.2-12.0 [facility] Determination of erythrocyte mean corpuscular volume (MCV)Ordered By: Dr. Phan on 06-24-2022 MCV (RBC) [Entitic vol] 94.2 fL 81-99 [facility] Glucose Glucometer (BldC) [M ass/Vol]Ordered By: Dr. Gary on 06-24-2022 Glucose [Mass/Vol] 224 mg/dL 74-106 [facility] Comment on above: MANAGEMENT OF PATIEN T CARE PER NURSING PROTOCOL Hematocrit Auto (Bld) [Volum e fraction]Ordered By: Dr. Phan on 06-24-2022 Hematocrit (Bld) [Volume fraction] 35.6 % 37-47 [facility] Laboratory - Chemistry and C hemistry - challengeOrdered By: Dr. Phan on 06-24-2022 ALP [Catalytic activity/Vol] 57 U/L 45-117 [facility] ALT [Catalytic activity/Vol] 35 U/L 13-56 [facility] CO2 [Moles/Vol] 23.0 mmol/L 21.0-32.0 [facility] Globulin (S) [Mass/Vol] 3.2 g/dL 2.2-4.2 [facility] Urea nitrogen/Creatinine [Mass ratio] 23.3 mg/mg 10-20 [facility] Laboratory - Hematology and Cell countsOrdered By: Dr. Phan on 06-24-2022 Erythrocyte distribution width (RBC) [Entitic vol] 44.9 fL 35.1-43.9 [facility] Erythrocyte distribution width (RBC) [Ratio] 13.2 % 11.6-14.6 [facility] Immature granulocytes/100 WBC (Bld) 0.800 % 0.0-0.9 [facility] Comment on above: IG% - Immature Granu locytes (promyelocytes, myelocytes and metamyelocytes) > 1% indicates that a LEFT SHIFT is Present. MCH (RBC) [Entitic mass] 31.2 pg 27.0-32.0 [facility] Nucleated RBC/100 WBC (Bld) [Ratio] 0 % 0-5 [facility] Laboratory - Microbiology an d Antimicrobial susceptibilityOrdered By: Dr. Phan on 06-24-2022 Respiratory pathogens DNA and RNA 12b panel MAGGY+probe (Unsp spec) [facility] MCHC Auto (RBC) [Mass/Vol]Or dered By: Dr. Phan on 06-24-2022 MCHC (RBC) [Mass/Vol] 33.1 g/dL 32-36 [facility] No Panel InformationOrdered By: Dr. Phan on 06-24-2022 Estimated Creatinine Clearance Calc 41.53 ml/min [facility] Estimated GFR (MDRD) Amer 74 mL/min >60 [facility] Comment on above: GFR Calc Estimated GFR (MDRD) Non-Af Amer 61 mL/min >60 [facility] Comment on above: Non- GFR Calc Troponin I High Sensitivity 6 pg/mL 3.0-54.0 [facility] Comment on above: Please Note: New Brissa t Units and Gender Specific Reference Ranges. For more information see Policy Stat Procedure [place] High Sensitivity Troponin (TNIH) and attachments. Methicillin-Resist S.aureus DNA PCR Negative Negative [facility] Streptococcus pneumoniae Antigen (M [facility] No Panel InformationOrdered By: Stacy Phan on 06-24-2022 Streptococcus pneumoniae Antigen (M [facility] Platelets bldOrdered By: Dr. Phan on 06-24-2022 Platelets (Bld) [#/Vol] 309 10*3/uL 150-450 [facility] Serum or plasma albumin adiel urement (mass/volume)Ordered By: Dr. Phan on 06-24-2022 Albumin [Mass/Vol] 3.3 g/dL 3.2-5.0 [facility] Serum or plasma albumin/glob ulin mass ratioOrdered By: Dr. Phan on 06-24-2022 Albumin/Globulin [Mass ratio] 1.0 {ratio} 0.9-2.4 [facility] Serum or plasma calcium adiel urement (mass/volume)Ordered By: Dr. Phan on 06-24-2022 Calcium [Mass/Vol] 8.9 mg/dL 8.5-10.1 [facility] Serum or plasma cholesterol in HDL measurement (mass/volume)Ordered By: Dr. Phan on 06-24-2022 Cholesterol in HDL [Mass/Vol] 43 mg/dL >40 [facility] Comment on above: The drugs N-Acetylcy steine and Metamizole may falsely depress this assay. Reference Range HDL <40 mg/dL Low HDL Cholesterol HDL >or= 60 mg/dL High HDL Cholesterol Serum or plasma cholesterol in VLDL measurement (mass/volume)Ordered By: Dr. Phan on 06-24-2022 Cholesterol in VLDL [Mass/Vol] 20 mg/dL 5-40 [facility] Serum or plasma creatinine m easurement (mass/volume)Ordered By: Dr. Phan on 06-24-2022 Creatinine [Mass/Vol] 0.94 mg/dL 0.55-1.02 [facility] Comment on above: The validity of the calculated GFR & GFRAA in patients over 70 years has not been determined. Clinical correlation is essential. Serum or plasma low density lipoprotein (LDL) cholesterol measurement (mass/volume)Ordered By: Dr. Phan on 06-24-2022 Cholesterol in LDL [Mass/Vol] 71 mg/dL 0-130 [facility] Serum or plasma urea nitroge n measurement (mass/volume)Ordered By: Dr. Phan on 06-24-2022 Urea nitrogen [Mass/Vol] 22 mg/dL 7-18 [facility] Thin prep Papanicolaou smear with manual screeningOrdered By: Dr. Phan on 06-24-2022 Thin prep Papanicolaou smear with manual screening 21 U/L 15-37 [facility] Thin prep Papanicolaou smear with manual screening 9 5-15 [facility] Absolute lymphocyte countOrd ered By: ED PROVIDER on 06-23-2022 Lymphocytes Auto (Unsp spec) [#/Vol] 1.76 10*3/uL 0.83-4.51 [facility] Basophil percentageOrdered B y: Dr. Bahena on 06-23-2022 Lactate [Moles/Vol] 3.5 mmol/L 0.4-2.0 [facility] Comment on above: Critical Result(s) C alled at: 21:03:26 06/23/2022 by: Kristina Rodriguez to [facility]. Results read back by same. Chloride [Moles/Vol] 108 mmol/L 98-107 [facility] Glucose [Mass/Vol] 310 mg/dL 74-106 [facility] Comment on above: Glucose result great er than or equal to 200 mg/dLsuggests DIABETES MELLITUS per A.D.A. criteria. Potassium [Moles/Vol] 4.5 mmol/L 3.5-5.1 [facility] Sodium [Moles/Vol] 140 mmol/L 136-145 [facility] Basophil percentageOrdered B y: ED PROVIDER on 06-23-2022 Basophils/100 WBC (Bld) 0.2 % 0-1 [facility] Eosinophils/100 WBC (Bld) 0.0 % 0-5 [facility] Neutrophils (Bld) [#/Vol] 16.7 10*3/uL 2.0-7.7 [facility] Neutrophils/100 WBC (Bld) 83.6 % 47-70 [facility] WBC (Bld) [#/Vol] 20.0 10*3/uL 4.4-11.0 [facility] Blood erythrocytes count (nu mber/volume)Ordered By: ED PROVIDER on 06-23-2022 RBC (Bld) [#/Vol] 4.17 10*6/uL 4.2-5.4 [facility] Blood hemoglobin measurement (mass/volume)Ordered By: ED PROVIDER on 06-23-2022 Hemoglobin (Bld) [Mass/Vol] 12.6 g/dL 12.0-15.0 [facility] Blood lymphocytes/100 leukoc ytesOrdered By: ED PROVIDER on 06-23-2022 Lymphocytes/100 WBC (Bld) 8.8 % 19-41 [facility] Blood monocytes/100 leukocyt esOrdered By: ED PROVIDER on 06-23-2022 Monocytes/100 WBC (Bld) 6.7 % 0-10 [facility] Blood platelet mean volumeOr dered By: ED PROVIDER on 06-23-2022 Platelet mean volume (Bld) [Entitic vol] 10.0 fL 6.2-12.0 [facility] COVID-19 virus antigen assay Ordered By: Dr. Phan on 06-23-2022 SARS-CoV-2 (COVID-19) Ag IA.rapid Ql (Resp) Not detected Not Detect [facility] Comment on above: Normal Reference Ran ge: Not DetectedMethod:(RT-PCR) real-time reverse transcriptase PCRLuminex ROLY Instrument*The Food and Drug Administration (FDA) has issued an Emergency Use Authorization (EAU) for the ROLY SARS-CoV-2 Assay for the rapid detection of the virus that causes COVID-19. This test has been validated, but the FDAs independent review of this validation is pending.*Negative results do not preclude infection and should not be used as the sole basis for treatment or patient management. Optimum specimen types and timing for peak viral levels during infections caused by SARS-CoV-2 have not been determined. Collection of multiple specimens from the same patient may be necessary to detect the virus. The possibility of a false negative result should be considered if the patient has clinical presentation or has had recent exposure. Determination of erythrocyte mean corpuscular volume (MCV)Ordered By: ED PROVIDER on 06-23-2022 MCV (RBC) [Entitic vol] 93.5 fL 81-99 [facility] Hematocrit Auto (Bld) [Volum e fraction]Ordered By: ED PROVIDER on 06-23-2022 Hematocrit (Bld) [Volume fraction] 39.0 % 37-47 [facility] Laboratory - Chemistry and C hemistry - challengeOrdered By: Dr. Bahena on 06-23-2022 CO2 [Moles/Vol] 23.0 mmol/L 21.0-32.0 [facility] Urea nitrogen/Creatinine [Mass ratio] 18.9 mg/mg 10-20 [facility] Laboratory - Chemistry and C hemistry - challengeOrdered By: Dr. Phan on 06-23-2022 Magnesium [Mass/Vol] 1.5 mg/dL 1.6-2.6 [facility] Laboratory - Hematology and Cell countsOrdered By: ED PROVIDER on 06-23-2022 Erythrocyte distribution width (RBC) [Entitic vol] 44.8 fL 35.1-43.9 [facility] Erythrocyte distribution width (RBC) [Ratio] 13.2 % 11.6-14.6 [facility] Immature granulocytes/100 WBC (Bld) 0.700 % 0.0-0.9 [facility] Comment on above: IG% - Immature Granu locytes (promyelocytes, myelocytes and metamyelocytes) > 1% indicates that a LEFT SHIFT is Present. MCH (RBC) [Entitic mass] 30.2 pg 27.0-32.0 [facility] Nucleated RBC/100 WBC (Bld) [Ratio] 0 % 0-5 [facility] Laboratory - Microbiology an d Antimicrobial susceptibilityOrdered By: Stacy Phan on 06-23-2022 Respiratory pathogens DNA and RNA 12b panel MAGGY+probe (Unsp spec) [facility] Laboratory - Microbiology an d Antimicrobial susceptibilityOrdered By: Jaspreet Bahena on 06-23-2022 Bacteria identified Cx Nom (Bld) No growth in 5 days. [facility] MCHC Auto (RBC) [Mass/Vol]Or dered By: ED PROVIDER on 06-23-2022 MCHC (RBC) [Mass/Vol] 32.3 g/dL 32-36 [facility] No Panel InformationOrdered By: Dr. Bahena on 06-23-2022 D-Dimer Quantitative (PE/DVT) 0.39 FEU/ug/m 0.27-0.49 [facility] Comment on above: NORMAL D-Dimer level (<0.50) indicates no DVT or PE. Estimated Creatinine Clearance Calc 36.83 ml/min [facility] Estimated GFR (MDRD) Amer 65 mL/min >60 [facility] Comment on above: GFR Calc Estimated GFR (MDRD) Non-Af Amer 54 mL/min >60 [facility] Comment on above: Non- GFR Calc Troponin I High Sensitivity 6 pg/mL 3.0-54.0 [facility] Comment on above: Please Note: New Brissa t Units and Gender Specific Reference Ranges. For more information see Policy Stat Procedure [place] High Sensitivity Troponin (TNIH) and attachments. Platelets bldOrdered By: ED PROVIDER on 06-23-2022 Platelets (Bld) [#/Vol] 356 10*3/uL 150-450 [facility] Serum or plasma calcium adiel urement (mass/volume)Ordered By: Dr. Bahena on 06-23-2022 Calcium [Mass/Vol] 9.6 mg/dL 8.5-10.1 [facility] Serum or plasma creatinine m easurement (mass/volume)Ordered By: Dr. Bahena on 06-23-2022 Creatinine [Mass/Vol] 1.06 mg/dL 0.55-1.02 [facility] Comment on above: The validity of the calculated GFR & GFRAA in patients over 70 years has not been determined. Clinical correlation is essential. Serum or plasma urea nitroge n measurement (mass/volume)Ordered By: Dr. Bahena on 06-23-2022 Urea nitrogen [Mass/Vol] 20 mg/dL 7-18 [facility] Thin prep Papanicolaou smear with manual screeningOrdered By: Dr. Bahena on 06-23-2022 Thin prep Papanicolaou smear with manual screening 9 -15 [facility] Absolute lymphocyte countOrd ered By: Dr. Conn on 03-18-2022 Lymphocytes Auto (Unsp spec) [#/Vol] 2.32 10*3/uL 0.83-4.51 [facility] Basophil percentageOrdered B y: Dr. Conn on 03-18-2022 Basophils/100 WBC (Bld) 0.7 % 0-1 [facility] Bilirubin [Mass/Vol] 0.40 mg/dL 0.20-1.00 [facility] Comment on above: For patients on eltr ombopag therapy, use of Dimension [place] TBIL is not recommended. Chloride [Moles/Vol] 105 mmol/L 98-107 [facility] Eosinophils/100 WBC (Bld) 2.4 % 0-5 [facility] Glucose [Mass/Vol] 129 mg/dL 74-106 [facility] Comment on above: Fasting Glucose resu lt greater than or equal to 126 mg/dL suggests DIABETES MELLITUS per A.D.A. criteria. Neutrophils (Bld) [#/Vol] 4.0 10*3/uL 2.0-7.7 [facility] Neutrophils/100 WBC (Bld) 55.6 % 47-70 [facility] Potassium [Moles/Vol] 4.1 mmol/L 3.5-5.1 [facility] Protein [Mass/Vol] 7.6 g/dL 6.4-8.2 [facility] Sodium [Moles/Vol] 140 mmol/L 136-145 [facility] WBC (Bld) [#/Vol] 7.2 10*3/uL 4.4-11.0 [facility] Blood erythrocytes count (nu mber/volume)Ordered By: Dr. Conn on 03-18-2022 RBC (Bld) [#/Vol] 4.35 10*6/uL 4.2-5.4 [facility] Blood hemoglobin measurement (mass/volume)Ordered By: Dr. Conn on 03-18-2022 Hemoglobin (Bld) [Mass/Vol] 13.0 g/dL 12.0-15.0 [facility] Blood lymphocytes/100 leukoc ytesOrdered By: Dr. Conn on 03-18-2022 Lymphocytes/100 WBC (Bld) 32.4 % 19-41 [facility] Blood monocytes/100 leukocyt esOrdered By: Dr. Conn on 03-18-2022 Monocytes/100 WBC (Bld) 8.8 % 0-10 [facility] Blood platelet mean volumeOr dered By: Dr. Conn on 03-18-2022 Platelet mean volume (Bld) [Entitic vol] 10.4 fL 6.2-12.0 [facility] Determination of erythrocyte mean corpuscular volume (MCV)Ordered By: Dr. Conn on 03-18-2022 MCV (RBC) [Entitic vol] 94.5 fL 81-99 [facility] Hematocrit Auto (Bld) [Volum e fraction]Ordered By: Dr. Conn on 03-18-2022 Hematocrit (Bld) [Volume fraction] 41.1 % 37-47 [facility] Laboratory - Chemistry and C hemistry - challengeOrdered By: Dr. Conn on 03-18-2022 ALP [Catalytic activity/Vol] 59 U/L 45-117 [facility] ALT [Catalytic activity/Vol] 42 U/L 13-56 [facility] CO2 [Moles/Vol] 30.0 mmol/L 21.0-32.0 [facility] Globulin (S) [Mass/Vol] 3.7 g/dL 2.2-4.2 [facility] Urea nitrogen/Creatinine [Mass ratio] 13.9 mg/mg 10-20 [facility] Laboratory - Hematology and Cell countsOrdered By: Dr. Conn on 03-18-2022 Erythrocyte distribution width (RBC) [Entitic vol] 43.2 fL 35.1-43.9 [facility] Erythrocyte distribution width (RBC) [Ratio] 12.6 % 11.6-14.6 [facility] Immature granulocytes/100 WBC (Bld) 0.100 % 0.0-0.9 [facility] Comment on above: IG% - Immature Granu locytes (promyelocytes, myelocytes and metamyelocytes) > 1% indicates that a LEFT SHIFT is Present. MCH (RBC) [Entitic mass] 29.9 pg 27.0-32.0 [facility] Nucleated RBC/100 WBC (Bld) [Ratio] 0 % 0-5 [facility] MCHC Auto (RBC) [Mass/Vol]Or dered By: Dr. Conn on 03-18-2022 MCHC (RBC) [Mass/Vol] 31.6 g/dL 32-36 [facility] No Panel InformationOrdered By: Dr. Conn on 03-18-2022 Estimated GFR (MDRD) Amer 101 mL/min >60 [facility] Comment on above: GFR Calc Estimated GFR (MDRD) Non-Af Amer 84 mL/min >60 [facility] Comment on above: Non- GFR Calc Thyroid Stimulating Hormone (TSH) 3.14 uIU/mL 0.358-3.74 [facility] Vitamin D 25-Hydroxy 14.0 ng/mL [facility] Comment on above: Vitamin D 25(OH) Sta tus Range Deficiency <20 ng/mL (50nmol/L) Insufficiency 20 - 30 ng/mL (50 - 75 nmol/L) Sufficiency 30 - 100 ng/mL (75 - 250 nmol/L) Toxicity >100 ng/mL (>250 nmol/L) Platelets bldOrdered By: Dr. Conn on 03-18-2022 Platelets (Bld) [#/Vol] 314 10*3/uL 150-450 [facility] Serum or plasma albumin adiel urement (mass/volume)Ordered By: Dr. Conn on 03-18-2022 Albumin [Mass/Vol] 3.9 g/dL 3.2-5.0 [facility] Serum or plasma albumin/glob ulin mass ratioOrdered By: Dr. Conn on 03-18-2022 Albumin/Globulin [Mass ratio] 1.1 {ratio} 0.9-2.4 [facility] [facility] Serum or plasma calcium adiel urement (mass/volume)Ordered By: Dr. Conn on 03-18-2022 Calcium [Mass/Vol] 9.8 mg/dL 8.5-10.1 [facility] Serum or plasma creatinine m easurement (mass/volume)Ordered By: Dr. Conn on 03-18-2022 Creatinine [Mass/Vol] 0.72 mg/dL 0.55-1.02 [facility] Comment on above: The validity of the calculated GFR & GFRAA in patients over 70 years has not been determined. Clinical correlation is essential. Serum or plasma urea nitroge n measurement (mass/volume)Ordered By: Dr. Conn on 03-18-2022 Urea nitrogen [Mass/Vol] 10 mg/dL 7-18 [facility] Thin prep Papanicolaou smear with manual screeningOrdered By: Dr. Conn on 03-18-2022 Thin prep Papanicolaou smear with manual screening 38 U/L 15-37 [facility] Thin prep Papanicolaou smear with manual screening 5 5-15 [facility] Absolute lymphocyte counton 09-17-2021 Lymphocytes Auto (Unsp spec) [#/Vol] 2.67 10*3/uL 0.83-4.51 [facility] Work Phone: [phone] Basophil percentageon 2021 Basophils/100 WBC (Bld) 0.8 % 0-1 [facility] Work Phone: [phone] Bilirubin [Mass/Vol] 0.40 mg/dL 0.20-1.00 [facility] Work Phone: Comment on above: For patients on eltr ombopag therapy, use of Dimension [place] TBIL is not recommended. Chloride [Moles/Vol] 107 mmol/L 98-107 [facility] Work Phone: [phone] Eosinophils/100 WBC (Bld) 1.8 % 0-5 [facility] Work Phone: [phone] Glucose [Mass/Vol] 131 mg/dL 74-106 [facility] Work Phone: Comment on above: Fasting Glucose resu lt greater than or equal to 126 mg/dL suggests DIABETES MELLITUS per A.D.A. criteria. Neutrophils (Bld) [#/Vol] 4.2 10*3/uL 2.0-7.7 [facility] Work Phone: [phone] Neutrophils/100 WBC (Bld) 53.0 % 47-70 [facility] Work Phone: [phone] Potassium [Moles/Vol] 4.0 mmol/L 3.5-5.1 [facility] Work Phone: [phone] Protein [Mass/Vol] 7.4 g/dL 6.4-8.2 [facility] Work Phone: [phone] Sodium [Moles/Vol] 140 mmol/L 136-145 [facility] Work Phone: WBC (Bld) [#/Vol] 8.0 10*3/uL 4.4-11.0 [facility] Work Phone: Blood erythrocytes count (nu mber/volume)on 09-17-2021 RBC (Bld) [#/Vol] 4.19 10*6/uL 4.2-5.4 [facility] Work Phone: Blood hemoglobin measurement (mass/volume)on 09-17-2021 Hemoglobin (Bld) [Mass/Vol] 12.6 g/dL 12.0-15.0 [facility] Work Phone: Blood lymphocytes/100 leukoc yteson 09-17-2021 Lymphocytes/100 WBC (Bld) 33.5 % 19-41 [facility] Work Phone: Blood monocytes/100 leukocyt eson 09-17-2021 Monocytes/100 WBC (Bld) 10.6 % 0-10 [facility] Work Phone: Blood platelet mean volumeon 09-17-2021 Platelet mean volume (Bld) [Entitic vol] 10.5 fL 6.2-12.0 [facility] Work Phone: [phone] Determination of erythrocyte mean corpuscular volume (MCV)on 09-17-2021 MCV (RBC) [Entitic vol] 93.8 fL 81-99 [facility] Work Phone: Hematocrit Auto (Bld) [Volum e fraction]on 09-17-2021 Hematocrit (Bld) [Volume fraction] 39.3 % 37-47 [facility] Work Phone: [phone] Laboratory - Chemistry and C hemistry - challengeon 09-17-2021 ALP [Catalytic activity/Vol] 56 U/L 45-117 [facility] Work Phone: ALT [Catalytic activity/Vol] 40 U/L 13-56 [facility] Work Phone: CO2 [Moles/Vol] 25.0 mmol/L 21.0-32.0 [facility] Work Phone: Globulin (S) [Mass/Vol] 3.6 g/dL 2.2-4.2 [facility] Work Phone: Urea nitrogen/Creatinine [Mass ratio] 19.8 mg/mg 10-20 [facility] Work Phone: Laboratory - Hematology and Cell countson 09-17-2021 Erythrocyte distribution width (RBC) [Entitic vol] 44.3 fL 35.1-43.9 [facility] Work Phone: Erythrocyte distribution width (RBC) [Ratio] 13.0 % 11.6-14.6 [facility] Work Phone: Immature granulocytes/100 WBC (Bld) 0.300 % 0.0-0.9 [facility] Work Phone: Comment on above: IG% - Immature Granu locytes (promyelocytes, myelocytes and metamyelocytes) > 1% indicates that a LEFT SHIFT is Present. MCH (RBC) [Entitic mass] 30.1 pg 27.0-32.0 [facility] Work Phone: Nucleated RBC/100 WBC (Bld) [Ratio] 0 % 0-5 [facility] Work Phone: MCHC Auto (RBC) [Mass/Vol]on 09-17-2021 MCHC (RBC) [Mass/Vol] 32.1 g/dL 32-36 [facility] Work [facility]: No Panel Informationon 09-17 Estimated GFR (MDRD) Amer 89 mL/min >60 [facility] Work Phone: Comment on above: GFR Calc Estimated GFR (MDRD) Non-Af Amer 74 mL/min >60 [facility] Work Phone: Comment on above: Non- GFR Calc Thyroid Stimulating Hormone (TSH) 2.36 uIU/mL 0.358-3.74 [facility] Work Phone: Vitamin D 25-Hydroxy 21.3 ng/mL [facility] Work Phone: Comment on above: Vitamin D 25(OH) Sta tus Range Deficiency <20 ng/mL (50nmol/L) Insufficiency 20 - 30 ng/mL (50 - 75 nmol/L) Sufficiency 30 - 100 ng/mL (75 - 250 nmol/L) Toxicity >100 ng/mL (>250 nmol/L) Platelets bldon 09-17-2021 Platelets (Bld) [#/Vol] 332 10*3/uL 150-450 [facility] Work Phone: Serum or plasma albumin adiel urement (mass/volume)on 09-17-2021 Albumin [Mass/Vol] 3.8 g/dL 3.2-5.0 [facility] Work Phone: Serum or plasma albumin/glob ulin mass ratioon 09-17-2021 Albumin/Globulin [Mass ratio] 1.1 {ratio} 0.9-2.4 [facility] Work Phone: Serum or plasma calcium adiel urement (mass/volume)on 09-17-2021 Calcium [Mass/Vol] 9.3 mg/dL 8.5-10.1 [facility] Work Phone: Serum or plasma creatinine m easurement (mass/volume)on 09-17-2021 Creatinine [Mass/Vol] 0.81 mg/dL 0.55-1.02 [facility] Work Phone: Comment on above: The validity of the calculated GFR & GFRAA in patients over 70 years has not been determined. Clinical correlation is essential. Serum or plasma urea nitroge n measurement (mass/volume)on 09-17-2021 Urea nitrogen [Mass/Vol] 16 mg/dL 7-18 [facility] Work Phone: Thin prep Papanicolaou smear with manual screeningon 09-17-2021 Thin prep Papanicolaou smear with manual screening 36 U/L 15-37 [facility] Work Phone: Thin prep Papanicolaou smear with manual screening 8 5-15 [facility] Work Phone: Office Visiton 12-23-2016 Dietary management education, guidance, and counseling (procedure) yes Invalid Interpretation Code [facility] Work Phone: [phone] Documentation of current medications (procedure) Done Invalid Interpretation Code [facility] Work Phone: [phone] Fall risk assessment No Invalid Interpretation Code [facility] Work Phone: [phone] Protein mass conc Done Invalid Interpretation Code [facility] Work Phone: [phone] Tobacco smoking status NHIS Former smoker Invalid Interpretation Code [facility] Work Phone: [phone] Tobacco use CPHS Former smoker Invalid Interpretation Code [facility] Work Phone: [phone] Lab Report: Basic Metabolic Profile (BMP)on 10-15-2016 Anion gap 7 mmol/L Invalid Interpretation Code 15 [facility] Work Phone: [phone] Anion gap 4 molar conc 7 Invalid Interpretation Code 15 [facility] Work Phone: [phone] Anion gap molar conc 7 mmol/L -15 [facility] Work Phone: [phone] Calcium mass conc 9.5 mg/dL Invalid Interpretation Code 8.5-10.1 [facility] Work Phone: [phone] Chloride molar conc 105 mmol/L Invalid Interpretation Code 98-107 [facility] Work Phone: [phone] CO2 28.0 mmol/L Invalid Interpretation Code 21.0-32.0 [facility] Work Phone: [phone] CO2 ppres (BldV) 28.0 mmol/L Invalid Interpretation Code 21.0-32.0 [facility] Work Phone: [phone] Creatinine mass conc 0.75 mg/dL Invalid Interpretation Code 0.55-1.02 [facility] Work Phone: [phone] eGFR (non-black) 98 mL/min/{1.73_m2} Invalid Interpretation Code >60 [facility] Work Phone: [phone] EST GFR - AA 98 mL/min Invalid Interpretation Code >60 [facility] Work Phone: [phone] GFR/1.73 sq M predicted among non-blacks MDRD vol rate/area (S/P/Bld) 81 mL/min/{1.73_m2} Invalid Interpretation Code >60 [facility] Work Phone: [phone] Glucose 188 mg/dL High 70-110 [facility] Work Phone: [phone] Glucose mass conc 188 mg/dL High 70-110 [facility] Work Phone: [phone] Potassium molar conc 4.3 mmol/L Invalid Interpretation Code 3.5-5.1 [facility] Work Phone: [phone] Sodium molar conc 140 mmol/L Invalid Interpretation Code 136-145 [facility] Work Phone: [phone] Urea nitrogen mass conc 11 mg/dL Invalid Interpretation Code 7-18 [facility] Work Phone: [phone] Urea nitrogen/Creatinine mass ratio 14.6 RATIO Invalid Interpretation Code 10-20 [facility] Work Phone: [phone] 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 09-29-2016 Left ventricular Ejection fraction 60 % Invalid Interpretation Code [facility] Work Phone: [phone] Lab Report: Basic Metabolic Profile (BMP)on 09-28-2016 Anion gap 6 mmol/L Invalid Interpretation Code 5-15 [facility] Work Phone: [phone] Anion gap molar conc 6 mmol/L 5-[address] [facility] Work Phone: [phone] Calcium mass conc 9.9 mg/dL Invalid Interpretation Code 8.5-10.1 [facility] Work Phone: [phone] Chloride molar conc 103 mmol/L Invalid Interpretation Code 98-107 [facility] Work [phone] CO2 30.0 mmol/L Invalid Interpretation Code 21.0-32.0 [facility] Work Phone: [phone] CO2 ppres (BldV) 30.0 mmol/L 21.0-32.0 [facility] Work Phone: [phone] Creatinine mass conc 0.84 mg/dL Invalid Interpretation Code 0.55-1.02 [facility] Work Phone: [phone] eGFR (non-black) 86 mL/min/{1.73_m2} Invalid Interpretation Code >60 [facility] Work Phone: [phone] EST GFR - AA 86 mL/min >60 [facility] Work Phone: [phone] GFR/1.73 sq M predicted among non-blacks MDRD vol rate/area (S/P/Bld) 71 mL/min/{1.73_m2} Invalid Interpretation Code >60 [facility] Work Phone: [phone] Glucose 151 mg/dL High 70-110 [facility] Work Phone: Glucose mass conc 151 mg/dL High 70-110 [facility] Work Phone: [phone] Potassium molar conc 4.7 mmol/L Invalid Interpretation Code 3.5-5.1 [facility] Work Phone: [phone] Sodium molar conc 139 mmol/L Invalid Interpretation Code 136-145 [facility] Work Phone: [phone] Urea nitrogen mass conc 11 mg/dL Invalid Interpretation Code 7-18 [facility] Work Phone: [phone] Urea nitrogen/Creatinine mass ratio 13.0 RATIO Invalid Interpretation Code 10-20 [facility] Work Phone: [phone] Lab Report: CBC-Complete Blo od Cnt No Diffon 09-28-2016 Erythrocyte distribution width Auto Ratio (RBC) 46.2 fL High 35.1-43.9 [facility] Work [phone] Erythrocyte distribution width Ratio (RBC) 46.2 fL High 35.1-43.9 [facility] Work Phone: [phone] Erythrocyte distribution width Ratio (RBC) 13.3 % 11.6-14.6 [facility] Work Phone: [phone] Erythrocytes (RBC) 4.38 10*6/uL Invalid Interpretation Code 4.2-5.4 [facility] Work Phone: [phone] Hematocrit (HCT) 41.9 % Invalid Interpretation Code 37-47 [facility] Work [phone] Hematocrit Volume Fraction (Bld) 41.9 % 37-47 [facility] Work Phone: [phone] Hemoglobin mass conc (Bld) 13.3 g/dL Invalid Interpretation Code 12.0-15.0 [facility] Work Phone: [phone] MCH 30.4 pg Invalid Interpretation Code 27.0-32.0 [facility] Work Phone: [phone] MCH Entitic mass (RBC) 30.4 pg 27.0-32.0 [facility] Work Phone: [phone] MCHC 31.7 G/GL Low 32-36 [facility] Work Phone: [phone] MCHC mass conc (RBC) 31.7 G/GL Low 32-[address] [facility] Work Phone: [phone] MCV 95.7 fL Invalid Interpretation Code 81-99 [facility] Work Phone: [phone] MCV Entitic volume (RBC) 95.7 fL 81-99 [facility] Work Phone: [phone] Platelet mean volume Entitic volume (Bld) 10.0 fL 6.2-12.0 [facility] Work Phone: [phone] Platelets 323 10*3/mm3 Invalid Interpretation Code 150-450 [facility] Work Phone: [phone] Platelets #/vol (Bld) 323 10*3/mm3 150-450 [facility] Work Phone: [phone] PMV by Yadira 10.0 fL Invalid Interpretation Code 6.2-12.0 [facility] Work Phone: [phone] RBC #/vol (Bld) 4.38 10*6/uL 4.2-5.4 [facility] Work Phone: [phone] RDW-CA 13.3 % Invalid Interpretation Code 11.6-14.6 [facility] Work Phone: [phone] red blood cell distribution width, size density 46.2 fL High 35.1-43.9 [facility] Work Phone: [phone] WBC #/vol (Bld) 7.4 10*3/uL 4.4-11.0 [facility] Work Phone: [phone] WBC (Leukocytes) 7.4 10*3/uL Invalid Interpretation Code 4.4-11.0 [facility] Work Phone: [phone] Lab Report: Partial Thrombop last Timeon 09-28-2016 aPTT 28.2 s Invalid Interpretation Code 24.1-36.2 [facility] Work Phone: [phone] Lab Report: Prothrombin Time w/INRon 09-28-2016 Coagulation tissue factor induced in platelet poor plasma 12.8 s Invalid Interpretation Code 11.7-14.9 [facility] Work Phone: [phone] INR Coag RelTime (PPP) 1.0 {INR} Invalid Interpretation Code [facility] Work Phone: [phone] INR in blood by coagulation 1.0 {INR} Invalid Interpretation Code [facility] Phone: [phone] Office Visiton 09-23-2016 Dietary management education, guidance, and counseling (procedure) yes Invalid Interpretation Code [facility] Work Phone: [phone] Documentation of current medications (procedure) Done Invalid Interpretation Code [facility] Work Phone: [phone] Fall risk assessment No [facility] Work Phone: [phone] Protein mass conc Done [facility] Work Phone: [phone] Tobacco smoking status NHIS Former smoker [facility] Work Phone: [phone] Tobacco use CPHS Former smoker Invalid Interpretation Code [facility] Work Phone: [phone] Replaced Document: Corwin E CG Observationson 09-23-2016 EKG QRS axis -3 deg Invalid Interpretation Code [facility] Work Phone: [phone] electrocardiogram interpretation Sinus Rhythm -Short DE syndrome Ajay = 114BORDERLINE RHYTHM Invalid Interpretation Code [facility] Work Phone: [phone] GE use only - for [employer] import when terms are not otherwise specified 393 ms Invalid Interpretation Code [facility] Work Phone: [phone] Interpretation Sinus Rhythm -Short DE syndrome Ajay = 114BORDERLINE RHYTHM Invalid Interpretation Code [facility] Work Phone: [phone] P [place] 43 deg Invalid Interpretation Code [facility] Work Phone: [phone] P wave axis, electrocardiogram 43 deg Invalid Interpretation Code [facility] Work Phone: DE Interval 114 ms Invalid Interpretation Code [facility] Work Phone: DE interval, electrocardiogram 114 ms Invalid Interpretation Code [facility] Work Phone: Pulse (Heart Rate) 70 /min Invalid Interpretation Code [facility] Work Phone: QRS axis, electrocardiogram -3 deg Invalid Interpretation Code [facility] Work Phone: QRS Duration 84 ms Invalid Interpretation Code [facility] Work Phone: QRS duration, electrocardiogram 84 ms Invalid Interpretation Code [facility] Work Phone: QT Interval new path ms Invalid Interpretation Code [facility] Work Phone: QT interval, electrocardiogram new path ms Invalid Interpretation Code [facility] Work Phone: QTc [place] 393 ms Invalid Interpretation Code [facility] Work Phone: [phone] T [place] 24 deg Invalid Interpretation Code [facility] Work Phone: T wave axis, electrocardiogram 24 deg Invalid Interpretation Code [facility] Work Phone: [phone] Vital Signs Date Time Vital Sign Value Performing Clinician Eddie marr 08-15-2023 16:30-0400 Diastolic blood pressure 68 mm[Hg] Temi Arnold MD Work Phone: [facility] 08-15-2023 16:30-0400 Heart rate 65 /min Temi Arnold MD Work Phone: [facility] 08-15-2023 16:30-0400 Respiratory rate 16 /min Temi Arnold MD Work Phone: [facility] 08-15-2023 16:30-0400 SaO2% (BldA) [Mass fraction] 96 % Temi Arnold MD Work Phone: [facility] 08-15-2023 16:30-0400 Systolic blood pressure 138 mm[Hg] Temi Arnold MD Work Phone: [facility] 08-15-2023 16:10-0400 Body temperature 97 [degF] Temi Arnold MD Work Phone: [facility] 08-15-2023 12:19-0400 Body height 156.2 cm Temi Arnold MD Work Phone: [facility] 08-15-2023 12:19-0400 Body mass index (BMI) [Ratio] 26.21 kg/m2 Temi Arnold MD Work Phone: [facility] 08-15-2023 12:19-0400 Body weight 63.96 kg Temi Arnold MD Work Phone: [facility] 08-12-2023 14:34-0400 Body height 156.2 cm Temi Arnold MD Work Phone: [facility] 08-12-2023 14:34-0400 Body mass index (BMI) [Ratio] 26.95 kg/m2 Temi Arnold MD Work Phone: [facility] 08-12-2023 14:34-0400 Body weight 65.77 kg Temi Arnold MD Work Phone: [facility] 08-12-2023 14:34-0400 Diastolic blood pressure 64 mm[Hg] Temi Arnold MD Work Phone: [facility] 08-12-2023 14:34-0400 Heart rate 88 /min Temi Arnold MD Work Phone: [facility] 08-12-2023 14:34-0400 SaO2% (BldA) [Mass fraction] 94 % Temi Arnold MD Work Phone: [facility] 08-12-2023 14:34-0400 Systolic blood pressure 132 mm[Hg] Temi Arnold MD Work Phone: [facility] 06-24-2022 11:22-0400 Body height 157.[address] Segundo Conn Work Phone: [facility] 06-24-2022 11:22-0400 Body weight 70.[address] Segundo Conn Work Phone: [facility] 06-24-2022 10:49-0400 Body temperature 97.8 [degF] Dr. Segundo Conn Work Phone: [facility] 06-24-2022 10:49-0400 Diastolic blood pressure 65 mm[Hg] Dr. Segundo Conn Work Phone: [facility] 06-24-2022 10:49-0400 Heart rate 71 /min Dr. Segundo Conn Work Phone: [facility] 06-24-2022 10:49-0400 Respiratory rate 15 /min Dr. Segundo Conn Work Phone: [facility] 06-24-2022 10:49-0400 SaO2% (BldA) [Mass fraction] 95 % Dr. Segundo Conn Work Phone: [facility] 06-24-2022 10:49-0400 Systolic blood pressure 129 mm[Hg] Dr. Segundo Conn Work Phone: [facility] 06-24-2022 04:22-0400 Body mass index (BMI) [Ratio] 28.5 kg/m2 Dr. Segundo Conn Work Phone: [facility] 06-24-2022 00:07-0400 Body temperature 98.2 [degF] [facility] 06-24-2022 00:07-0400 Diastolic blood pressure 77 mm[Hg] [facility] 06-24-2022 00:07-0400 Heart rate 82 /min [facility] 06-24-2022 00:07-0400 Respiratory rate 18 /min [facility] 06-24-2022 00:07-0400 SaO2% (BldA) [Mass fraction] 99 % [facility] 06-24-2022 00:07-0400 Systolic blood pressure 136 mm[Hg] [facility] 06-23-2022 17:34-0400 Body height 157.48 cm [facility] 06-23-2022 17:34-0400 Body mass index (BMI) [Ratio] 28.9 kg/m2 [facility] 06-23-2022 17:34-0400 Body weight 71.66 kg [facility] 12-23-2016 15:51-0400 BMI (Body Mass Index) 31.93 kg/m2 [facility] Work Phone: 12-23-2016 15:51-0400 BP Diastolic 56 mm[Hg] [facility] Work Phone: 12-23-2016 15:51-0400 BP Systolic 118 mm[Hg] [facility] Work Phone: 12-23-2016 15:51-0400 Height 154.94 cm [facility] Work Phone: 12-23-2016 15:51-0400 Pulse (Heart Rate) 84 /min [facility] Work Phone: 12-23-2016 15:51-0400 Respiratory Rate 16 /min [facility] Work Phone: 12-23-2016 15:51-0400 Weight 76.66 kg [facility] Work Phone: 09-23-2016 16:10-0400 Heart rate 70 /min [facility] Work Phone: 09-23-2016 15:54-0400 BMI (Body Mass Index) 31.93 kg/m2 [facility] Work Phone: 09-23-2016 15:54-0400 BP Diastolic 60 mm[Hg] [facility] Work Phone: 09-23-2016 15:54-0400 BP Systolic 116 mm[Hg] [facility] Work Phone: 09-23-2016 15:54-0400 Height 154.94 cm [facility] Work Phone: 09-23-2016 15:54-0400 Pulse (Heart Rate) 80 /min Stormy Bautista [facility] Work Phone: 09-23-2016 15:54-0400 Respiratory Rate 16 /min Stormy Bautista [facility] Work Phone: 09-23-2016 15:54-0400 Weight 76.66 kg Stormy Bautista [facility] Work Phone: Encounters Encounter Date Encounter Type Care Provider Facility Start: 02-16-2025 ambulatory [facility] Facility :[facility] Start: 02-04-2025 End: 02-04-2025 ambulatory [facility] Facility:[facility] Start: 09-26-2024 End: 09-26-[address] Segundo Conn MD Work Phone: -Laboratory Start: 09-26-2024 End: 09-26-[address] Segundo Conn MD -Laboratory Work Phone: Start: 09-26-2024 End: 09-26-2024 ambulatory Segundo Conn Facility:[facility] Start: 07-17-2024 End: 07-17-[address] Segundo Conn MD Work Phone: [facility] Work Phone: Start: 07-17-2024 End: 07-17-[address] Stephan Medeiros MD -[facility] Work Phone: Start: 07-17-2024 End: 07-17-2024 ambulatory [facility] Facility:[facility] Start: 06-27-2024 End: 06-27-[address] Segundo Conn MD Work Phone: [facility] Work Phone: Start: 06-27-2024 End: 06-27-[address] Stephan Medeiros MD -[facility] Work Phone: Start: 06-27-2024 End: 06-27-2024 ambulatory [facility] Facility:[facility] Start: 06-07-2024 End: 06-07-[address] Segundo Conn MD Work Phone: [facility] Work Phone: Start: 06-07-2024 End: 06-07-[address] Stephan Medeiros MD -Laboratory, [place] Work Phone: Start: 06-07-2024 End: 06-07-2024 ambulatory [facility] Facility:[facility] Start: 03-26-2024 End: 03-26-[address] Segundo Conn MD -Laboratory Work Phone: Start: 03-26-2024 End: 03-26-2024 ambulatory [facility] Facility:[facility] Start: 10-25-2023 End: 10-25-2023 ambulatory [facility] Start: 10-25-2023 End: 10-25-2023 Patient encounter procedure Temi Arnold MD Work Phone: General Surgery Comment on above: IPMN (intraductal pa pillary mucinous neoplasm) (Primary Dx); Lung nodules Start: 10-18-2023 ambulatory [facility] Facility:[facility] Start: 10-18-2023 End: 10-18-2023 Subsequent hospital visit by physician [facility] (1.5t) Radiology Comment on above: Abdominal pain, righ t lower quadrant [R10.31] Start: 09-14-2023 Telephone encounter Temi Arnold MD Work Phone: General Surgery Comment on above: Results Start: 09-11-2023 Telephone encounter Temi Arnold MD Work Phone: General Surgery Start: 09-05-2023 End: 09-05-2023 ambulatory TEMI ARNOLD Facility:[facility] Start: 09-05-2023 End: 09-05-2023 Subsequent hospital visit by physician [facility] (I-Stat) Work Phone: Cat Scan Comment on above: Lower abdominal pain [R10.30] Start: 08-25-2023 End: 08-25-2023 ambulatory TEMI ARNOLD Facility:[facility] Start: 08-24-2023 End: 08-24-2023 ambulatory TEMI ARNOLD Facility:[facility] Start: 08-24-2023 End: 08-24-2023 Patient encounter procedure Temi Arnold MD Work Phone: General Surgery Comment on above: Lower abdominal pain (Primary Dx) Start: 08-21-2023 Telephone encounter Temi Arnold MD Work Phone: General Surgery Comment on above: Results Start: 08-15-2023 ambulatory RAMANA Hammi ty:[facility] Start: 08-15-2023 End: 08-15-2023 Subsequent hospital visit by physician Temi Arnold MD Work Phone: [facility] Endoscopy Comment on above: Abdominal pain, righ t lower quadrant [R10.31] Start: 08-12-2023 End: 08-12-2023 ambulatory TEMI ARNOLD Facility:[facility] Start: 08-12-2023 End: 08-12-2023 Patient encounter procedure Temi Arnold MD Work Phone: General Surgery Comment on above: Abnormal weight loss (Primary Dx); Abdominal pain, right lower quadrant; Diarrhea, unspecified type Start: 03-25-2023 End: 03-25-2023 ambulatory [facility] Work Phone: Start: 03-25-2023 End: 03-25-2023 Patient encounter procedure [facility]-Ultrasound, [facility] Work Phone: Start: 03-21-2023 End: 03-21-2023 Patient encounter procedure [facility]-Laboratory, Phy Office 3rd Flr Start: 09-29-2022 End: 09-29-[address] Segundo Conn Work Phone: [facility] Work Phone: Start: 09-29-2022 End: 09-29-[address] Segundo Conn Work Phone: [facility]-Laboratory Work Phone: Start: 09-22-2022 End: 09-22-[address] Segundo Conn Work Phone: [facility] Work Phone: Start: 09-22-2022 End: 09-22-[address] Segundo Conn Work Phone: [facility]-Laboratory Start: 07-02-2022 End: 07-02-[address] Segundo Conn Work Phone: [facility] Work Phone: Start: 07-02-2022 End: 07-02-[address] [facility] Start: 06-24-2022 Non-patient / Non-visit Dr. Rex Conn Work Phone: [facility] Start: 06-23-2022 End: 06-24-2022 Evaluation and management of inpatient [facility]-Progressive Care Unit Start: 06-22-2022 End: 06-22-[address] Segundo Conn Work Phone: [facility] Work Phone: Start: 06-22-2022 End: 06-22-2022 [facility] Start: 03-18-2022 End: 03-18-2022 ambulatory [facility] Work Phone: Start: 03-18-2022 End: 03-18-2022 Patient encounter procedure [facility]-Laboratory, Phy Office 3rd Flr Start: 09-17-2021 End: 09-17-2021 [facility] Procedures Date Procedure Procedure Detail Performing Clinician Start: 09-26-2024 Vitamin D, 25-hydroxy measurement Dr. Rex Conn MD Work Phone: Comment on above: Vitamin D StatusDeficiency: <20 ng/mL (5 0nmol/L)Insufficiency: 20-30 ng/mL (50-75 nmol/L)Sufficiency: 30-100 ng/mL (75-250 nmol/L)Toxicity: >100 ng/mL (>250 nmol/L) Start: 07-17-2024 Qoslr-6-Nxpkmnxauxt measurement Dr. Segundo Conn MD Work Phone: Comment on above: [facility] Electrochemiluminescen ce Immunoassay(ECLIA)Values obtained with different assay methods or kits cannotbe used interchangeably. Results cannot be interpreted asabsolute evidence of the presence or absence of malignantdisease.This test is not interpretable in females.Performed at: [facility] [id number] Director: Stephan Smith PhD, Phone: [phone] Start: 06-27-2024 MRI of abdomen with contrast Dr. Segundo joy MD Work Phone: Start: 06-07-2024 Kcgna-3-Psozkehrplk measurement Dr. Segundo Conn MD Work Phone: Comment on above: [facility] Electrochemiluminescen ce Immunoassay(ECLIA)Values obtained with different assay methods or kits cannotbe used interchangeably. Results cannot be interpreted asabsolute evidence of the presence or absence of malignantdisease.This test is not interpretable in females.Performed at: [facility] [address] [id number] Director: Stephan Smith PhD, Phone: [phone] Start: 08-15-2023 Colonoscopy flx dx w/collj spec when pfrmd Temi Arnold MD Work Phone: Start: 08-15-2023 Esophagogastroduodenoscopy transoral diagnostic Temi Arnold MD Work Phone: Start: 08-15-2023 Gluc bld gluc mntr dev cleared fda spec home use Ramana Multani DO Work Phone: Start: 08-15-2023 Colonoscopy Temi Arnold MD Work Phone: Start: 03-25-2023 Ultrasonography of abdomen Start: 07-02-2022 [place] parasites identification Dr[address] Segundo Conn Work Phone: Start: 07-02-2022 Diagnostic radiography of abdomen, decubitus and erect Dr. Segundo Conn Work Phone: Start: 06-24-2022 Streptococcus pneumoniae Antigen (M Dr. Segundo Conn Work Phone: Start: 06-23-2022 CT of chest without contrast Start: 06-23-2022 Bacteria identified in Blood by Culture Dr. Segundo Conn Work Phone: Start: 06-23-2022 Respiratory Panel (PCR) Dr. Segundo Conn Work Phone: Start: 06-22-2022 Plain chest X-ray Start: 12-23-2016 End: 12-23-2016 Dietary management education, guidance, and counseling Bianka Barrett Start: 12-23-2016 End: 12-23-2016 Follow Up Appt 1 year Tristin Lundberg MD Start: 12-23-2016 End: 12-23-2016 PFM Tristin Lundberg MD Start: 12-23-2016 End: 12-23-2016 Follow Up Appt 1 year Tristin Lundberg MD Start: 12-23-2016 End: 12-23-2016 PF Tristin Lundberg MD Start: 10-14-2016 End: 10-15-2016 *BMP Tristin Lundberg MD Start: 10-14-2016 End: 10-15-2016 *BMP Tristin Lundberg MD Start: 09-23-2016 End: 09-23-2016 Dietary management education, guidance, and counseling Start: 09-23-2016 End: 09-28-2016 *MCKENNA Lundberg MD Start: 09-23-2016 End: 09-28-2016 aPTT in Platelet poor plasma by Coagulation assay Tristin Lundberg MD Start: 09-23-2016 End: 09-28-2016 CBC W Auto Differential panel - Blood Tristin Lundberg MD Start: 09-23-2016 End: 09-23-2016 Ecg routine ecg w/least 12 lds w/i&r Tristin Lundberg MD Start: 09-23-2016 End: 09-23-2016 Follow Up Appt 3 months Tristin Lundberg MD Start: 09-23-2016 End: 09-28-2016 INR in Platelet poor plasma by Coagulation assay Tristin Lundberg MD Start: 09-23-2016 End: 09-23-2016 MMM Tristin Lundberg MD Start: 09-23-2016 End: 09-28-2016 *BMP Tristin Lundberg MD Start: 09-23-2016 End: 09-28-2016 aPTT Tristin Lundberg MD Start: 09-23-2016 End: 09-28-2016 CBC W Auto Differential panel - Blood Tristin Lundberg MD Start: 09-23-2016 End: 09-28-2016 Coagulation factor induced.INR assay in platelet poor plasma Tristin Lundberg MD Start: 09-23-2016 End: 09-23-2016 Electrocardiogram, complete Tristin mireles MD Start: 09-23-2016 End: 09-23-2016 Follow Up Appt 3 months Tristin Lundberg MD Start: 09-23-2016 End: 09-23-2016 MMM Tristin Lundberg MD Start: 04-23-2010 Lipid 1996 panel - Serum or Plasma Tika corrina Arnold MD Work Phone: Start: 11-21-2009 Colonoscopy Temi Arnold MD Work Phone: Bacteria identified in Blood by Culture Dr. Segundo Conn Work Phone: [facility] [place] parasites identification Dr. Segundo Conn Work Phone: Respiratory Panel (PCR) Dr. Segundo Conn Work Phone: Plan of Treatment Date Care Activity Detail Author Start: 08-14-2033 Screening for malign ant neoplasm of colon [facility] Start: 08-24-2026 Diabetes Screening Diabetes Screenin g [facility] Start: 10-24-2024 End: 11-23-2024 CT Chest WO contrast CT CHEST WO IVCON Radiology Routine Lung nodules Expected: 10/24/2024, Expires: 11/23/2024 [facility] Comment on above: Expected: 10/24/2024 , Expires: 11/23/2024 Start: 10-24-2024 End: 11-23-2024 MR Biliary ducts and Pancreatic duct WO contrast MRI PANC/ARISTEO WO IVCON Radiology Routine IPMN (intraductal papillary mucinous neoplasm) Expected: 10/24/2024, Expires: 11/23/2024 [facility] Work Phone: Comment on above: Expected: 10/24/2024 , Expires: 11/23/2024 Start: 12-04-2023 Influenza vaccination Influenza Vacc ine (#1) [facility] Start: 10-25-2023 End: 10-25-2023 Patient encounter procedure General Surgery Comment on above: Follow up from MRI Start: 10-18-2023 End: 10-18-2023 Patient encounter procedure 10/18/2023 10:00 AM EDT Appointment Radiology [address] [place] [address] Procedure: MRI PANC/ARISTEO WO/W IVCON Status: Needs Scheduling Radiology Comment on above: Procedure: MRI PANC/ ARISTEO WO/W IVCON Status: Needs Scheduling Start: 09-05-2023 End: 09-05-2023 Patient encounter procedure Cat Scan Comment on above: Lower abdominal pain [R10.30] Start: 08-24-2023 End: 08-24-2023 Patient encounter procedure 08/24/2023 2:30 PM EDT Office Visit General Surgery [address] [address] Temi Arnold MD [address] [address] colonoscopy/egd follow up General Surgery Comment on above: colonoscopy/egd foll ow up Start: 08-24-2023 End: 11-23-2023 Comprehensive metabolic 2000 panel - Serum or Plasma COMPREHENSIVE METABOLIC PANEL Lab Routine Lower abdominal pain Expected: 08/24/2023, Expires: 11/23/2023 [facility] Comment on above: Expected: 08/24/2023 , Expires: 11/23/2023 Start: 08-15-2023 End: 08-15-2023 Patient encounter procedure 08/15/2023 2:[address] [facility] [address] [place] [address] Temi Arnold MD [address] [address] Gracy Solitario APRN.MOLDING MACHINE OPERATOR HELPER [address] [place] [address] [place] [address] [place] [address] colon/egd [facility] Comment on above: colon/egd Start: 06-19-2023 Covid-19 Vaccine ( season) Covid-19 Vaccine ( season) [facility] Start: 04-04-2023 Advance Directive Discussion Advance Directive Discussion [facility] Start: 04-04-2023 Behavioral Health Screening Behavioral Health Screening [facility] Start: 04-04-2023 zzBehavioral Health Screening zzBehavioral Health Screening [facility] Start: 07-02-2022 Procedure [facility] Start: 06-24-2022 Patient discharge [facility] Start: 06-24-2022 Following clinical p athway protocol [facility] Start: 06-24-2022 Assessment of risk o f venous thromboembolism [facility] Start: 06-24-2022 Care regimes management [facility] Start: 06-24-2022 Elevation of head of bed [facility] Start: 06-24-[address] [facility] Start: 06-24-2022 Inhalation therapy procedure [facility] Start: 06-24-2022 Insertion of cathete r into peripheral vein [facility] Start: 06-24-2022 Introduction of urin maryam catheter [facility] Start: 06-24-2022 Measuring intake and output [facility] Start: 06-24-2022 Methicillin resistan t Staphylococcus aureus screening test [facility] Start: 06-24-2022 Oxygen therapy [facility] Start: 06-24-2022 Patient education [facility] Start: 06-24-2022 Providing care accor ding to standard [facility] Start: 06-24-2022 Provision of activit y privileges [facility] Start: 06-24-2022 Referral to service [facility] Start: 06-24-2022 [facility] Start: 06-24-2022 Patient referral to dietitian [facility] Start: 06-23-2022 Viral nucleic acid assay [facility] Start: 06-23-2022 End: 06-23-2022 [facility] Start: 06-23-2022 Legionella pneumophi la Ag [Presence] in Urine [facility] Start: 06-23-2022 Streptococcus pneumo niae antigen assay [facility] Start: 06-23-[address] [facility] Start: 06-23-2022 Admission procedure [facility] Start: 06-23-2022 End: 06-23-2022 Blood culture [facility] Start: 06-23-2022 [facility] Start: 11-22-2019 Screening for malign ant neoplasm of colon [facility] Start: 12-21-2017 End: 12-21-2017 Appointment Appointment [facility] Work Phone: Start: 12-23-2016 End: 12-23-2016 Appointment Appointment [facility] Work Phone: Start: 12-23-2016 End: 12-23-2016 Follow Up Appt 1 year Follow Up Appt 1 year [facility] Work Phone: Start: 12-23-2016 End: 12-23-2016 PFM PFM [facility] Work Phone: Start: 12-23-2016 End: 12-23-2016 Follow Up Appt 1 year Follow Up Appt 1 year [facility] Work Phone: Start: 12-23-2016 End: 12-23-2016 PFM PFM [facility] Work Phone: Start: 10-14-2016 End: 10-15-2016 *BMP *BMP [facility] Work Phone: Start: 10-14-2016 End: 10-15-2016 *BMP *BMP [facility] Work Phone: Start: 09-23-2016 End: 09-23-2016 Appointment Appointment [facility] Work Phone: Start: 09-23-2016 End: 09-28-2016 *BMP *BMP [facility] Work Phone: Start: 09-23-2016 End: 09-28-2016 aPTT Coag time (Bld) *PTT-Partial Thromboplastin Time [facility] Work Phone: Start: 09-23-2016 End: 09-28-2016 CBC W Auto Differential panel - Blood *CBC without Diff [facility] Work Phone: Start: 09-23-2016 End: 09-23-2016 Chest x-ray X-Ray, Chest, PA & Lateral [facility] Work Phone: Start: 09-23-2016 End: 09-23-2016 Ecg routine ecg w/least 12 lds w/i&r EKG (In office) [facility] Work Phone: Start: 09-23-2016 End: 09-28-2016 Echocardiography Echocardiogram (complete) [facility] Work Phone: Start: 09-23-2016 End: 09-23-2016 Follow Up Appt 3 months Follow Up Appt 3 months [facility] Work Phone: Start: 09-23-2016 End: 09-28-2016 INR Coag RelTime (PPP) *PT/INR [facility] Work Phone: Start: 09-23-2016 End: 09-23-2016 Left Heart Cath Left Heart Cath [facility] Work Phone: Start: 09-23-2016 End: 09-23-2016 MMM MMM [facility] Work Phone: Start: 09-23-2016 End: 09-28-2016 *BMP *BMP [facility] Work Phone: Start: 09-23-2016 End: 09-28-2016 aPTT *PTT-Partial Thromboplastin Time [facility] Work Phone: Start: 09-23-2016 End: 09-28-2016 aPTT Coag time (PPP) *PTT-Partial Thromboplastin Time [facility] Work Phone: Start: 09-23-2016 End: 09-28-2016 CBC W Auto Differential panel - Blood *CBC without Diff [facility] Work Phone: Start: 09-23-2016 End: 09-23-2016 Chest x-ray X-Ray, Chest, PA & Lateral [facility] Work Phone: Start: 09-23-2016 End: 09-28-2016 Coagulation factor induced.INR assay in platelet poor plasma *PT/INR [facility] Work Phone: Start: 09-23-2016 End: 09-28-2016 Echocardiography Echocardiogram (complete) [facility] Work Phone: Start: 09-23-2016 End: 09-23-2016 Electrocardiogram, complete EKG (In office) [facility] Work Phone: Start: 09-23-2016 End: 09-23-2016 Follow Up Appt 3 months Follow Up Appt 3 months [facility] Work Phone: Start: 09-23-2016 End: 09-23-2016 Left Heart Cath Left Heart Cath [facility] Work Phone: Start: 09-23-2016 End: 09-23-2016 MMM MMM [facility] Work Phone: Start: 11-24-2015 Urine microalbumin profile DTa P,Tdap,Td Vaccine (2 - Tdap) [facility] Start: 04-23-2015 Lipid panel Lipid Screening [facility] Start: 04-23-2013 Diabetes Screening Diabetes Screenin g [facility] Start: 08-22-2012 Pneumococcal Vaccine : 65+ (1 of 1 - PCV) Pneumococcal Vaccine: 65+ (1 of 1 - PCV) [facility] Start: 08-22-2012 Screening for osteoporosis Bone Dens ity Screening [facility] Start: 08-22-1992 Screening for malign ant neoplasm of colon [facility] Start: 08-22-1965 Hepatitis C screening Hepatitis C Sc reening [facility] Start: 1947 Screening for malign ant neoplasm of colon [facility] Bacteria identified in Blood by Culture Blood Culture [facility] Bacteria identified in Blood by Culture Blood Culture [facility] End: 09-22-2024 CT Abdomen and Pelvis W contrast IV CT ABD/PEL W IVCON Radiology Routine Lower abdominal pain 1 Occurrences starting 08/24/2023 until 09/22/2024 [facility] Work Phone: Comment on above: 1 Occurrences starti ng 08/24/2023 until 09/22/2024 CT Abdomen and Pelvi s W contrast IV CT ABD/PEL W IVCON Radiology Routine Lower abdominal pain 09/05/2023 11:[address] [facility] Work Phone: End: 08-11-2024 EGD DIAGNOSTIC EGD DIAGNOSTIC Endoscopy Routine Abdominal pain, right lower quadrant Abnormal weight loss Diarrhea, unspecified type 1 Occurrences starting 08/12/2023 until 08/11/2024 [facility] Comment on above: 1 Occurrences starti ng 08/12/2023 until 08/11/2024 End: 08-11-2024 Flexible sigmoidoscopy study COLONOSCOPY DIAGNOSTIC Endoscopy Routine Abdominal pain, right lower quadrant Abnormal weight loss Diarrhea, unspecified type 1 Occurrences starting 08/12/2023 until 08/11/2024 [facility] Work Phone: Comment on above: 1 Occurrences starti ng 08/12/2023 until 08/11/2024 End: 10-10-2024 MR Biliary ducts and Pancreatic duct WO and W contrast IV MRI PANC/ARISTEO WO/W IVCON Radiology Routine Abdominal pain, right lower quadrant Abnormal weight loss Pancreatic mass 1 Occurrences starting 09/11/2023 until 10/10/2024 [facility] Work Phone: Comment on above: 1 Occurrences starti ng 09/11/2023 until 10/10/2024 MR Biliary ducts and Pancreatic duct WO and W contrast IV MRI PANC/ARISTEO WO/W IVCON Radiology Routine Abdominal pain, right lower quadrant Abnormal weight loss Pancreatic mass 10/18/2023 11:[address] [facility] Work Phone: End: 10-10-2024 MR Unspecified body region 3D post processing MRI 3D POST PROCESSING Radiology Routine Abdominal pain, right lower quadrant Abnormal weight loss Pancreatic mass 1 Occurrences starting 09/11/2023 until 10/10/2024 [facility] Comment on above: 1 Occurrences starti ng 09/11/2023 until 10/10/2024 MR Unspecified body region 3D post processing MRI 3D POST PROCESSING Radiology Routine Abdominal pain, right lower quadrant Abnormal weight loss Pancreatic mass 10/18/2023 11:01 AM T [facility] End: 11-23-2024 MR Unspecified body region 3D post processing MRI 3D POST PROCESSING Radiology Routine IPMN (intraductal papillary mucinous neoplasm) 1 Occurrences starting 10/25/2023 until 11/23/2024 [facility] Comment on above: 1 Occurrences starti ng 10/25/2023 until 11/23/2024 Patient referral [facility] Work Phone: Procedure [facility] Respiratory Panel (PCR) Respiratory Panel (PCR) [facility] Respiratory pathogen s DNA and RNA 12b panel - Unspecified specimen by MAGGY with probe detection [facility] SARS-CoV-2 (COVID-19 ) Ag [Presence] in Respiratory specimen by Rapid immunoassay [facility] SURGICAL PATHOLOGY SURGICAL PATH OLOGY Lab Routine Abdominal pain, right lower quadrant Diarrhea, unspecified type Special screening for malignant neoplasms, colon Release Upon Ordering for 1 Occurrences starting 08/15/2023 [facility] Work Phone: Comment on above: Release Upon Orderin g for 1 Occurrences starting 08/15/2023 Immunizations Immunization Date Immunization Notes Care Provider Fa cili 02-18-2023 respiratory syncytia l virus (RSV) vaccine, adjuvanted (AREXVY) Temi Arnold MD Work Phone: [facility] 02-10-2023 influenza, injectabl e, quadrivalent, contains preservative Temi Arnold MD Work Phone: [facility] 02-10-2023 influenza virus vaccine, unspecified formulation Mri (1.5t) [facility] 12-10-2022 zoster vaccine recombinant Temi Arnold MD Work Phone: [facility] 09-29-2022 zoster vaccine recombinant Temi Arnold MD Work Phone: [facility] 01-11-2022 influenza, injectabl e, quadrivalent, preservative free [facility] 01-11-2022 influenza, seasonal, injectable Dr. Segundo Conn Work Phone: [facility] 08-03-2021 Covid (Moderna) Dr. Segundo Conn Work Phone: [facility] 02-02-2021 Covid (Moderna) Dr. Segundo Conn Work Phone: [facility] 02-02-2021 influenza, injectabl e, quadrivalent, contains preservative Temi Arnold MD Work Phone: [facility] 02-02-2021 influenza, injectabl e, quadrivalent, preservative free [facility] 02-02-2021 influenza, seasonal, injectable Dr. Segundo Conn Work Phone: [facility] 08-21-2020 Covid (Pfizer) Dr. Segundo Conn Work Phone: [facility] 07-31-2020 Covid (Pfizer) Dr. Segundo Conn Work Phone: [facility] 12-17-2019 influenza, injectabl e, quadrivalent, contains preservative Temi Arnold MD Work Phone: [facility] 12-17-2019 influenza, injectabl e, quadrivalent, preservative free [facility] 12-17-2019 influenza, seasonal, injectable Dr. Segundo Conn Work Phone: [facility] 11-23-2018 influenza, injectabl e, quadrivalent, contains preservative Temi Arnold MD Work Phone: [facility] 11-23-2018 influenza, injectabl e, quadrivalent, preservative free [facility] 11-23-2018 influenza, seasonal, injectable Dr. Segundo Conn Work Phone: [facility] 01-23-2018 influenza, injectabl e, quadrivalent, preservative free [facility] 01-23-2018 influenza, seasonal, injectable Dr. Segundo Conn Work Phone: [facility] 01-20-2017 influenza, injectabl e, quadrivalent, preservative free [facility] 01-20-2017 influenza, seasonal, injectable Dr. Segundo Conn Work Phone: [facility] 02-14-2014 influenza, injectabl e, quadrivalent, preservative free [facility] 02-14-2014 influenza, seasonal, injectable Dr. Segundo Conn Work Phone: [facility] 03-02-2010 influenza virus vaccine, unspecified formulation Temi Arnold MD Work Phone: [facility] 01-27-2007 influenza virus vaccine, unspecified formulation Temi Arnold MD Work Phone: [facility] 11-23-2005 diphtheria and tetan us toxoids, adsorbed for pediatric use Temi Arnold MD Work Phone: [facility] Work Phone: Payers Date Payer Category Payer Self-pay [id number] 2019 Private Health Insurance [facility] A[employer] SUPPLEMENT [id number] 2019-Present [phone] [address] [place] [address] Indemnity [id number] 2019 Unknown [id number] 2014 Unknown [id number] 2012 Medicare MEDICARE MEDICAR E A AND B [id number] 2012-Present [phone] [place] [address] Medicare [id number] 2012 Medicare [id number] Unknown [id number] Unknown [id number] Unknown [id number] Unknown [id number] Unknown [id number] Unknown [id number] Unknown [id number] Social History Date Type Detail Facility Start: 03-13-2021 End: 06-24-2022 Tobacco smoking status NHIS Unknown if ever smoked [facility] Start: 05-15-2020 None [facility] Start: 05-15-2020 Spouse/ Signif icant Other [facility] Start: 1945 Sex Assigned At Female [facility] Start: 08-12-2023 End: 12-01-2023 Tobacco smoking status NHIS Ex-smoker [facility] History of tobacco use Current smoker [facility] History of tobacco use Cigarette Smoker [facility] Start: 08-12-2023 End: 08-24-2023 Cigarettes smoked current (pack per day) - Reported 0.5 [facility] Start: 08-12-2023 Tobacco use and exposure Smokeless tobacco non-user [facility] Start: 08-12-2023 End: 08-24-2023 Alcohol intake Ex-drinker (finding) [facility] Start: 08-12-2023 End: 08-24-2023 Tobacco use panel [facility] National Score (1-10 0), lower number is lower risk 47 [facility] Start: 08-12-2023 Tobacco Comment Quit 15 years ago [facility] Start: 1945 Sex Assigned At Not on file [facility] Start: 06-18-2024 End: 07-23-2024 Sex Female (finding) [facility] Goals Date Patient Goal Desired Activity /State Functional Status Date Assessment Result Facility 06-24-2022 Functional status Ambulates;Up ad rubio [facility] Work Phone: Mental Status Date Assessment Result Facility 06-24-2022 Cognitive function Voice/Name [facility] Work Phone: Clinical Notes 06-23-2022 to 10-25-2023 Temi Arnold MD - 10/25/2023 4:00 PM Treasure Sommers RT(R) - 10/18/2023 10:00 AM EDTTelephone Encounter - Deyanira Coon LPN - 09/14/2023 1:50 PM EDTPatient Instructions Note Date & Type Note Facility 10-25-2023 History of Present illness Narrative FOLLOW UP ENDOSCOPY - RESULTS NAME: Alfred Jackson [facility] NO.: [id number] : 1945 DATE: October 25, 2023 PRIMARY CARE PROVIDER: Segundo Conn MD Alfred aJckson is a patient referred for endoscopy for Abdominal pain, weight loss, and diarrhea. The patient is a 77 year old female referred for endoscopy. Alfred notes the following GI complaints: Alfred notes abdominal pain. The pain occurs in the following locations: lower regions . Alfred notes diarrhea. The diarrhea she notes to be watery and occur very soon after eating. At first it was happening every day. Now she notes that happens every 2 to 3 days. Alfred denies constipation. Alfred notes a change in bowel habits. Alfred denies melena. Alfred denies bright red blood per rectum. Alfred denies hemorrhoids. The patient notes no history of upper GI complaints. Alfred has undergone prior endoscopy. This was approximately [id number]. The patient is being seen by me at the request of Dr. Segundo Conn MD for my opinion and advice regarding diarrhea and lower abdominal cramping. I performed upper and lower endoscopy on August 15, 2023. The patient was found to have: Upper Endoscopy Impression: - Normal examined jejunum. Biopsied. - A single duodenal polyp. Resected and retrieved. - Gastritis. Biopsied. - Small hiatal hernia. - Moderately severe reflux esophagitis with bleeding. Biopsied. - Low-grade of narrowing Schatzki ring. - Normal middle third of esophagus. Biopsied. Lower Endoscopy Impression: - The entire examined colon is normal. Biopsied. - Patent functional end-to-end colo-rectal anastomosis, characterized by healthy appearing mucosa. - Diverticulosis in the sigmoid colon. - The examination was otherwise normal on direct and retroflexion views. She was treated on Prilosec given the upper endoscopy findings Pathology demonstrated: FINAL DIAGNOSIS A. 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 - No evidence of adenoma. B. Gastric antrum, biopsy: - Mild chronic inactive gastritis. - Immunohistochemical stain for Helicobacter pylori pending. C. Duodenum, biopsy: - No significant pathologic change. D. Gastric polyp, biopsy: - Fundic gland polyp. - Negative for dysplasia. E. "Distal esophagus", biopsy: - Fragments of unremarkable duodenal mucosa. - Squamous mucosa not identified. F. Mid esophagus, biopsy: - Squamous mucosa with active esophagitis. - No evidence of eosinophilia. G-H. Ascending and descending colon, biopsies: - No significant pathologic change. - No evidence of lymphocytic or collagenous colitis. ANNELISE/alexy 08/17/2023 Given the background of chronic gastritis a Helicobacter pylori immunostain was performed on block B and is negative for Helicobacter pylori organisms. The patient is still noting left lower quadrant discomfort and a bloating feeling persisting in her lower abdomen. IMPRESSION: Diarrhea, weight loss, gastritis, otherwise relatively unremarkable random biopsies for diarrhea PLAN: INSTRUCTIONS FOLLOWING A NORMAL COLONOSCOPY 10YR I discussed with you the findings of your colonoscopy. Since there were no worrisome abnormalities, I recommend you undergo repeat endoscopic screening every 10 years. This is the current recommendation for colon cancer screening. If you note bleeding, change in bowel habits, or other suspicious colon related symptoms before that time, those symptoms should be evaluated as necessary. INSTRUCTIONS FOR PEPTIC ULCER DISEASE/GASTRITIS I discussed with you the findings of your upper endoscopy. Your upper endoscopy demonstrated signs of peptic ulcer disease or irritation. This can be seen as a range of issues from actual ulcers in the stomach or duodenum (first part of the small bowel) or irritation ranging from redness to more significant irritation with erosions of the stomach or duodenum. These conditions are usually caused from a combination of too much acid production or too little protective mucus production in the stomach. Factors that increase acid production include smoking and stress. If you smoke, stopping smoking will often cure these issues without needing other medications. Factors that decrease the stomach's production of protective mucus include alcohol consumption, smoking, aspirin and other anti-inflammatory use. Over the counter medications including antiacids and acid reducing medications including H2 blockers (Zantac and the like) and proton pump inhibitors (prilosec, prevacid and the like) neutralize or prevent acid production. Prescription strength proton pump inhibitors (PPIs) may be necessary if your symptoms persist. Carafate may be added to PPI treatment in refractory cases. Avoiding smoking, alcohol and antiinflammatory medications are important in the successful treatment of peptic diseases. New or worsening symptoms such are epigastric pain, burning, difficulty swallowing or food sticking should be relayed to your physician. Feeling full early after eating, or black, tarry, foul smelling stools are also worrisome. If you have any difficulties or concerns, you should contact our office immediately. The patient with her persistent pain and concern for a family history of pancreatic cancer I have ordered a CT scan of the abdomen pelvis. CT scan of the abdomen pelvis was obtained on September 05, 2023. This demonstrated: IMPRESSION: 1. No acute abnormality. 2. Findings of cirrhosis with developing portal hypertension. 3. Pancreatic tail cystic lesion (1 cm); suggest follow-up MRI/MRCP. 4. Partially small pulmonary nodules (<6 mm); consider 12 month follow-up chest CT. More I was then obtained on October 18, 2023. This demonstrated: IMPRESSION: 1 CM PANCREATIC TAIL CYST. NONENHANCING. LIKELY SIDE BRANCH IPMN FATTY INFILTRATION OF THE LIVER. CIRRHOTIC HEPATIC CONFIGURATION. No suspicious mass or adenopathy in the visualized abdomen I would recommend repeating both the CT scan (for lung nodules) and MRI ( for likely side branch IPMN) in one year Temi Arnold MD documented in this encounter [facility] 10-25-2023 Note HNO ID: [id number] Author: TEMI ARNOLD MD Service: ? Author Type: Physician Type: Progress Notes Filed: 10/25/2023 17:02 Note Text: FOLLOW UP ENDOSCOPY - RESULTS NAME: Alfred Jackson [facility] NO.: [id number] : 1945 DATE: October 25, 2023 PRIMARY CARE PROVIDER: Segundo Conn MD Alfred Jackson is a patient referred for endoscopy for Abdominal pain, weight loss, and diarrhea. The patient is a 77 year old female referred for endoscopy. Alfred notes the following GI complaints: Alfred notes abdominal pain. The pain occurs in the following locations: lower regions . Alfred notes diarrhea. The diarrhea she notes to be watery and occur very soon after eating. At first it was happening every day. Now she notes that happens every 2 to 3 days. Alfred denies constipation. Alfred notes a change in bowel habits. Alfred denies melena. Alfred denies bright red blood per rectum. Alfred denies hemorrhoids. The patient notes no history of upper GI complaints. Alfred has undergone prior endoscopy. This was approximately [id number]. The patient is being seen by me at the request of Dr. Segundo Conn MD for my opinion and advice regarding diarrhea and lower abdominal cramping. I performed upper and lower endoscopy on August 15, 2023. The patient was found to have: Upper Endoscopy Impression: - Normal examined jejunum. Biopsied. - A single duodenal polyp. Resected and retrieved. - Gastritis. Biopsied. - Small hiatal hernia. - Moderately severe reflux esophagitis with bleeding. Biopsied. - Low-grade of narrowing Schatzki ring. - Normal middle third of esophagus. Biopsied. Lower Endoscopy Impression: - The entire examined colon is normal. Biopsied. - Patent functional end-to-end colo-rectal anastomosis, characterized by healthy appearing mucosa. - Diverticulosis in the sigmoid colon. - The examination was otherwise normal on direct and retroflexion views. She was treated on Prilosec given the upper endoscopy findings Pathology demonstrated: FINAL DIAGNOSIS A. 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 - No evidence of adenoma. B. Gastric antrum, biopsy: - Mild chronic inactive gastritis. - Immunohistochemical stain for Helicobacter pylori pending. C. Duodenum, biopsy: - No significant pathologic change. D. Gastric polyp, biopsy: - Fundic gland polyp. - Negative for dysplasia. E. "Distal esophagus", biopsy: - Fragments of unremarkable duodenal mucosa. - Squamous mucosa not identified. F. Mid esophagus, biopsy: - Squamous mucosa with active esophagitis. - No evidence of eosinophilia. G-H. Ascending and descending colon, biopsies: - No significant pathologic change. - No evidence of lymphocytic or collagenous colitis. ANNELISE/alexy 08/17/2023 Given the background of chronic gastritis a Helicobacter pylori immunostain was performed on block B and is negative for Helicobacter pylori organisms. The patient is still noting left lower quadrant discomfort and a bloating feeling persisting in her lower abdomen. IMPRESSION: Diarrhea, weight loss, gastritis, otherwise relatively unremarkable random biopsies for diarrhea PLAN: INSTRUCTIONS FOLLOWING A NORMAL COLONOSCOPY 10YR I discussed with you the findings of your colonoscopy. Since there were no worrisome abnormalities, I recommend you undergo repeat endoscopic screening every 10 years. This is the current recommendation for colon cancer screening. If you note bleeding, change in bowel habits, or other suspicious colon related symptoms before that time, those symptoms should be evaluated as necessary. INSTRUCTIONS FOR PEPTIC ULCER DISEASE/GASTRITIS I discussed with you the findings of your upper endoscopy. Your upper endoscopy demonstrated signs of peptic ulcer disease or irritation. This can be seen as a range of issues from actual ulcers in the stomach or duodenum (first part of the small bowel) or irritation ranging from redness to more significant irritation with erosions of the stomach or duodenum. These conditions are usually caused from a combination of too much acid production or too little protective mucus production in the stomach. Factors that increase acid production include smoking and stress. If you smoke, stopping smoking will often cure these issues without needing other medications. Factors that decrease the stomach's production of protective mucus include alcohol consumption, smoking, aspirin and other anti-inflammatory use. Over the counter medications including antiacids and acid reducing medications including H2 blockers (Zantac and the like) and proton pump inhibitors (prilosec, prevacid and the like) neutralize or prevent acid production. Prescription strength proton pump inhibitors (PPIs) may be necessary if your symptoms persist. Carafate may be added to PPI treatment in refractory cases. Avoiding smokin (more content not included)... [facility] 10-18-2023 History of Present illness Narrative Radiology Service Progress Note DATE OF SERVICE: October 18, 2023 TIME: 10:08 AM PATIENT IDENTITY VERIFICATION COMPLETED USING TWO (2) STANDARD IDENTIFIERS: Name and Date of confirmed by patient verbally and Name and Date of confirmed by identification band. FALL SCREENING: Has the patient had 2 falls in the last year or 1 fall with injury or currently using an Ambulatory Assistive Device (Walker, Cane, Wheelchair, Crutches, etc.)? No PATIENT GENDER DATA: Female. status: : No status: NO. PATIENT RELEVANT IMPLANT DATA REVIEWED: Yes PATIENT PRESENTS WITH AN IMPLANTABLE OR ATTACHED LVN LPN: No ALLERGIES: Reviewed and unchanged CONTRAST ALLERGY: NO. EXAM: MRI - CONTRAST TYPE: GROUP II PERIPHERAL IV DATA: Ambulatory: A peripheral IV was started in the Left antecubital site with a Angio cath/Butterfly: 22 gauge. RADIOLOGY DEPARTMENT: MR; Exam(s) Completed: Body: Pancreas/Biliary SIGNATURE: RT Barber(Nicho) PATIENT NAME: Alfred [place] DATE: October 18, 2023 TIME: 10:08 AM documented in this encounter [facility] 10-18-2023 Note HNO ID: [id number] Author: TREASURE ROSARIO RT(R) Service: Radiology Author Type: Technologist Type: Progress Notes Filed: 10/18/2023 10:09 Note Text: Radiology Service Progress Note DATE OF SERVICE: October 18, 2023 TIME: 10:08 AM PATIENT IDENTITY VERIFICATION COMPLETED USING TWO (2) STANDARD IDENTIFIERS: Name and Date of confirmed by patient verbally and Name and Date of confirmed by identification band. FALL SCREENING: Has the patient had 2 falls in the last year or 1 fall with injury or currently using an Ambulatory Assistive Device (Walker, Cane, Wheelchair, Crutches, etc.)? No PATIENT GENDER DATA: Female. status: : No status: NO. PATIENT RELEVANT IMPLANT DATA REVIEWED: Yes PATIENT PRESENTS WITH AN IMPLANTABLE OR ATTACHED LVN LPN: No ALLERGIES: Reviewed and unchanged CONTRAST ALLERGY: NO. EXAM: MRI - CONTRAST TYPE: GROUP II PERIPHERAL IV DATA: Ambulatory: A peripheral IV was started in the Left antecubital site with a Angio cath/Butterfly: 22 gauge. RADIOLOGY DEPARTMENT: MR; Exam(s) Completed: Body: Pancreas/Biliary SIGNATURE: RT Barber(R) PATIENT NAME: Alfred [place] DATE: October 18, 2023 TIME: 10:[address] [facility] 09-14-2023 Telephone encounter Note Images from the original note were not included. Temi Arnold MD P [facility] [place] The patient did have a cystic structure in her pancreas we will order a follow-up MRI and then have her follow-up in the office. Krista Called patient, patient is scheduled for MRI 10/18/23, scheduled patient to see Dr. Arnold 10/25/23 in [place]. Deyanira Coon LPN September 14, 2023 1:51 PM [facility] 09-14-2023 Miscellaneous Notes Images from the original note were not included. Temi Arnold MD P [facility] The patient did have a cystic structure in her pancreas we will order a follow-up MRI and then have her follow-up in the office. Krista Called patient, patient is scheduled for MRI 10/18/23, scheduled patient to see Dr. Arnold 10/25/23 in [place]. 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 I have ordered the MRI please contact patient to arrange for MRI and then have patient follow-up in my office after the study. 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 I have ordered the MRI please contact patient to arrange for MRI and then have patient follow-up in my office after the study. Thanks-Rich documented in this encounter [facility] 09-05-2023 History of Present illness Narrative Radiology Service Progress Note DATE OF SERVICE: September 05, 2023 TIME: 11:56 AM PATIENT IDENTITY VERIFICATION COMPLETED USING TWO (2) STANDARD IDENTIFIERS: Name and Date of confirmed by patient verbally. FALL SCREENING: Has the patient had 2 falls in the last year or 1 fall with injury or currently using an Ambulatory Assistive Device (Walker, Cane, Wheelchair, Crutches, etc.)? No PATIENT GENDER DATA: Female. status: : No status: NO. PATIENT RELEVANT IMPLANT DATA REVIEWED: Yes PATIENT PRESENTS WITH AN IMPLANTABLE OR ATTACHED LVN LPN: No ALLERGIES: Reviewed and unchanged CONTRAST ALLERGY: NO. EXAM: CT -CONTRAST INDUCED NEPHROPATHY RISK FACTORS: Patient age > 60 years CREATININE: Creatinine Date Value Ref Range Status 08/25/2023 0.65 0.58 - 0.96 mg/dL Final Estimated Glomerular Filtration Rate Date Value Ref Range Status 08/25/2023 91 >=60 mL/min/1.73m Final Comment: Estimated Glomerular Filtration Rate (eGFR) is calculated using the 2020 CKD-EPI creatinine equation. This equation utilizes serum creatinine, sex, and age as parameters. The creatinine assay has traceable calibration to isotope dilution-mass spectrometry. Refer to KDIGO guidelines for clinical interpretation. In patients with unstable renal function, e.g. those with acute kidney injury, the eGFR may not accurately reflect actual GFR. P.O.C.T. RESULTS: POC done: Yes, See Lab Tab September 05, 2023 TREATMENT: N/A PERIPHERAL IV DATA: Ambulatory: A peripheral IV was started in the Left antecubital site with a Angio cath: 22 gauge. RADIOLOGY DEPARTMENT: CT; Exam(s) Completed: Abdomen/Pelvis SIGNATURE: RT Mojgan(Nicho) PATIENT NAME: Alfred [place] DATE: September 05, 2023 TIME: 11:56 AM documented in this encounter [facility] 09-05-2023 Note HNO ID: [id number] Author: KALIE REDDY RT(R) Service: ? Author Type: Dice Manager Type: Progress Notes Filed: 09/05/2023 11:57 Note Text: Radiology Service Progress Note DATE OF SERVICE: September 05, 2023 TIME: 11:56 AM PATIENT IDENTITY VERIFICATION COMPLETED USING TWO (2) STANDARD IDENTIFIERS: Name and Date of confirmed by patient verbally. FALL SCREENING: Has the patient had 2 falls in the last year or 1 fall with injury or currently using an Ambulatory Assistive Device (Walker, Cane, Wheelchair, Crutches, etc.)? No PATIENT GENDER DATA: Female. status: : No status: NO. PATIENT RELEVANT IMPLANT DATA REVIEWED: Yes PATIENT PRESENTS WITH AN IMPLANTABLE OR ATTACHED LVN LPN: No ALLERGIES: Reviewed and unchanged CONTRAST ALLERGY: NO. EXAM: CT -CONTRAST INDUCED NEPHROPATHY RISK FACTORS: Patient age > 60 years CREATININE: Creatinine Date Value Ref Range Status 08/25/2023 0.65 0.58 - 0.96 mg/dL Final Estimated Glomerular Filtration Rate Date Value Ref Range Status 08/25/2023 91 >=60 mL/min/1.73m? Final Comment: Estimated Glomerular Filtration Rate (eGFR) is calculated using the 2020 CKD-EPI creatinine equation. This equation utilizes serum creatinine, sex, and age as parameters. The creatinine assay has traceable calibration to isotope dilution-mass spectrometry. Refer to KDIGO guidelines for clinical interpretation. In patients with unstable renal function, e.g. those with acute kidney injury, the eGFR may not accurately reflect actual GFR. P.O.C.T. RESULTS: POC done: Yes, See Lab Tab September 05, 2023 TREATMENT: N/A PERIPHERAL IV DATA: Ambulatory: A peripheral IV was started in the Left antecubital site with a Angio cath: 22 gauge. RADIOLOGY DEPARTMENT: CT; Exam(s) Completed: Abdomen/Pelvis SIGNATURE: RT Mojgan(R) PATIENT NAME: Alfred [place] DATE: September 05, 2023 TIME: 11:56 AM [facility] 08-24-2023 Note HNO ID: [id number] Author: TEMI ARNOLD MD Service: ? Author Type: Physician Type: Progress Notes Filed: 08/24/2023 18:11 Note Text: FOLLOW UP ENDOSCOPY - RESULTS AND RECOMMENDATIONS NAME: Alfred Jackson [facility] NO.: [id number] : 1945 DATE: August 21, 2023 PRIMARY CARE PROVIDER: Segundo Conn MD Alfred [place] is a patient referred for endoscopy for Abdominal pain, weight loss, and diarrhea. The patient is a 77 year old female referred for endoscopy. Alfred notes the following GI complaints: Alfred notes abdominal pain. The pain occurs in the following locations: lower regions . Alfred notes diarrhea. The diarrhea she notes to be watery and occur very soon after eating. At first it was happening every day. Now she notes that happens every 2 to 3 days. Alfred denies constipation. Alfred notes a change in bowel habits. Alfred denies melena. Alfred denies bright red blood per rectum. Alfred denies hemorrhoids. The patient notes no history of upper GI complaints. Alfred has undergone prior endoscopy. This was approximately [id number]. The patient is being seen by me at the request of Dr. Segundo Conn MD for my opinion and advice regarding diarrhea and lower abdominal cramping. I performed upper and lower endoscopy on August 15, 2023. The patient was found to have: Upper Endoscopy Impression: - Normal examined jejunum. Biopsied. - A single duodenal polyp. Resected and retrieved. - Gastritis. Biopsied. - Small hiatal hernia. - Moderately severe reflux esophagitis with bleeding. Biopsied. - Low-grade of narrowing Schatzki ring. - Normal middle third of esophagus. Biopsied. Lower Endoscopy Impression: - The entire examined colon is normal. Biopsied. - Patent functional end-to-end colo-rectal anastomosis, characterized by healthy appearing mucosa. - Diverticulosis in the sigmoid colon. - The examination was otherwise normal on direct and retroflexion views. She was treated on Prilosec given the upper endoscopy findings Pathology demonstrated: FINAL DIAGNOSIS A. 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 - No evidence of adenoma. B. Gastric antrum, biopsy: - Mild chronic inactive gastritis. - Immunohistochemical stain for Helicobacter pylori pending. C. Duodenum, biopsy: - No significant pathologic change. D. Gastric polyp, biopsy: - Fundic gland polyp. - Negative for dysplasia. E. "Distal esophagus", biopsy: - Fragments of unremarkable duodenal mucosa. - Squamous mucosa not identified. F. Mid esophagus, biopsy: - Squamous mucosa with active esophagitis. - No evidence of eosinophilia. G-H. Ascending and descending colon, biopsies: - No significant pathologic change. - No evidence of lymphocytic or collagenous colitis. ANNELISE/alexy 08/17/2023 Given the background of chronic gastritis a Helicobacter pylori immunostain was performed on block B and is negative for Helicobacter pylori organisms. The patient is still noting left lower quadrant discomfort and a bloating feeling persisting in her lower abdomen. IMPRESSION: Diarrhea, weight loss, gastritis, otherwise relatively unremarkable random biopsies for diarrhea PLAN: INSTRUCTIONS FOLLOWING A NORMAL COLONOSCOPY 10YR I discussed with you the findings of your colonoscopy. Since there were no worrisome abnormalities, I recommend you undergo repeat endoscopic screening every 10 years. This is the current recommendation for colon cancer screening. If you note bleeding, change in bowel habits, or other suspicious colon related symptoms before that time, those symptoms should be evaluated as necessary. INSTRUCTIONS FOR PEPTIC ULCER DISEASE/GASTRITIS I discussed with you the findings of your upper endoscopy. Your upper endoscopy demonstrated signs of peptic ulcer disease or irritation. This can be seen as a range of issues from actual ulcers in the stomach or duodenum (first part of the small bowel) or irritation ranging from redness to more significant irritation with erosions of the stomach or duodenum. These conditions are usually caused from a combination of too much acid production or too little protective mucus production in the stomach. Factors that increase acid production include smoking and stress. If you smoke, stopping smoking will often cure these issues without needing other medications. Factors that decrease the stomach's production of protective mucus include alcohol consumption, smoking, aspirin and other anti-inflammatory use. Over the counter medications including antiacids and acid reducing medications including H2 blockers (Zantac and the like) and proton pump inhibitors (prilosec, prevacid and the like) neutralize or prevent acid production. Prescription strength proton pump inhibitors (PPIs) may be necessary if your symptoms persist. Carafate may be added to PPI treatment in refractory cases (more content not included)... [facility] 08-24-2023 History of Present illness Narrative FOLLOW UP ENDOSCOPY - RESULTS AND RECOMMENDATIONS NAME: Alfred Jackson [facility] NO.: [id number] : 1945 DATE: August 21, 2023 PRIMARY CARE PROVIDER: Segundo Conn MD Alfred Jackson is a patient referred for endoscopy for Abdominal pain, weight loss, and diarrhea. The patient is a 77 year old female referred for endoscopy. Alfred notes the following GI complaints: Alfred notes abdominal pain. The pain occurs in the following locations: lower regions . Alfred notes diarrhea. The diarrhea she notes to be watery and occur very soon after eating. At first it was happening every day. Now she notes that happens every 2 to 3 days. Alfred denies constipation. Alfred notes a change in bowel habits. Alfred denies melena. Alfred denies bright red blood per rectum. Alfred denies hemorrhoids. The patient notes no history of upper GI complaints. Alfred has undergone prior endoscopy. This was approximately 9797-8679. The patient is being seen by me at the request of Dr. Segundo Conn MD for my opinion and advice regarding diarrhea and lower abdominal cramping. I performed upper and lower endoscopy on August 15, 2023. The patient was found to have: Upper Endoscopy Impression: - Normal examined jejunum. Biopsied. - A single duodenal polyp. Resected and retrieved. - Gastritis. Biopsied. - Small hiatal hernia. - Moderately severe reflux esophagitis with bleeding. Biopsied. - Low-grade of narrowing Schatzki ring. - Normal middle third of esophagus. Biopsied. Lower Endoscopy Impression: - The entire examined colon is normal. Biopsied. - Patent functional end-to-end colo-rectal anastomosis, characterized by healthy appearing mucosa. - Diverticulosis in the sigmoid colon. - The examination was otherwise normal on direct and retroflexion views. She was treated on Prilosec given the upper endoscopy findings Pathology demonstrated: FINAL DIAGNOSIS A. 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 - No evidence of adenoma. B. Gastric antrum, biopsy: - Mild chronic inactive gastritis. - Immunohistochemical stain for Helicobacter pylori pending. C. Duodenum, biopsy: - No significant pathologic change. D. Gastric polyp, biopsy: - Fundic gland polyp. - Negative for dysplasia. E. "Distal esophagus", biopsy: - Fragments of unremarkable duodenal mucosa. - Squamous mucosa not identified. F. Mid esophagus, biopsy: - Squamous mucosa with active esophagitis. - No evidence of eosinophilia. G-H. Ascending and descending colon, biopsies: - No significant pathologic change. - No evidence of lymphocytic or collagenous colitis. ANNELISE/alexy 08/17/2023 Given the background of chronic gastritis a Helicobacter pylori immunostain was performed on block B and is negative for Helicobacter pylori organisms. The patient is still noting left lower quadrant discomfort and a bloating feeling persisting in her lower abdomen. IMPRESSION: Diarrhea, weight loss, gastritis, otherwise relatively unremarkable random biopsies for diarrhea PLAN: INSTRUCTIONS FOLLOWING A NORMAL COLONOSCOPY 10YR I discussed with you the findings of your colonoscopy. Since there were no worrisome abnormalities, I recommend you undergo repeat endoscopic screening every 10 years. This is the current recommendation for colon cancer screening. If you note bleeding, change in bowel habits, or other suspicious colon related symptoms before that time, those symptoms should be evaluated as necessary. INSTRUCTIONS FOR PEPTIC ULCER DISEASE/GASTRITIS I discussed with you the findings of your upper endoscopy. Your upper endoscopy demonstrated signs of peptic ulcer disease or irritation. This can be seen as a range of issues from actual ulcers in the stomach or duodenum (first part of the small bowel) or irritation ranging from redness to more significant irritation with erosions of the stomach or duodenum. These conditions are usually caused from a combination of too much acid production or too little protective mucus production in the stomach. Factors that increase acid production include smoking and stress. If you smoke, stopping smoking will often cure these issues without needing other medications. Factors that decrease the stomach's production of protective mucus include alcohol consumption, smoking, aspirin and other anti-inflammatory use. Over the counter medications including antiacids and acid reducing medications including H2 blockers (Zantac and the like) and proton pump inhibitors (prilosec, prevacid and the like) neutralize or prevent acid production. Prescription strength proton pump inhibitors (PPIs) may be necessary if your symptoms persist. Carafate may be added to PPI treatment in refractory cases. Avoiding smoking, alcohol and antiinflammatory medications are important in the successful treatment of peptic diseases. New or worsening symptoms such are epigastric pain, burning, difficulty swallowing or food sticking should be relayed to your physician. Feeling full early after eating, or black, tarry, foul smelling stools are also worrisome. If you have any difficulties or concerns, you should contact our office immediately. The patient with her persistent pain and concern for a family history of pancreatic cancer I have ordered a CT scan of the abdomen pelvis. eTmi Arnold MD documented in this encounter [facility] [place] 08-21-2023 Telephone encounter Note FOLLOW UP ENDOSCOPY - RESULTS AND RECOMMENDATIONS NAME: Alfred Jackson [facility] NO.: [id number] : 1945 DATE: August 21, 2023 PRIMARY CARE PROVIDER: Segundo Conn MD Alfred Jackson is a patient referred for endoscopy for Abdominal pain, weight loss, and diarrhea. The patient is a 77 year old female referred for endoscopy. Alfred notes the following GI complaints: Alfred notes abdominal pain. The pain occurs in the following locations: lower regions . Alfred notes diarrhea. The diarrhea she notes to be watery and occur very soon after eating. At first it was happening every day. Now she notes that happens every 2 to 3 days. Alfred denies constipation. Alfred notes a change in bowel habits. Alfred denies melena. Alfred denies bright red blood per rectum. Alfred denies hemorrhoids. The patient notes no history of upper GI complaints. Alfred has undergone prior endoscopy. This was approximately [id number]. The patient is being seen by me at the request of Dr. Segundo Conn MD for my opinion and advice regarding diarrhea and lower abdominal cramping. I performed upper and lower endoscopy on August 15, 2023. The patient was found to have: Upper Endoscopy Impression: - Normal examined jejunum. Biopsied. - A single duodenal polyp. Resected and retrieved. - Gastritis. Biopsied. - Small hiatal hernia. - Moderately severe reflux esophagitis with bleeding. Biopsied. - Low-grade of narrowing Schatzki ring. - Normal middle third of esophagus. Biopsied. Lower Endoscopy Impression: - The entire examined colon is normal. Biopsied. - Patent functional end-to-end colo-rectal anastomosis, characterized by healthy appearing mucosa. - Diverticulosis in the sigmoid colon. - The examination was otherwise normal on direct and retroflexion views. She was treated on Prilosec given the upper endoscopy findings Pathology demonstrated: FINAL DIAGNOSIS A. 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 - No evidence of adenoma. B. Gastric antrum, biopsy: - Mild chronic inactive gastritis. - Immunohistochemical stain for Helicobacter pylori pending. C. Duodenum, biopsy: - No significant pathologic change. D. Gastric polyp, biopsy: - Fundic gland polyp. - Negative for dysplasia. E. "Distal esophagus", biopsy: - Fragments of unremarkable duodenal mucosa. - Squamous mucosa not identified. F. Mid esophagus, biopsy: - Squamous mucosa with active esophagitis. - No evidence of eosinophilia. G-H. Ascending and descending colon, biopsies: - No significant pathologic change. - No evidence of lymphocytic or collagenous colitis. ANNELISE/alexy 08/17/2023 IMPRESSION: Diarrhea, weight loss, gastritis, otherwise relatively unremarkable random biopsies for diarrhea PLAN: INSTRUCTIONS FOLLOWING A NORMAL COLONOSCOPY 10YR I discussed with you the findings of your colonoscopy. Since there were no worrisome abnormalities, I recommend you undergo repeat endoscopic screening every 10 years. This is the current recommendation for colon cancer screening. If you note bleeding, change in bowel habits, or other suspicious colon related symptoms before that time, those symptoms should be evaluated as necessary. INSTRUCTIONS FOR PEPTIC ULCER DISEASE/GASTRITIS I discussed with you the findings of your upper endoscopy. Your upper endoscopy demonstrated signs of peptic ulcer disease or irritation. This can be seen as a range of issues from actual ulcers in the stomach or duodenum (first part of the small bowel) or irritation ranging from redness to more significant irritation with erosions of the stomach or duodenum. These conditions are usually caused from a combination of too much acid production or too little protective mucus production in the stomach. Factors that increase acid production include smoking and stress. If you smoke, stopping smoking will often cure these issues without needing other medications. Factors that decrease the stomach's production of protective mucus include alcohol consumption, smoking, aspirin and other anti-inflammatory use. Over the counter medications including antiacids and acid reducing medications including H2 blockers (Zantac and the like) and proton pump inhibitors (prilosec, prevacid and the like) neutralize or prevent acid production. Prescription strength proton pump inhibitors (PPIs) may be necessary if your symptoms persist. Carafate may be added to PPI treatment in refractory cases. Avoiding smoking, alcohol and antiinflammatory medications are important in the successful treatment of peptic diseases. New or worsening symptoms such are epigastric pain, burning, difficulty swallowing or food sticking should be relayed to your physician. Feeling full early after eating, or black, tarry, foul smelling stools are also worrisome. If you have any difficulties or concerns, you should contact our office immediately. The patient is instructed to follow-up with me in 1 to 2 weeks I have instructed my staff to forward the above information to the patient and to the appropriate providers [facility] 08-21-2023 Miscellaneous Notes FOLLOW UP ENDOSCOPY - RESULTS AND RECOMMENDATIONS NAME: Alfred Jackson [facility] NO.: [id number] : 1945 DATE: August 21, 2023 PRIMARY CARE PROVIDER: Segundo Conn MD Alfred [place] is a patient referred for endoscopy for Abdominal pain, weight loss, and diarrhea. The patient is a 77 year old female referred for endoscopy. Alfred notes the following GI complaints: Alfred notes abdominal pain. The pain occurs in the following locations: lower regions . Alfred notes diarrhea. The diarrhea she notes to be watery and occur very soon after eating. At first it was happening every day. Now she notes that happens every 2 to 3 days. Alfred denies constipation. Alfred notes a change in bowel habits. Alfred denies melena. Alfred denies bright red blood per rectum. Alfred denies hemorrhoids. The patient notes no history of upper GI complaints. Alfred has undergone prior endoscopy. This was approximately [id number]. The patient is being seen by me at the request of Dr. Segundo Conn MD for my opinion and advice regarding diarrhea and lower abdominal cramping. I performed upper and lower endoscopy on August 15, 2023. The patient was found to have: Upper Endoscopy Impression: - Normal examined jejunum. Biopsied. - A single duodenal polyp. Resected and retrieved. - Gastritis. Biopsied. - Small hiatal hernia. - Moderately severe reflux esophagitis with bleeding. Biopsied. - Low-grade of narrowing Schatzki ring. - Normal middle third of esophagus. Biopsied. Lower Endoscopy Impression: - The entire examined colon is normal. Biopsied. - Patent functional end-to-end colo-rectal anastomosis, characterized by healthy appearing mucosa. - Diverticulosis in the sigmoid colon. - The examination was otherwise normal on direct and retroflexion views. She was treated on Prilosec given the upper endoscopy findings Pathology demonstrated: FINAL DIAGNOSIS A. 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 - No evidence of adenoma. B. Gastric antrum, biopsy: - Mild chronic inactive gastritis. - Immunohistochemical stain for Helicobacter pylori pending. C. Duodenum, biopsy: - No significant pathologic change. D. Gastric polyp, biopsy: - Fundic gland polyp. - Negative for dysplasia. E. "Distal esophagus", biopsy: - Fragments of unremarkable duodenal mucosa. - Squamous mucosa not identified. F. Mid esophagus, biopsy: - Squamous mucosa with active esophagitis. - No evidence of eosinophilia. G-H. Ascending and descending colon, biopsies: - No significant pathologic change. - No evidence of lymphocytic or collagenous colitis. ANNELISE/alexy 08/17/2023 IMPRESSION: Diarrhea, weight loss, gastritis, otherwise relatively unremarkable random biopsies for diarrhea PLAN: INSTRUCTIONS FOLLOWING A NORMAL COLONOSCOPY 10YR I discussed with you the findings of your colonoscopy. Since there were no worrisome abnormalities, I recommend you undergo repeat endoscopic screening every 10 years. This is the current recommendation for colon cancer screening. If you note bleeding, change in bowel habits, or other suspicious colon related symptoms before that time, those symptoms should be evaluated as necessary. INSTRUCTIONS FOR PEPTIC ULCER DISEASE/GASTRITIS I discussed with you the findings of your upper endoscopy. Your upper endoscopy demonstrated signs of peptic ulcer disease or irritation. This can be seen as a range of issues from actual ulcers in the stomach or duodenum (first part of the small bowel) or irritation ranging from redness to more significant irritation with erosions of the stomach or duodenum. These conditions are usually caused from a combination of too much acid production or too little protective mucus production in the stomach. Factors that increase acid production include smoking and stress. If you smoke, stopping smoking will often cure these issues without needing other medications. Factors that decrease the stomach's production of protective mucus include alcohol consumption, smoking, aspirin and other anti-inflammatory use. Over the counter medications including antiacids and acid reducing medications including H2 blockers (Zantac and the like) and proton pump inhibitors (prilosec, prevacid and the like) neutralize or prevent acid production. Prescription strength proton pump inhibitors (PPIs) may be necessary if your symptoms persist. Carafate may be added to PPI treatment in refractory cases. Avoiding smoking, alcohol and antiinflammatory medications are important in the successful treatment of peptic diseases. New or worsening symptoms such are epigastric pain, burning, difficulty swallowing or food sticking should be relayed to your physician. Feeling full early after eating, or black, tarry, foul smelling stools are also worrisome. If you have any difficulties or concerns, you should contact our office immediately. The patient is instructed to follow-up with me in 1 to 2 weeks I have instructed my staff to forward the above information to the patient and to the appropriate providers documented in this encounter [facility] [place] 08-15-2023 Attending History and physical note UPDATED PROCEDURAL SEDATION HISTORY AND PHYSICAL EXAMINATION SERVICE DATE: 08/15/2023 SERVICE TIME: 2:58 PM PHYSICAL EXAM MUST BE COMPLETED ON ADMISSION PROCEDURE: Procedure Indications: The History and Physical (completed in the past 30 days) has been reviewed and the patient has been examined. The contents accurately reflect the patient's condition with the following additions or revisions since the H&P was completed. ASA Class: ASA Class:: Patient with severe systemic disease Examination indicates no changes. AIRWAY: Airway Visualization of Uvula: Yes Mouth opening greater than 2 fingerbreadths: Yes Neck Full Range of Motion: Yes LUNGS: Lungs clear to auscultation CARDIAC: Regular rhythm,Regular rate Provisional Diagnosis/Treatment Plan: abdominal pain, diarrhea SEDATION GOAL: Moderate This H&P can be found in the attached. SIGNATURE: Temi Arnold MD PATIENT NAME: Alfred [place] DATE: August 15, 2023 TIME: 2:58 PM Source Note - Temi Arnold MD - 08/15/2023 2:45 PM EDT HISTORY AND PHYSICAL Alfred Jackson 1945 REFERRING PHYSICIAN: Segundo Conn MD CHIEF COMPLAINT: Consult, Abdominal Pain, and Diarrhea HPI: The patient is a 77 year old female referred for endoscopy. Alfred notes the following GI complaints: Alfred notes abdominal pain. The pain occurs in the following locations: lower regions . Alfred notes diarrhea. The diarrhea she notes to be watery and occur very soon after eating. At first it was happening every day. Now she notes that happens every 2 to 3 days. Alfred denies constipation. Alfred notes a change in bowel habits. Alfred denies melena. Alfred denies bright red blood per rectum. Alfred denies hemorrhoids. The patient notes no history of upper GI complaints. Alfred has undergone prior endoscopy. This was approximately [id number]. The patient is being seen by me today at the request of Dr. Segundo Conn MD for my opinion and advice regarding diarrhea and lower abdominal cramping. PAST MEDICAL HISTORY PAST MEDICAL HISTORY Diagnosis Date Abdominal pain, right lower quadrant Benign skin lesion of forehead Diabetes mellitus (HCC) Diaphragmatic hernia without mention of obstruction or gangrene Hiatal hernia Diarrhea 03/21/2023 x 6 months Diverticulosis of colon (without mention of hemorrhage) Diverticulosis Generalized osteoarthrosis, unspecified site GERD (gastroesophageal reflux disease) Hyperkalemia Hyperlipidemia Hypertension Hypothyroidism Low back pain Mitral valve disorders(424.0) Neuralgia and neuritis, unspecified Other lichen planus Pneumonia, viral Radiculopathy, lumbar region Right sided sciatica Vitamin D deficiency PAST SURGICAL HISTORY PAST SURGICAL HISTORY Procedure Laterality Date COLONOSCOPY FLX DX W/COLLJ SPEC WHEN PFRMD 08/16/05 Colonoscopy COLONOSCOPY FLX DX W/COLLJ SPEC WHEN PFRMD failed colonooscopy advanced to 40cm - tortuous COLONOSCOPY FLX DX W/COLLJ SPEC WHEN PFRMD 11/21/09 normal to cecum-per repeat in -2019 LAPS COLECTOMY PRTL W/COLOPXTSTMY LW ANAST 05/24/2008 PAST SURGICAL HISTORY OF x 3 CURRENT MEDICATIONS Current Outpatient Medications Medication Sig naproxen sodium (ALEVE) 220 mg cap Take by mouth as needed (pain). simvastatin (ZOCOR) 80 mg tablet Take 80 mg by mouth daily at bedtime. levothyroxine 50 mcg cap Take 50 mcg by mouth daily before breakfast. famotidine (PEPCID) 40 mg tablet Take 40 mg by mouth once daily. metFORMIN (GLUCOPHAGE) 500 mg tablet Take 500 mg by mouth three times a day. losartan (COZAAR) 50 mg tablet Take 50 mg by mouth once daily. peg 3350-Electrolytes (GOLYTELY) 236-22.74-6.74 -5.86 gram suspension Take 4,000 mL by mouth one time only for 1 dose. Refer to printed prep instructions from your provider. peg 3350-Electrolytes (GOLYTELY) 236-22.74-6.74 -5.86 gram suspension Take as directed. aspirin, enteric coated (ADULT LOW DOSE ASPIRIN) 81 mg EC tablet Take 81 mg by mouth once daily. (Patient not taking: Reported on 08/12/2023) clobetasol (TEMOVATE) 0.05 % cream Apply 1 g to affected area two times a day. (Patient not taking: Reported on 08/12/2023) Polyethylene Glycol 3350 (MIRALAX) 17 gram/dose ORAL powder Use as directed. (Patient not taking: Reported on 08/12/2023) atorvastatin (LIPITOR) 40 mg ORAL tablet Take one(1) tablet daily. (Patient not taking: Reported on 08/12/2023) albuterol 90 mcg/Actuation INHALATION Aero Inhale one(1) - two(2) puffs four(4) times a day as needed for wheezing and shortness of breath. (Patient not taking: Reported on 08/12/2023) omega-3 fatty acids(FISH OIL 500 MG CAP) two capsules daily (Patient not taking: Reported on 08/12/2023) CALTRATE-600 PLUS VITAMIN D3 600 MG-400 UNIT TAB Take one(1) tablet daily. (Patient not taking: Reported on 08/12/2023) ONE DAILY MULTI-VITAMIN TAB Take one(1) tablet daily. (Patient not taking: Reported on 08/12/2023) No current facility-administered medications for this visit. ALLERGIES: Cipro [Ciprofloxacin], Flagyl [Metronidazole Hcl], Mevacor [Lovastatin], Naprosyn [Naproxen], Parafon Forte Dsc [Chlorzoxazone], and Tramadol PERSONAL HISTORY: SOCIAL HISTORY Social History Tobacco Use Smoking status: Former Packs/day: 0.50 Years: 40.00 Additional pack years: 0.00 Total pack years: 20.00 Types: Cigarettes Smokeless tobacco: Never Tobacco comments: Quit 15 years ago Substance Use Topics Alcohol use: Not Currently Comment: once or twice a year Drug use: No FAMILY HISTORY: FAMILY HISTORY FAMILY HISTORY Problem Relation Age of Onset Cancer Mother skin cancers Diabetes Father Pancreatic Cancer Maternal Grandmother REVIEW OF SYMPTOMS: The review of systems data was entered by the nurse and reviewed by me Nursing Notes: Nancy Bryant MA 08/12/2023 2:43 PM Signed REVIEW OF SYSTEMS: General: The patient denies fatigue, NOTES weight loss, denies weight gain, denies feeling hot, and denies feelings of cold. Eyes: The patient denies glaucoma, denies eye injury/surgery, wears glasses or contacts. Ear/Nose/Throat: The patient denies allergies, denies hayfever, denies ear infections, and denies bloody noses. Cardiovascular: The patient denies chest pain, denies heart disease, NOTES high blood pressure,denies cardiac stent, denies prior heart attack, denies irregular heart beat, denies high cholesterol, denies poor circulation, denies heart failure, other cardiac issues, denies claudication, denies cold feet, denies peripheral arterial stent. Respiratory: The patient denies tuberculosis, denies pneumonia, denies frequent cough, denies pulmonary embolism, denies shortness of breath, and denies coughing up blood. Gastrointestinal: The patient denies difficulty swallowing, NOTES acid reflux, denies ulcers, denies vomiting, denies jaundice/hepatitis, denies gallbladder problems, denies black or tarry stools, denies hemorrhoids, denies bleeding from rectum, denies diverticulitis, denies constipation, NOTES diarrhea, denies loss of stool control, and denies hernias. Kidney/Bladder: The patient denies kidney stones, denies urine infections, and denies bloody urine. Skin: The patient denies a history of skin cancer, denies bleeding/changing moles, and denies a history of skin rash. Neurologic: The patient denies a history of epilepsy/convulsions, denies headaches, denies head/spinal injuries, and denies stroke/TIA. Psychiatric: The patient denies psychiatric medications, denies depression, and denies voices, denies substance abuse. Endocrine: The patient NOTES thyroid disorders, NOTES diabetes, and denies hormonal problems. Hematologic: The patient denies a history of bruising, denies bleeding, and denies anemia, denies blood clots. Infections: The patient NOTES a history of measles and mumps, denies rheumatic fever, and denies sexually transmitted diseases. Musculoskeletal: The patient denies back pain/injury, denies back problems, denies sciatica, denies knee/foot trouble, denies arthritis, or denies gout. When was patient's last Mammogram screening? N/A Last Colonoscopy: 2009 Nancy Bryant MA PHYSICAL EXAMINATION: General: The patient is 77 year old female, well nourished, well hydrated in no acute distress. The patient is oriented to time, place, and person. VITALS: Blood pressure 132/64, pulse 88, height 156.2 cm (5' 1.5"), weight 65.8 kg (145 lb), SpO2 94%. Body mass index is 26.95 kg/m . HEENT: Normal cephalic, ataumatic, pupils are equally round, sclera are anicteric, mucous membranes are moist, oropharynx is clear. Neck has no masses, asymmetry or lymphadenopathy. Thyroid is unremarkable. Respiratory: Clear to auscultation and percussion. Normal respiratory excursion and pattern. Cardiac: Examination is regular rate and rhythm. Abdominal exam: Soft, nontender, with no palpable masses. No hepatosplenomegaly. No palpable hernias. Rectal exam: exam deferred Extremities: no clubbing, cyanosis or edema. No adenopathy. Other: LABORATORY VALUES: As Noted RADIOLOGIC STUDIES: As Noted Assessment IMPRESSION: Diarrhea, lower abdominal pain/cramping PLAN: I plan to perform upper and lower endoscopy. We discussed the risks and benefits of the planned endoscopy. I have informed the patient that complications can occur including failure to complete the endoscopy and perforation. The patient had the opportunity to ask questions concerning the planned endoscopy. My staff has also explained the procedure to the patient in understandable terms and has given the patient printed material concerning the procedure. The patient freely consents to surgery. I plan to use golytely bowel preparation for endoscopy I plan for monitored anesthetic care. Diagnoses: (R63.4) Abnormal weight loss (primary encounter diagnosis) (R10.31) Abdominal pain, right lower quadrant (R19.7) Diarrhea, unspecified type A letter was sent to Dr. Segundo Conn MD indicating the above finding for this patient. Return to Clinic: The patient is instructed to follow-up with me after the testing has been completed. Temi Arnold MD [facility] [place] 08-15-2023 History and physical note HISTORY AND PHYSICAL Alfred [place] 1945 REFERRING PHYSICIAN: Segundo Conn MD CHIEF COMPLAINT: Consult, Abdominal Pain, and Diarrhea HPI: The patient is a 77 year old female referred for endoscopy. Alfred notes the following GI complaints: Alfred notes abdominal pain. The pain occurs in the following locations: lower regions . Alfred notes diarrhea. The diarrhea she notes to be watery and occur very soon after eating. At first it was happening every day. Now she notes that happens every 2 to 3 days. Alfred denies constipation. Alfred notes a change in bowel habits. Alfred denies melena. Alfred denies bright red blood per rectum. Alfred denies hemorrhoids. The patient notes no history of upper GI complaints. Alfred has undergone prior endoscopy. This was approximately 1160-8518. The patient is being seen by me today at the request of Dr. Segundo Conn MD for my opinion and advice regarding diarrhea and lower abdominal cramping. PAST MEDICAL HISTORY PAST MEDICAL HISTORY Diagnosis Date Abdominal pain, right lower quadrant Benign skin lesion of forehead Diabetes mellitus (HCC) Diaphragmatic hernia without mention of obstruction or gangrene Hiatal hernia Diarrhea 03/21/2023 x 6 months Diverticulosis of colon (without mention of hemorrhage) Diverticulosis Generalized osteoarthrosis, unspecified site GERD (gastroesophageal reflux disease) Hyperkalemia Hyperlipidemia Hypertension Hypothyroidism Low back pain Mitral valve disorders(424.0) Neuralgia and neuritis, unspecified Other lichen planus Pneumonia, viral Radiculopathy, lumbar region Right sided sciatica Vitamin D deficiency PAST SURGICAL HISTORY PAST SURGICAL HISTORY Procedure Laterality Date COLONOSCOPY FLX DX W/COLLJ SPEC WHEN PFRMD 08/16/05 Colonoscopy COLONOSCOPY FLX DX W/COLLJ SPEC WHEN PFRMD failed colonooscopy advanced to 40cm - tortuous COLONOSCOPY FLX DX W/COLLJ SPEC WHEN PFRMD 11/21/09 normal to cecum-per HM repeat in LAPS COLECTOMY PRTL W/COLOPXTSTMY LW ANAST 05/24/2008 PAST SURGICAL HISTORY OF x 3 CURRENT MEDICATIONS Current Outpatient Medications Medication Sig naproxen sodium (ALEVE) 220 mg cap Take by mouth as needed (pain). simvastatin (ZOCOR) 80 mg tablet Take 80 mg by mouth daily at bedtime. levothyroxine 50 mcg cap Take 50 mcg by mouth daily before breakfast. famotidine (PEPCID) 40 mg tablet Take 40 mg by mouth once daily. metFORMIN (GLUCOPHAGE) 500 mg tablet Take 500 mg by mouth three times a day. losartan (COZAAR) 50 mg tablet Take 50 mg by mouth once daily. peg 3350-Electrolytes (GOLYTELY) 236-22.74-6.74 -5.86 gram suspension Take 4,000 mL by mouth one time only for 1 dose. Refer to printed prep instructions from your provider. peg 3350-Electrolytes (GOLYTELY) 236-22.74-6.74 -5.86 gram suspension Take as directed. aspirin, enteric coated (ADULT LOW DOSE ASPIRIN) 81 mg EC tablet Take 81 mg by mouth once daily. (Patient not taking: Reported on 08/12/2023) clobetasol (TEMOVATE) 0.05 % cream Apply 1 g to affected area two times a day. (Patient not taking: Reported on 08/12/2023) Polyethylene Glycol 3350 (MIRALAX) 17 gram/dose ORAL powder Use as directed. (Patient not taking: Reported on 08/12/2023) atorvastatin (LIPITOR) 40 mg ORAL tablet Take one(1) tablet daily. (Patient not taking: Reported on 08/12/2023) albuterol 90 mcg/Actuation INHALATION Aero Inhale one(1) - two(2) puffs four(4) times a day as needed for wheezing and shortness of breath. (Patient not taking: Reported on 08/12/2023) omega-3 fatty acids(FISH OIL 500 MG CAP) two capsules daily (Patient not taking: Reported on 08/12/2023) CALTRATE-600 PLUS VITAMIN D3 600 MG-400 UNIT TAB Take one(1) tablet daily. (Patient not taking: Reported on 08/12/2023) ONE DAILY MULTI-VITAMIN TAB Take one(1) tablet daily. (Patient not taking: Reported on 08/12/2023) No current facility-administered medications for this visit. ALLERGIES: Cipro [Ciprofloxacin], Flagyl [Metronidazole Hcl], Mevacor [Lovastatin], Naprosyn [Naproxen], Parafon Forte Dsc [Chlorzoxazone], and Tramadol PERSONAL HISTORY: SOCIAL HISTORY Social History Tobacco Use Smoking status: Former Packs/day: 0.50 Years: 40.00 Additional pack years: 0.00 Total pack years: 20.00 Types: Cigarettes Smokeless tobacco: Never Tobacco comments: Quit 15 years ago Substance Use Topics Alcohol use: Not Currently Comment: once or twice a year Drug use: No FAMILY HISTORY: FAMILY HISTORY FAMILY HISTORY Problem Relation Age of Onset Cancer Mother skin cancers Diabetes Father Pancreatic Cancer Maternal Grandmother REVIEW OF SYMPTOMS: The review of systems data was entered by the nurse and reviewed by me Nursing Notes: Nancy Bryant MA 08/12/2023 2:43 PM Signed REVIEW OF SYSTEMS: General: The patient denies fatigue, NOTES weight loss, denies weight gain, denies feeling hot, and denies feelings of cold. Eyes: The patient denies glaucoma, denies eye injury/surgery, wears glasses or contacts. Ear/Nose/Throat: The patient denies allergies, denies hayfever, denies ear infections, and denies bloody noses. Cardiovascular: The patient denies chest pain, denies heart disease, NOTES high blood pressure,denies cardiac stent, denies prior heart attack, denies irregular heart beat, denies high cholesterol, denies poor circulation, denies heart failure, other cardiac issues, denies claudication, denies cold feet, denies peripheral arterial stent. Respiratory: The patient denies tuberculosis, denies pneumonia, denies frequent cough, denies pulmonary embolism, denies shortness of breath, and denies coughing up blood. Gastrointestinal: The patient denies difficulty swallowing, NOTES acid reflux, denies ulcers, denies vomiting, denies jaundice/hepatitis, denies gallbladder problems, denies black or tarry stools, denies hemorrhoids, denies bleeding from rectum, denies diverticulitis, denies constipation, NOTES diarrhea, denies loss of stool control, and denies hernias. Kidney/Bladder: The patient denies kidney stones, denies urine infections, and denies bloody urine. Skin: The patient denies a history of skin cancer, denies bleeding/changing moles, and denies a history of skin rash. Neurologic: The patient denies a history of epilepsy/convulsions, denies headaches, denies head/spinal injuries, and denies stroke/TIA. Psychiatric: The patient denies psychiatric medications, denies depression, and denies voices, denies substance abuse. Endocrine: The patient NOTES thyroid disorders, NOTES diabetes, and denies hormonal problems. Hematologic: The patient denies a history of bruising, denies bleeding, and denies anemia, denies blood clots. Infections: The patient NOTES a history of measles and mumps, denies rheumatic fever, and denies sexually transmitted diseases. Musculoskeletal: The patient denies back pain/injury, denies back problems, denies sciatica, denies knee/foot trouble, denies arthritis, or denies gout. When was patient's last Mammogram screening? N/A Last Colonoscopy: 2009 Nancy Bryant MA PHYSICAL EXAMINATION: General: The patient is 77 year old female, well nourished, well hydrated in no acute distress. The patient is oriented to time, place, and person. VITALS: Blood pressure 132/64, pulse 88, height 156.2 cm (5' 1.5"), weight 65.8 kg (145 lb), SpO2 94%. Body mass index is 26.95 kg/m . HEENT: Normal cephalic, ataumatic, pupils are equally round, sclera are anicteric, mucous membranes are moist, oropharynx is clear. Neck has no masses, asymmetry or lymphadenopathy. Thyroid is unremarkable. Respiratory: Clear to auscultation and percussion. Normal respiratory excursion and pattern. Cardiac: Examination is regular rate and rhythm. Abdominal exam: Soft, nontender, with no palpable masses. No hepatosplenomegaly. No palpable hernias. Rectal exam: exam deferred Extremities: no clubbing, cyanosis or edema. No adenopathy. Other: LABORATORY VALUES: As Noted RADIOLOGIC STUDIES: As Noted Assessment IMPRESSION: Diarrhea, lower abdominal pain/cramping PLAN: I plan to perform upper and lower endoscopy. We discussed the risks and benefits of the planned endoscopy. I have informed the patient that complications can occur including failure to complete the endoscopy and perforation. The patient had the opportunity to ask questions concerning the planned endoscopy. My staff has also explained the procedure to the patient in understandable terms and has given the patient printed material concerning the procedure. The patient freely consents to surgery. I plan to use golytely bowel preparation for endoscopy I plan for monitored anesthetic care. Diagnoses: (R63.4) Abnormal weight loss (primary encounter diagnosis) (R10.31) Abdominal pain, right lower quadrant (R19.7) Diarrhea, unspecified type A letter was sent to Dr. Segundo Conn MD indicating the above finding for this patient. Return to Clinic: The patient is instructed to follow-up with me after the testing has been completed. Temi Arnold MD [facility] [place] 08-15-2023 History and physical note UPDATED PROCEDURAL SEDATION HISTORY AND PHYSICAL EXAMINATION SERVICE DATE: 08/15/2023 SERVICE TIME: 2:58 PM PHYSICAL EXAM MUST BE COMPLETED ON ADMISSION PROCEDURE: Procedure Indications: The History and Physical (completed in the past 30 days) has been reviewed and the patient has been examined. The contents accurately reflect the patient's condition with the following additions or revisions since the H&P was completed. ASA Class: ASA Class:: Patient with severe systemic disease Examination indicates no changes. AIRWAY: Airway Visualization of Uvula: Yes Mouth opening greater than 2 fingerbreadths: Yes Neck Full Range of Motion: Yes LUNGS: Lungs clear to auscultation CARDIAC: Regular rhythm,Regular rate Provisional Diagnosis/Treatment Plan: abdominal pain, diarrhea SEDATION GOAL: Moderate This H&P can be found in the attached. SIGNATURE: Temi Arnold MD PATIENT NAME: Alfred [place] DATE: August 15, 2023 TIME: 2:58 PM Source Note - Temi Arnold MD - 08/15/2023 2:45 PM EDT HISTORY AND PHYSICAL Alfred [place] 1945 REFERRING PHYSICIAN: Segundo Conn MD CHIEF COMPLAINT: Consult, Abdominal Pain, and Diarrhea HPI: The patient is a 77 year old female referred for endoscopy. Alfred notes the following GI complaints: Alfred notes abdominal pain. The pain occurs in the following locations: lower regions . Alfred notes diarrhea. The diarrhea she notes to be watery and occur very soon after eating. At first it was happening every day. Now she notes that happens every 2 to 3 days. Alfred denies constipation. Alfred notes a change in bowel habits. Alfred denies melena. Alfred denies bright red blood per rectum. Alfred denies hemorrhoids. The patient notes no history of upper GI complaints. Alfred has undergone prior endoscopy. This was approximately 4313-7363. The patient is being seen by me today at the request of Dr. Segundo Conn MD for my opinion and advice regarding diarrhea and lower abdominal cramping. PAST MEDICAL HISTORY PAST MEDICAL HISTORY Diagnosis Date Abdominal pain, right lower quadrant Benign skin lesion of forehead Diabetes mellitus (HCC) Diaphragmatic hernia without mention of obstruction or gangrene Hiatal hernia Diarrhea 03/21/2023 x 6 months Diverticulosis of colon (without mention of hemorrhage) Diverticulosis Generalized osteoarthrosis, unspecified site GERD (gastroesophageal reflux disease) Hyperkalemia Hyperlipidemia Hypertension Hypothyroidism Low back pain Mitral valve disorders(424.0) Neuralgia and neuritis, unspecified Other lichen planus Pneumonia, viral Radiculopathy, lumbar region Right sided sciatica Vitamin D deficiency PAST SURGICAL HISTORY PAST SURGICAL HISTORY Procedure Laterality Date COLONOSCOPY FLX DX W/COLLJ SPEC WHEN PFRMD 08/16/05 Colonoscopy COLONOSCOPY FLX DX W/COLLJ SPEC WHEN PFRMD failed colonooscopy advanced to 40cm - tortuous COLONOSCOPY FLX DX W/COLLJ SPEC WHEN PFRMD 11/21/09 normal to cecum-per repeat in -2019 LAPS COLECTOMY PRTL W/COLOPXTSTMY LW ANAST 05/24/2008 PAST SURGICAL HISTORY OF x 3 CURRENT MEDICATIONS Current Outpatient Medications Medication Sig naproxen sodium (ALEVE) 220 mg cap Take by mouth as needed (pain). simvastatin (ZOCOR) 80 mg tablet Take 80 mg by mouth daily at bedtime. levothyroxine 50 mcg cap Take 50 mcg by mouth daily before breakfast. famotidine (PEPCID) 40 mg tablet Take 40 mg by mouth once daily. metFORMIN (GLUCOPHAGE) 500 mg tablet Take 500 mg by mouth three times a day. losartan (COZAAR) 50 mg tablet Take 50 mg by mouth once daily. peg 3350-Electrolytes (GOLYTELY) 236-22.74-6.74 -5.86 gram suspension Take 4,000 mL by mouth one time only for 1 dose. Refer to printed prep instructions from your provider. peg 3350-Electrolytes (GOLYTELY) 236-22.74-6.74 -5.86 gram suspension Take as directed. aspirin, enteric coated (ADULT LOW DOSE ASPIRIN) 81 mg EC tablet Take 81 mg by mouth once daily. (Patient not taking: Reported on 08/12/2023) clobetasol (TEMOVATE) 0.05 % cream Apply 1 g to affected area two times a day. (Patient not taking: Reported on 08/12/2023) Polyethylene Glycol 3350 (MIRALAX) 17 gram/dose ORAL powder Use as directed. (Patient not taking: Reported on 08/12/2023) atorvastatin (LIPITOR) 40 mg ORAL tablet Take one(1) tablet daily. (Patient not taking: Reported on 08/12/2023) albuterol 90 mcg/Actuation INHALATION Aero Inhale one(1) - two(2) puffs four(4) times a day as needed for wheezing and shortness of breath. (Patient not taking: Reported on 08/12/2023) omega-3 fatty acids(FISH OIL 500 MG CAP) two capsules daily (Patient not taking: Reported on 08/12/2023) CALTRATE-600 PLUS VITAMIN D3 600 MG-400 UNIT TAB Take one(1) tablet daily. (Patient not taking: Reported on 08/12/2023) ONE DAILY MULTI-VITAMIN TAB Take one(1) tablet daily. (Patient not taking: Reported on 08/12/2023) No current facility-administered medications for this visit. ALLERGIES: Cipro [Ciprofloxacin], Flagyl [Metronidazole Hcl], Mevacor [Lovastatin], Naprosyn [Naproxen], Parafon Forte Dsc [Chlorzoxazone], and Tramadol PERSONAL HISTORY: SOCIAL HISTORY Social History Tobacco Use Smoking status: Former Packs/day: 0.50 Years: 40.00 Additional pack years: 0.00 Total pack years: 20.00 Types: Cigarettes Smokeless tobacco: Never Tobacco comments: Quit 15 years ago Substance Use Topics Alcohol use: Not Currently Comment: once or twice a year Drug use: No FAMILY HISTORY: FAMILY HISTORY FAMILY HISTORY Problem Relation Age of Onset Cancer Mother skin cancers Diabetes Father Pancreatic Cancer Maternal Grandmother REVIEW OF SYMPTOMS: The review of systems data was entered by the nurse and reviewed by me Nursing Notes: Nancy Bryant MA 08/12/2023 2:43 PM Signed REVIEW OF SYSTEMS: General: The patient denies fatigue, NOTES weight loss, denies weight gain, denies feeling hot, and denies feelings of cold. Eyes: The patient denies glaucoma, denies eye injury/surgery, wears glasses or contacts. Ear/Nose/Throat: The patient denies allergies, denies hayfever, denies ear infections, and denies bloody noses. Cardiovascular: The patient denies chest pain, denies heart disease, NOTES high blood pressure,denies cardiac stent, denies prior heart attack, denies irregular heart beat, denies high cholesterol, denies poor circulation, denies heart failure, other cardiac issues, denies claudication, denies cold feet, denies peripheral arterial stent. Respiratory: The patient denies tuberculosis, denies pneumonia, denies frequent cough, denies pulmonary embolism, denies shortness of breath, and denies coughing up blood. Gastrointestinal: The patient denies difficulty swallowing, NOTES acid reflux, denies ulcers, denies vomiting, denies jaundice/hepatitis, denies gallbladder problems, denies black or tarry stools, denies hemorrhoids, denies bleeding from rectum, denies diverticulitis, denies constipation, NOTES diarrhea, denies loss of stool control, and denies hernias. Kidney/Bladder: The patient denies kidney stones, denies urine infections, and denies bloody urine. Skin: The patient denies a history of skin cancer, denies bleeding/changing moles, and denies a history of skin rash. Neurologic: The patient denies a history of epilepsy/convulsions, denies headaches, denies head/spinal injuries, and denies stroke/TIA. Psychiatric: The patient denies psychiatric medications, denies depression, and denies voices, denies substance abuse. Endocrine: The patient NOTES thyroid disorders, NOTES diabetes, and denies hormonal problems. Hematologic: The patient denies a history of bruising, denies bleeding, and denies anemia, denies blood clots. Infections: The patient NOTES a history of measles and mumps, denies rheumatic fever, and denies sexually transmitted diseases. Musculoskeletal: The patient denies back pain/injury, denies back problems, denies sciatica, denies knee/foot trouble, denies arthritis, or denies gout. When was patient's last Mammogram screening? N/A Last Colonoscopy: 2009 Nancy Bryant MA PHYSICAL EXAMINATION: General: The patient is 77 year old female, well nourished, well hydrated in no acute distress. The patient is oriented to time, place, and person. VITALS: Blood pressure 132/64, pulse 88, height 156.2 cm (5' 1.5"), weight 65.8 kg (145 lb), SpO2 94%. Body mass index is 26.95 kg/m . HEENT: Normal cephalic, ataumatic, pupils are equally round, sclera are anicteric, mucous membranes are moist, oropharynx is clear. Neck has no masses, asymmetry or lymphadenopathy. Thyroid is unremarkable. Respiratory: Clear to auscultation and percussion. Normal respiratory excursion and pattern. Cardiac: Examination is regular rate and rhythm. Abdominal exam: Soft, nontender, with no palpable masses. No hepatosplenomegaly. No palpable hernias. Rectal exam: exam deferred Extremities: no clubbing, cyanosis or edema. No adenopathy. Other: LABORATORY VALUES: As Noted RADIOLOGIC STUDIES: As Noted Assessment IMPRESSION: Diarrhea, lower abdominal pain/cramping PLAN: I plan to perform upper and lower endoscopy. We discussed the risks and benefits of the planned endoscopy. I have informed the patient that complications can occur including failure to complete the endoscopy and perforation. The patient had the opportunity to ask questions concerning the planned endoscopy. My staff has also explained the procedure to the patient in understandable terms and has given the patient printed material concerning the procedure. The patient freely consents to surgery. I plan to use golytely bowel preparation for endoscopy I plan for monitored anesthetic care. Diagnoses: (R63.4) Abnormal weight loss (primary encounter diagnosis) (R10.31) Abdominal pain, right lower quadrant (R19.7) Diarrhea, unspecified type A letter was sent to Dr. Segundo Conn MD indicating the above finding for this patient. Return to Clinic: The patient is instructed to follow-up with me after the testing has been completed. Temi Arnold MD HISTORY AND PHYSICAL Alfred [place] 1945 REFERRING PHYSICIAN: Segundo Conn MD CHIEF COMPLAINT: Consult, Abdominal Pain, and Diarrhea HPI: The patient is a 77 year old female referred for endoscopy. Alfred notes the following GI complaints: Alfred notes abdominal pain. The pain occurs in the following locations: lower regions . Alfred notes diarrhea. The diarrhea she notes to be watery and occur very soon after eating. At first it was happening every day. Now she notes that happens every 2 to 3 days. Alfred denies constipation. Alfred notes a change in bowel habits. Alfred denies melena. Alfred denies bright red blood per rectum. Alfred denies hemorrhoids. The patient notes no history of upper GI complaints. Alfred has undergone prior endoscopy. This was approximately [id number]. The patient is being seen by me today at the request of Dr. Segundo Conn MD for my opinion and advice regarding diarrhea and lower abdominal cramping. PAST MEDICAL HISTORY PAST MEDICAL HISTORY Diagnosis Date Abdominal pain, right lower quadrant Benign skin lesion of forehead Diabetes mellitus (HCC) Diaphragmatic hernia without mention of obstruction or gangrene Hiatal hernia Diarrhea 03/21/2023 x 6 months Diverticulosis of colon (without mention of hemorrhage) Diverticulosis Generalized osteoarthrosis, unspecified site GERD (gastroesophageal reflux disease) Hyperkalemia Hyperlipidemia Hypertension Hypothyroidism Low back pain Mitral valve disorders(424.0) Neuralgia and neuritis, unspecified Other lichen planus Pneumonia, viral Radiculopathy, lumbar region Right sided sciatica Vitamin D deficiency PAST SURGICAL HISTORY PAST SURGICAL HISTORY Procedure Laterality Date COLONOSCOPY FLX DX W/COLLJ SPEC WHEN PFRMD 08/16/05 Colonoscopy COLONOSCOPY FLX DX W/COLLJ SPEC WHEN PFRMD failed colonooscopy advanced to 40cm - tortuous COLONOSCOPY FLX DX W/COLLJ SPEC WHEN PFRMD 11/21/09 normal to cecum-per HM repeat in -2019 LAPS COLECTOMY PRTL W/COLOPXTSTMY LW ANAST 05/24/2008 PAST SURGICAL HISTORY OF x 3 CURRENT MEDICATIONS Current Outpatient Medications Medication Sig naproxen sodium (ALEVE) 220 mg cap Take by mouth as needed (pain). simvastatin (ZOCOR) 80 mg tablet Take 80 mg by mouth daily at bedtime. levothyroxine 50 mcg cap Take 50 mcg by mouth daily before breakfast. famotidine (PEPCID) 40 mg tablet Take 40 mg by mouth once daily. metFORMIN (GLUCOPHAGE) 500 mg tablet Take 500 mg by mouth three times a day. losartan (COZAAR) 50 mg tablet Take 50 mg by mouth once daily. peg 3350-Electrolytes (GOLYTELY) 236-22.74-6.74 -5.86 gram suspension Take 4,000 mL by mouth one time only for 1 dose. Refer to printed prep instructions from your provider. peg 3350-Electrolytes (GOLYTELY) 236-22.74-6.74 -5.86 gram suspension Take as directed. aspirin, enteric coated (ADULT LOW DOSE ASPIRIN) 81 mg EC tablet Take 81 mg by mouth once daily. (Patient not taking: Reported on 08/12/2023) clobetasol (TEMOVATE) 0.05 % cream Apply 1 g to affected area two times a day. (Patient not taking: Reported on 08/12/2023) Polyethylene Glycol 3350 (MIRALAX) 17 gram/dose ORAL powder Use as directed. (Patient not taking: Reported on 08/12/2023) atorvastatin (LIPITOR) 40 mg ORAL tablet Take one(1) tablet daily. (Patient not taking: Reported on 08/12/2023) albuterol 90 mcg/Actuation INHALATION Aero Inhale one(1) - two(2) puffs four(4) times a day as needed for wheezing and shortness of breath. (Patient not taking: Reported on 08/12/2023) omega-3 fatty acids(FISH OIL 500 MG CAP) two capsules daily (Patient not taking: Reported on 08/12/2023) CALTRATE-600 PLUS VITAMIN D3 600 MG-400 UNIT TAB Take one(1) tablet daily. (Patient not taking: Reported on 08/12/2023) ONE DAILY MULTI-VITAMIN TAB Take one(1) tablet daily. (Patient not taking: Reported on 08/12/2023) No current facility-administered medications for this visit. ALLERGIES: Cipro [Ciprofloxacin], Flagyl [Metronidazole Hcl], Mevacor [Lovastatin], Naprosyn [Naproxen], Parafon Forte Dsc [Chlorzoxazone], and Tramadol PERSONAL HISTORY: SOCIAL HISTORY Social History Tobacco Use Smoking status: Former Packs/day: 0.50 Years: 40.00 Additional pack years: 0.00 Total pack years: 20.00 Types: Cigarettes Smokeless tobacco: Never Tobacco comments: Quit 15 years ago Substance Use Topics Alcohol use: Not Currently Comment: once or twice a year Drug use: No FAMILY HISTORY: FAMILY HISTORY FAMILY HISTORY Problem Relation Age of Onset Cancer Mother skin cancers Diabetes Father Pancreatic Cancer Maternal Grandmother REVIEW OF SYMPTOMS: The review of systems data was entered by the nurse and reviewed by me Nursing Notes: Nancy Bryant MA 08/12/2023 2:43 PM Signed REVIEW OF SYSTEMS: General: The patient denies fatigue, NOTES weight loss, denies weight gain, denies feeling hot, and denies feelings of cold. Eyes: The patient denies glaucoma, denies eye injury/surgery, wears glasses or contacts. Ear/Nose/Throat: The patient denies allergies, denies hayfever, denies ear infections, and denies bloody noses. Cardiovascular: The patient denies chest pain, denies heart disease, NOTES high blood pressure,denies cardiac stent, denies prior heart attack, denies irregular heart beat, denies high cholesterol, denies poor circulation, denies heart failure, other cardiac issues, denies claudication, denies cold feet, denies peripheral arterial stent. Respiratory: The patient denies tuberculosis, denies pneumonia, denies frequent cough, denies pulmonary embolism, denies shortness of breath, and denies coughing up blood. Gastrointestinal: The patient denies difficulty swallowing, NOTES acid reflux, denies ulcers, denies vomiting, denies jaundice/hepatitis, denies gallbladder problems, denies black or tarry stools, denies hemorrhoids, denies bleeding from rectum, denies diverticulitis, denies constipation, NOTES diarrhea, denies loss of stool control, and denies hernias. Kidney/Bladder: The patient denies kidney stones, denies urine infections, and denies bloody urine. Skin: The patient denies a history of skin cancer, denies bleeding/changing moles, and denies a history of skin rash. Neurologic: The patient denies a history of epilepsy/convulsions, denies headaches, denies head/spinal injuries, and denies stroke/TIA. Psychiatric: The patient denies psychiatric medications, denies depression, and denies voices, denies substance abuse. Endocrine: The patient NOTES thyroid disorders, NOTES diabetes, and denies hormonal problems. Hematologic: The patient denies a history of bruising, denies bleeding, and denies anemia, denies blood clots. Infections: The patient NOTES a history of measles and mumps, denies rheumatic fever, and denies sexually transmitted diseases. Musculoskeletal: The patient denies back pain/injury, denies back problems, denies sciatica, denies knee/foot trouble, denies arthritis, or denies gout. When was patient's last Mammogram screening? N/A Last Colonoscopy: 2009 Nancy Bryant MA PHYSICAL EXAMINATION: General: The patient is 77 year old female, well nourished, well hydrated in no acute distress. The patient is oriented to time, place, and person. VITALS: Blood pressure 132/64, pulse 88, height 156.2 cm (5' 1.5"), weight 65.8 kg (145 lb), SpO2 94%. Body mass index is 26.95 kg/m . HEENT: Normal cephalic, ataumatic, pupils are equally round, sclera are anicteric, mucous membranes are moist, oropharynx is clear. Neck has no masses, asymmetry or lymphadenopathy. Thyroid is unremarkable. Respiratory: Clear to auscultation and percussion. Normal respiratory excursion and pattern. Cardiac: Examination is regular rate and rhythm. Abdominal exam: Soft, nontender, with no palpable masses. No hepatosplenomegaly. No palpable hernias. Rectal exam: exam deferred Extremities: no clubbing, cyanosis or edema. No adenopathy. Other: LABORATORY VALUES: As Noted RADIOLOGIC STUDIES: As Noted Assessment IMPRESSION: Diarrhea, lower abdominal pain/cramping PLAN: I plan to perform upper and lower endoscopy. We discussed the risks and benefits of the planned endoscopy. I have informed the patient that complications can occur including failure to complete the endoscopy and perforation. The patient had the opportunity to ask questions concerning the planned endoscopy. My staff has also explained the procedure to the patient in understandable terms and has given the patient printed material concerning the procedure. The patient freely consents to surgery. I plan to use golytely bowel preparation for endoscopy I plan for monitored anesthetic care. Diagnoses: (R63.4) Abnormal weight loss (primary encounter diagnosis) (R10.31) Abdominal pain, right lower quadrant (R19.7) Diarrhea, unspecified type A letter was sent to Dr. Segundo Conn MD indicating the above finding for this patient. Return to Clinic: The patient is instructed to follow-up with me after the testing has been completed. Temi Arnold MD documented in this encounter [facility] 08-12-2023 Note HNO ID: [id number] Author: TEMI ARNOLD MD Service: ? Author Type: Physician Type: Progress Notes Filed: 08/13/2023 07:04 Note Text: HISTORY AND PHYSICAL Alfred shannon 1945 REFERRING PHYSICIAN: Segundo Conn MD CHIEF COMPLAINT: Consult, Abdominal Pain, and Diarrhea HPI: The patient is a 77 year old female referred for endoscopy. Alfred notes the following GI complaints: Alfred notes abdominal pain. The pain occurs in the following locations: lower regions . Alfred notes diarrhea. The diarrhea she notes to be watery and occur very soon after eating. At first it was happening every day. Now she notes that happens every 2 to 3 days. Alfred denies constipation. Alfred notes a change in bowel habits. Alfred denies melena. Alfred denies bright red blood per rectum. Alfred denies hemorrhoids. The patient notes no history of upper GI complaints. Alfred has undergone prior endoscopy. This was approximately 0245-4453. The patient is being seen by me today at the request of Dr. Segundo Conn MD for my opinion and advice regarding diarrhea and lower abdominal cramping. PAST MEDICAL HISTORY Diagnosis Date Abdominal pain, right lower quadrant Benign skin lesion of forehead Diabetes mellitus (HCC) Diaphragmatic hernia without mention of obstruction or gangrene Hiatal hernia Diarrhea 03/21/2023 x 6 months Diverticulosis of colon (without mention of hemorrhage) Diverticulosis Generalized osteoarthrosis, unspecified site GERD (gastroesophageal reflux disease) Hyperkalemia Hyperlipidemia Hypertension Hypothyroidism Low back pain Mitral valve disorders(424.0) Neuralgia and neuritis, unspecified Other lichen planus Pneumonia, viral Radiculopathy, lumbar region Right sided sciatica Vitamin D deficiency PAST SURGICAL HISTORY Procedure Laterality Date COLONOSCOPY FLX DX W/COLLJ SPEC WHEN PFRMD 08/16/05 Colonoscopy COLONOSCOPY FLX DX W/COLLJ SPEC WHEN PFRMD failed colonooscopy advanced to 40cm - tortuous COLONOSCOPY FLX DX W/COLLJ SPEC WHEN PFRMD 11/21/09 normal to cecum-per HM repeat in LAPS COLECTOMY PRTL W/COLOPXTSTMY LW ANAST 05/24/2008 PAST SURGICAL HISTORY OF x 3 Current Outpatient Medications Medication Sig naproxen sodium (ALEVE) 220 mg cap Take by mouth as needed (pain). simvastatin (ZOCOR) 80 mg tablet Take 80 mg by mouth daily at bedtime. levothyroxine 50 mcg cap Take 50 mcg by mouth daily before breakfast. famotidine (PEPCID) 40 mg tablet Take 40 mg by mouth once daily. metFORMIN (GLUCOPHAGE) 500 mg tablet Take 500 mg by mouth three times a day. losartan (COZAAR) 50 mg tablet Take 50 mg by mouth once daily. peg 3350-Electrolytes (GOLYTELY) 236-22.74-6.74 -5.86 gram suspension Take 4,000 mL by mouth one time only for 1 dose. Refer to printed prep instructions from your provider. peg 3350-Electrolytes (GOLYTELY) 236-22.74-6.74 -5.86 gram suspension Take as directed. aspirin, enteric coated (ADULT LOW DOSE ASPIRIN) 81 mg EC tablet Take 81 mg by mouth once daily. (Patient not taking: Reported on 08/12/2023) clobetasol (TEMOVATE) 0.05 % cream Apply 1 g to affected area two times a day. (Patient not taking: Reported on 08/12/2023) Polyethylene Glycol 3350 (MIRALAX) 17 gram/dose ORAL powder Use as directed. (Patient not taking: Reported on 08/12/2023) atorvastatin (LIPITOR) 40 mg ORAL tablet Take one(1) tablet daily. (Patient not taking: Reported on 08/12/2023) albuterol 90 mcg/Actuation INHALATION Aero Inhale one(1) - two(2) puffs four(4) times a day as needed for wheezing and shortness of breath. (Patient not taking: Reported on 08/12/2023) omega-3 fatty acids(FISH OIL 500 MG CAP) two capsules daily (Patient not taking: Reported on 08/12/2023) CALTRATE-600 PLUS VITAMIN D3 600 MG-400 UNIT TAB Take one(1) tablet daily. (Patient not taking: Reported on 08/12/2023) ONE DAILY MULTI-VITAMIN TAB Take one(1) tablet daily. (Patient not taking: Reported on 08/12/2023) No current facility-administered medications for this visit. ALLERGIES: Cipro [Ciprofloxacin], Flagyl [Metronidazole Hcl], Mevacor [Lovastatin], Naprosyn [Naproxen], Parafon Forte Dsc [Chlorzoxazone], and Tramadol PERSONAL HISTORY: Social History Tobacco Use Smoking status: Former Packs/day: 0.50 Years: 40.00 Additional pack years: 0.00 Total pack years: 20.00 Types: Cigarettes Smokeless tobacco: Never Tobacco comments: Quit 15 years ago Substance Use Topics Alcohol use: Not Currently Comment: once or twice a year Drug use: No FAMILY HISTORY: FAMILY HISTORY Problem Relation Age of Onset Cancer Mother skin cancers Diabetes Father Pancreatic Cancer Maternal Grandmother REVIEW OF SYMPTOMS: The review of systems data was entered by the nurse and reviewed by la Nursing Notes: Nancy Bryant MA 08/12/2023 2:43 PM Signed REVIEW OF SYSTEMS: General: The patient denies fatigue, NOTES weight loss, ade (more content not included)... [facility] 08-12-2023 History of Present illness Narrative HISTORY AND PHYSICAL Alfred [place] 1945 REFERRING PHYSICIAN: Segundo Conn MD CHIEF COMPLAINT: Consult, Abdominal Pain, and Diarrhea HPI: The patient is a 77 year old female referred for endoscopy. Alfred notes the following GI complaints: Alfred notes abdominal pain. The pain occurs in the following locations: lower regions . Alfred notes diarrhea. The diarrhea she notes to be watery and occur very soon after eating. At first it was happening every day. Now she notes that happens every 2 to 3 days. Alfred denies constipation. Alfred notes a change in bowel habits. Alfred denies melena. Alfred denies bright red blood per rectum. Alfred denies hemorrhoids. The patient notes no history of upper GI complaints. Alfred has undergone prior endoscopy. This was approximately [id number]. The patient is being seen by me today at the request of Dr. Segundo Conn MD for my opinion and advice regarding diarrhea and lower abdominal cramping. PAST MEDICAL HISTORY Diagnosis Date Abdominal pain, right lower quadrant Benign skin lesion of forehead Diabetes mellitus (HCC) Diaphragmatic hernia without mention of obstruction or gangrene Hiatal hernia Diarrhea 03/21/2023 x 6 months Diverticulosis of colon (without mention of hemorrhage) Diverticulosis Generalized osteoarthrosis, unspecified site GERD (gastroesophageal reflux disease) Hyperkalemia Hyperlipidemia Hypertension Hypothyroidism Low back pain Mitral valve disorders(424.0) Neuralgia and neuritis, unspecified Other lichen planus Pneumonia, viral Radiculopathy, lumbar region Right sided sciatica Vitamin D deficiency PAST SURGICAL HISTORY Procedure Laterality Date COLONOSCOPY FLX DX W/COLLJ SPEC WHEN PFRMD 08/16/05 Colonoscopy COLONOSCOPY FLX DX W/COLLJ SPEC WHEN PFRMD failed colonooscopy advanced to 40cm - tortuous COLONOSCOPY FLX DX W/COLLJ SPEC WHEN PFRMD 11/21/09 normal to cecum-per HM repeat in -2019 LAPS COLECTOMY PRTL W/COLOPXTSTMY LW ANAST 05/24/2008 PAST SURGICAL HISTORY OF x 3 Current Outpatient Medications Medication Sig naproxen sodium (ALEVE) 220 mg cap Take by mouth as needed (pain). simvastatin (ZOCOR) 80 mg tablet Take 80 mg by mouth daily at bedtime. levothyroxine 50 mcg cap Take 50 mcg by mouth daily before breakfast. famotidine (PEPCID) 40 mg tablet Take 40 mg by mouth once daily. metFORMIN (GLUCOPHAGE) 500 mg tablet Take 500 mg by mouth three times a day. losartan (COZAAR) 50 mg tablet Take 50 mg by mouth once daily. peg 3350-Electrolytes (GOLYTELY) 236-22.74-6.74 -5.86 gram suspension Take 4,000 mL by mouth one time only for 1 dose. Refer to printed prep instructions from your provider. peg 3350-Electrolytes (GOLYTELY) 236-22.74-6.74 -5.86 gram suspension Take as directed. aspirin, enteric coated (ADULT LOW DOSE ASPIRIN) 81 mg EC tablet Take 81 mg by mouth once daily. (Patient not taking: Reported on 08/12/2023) clobetasol (TEMOVATE) 0.05 % cream Apply 1 g to affected area two times a day. (Patient not taking: Reported on 08/12/2023) Polyethylene Glycol 3350 (MIRALAX) 17 gram/dose ORAL powder Use as directed. (Patient not taking: Reported on 08/12/2023) atorvastatin (LIPITOR) 40 mg ORAL tablet Take one(1) tablet daily. (Patient not taking: Reported on 08/12/2023) albuterol 90 mcg/Actuation INHALATION Aero Inhale one(1) - two(2) puffs four(4) times a day as needed for wheezing and shortness of breath. (Patient not taking: Reported on 08/12/2023) omega-3 fatty acids(FISH OIL 500 MG CAP) two capsules daily (Patient not taking: Reported on 08/12/2023) CALTRATE-600 PLUS VITAMIN D3 600 MG-400 UNIT TAB Take one(1) tablet daily. (Patient not taking: Reported on 08/12/2023) ONE DAILY MULTI-VITAMIN TAB Take one(1) tablet daily. (Patient not taking: Reported on 08/12/2023) No current facility-administered medications for this visit. ALLERGIES: Cipro [Ciprofloxacin], Flagyl [Metronidazole Hcl], Mevacor [Lovastatin], Naprosyn [Naproxen], Parafon Forte Dsc [Chlorzoxazone], and Tramadol PERSONAL HISTORY: Social History Tobacco Use Smoking status: Former Packs/day: 0.50 Years: 40.00 Additional pack years: 0.00 Total pack years: 20.00 Types: Cigarettes Smokeless tobacco: Never Tobacco comments: Quit 15 years ago Substance Use Topics Alcohol use: Not Currently Comment: once or twice a year Drug use: No FAMILY HISTORY: FAMILY HISTORY Problem Relation Age of Onset Cancer Mother skin cancers Diabetes Father Pancreatic Cancer Maternal Grandmother REVIEW OF SYMPTOMS: The review of systems data was entered by the nurse and reviewed by la Nursing Notes: Nancy Bryant MA 08/12/2023 2:43 PM Signed REVIEW OF SYSTEMS: General: The patient denies fatigue, NOTES weight loss, denies weight gain, denies feeling hot, and denies feelings of cold. Eyes: The patient denies glaucoma, denies eye injury/surgery, wears glasses or contacts. Ear/Nose/Throat: The patient denies allergies, denies hayfever, denies ear infections, and denies bloody noses. Cardiovascular: The patient denies chest pain, denies heart disease, NOTES high blood pressure,denies cardiac stent, denies prior heart attack, denies irregular heart beat, denies high cholesterol, denies poor circulation, denies heart failure, other cardiac issues, denies claudication, denies cold feet, denies peripheral arterial stent. Respiratory: The patient denies tuberculosis, denies pneumonia, denies frequent cough, denies pulmonary embolism, denies shortness of breath, and denies coughing up blood. Gastrointestinal: The patient denies difficulty swallowing, NOTES acid reflux, denies ulcers, denies vomiting, denies jaundice/hepatitis, denies gallbladder problems, denies black or tarry stools, denies hemorrhoids, denies bleeding from rectum, denies diverticulitis, denies constipation, NOTES diarrhea, denies loss of stool control, and denies hernias. Kidney/Bladder: The patient denies kidney stones, denies urine infections, and denies bloody urine. Skin: The patient denies a history of skin cancer, denies bleeding/changing moles, and denies a history of skin rash. Neurologic: The patient denies a history of epilepsy/convulsions, denies headaches, denies head/spinal injuries, and denies stroke/TIA. Psychiatric: The patient denies psychiatric medications, denies depression, and denies voices, denies substance abuse. Endocrine: The patient NOTES thyroid disorders, NOTES diabetes, and denies hormonal problems. Hematologic: The patient denies a history of bruising, denies bleeding, and denies anemia, denies blood clots. Infections: The patient NOTES a history of measles and mumps, denies rheumatic fever, and denies sexually transmitted diseases. Musculoskeletal: The patient denies back pain/injury, denies back problems, denies sciatica, denies knee/foot trouble, denies arthritis, or denies gout. When was patient's last Mammogram screening? N/A Last Colonoscopy: 2009 Nancy Bryant MA PHYSICAL EXAMINATION: General: The patient is 77 year old female, well nourished, well hydrated in no acute distress. The patient is oriented to time, place, and person. VITALS: Blood pressure 132/64, pulse 88, height 156.2 cm (5' 1.5"), weight 65.8 kg (145 lb), SpO2 94%. Body mass index is 26.95 kg/m . HEENT: Normal cephalic, ataumatic, pupils are equally round, sclera are anicteric, mucous membranes are moist, oropharynx is clear. Neck has no masses, asymmetry or lymphadenopathy. Thyroid is unremarkable. Respiratory: Clear to auscultation and percussion. Normal respiratory excursion and pattern. Cardiac: Examination is regular rate and rhythm. Abdominal exam: Soft, nontender, with no palpable masses. No hepatosplenomegaly. No palpable hernias. Rectal exam: exam deferred Extremities: no clubbing, cyanosis or edema. No adenopathy. Other: LABORATORY VALUES: As Noted RADIOLOGIC STUDIES: As Noted Assessment IMPRESSION: Diarrhea, lower abdominal pain/cramping PLAN: I plan to perform upper and lower endoscopy. We discussed the risks and benefits of the planned endoscopy. I have informed the patient that complications can occur including failure to complete the endoscopy and perforation. The patient had the opportunity to ask questions concerning the planned endoscopy. My staff has also explained the procedure to the patient in understandable terms and has given the patient printed material concerning the procedure. The patient freely consents to surgery. I plan to use golytely bowel preparation for endoscopy I plan for monitored anesthetic care. Diagnoses: (R63.4) Abnormal weight loss (primary encounter diagnosis) (R10.31) Abdominal pain, right lower quadrant (R19.7) Diarrhea, unspecified type A letter was sent to Dr. Segundo Conn MD indicating the above finding for this patient. Return to Clinic: The patient is instructed to follow-up with me after the testing has been completed. Temi Arnold MD documented in this encounter [facility] 08-12-2023 Instructions Temi Arnold MD - 08/12/2023 3:22 PM EDT Images from the original note were not included. Bowel Preparation Instructions for: Golytely, Nulytely, Trilyte or Colyte (polyethylene glycol 3350 and electrolytes) IF YOU DO NOT FOLLOW THESE DIRECTIONS, YOUR COLONOSCOPY WILL BE CANCELLED. Mathis Instructions: Your bowel must be empty so that your doctor can clearly view your colon. Follow all of the instructions in this handout EXACTLY as they are written. Do NOT eat any solid food the ENTIRE day before your colonoscopy. Drink only clear liquids. Buy your bowel preparation at least 5 days before your colonoscopy. TRANSPORTATION on the Day of Your Exam A responsible person MUST be present with you at Check In prior to your colonoscopy and REMAIN in the endoscopy area until you are discharged. You are NOT ALLOWED to drive, take a taxi or bus, or leave the Endoscopy Center ALONE. If you do not have a responsible front load trash truck driver (family member or friend) with you to take you home, your exam cannot be done with sedation and will be cancelled. Please bring a list of all of your current medications, including any Over-the Counter medications with you. Medications If you take insulin, diabetic medications or blood thinners such as Coumadin (warfarin), Plavix (clopidogrel), Ticlid (ticlopidine hydrochloride), Agrylin (anagrelide), Xarelto (Rivaroxaban), Pradaxa (Dabigatran), Eliquis (Apixaban), and Effient (Prasugrel). You MUST call the doctors who orders those medicines for instructions on altering the dosage before your colonoscopy. All other medications should be taken the day of the exam with a sip of water including ASPIRIN. Five (5) Days Before Your Colonoscopy Do NOT take medicines that stop diarrhea - such as Imodium, Kaopectate, or Pepto Bismol. Do NOT take fiber supplements - such as Metamucil, Citrucel, or Perdiem. Do NOT take products that contain iron - such as multi-vitamins (the label lists what is in the products). Do NOT take Vitamin E. Buy the prescription bowel preparation solution at your local pharmacy or drugstore pharmacy. 1 03/2019 Bowel Preparation Instructions for: Golytely, Nulytely, Trilyte or Colyte (polyethylene glycol 3350 and electrolytes) Three (3) Days Before Your Colonoscopy Do NOT eat high-fiber foods - such as popcorn, beans, seeds (flax, sunflower, quinoa), multigrain bread, nuts, salad/vegetables, or fresh and dried fruit. One (1) Day Before Your Colonoscopy Only drink clear liquids the ENTIRE DAY before your colonoscopy. Do NOT eat any solid foods. Drink at least 8 ounces of clear liquids every hour after waking up. The clear liquids you can drink include: Clear Liquid (NO RED LIQUIDS) DO NOT DRINK Gatorade, Pedialyte or Powerade Clear broth or bouillon Coffee or tea (no milk or non-dairy creamer) Carbonated and non-carbonated soft drinks Michel-Aid or other fruit flavored drinks Strained fruit juices (no pulp) Jell-O, popsicles, hard candy Water Alcohol Milk or non-dairy creamers Noodles or vegetables in soup Juice with pulp Liquid you cannot see through Do not use tobacco/vaping products The bowel preparation solution will be consumed in two parts. Mix the solution the evening before your colonoscopy and refrigerate before drinking. You may add the flavor pack that came with the bowel preparation. Do NOT add ice, sugar or any other flavorings to the solution. Part 1 At 6:00 PM - Evening before your colonoscopy Drink an 8-oz glass of bowel preparation every 10 minutes until clear You may continue to drink clear liquids until midnight. 2 03/2019 Bowel Preparation Instructions for: Miralax-Gatorade Preparations IF YOU DO NOT FOLLOW THESE DIRECTIONS, YOUR COLONOSCOPY WILL BE CANCELLED. Mathis Instructions: Your bowel must be empty so that your doctor can clearly view your colon. Follow all of the instructions in this handout EXACTLY as they are written. Do NOT eat any solid food the ENTIRE day before your colonoscopy. Buy your bowel preparation at least 5 days before your colonoscopy. Four (4) Dulcolax laxative tablets containing 5mg of bisacodyl each (NOT Dulcolax stool softener) One (1) 8.3oz. bottle Miralax (238 grams) or generic equivalent 2 x 32oz. Bottles of Gatorade (NOT RED) Diabetic Patients: Use G2 (Gatorade 2) TRANSPORTATION on the Day of Your Exam A responsible adult MUST be present with you at Check In prior to your colonoscopy and REMAIN in the endoscopy area until you are discharged. You are NOT ALLOWED to drive, take a taxi or bus, or leave the Endoscopy Center ALONE. If you do not have a responsible front load trash truck driver (family member or friend) with you to take you home, your exam cannot be done with sedation and will be cancelled. Please bring a list of all of your current medications, including any [id number] medications with you. Medications If you take insulin, diabetic medications or blood thinners such as Coumadin (warfarin), Plavix (clopidogrel), Ticlid (ticlopidine hydrochloride), Agrylin (anagrelide), Xarelto (Rivaroxaban), Pradaxa (Dabigatran), Eliquis (Apixaban), and Effient (Prasugrel). You MUST call the doctors who orders those medicines for instructions on altering the dosage before your colonoscopy. All other medications should be taken the day of the exam with a sip of water including ASPIRIN. Five (5) Days Before Your Colonoscopy Do NOT take medicines that stop diarrhea - such as Imodium, Kaopectate, or Pepto Bismol. Do NOT take fiber supplements - such as Metamucil, Citrucel, or Perdiem. Do NOT take products that contain iron - such as multi-vitamins (the label lists what is in the products). Three (3) Days Before Your Colonoscopy Do NOT eat high-fiber foods - such as popcorn, beans, seeds (flax, sunflower, quinoa), multigrain bread, nuts, salad/vegetables, or fresh and dried fruit. 1 Bowel Preparation Instructions for: Miralax-Gatorade Preparations One (1) Day Before Your Colonoscopy Only drink clear liquids the ENTIRE DAY before your colonoscopy. Do NOT eat any solid foods. Drink at least 8 ounces of clear liquids every hour after waking up. The clear liquids you can drink include: Clear Liquid (NO RED LIQUIDS) DO NOT DRINK Gatorade, Pedialyte or Powerade Clear broth or bouillon Coffee or tea (no milk or non-dairy creamer) Carbonated and non-carbonated soft drinks Michel-Aid or other fruit flavored drinks Strained fruit juices (no pulp) Jell-O, popsicles, hard candy Water Alcohol Milk or non-dairy creamers Noodles or vegetables in soup Juice with pulp Liquid you cannot see through Do not use tobacco/vaping products Mix 1/2 of Miralax bottle (119 grams) in each 32 ounces of Gatorade bottle until dissolved. Keep cool in the refrigerator. DO NOT ADD ICE. The bowel preparation solution will be consumed in two parts. Part 1 5:00 PM - Evening before your colonoscopy Take 4 Dulcolax tablets. 6 PM - Evening before your colonoscopy Drink 32 oz. of the mixed solution. Drink an 8 oz. glass of bowel preparation every 15 minutes for a total of 4 glasses. Fifteen (15) minutes later, drink an 8 oz. glass of of clear liquids every 15 minutes for a total of 2 glasses. You may continue to drink clear liquids till midnight. Part 2 On the day of your colonoscopy you may drink clear liquids up to (three) 3 hours prior to procedure. 4 1/2 hours before your colonoscopy Take another 32 oz. bottle of mixed solution. Drink an 8 oz. glass of bowel prep every 15 minutes for a total of 4 glasses. Fifteen (15) minutes later, drink an 8 oz. glass of clear liquids every 15 minutes for a total of 2 glasses. You may continue to drink clear liquids up to (three) 3 hours before your exam. 2 03/2019 documented in this encounter [facility] 08-12-2023 Nurse Note REVIEW OF SYSTEMS: General: The patient denies fatigue, NOTES weight loss, denies weight gain, denies feeling hot, and denies feelings of cold. Eyes: The patient denies glaucoma, denies eye injury/surgery, wears glasses or contacts. Ear/Nose/Throat: The patient denies allergies, denies hayfever, denies ear infections, and denies bloody noses. Cardiovascular: The patient denies chest pain, denies heart disease, NOTES high blood pressure,denies cardiac stent, denies prior heart attack, denies irregular heart beat, denies high cholesterol, denies poor circulation, denies heart failure, other cardiac issues, denies claudication, denies cold feet, denies peripheral arterial stent. Respiratory: The patient denies tuberculosis, denies pneumonia, denies frequent cough, denies pulmonary embolism, denies shortness of breath, and denies coughing up blood. Gastrointestinal: The patient denies difficulty swallowing, NOTES acid reflux, denies ulcers, denies vomiting, denies jaundice/hepatitis, denies gallbladder problems, denies black or tarry stools, denies hemorrhoids, denies bleeding from rectum, denies diverticulitis, denies constipation, NOTES diarrhea, denies loss of stool control, and denies hernias. Kidney/Bladder: The patient denies kidney stones, denies urine infections, and denies bloody urine. Skin: The patient denies a history of skin cancer, denies bleeding/changing moles, and denies a history of skin rash. Neurologic: The patient denies a history of epilepsy/convulsions, denies headaches, denies head/spinal injuries, and denies stroke/TIA. Psychiatric: The patient denies psychiatric medications, denies depression, and denies voices, denies substance abuse. Endocrine: The patient NOTES thyroid disorders, NOTES diabetes, and denies hormonal problems. Hematologic: The patient denies a history of bruising, denies bleeding, and denies anemia, denies blood clots. Infections: The patient NOTES a history of measles and mumps, denies rheumatic fever, and denies sexually transmitted diseases. Musculoskeletal: The patient denies back pain/injury, denies back problems, denies sciatica, denies knee/foot trouble, denies arthritis, or denies gout. When was patient's last Mammogram screening? N/A Last Colonoscopy: 2009 Nancy Bryant MA [facility] 08-12-2023 Nurse Note REVIEW OF SYSTEMS: General: The patient denies fatigue, NOTES weight loss, denies weight gain, denies feeling hot, and denies feelings of cold. Eyes: The patient denies glaucoma, denies eye injury/surgery, wears glasses or contacts. Ear/Nose/Throat: The patient denies allergies, denies hayfever, denies ear infections, and denies bloody noses. Cardiovascular: The patient denies chest pain, denies heart disease, NOTES high blood pressure,denies cardiac stent, denies prior heart attack, denies irregular heart beat, denies high cholesterol, denies poor circulation, denies heart failure, other cardiac issues, denies claudication, denies cold feet, denies peripheral arterial stent. Respiratory: The patient denies tuberculosis, denies pneumonia, denies frequent cough, denies pulmonary embolism, denies shortness of breath, and denies coughing up blood. Gastrointestinal: The patient denies difficulty swallowing, NOTES acid reflux, denies ulcers, denies vomiting, denies jaundice/hepatitis, denies gallbladder problems, denies black or tarry stools, denies hemorrhoids, denies bleeding from rectum, denies diverticulitis, denies constipation, NOTES diarrhea, denies loss of stool control, and denies hernias. Kidney/Bladder: The patient denies kidney stones, denies urine infections, and denies bloody urine. Skin: The patient denies a history of skin cancer, denies bleeding/changing moles, and denies a history of skin rash. Neurologic: The patient denies a history of epilepsy/convulsions, denies headaches, denies head/spinal injuries, and denies stroke/TIA. Psychiatric: The patient denies psychiatric medications, denies depression, and denies voices, denies substance abuse. Endocrine: The patient NOTES thyroid disorders, NOTES diabetes, and denies hormonal problems. Hematologic: The patient denies a history of bruising, denies bleeding, and denies anemia, denies blood clots. Infections: The patient NOTES a history of measles and mumps, denies rheumatic fever, and denies sexually transmitted diseases. Musculoskeletal: The patient denies back pain/injury, denies back problems, denies sciatica, denies knee/foot trouble, denies arthritis, or denies gout. When was patient's last Mammogram screening? N/A Last Colonoscopy: 2009 Nancy Bryant MA documented in this encounter [facility] 06-24-2022 Discharge summary Note Date/Time June 24, 2022 10:49am [facility] Medical Records Department [address] [place] [address] Discharge Summary 06/24/22 1048 MR#: [id number] Acct: [id number] Name: ALFRED JACKSON CHAD Rep #:[id number] : 1945 76 From: Guanako Gary MD PCP: Dr. Segundo Conn MD Status:ADM I N Location: [place] [address] Providers Date of Admission: 06/23/22 Primary Care Physician: Dr. Segundo Conn MD Reason For Visit: BL PNA, CHEST PAIN Diagnosis Discharge Diagnosis (1) Bilateral interstitial pneumonia: Status: Acute Code(s): J84.9 - Interstitial pulmonary disease, unspecified Plan Patient is a 76-year-old lady admitted with shortness of breath and persistent cough. Checks x-ray demonstrated bilateral infiltrates. An assessment of pneumonia made admitted for further inpatient treatment 1. Pneumonia - Suspected to be secondary to streptococcal pneumonia, Blood and sputum cultures sent. Patient placed on Rocephin and Zithromax and placed on oxygen titrated to keep Pulse Ox greater than 90 2. Lactic acidosis ? Patient did not meet criteria for sepsis lactic acidosis attributed to increased work of breathing as well as patient being on metformin 3. Diabetes mellitus type II -patient's oral hypoglycemics held. Placed on long acting insulin, Accu-Cheks a.c. and at bedtime and covered with sliding scale insulin 4. Dyslipidemia -Patient is on statin therapy, continued at home dose 5. Hypertension - Blood pressure controlled, home medications continued with dose adjustment as needed 6. Hypothyroidism - Patient is on levothyroxine home dose continued 7. GERD ? Patient is on Pepcid at home 8. DVT prophylaxis - On enoxaparin Patient was expected to stay for at least 2 midnight however her recovery was much faster than anticipated and moreover patient requested to be discharged home. She was discharged home on azithromycin and cefdinir for 5 additional days. Time spent in the patient's overall evaluation,decision-making process, review of diagnostic data, adjustment of management, discussion with other providers, nursing nursing and ancillary staff involved in patient's care documentation,40 Minutes Medications at Discharge Home Medications famotidine 40 mg tablet (Pepcid) 40 mg PO QHS acid reflux 10/11/16 levothyroxine 50 mcg tablet 50 mcg PO DAILY hypothyroidism 10/11/16 losartan 50 mg tablet 50 mg PO DAILY high bp 10/11/16 nitroglycerin 0.4 mg sublingual tablet 0.4 mg sublingual Q5M PRN Chest Pain 10/11/16 simvastatin 80 mg tablet 80 mg PO DAILY high cholesterol 10/11/16 clobetasol 0.05 % topical cream 1 applic topical DAILY itching 06/06/19 metformin 500 mg tablet 500 mg PO TID diabetes 12/19/19 aspirin 81 mg tablet,delayed release 81 mg PO .every other day heart health 03/13/21 albuterol sulfate 90 mcg/actuation aerosol inhaler 2 puff inhalation Q6H PRN Wheezing 06/23/22 codeine 10 mg-guaifenesin 100 mg/5 mL oral liquid 10 ml PO Q4H cough 06/23/22 prednisone 10 mg tablet 10 mg PO BID resp infection 06/23/22 azithromycin 500 mg tablet (Zithromax) 500 mg PO DAILY 5 days #5 tabs 06/24/22 cefdinir 300 mg capsule 300 mg PO BID resp infection #10 caps 06/24/22 Hospital Course Summary of Care Provided Minutes Spent on Discharge: 35 Physical Exam Narrative GENERAL: cooperative HEENT: Atraumatic; normocephalic EYES; Anicteric, Normal Conjunctiva NECK; supple, normal thyroid, RESPIRATORY: Diminished to auscultation CARDIOVASCULAR: Regular S1 S2, GI: soft, normoactive bowel sounds, : No Renal angle tenderness; EXTREMITIES: No edema, no clubbing, MUSCULOSKELETAL: no muscle wasting NEURO: Awake; no lateralizing signs. SKIN: No Rash PSYCH; Flat affect Weight / BMI Weight Weight: 70.8 kg Body Mass Index (BMI) 28.5 ABG / Lab / Microbiology Data Result Diagrams: 06/24/22 03:37 06/24/22 03:37 Laboratory: Laboratory Results - last 24 hr 06/23/22 19:15: WBC 20.0 H, RBC 4.17 L, Hgb 12.6, Hct 39.0, MCV 93.5, MCH 30.2, MCHC 32.3, RDW Std Deviation 44.8 H, RDW Coeff of Manish 13.2, Plt Count 356, MPV 10.0, Immature Gran % (Auto) 0.700, Neut % (Auto) 83.6 H, Lymph % (Auto) 8.8 L, [place] % (Auto) 6.7, Eos % (Auto) 0.0, Baso % (Auto) 0.2, Absolute Neuts (auto) 16.7 H, Absolute Lymphs (auto) 1.76, Nucleated RBC % 0 06/23/22 19:15: Sodium 140, Potassium 4.5, Chloride 108 H, Carbon Dioxide 23.0, Anion Gap 9, BUN 20 H, Creatinine 1.06 H, Estim Creat Clear Calc 36.83, Est GFR (MDRD) Af Amer 65, Est GFR (MDRD) Non-Af 54 L, BUN/Creatinine Ratio 18.9, Glucose 310 H, Calcium 9.6 06/23/22 19:15: Troponin I High Sens 6 06/23/22 19:15: Magnesium 1.5 L 06/23/22 19:53: D-Dimer Quant (PE/DVT) 0.39 06/23/22 19:53: Lactic Acid 3.5 H* 06/23/22 23:25: COVID-19 (MAGGY) Not Detected 06/24/22 00:40: Lactic Acid 3.9 H* 06/24/22 01:20: MRSA (PCR) Negative 06/24/22 01:30: Troponin I High Sens 6 06/24/22 03:37: WBC 17.0 H, RBC 3.78 L, Hgb 11.8 L, Hct 35.6 L, MCV 94.2, MCH 31.2, MCHC 33.1, RDW Std Deviation 44.9 H, RDW Coeff of Manish 13.2, Plt Count 309,MPV 10.2, Immature Gran % (Auto) 0.800, Neut % (Auto) 81.3 H, Lymph % (Auto) 10.0 L, [place] % (Auto) 7.8, Eos % (Auto) 0.0, Baso % (Auto) 0.1, Absolute Neuts (auto) 13.8 H, Absolute Lymphs (auto) 1.69, Nucleated RBC % 0 06/24/22 03:37: Sodium 142, Potassium 4.5, Chloride 110 H, Carbon Dioxide 23.0, Anion Gap 9, BUN 22 H, Creatinine 0.94, Estim Creat Clear Calc 41.53, Est GFR (MDRD) Af Amer 74, Est GFR (MDRD) Non-Af 61, BUN/Creatinine Ratio 23.3 H, Glucose 331 H, Calcium 8.9, Total Bilirubin 0.10 L, AST 21, ALT 35, Alkaline Phosphatase 57, Total Protein 6.5, Albumin 3.3, Globulin 3.2, Albumin/Globulin Ratio 1.0, Triglycerides 102, Cholesterol 134, LDL Cholesterol 71, VLDL Cholesterol 20, HDL Cholesterol 43 06/24/22 03:37: Troponin I High Sens 6 06/24/22 06:42: POC Glucose 206 H Microbiology: Microbiology 06/24/22 01:15 Urine, Clean Catch Streptococcus pneumoniae Antigen (M - Final 06/24/22 01:15 Urine, Clean Catch Legionella Antigen - Final 06/23/22 23:25 Mucosa - Nasopharyngeal Respiratory Panel (PCR) - Final Radiography Diagnostic Testing: Radiology Impression Chest CT 06/23/22 21:45 IMPRESSION: Tiny groundglass nodules scattered throughout both lungs are probably infectious/inflammatory. Electronically Signed: Tristin Ng MD at 22:13 EDT , D/C Instructions Discharge Diet: No restrictions Discharge Activity: Return to Normal Activity Call your doctor if you observe: Fever of 101 or Higher, Shortness of breath, Fainting spells and Chest pain Meaningful Use Info Meaningful Use Diagnoses (Choose all that apply): None applicable Discharge Plan Admission Admit Date/Time: 06/23/22 23:07 Attending Provider: Guanako Gary Primary Care Provider: Segundo Conn Chi Consulting Providers: Stacy Phan Discharge Orders/Prescriptions Prescriptions: New azithromycin [Zithromax] 500 mg tablet 500 mg PO DAILY 5 Days Qty: 5 0RF Continued clobetasol 0.05 % cream 1 applic TOPICAL DAILY losartan 50 MG tablet 50 mg PO DAILY famotidine [Pepcid] 40 MG tablet 40 mg PO QHS simvastatin 80 MG tablet 80 mg PO DAILY levothyroxine 50 MCG tablet 50 mcg PO DAILY nitroglycerin 0.4 MG tablet 0.4 mg SUBLINGUAL Q5M PRN (Reason: Chest Pain) metformin 500 mg tablet 500 mg PO TID aspirin 81 mg tablet,delayed release (DR/EC) 81 mg PO .every other day prednisone 10 mg tablet 10 mg PO BID Label Comments: TAKE 3 TABLETS BY MOUTH EVERY DAY FOR 2 DAYS, then TAKE 2 TABLETS BY MOUTH EVERY DAY FOR 2 DAYS, then TAKE 1 TABLET BY MOUTH EVERY DAY FOR 2 DAYS Rx Instructions: taper codeine-guaifenesin 10-100 mg/5 mL liquid 10 ml PO Q4H Label Comments: Take 10ml BY MOUTH EVERY 4 HOURS albuterol sulfate 90 mcg/actuation HFA aerosol inhaler 2 puff INHALATION Q6H PRN (Reason: Wheezing) Label Comments: Inhale 2 (TWO) puffs EVERY 4 HOURS NEEDED cefdinir 300 mg capsule 300 mg PO BID Qty: 10 0RF Discontinued doxycycline hyclate 100 mg tablet 100 mg PO BID Label Comments: TAKE 1 TABLET BY MOUTH TWICE DAILY Referrals / Follow Up: Segundo Conn Chi, MD [Primary Care Provider] - Disposition Disposition (needs filled in before D/C Order can be placed): Home, Self Care Charges/Coding Visit Charges Inpatient E&M: 45712 Disch Hosp >30min 06/24/22 1049 <Electronically signed by Guanako Gary MD> Cosigner Signature (if applicable): CC: Dr. Guanako Gary MD; Dr. Segundo Conn MD~ Signed [facility] Work Phone: 1(358) 510-527003-23-[address] Gary [facility] June 24, 2022 9:29am Note Date/Time June 24, 2022 9:2 6am [facility] Medical Records Department [address] [place] [id number] Progress Note - Hospitalist 06/24/22921 MR#: [id number] Acct: [id number] Name: ALFRED JACKSON Rep #:[id number] : 1945 76 From: Guanako Gary MD PCP: Dr. Segundo Conn MD Status:ADM I N Location: [place] [address] Reason for Visit Reason for Visit: Diagnoses Interstitial pulmonary disease, unspecified (06/23/22) Subjective Subjective Patient is a 76-year-old lady admitted with shortness of breath and persistent cough. Checks x-ray demonstrated bilateral infiltrates. An assessment of pneumonia made admitted for further inpatient treatment Objective Data Objective Data Vital Signs: Vital Signs Temp Pulse Resp BP Pulse Ox O2 Del Method 97.8 F 71 15 129/65 H 95 Room Air 06/24/22 08:28 06/24/22 08:28 06/24/22 08:28 06/24/22 08:28 06/24/22 08:28 06/24/22 08:30 Oxygen Delivery Method Room Air Weight: 70.8 kg Body Mass Index (BMI) 28.5 Intake & Output: Intake and Output for Last 24 Hours 06/22/22 06/23/22 06/24/22 23:59 23:59 23:59 Intake Total 305 / 305 Balance 305 / 305 Lab / Micro Data Result Diagrams: 06/24/22 03:37 06/24/22 03:37 Labs: Laboratory Results - last 24 hr 06/23/22 19:15: WBC 20.0 H, RBC 4.17 L, Hgb 12.6, Hct 39.0, MCV 93.5, MCH 30.2, MCHC 32.3, RDW Std Deviation 44.8 H, RDW Coeff of Manish 13.2, Plt Count 356, MPV 10.0, Immature Gran % (Auto) 0.700, Neut % (Auto) 83.6 H, Lymph % (Auto) 8.8 L, [place] % (Auto) 6.7, Eos % (Auto) 0.0, Baso % (Auto) 0.2, Absolute Neuts (auto) 16.7 H, Absolute Lymphs (auto) 1.76, Nucleated RBC % 0 06/23/22 19:15: Sodium 140, Potassium 4.5, Chloride 108 H, Carbon Dioxide 23.0, Anion Gap 9, BUN 20 H, Creatinine 1.06 H, Estim Creat Clear Calc 36.83, Est GFR (MDRD) Af Amer 65, Est GFR (MDRD) Non-Af 54 L, BUN/Creatinine Ratio 18.9, Glucose 310 H, Calcium 9.6 06/23/22 19:15: Troponin I High Sens 6 06/23/22 19:15: Magnesium 1.5 L 06/23/22 19:53: D-Dimer Quant (PE/DVT) 0.39 06/23/22 19:53: Lactic Acid 3.5 H* 06/23/22 23:25: COVID-19 (MAGGY) Not Detected 06/24/22 00:40: Lactic Acid 3.9 H* 06/24/22 01:20: MRSA (PCR) Negative 06/24/22 01:30: Troponin I High Sens 6 06/24/22 03:37: WBC 17.0 H, RBC 3.78 L, Hgb 11.8 L, Hct 35.6 L, MCV 94.2, MCH 31.2, MCHC 33.1, RDW Std Deviation 44.9 H, RDW Coeff of Manish 13.2, Plt Count 309,MPV 10.2, Immature Gran % (Auto) 0.800, Neut % (Auto) 81.3 H, Lymph % (Auto) 10.0 L, [place] % (Auto) 7.8, Eos % (Auto) 0.0, Baso % (Auto) 0.1, Absolute Neuts (auto) 13.8 H, Absolute Lymphs (auto) 1.69, Nucleated RBC % 0 06/24/22 03:37: Sodium 142, Potassium 4.5, Chloride 110 H, Carbon Dioxide 23.0, Anion Gap 9, BUN 22 H, Creatinine 0.94, Estim Creat Clear Calc 41.53, Est GFR (MDRD) Af Amer 74, Est GFR (MDRD) Non-Af 61, BUN/Creatinine Ratio 23.3 H, Glucose 331 H, Calcium 8.9, Total Bilirubin 0.10 L, AST 21, ALT 35, Alkaline Phosphatase 57, Total Protein 6.5, Albumin 3.3, Globulin 3.2, Albumin/Globulin Ratio 1.0, Triglycerides 102, Cholesterol 134, LDL Cholesterol 71, VLDL Cholesterol 20, HDL Cholesterol 43 06/24/22 03:37: Troponin I High Sens 6 06/24/22 06:42: POC Glucose 206 H Micro: Microbiology 06/24/22 01:15 Urine, Clean Catch Streptococcus pneumoniae Antigen (M - Final 06/24/22 01:15 Urine, Clean Catch Legionella Antigen - Final 06/23/22 23:25 Mucosa - Nasopharyngeal Respiratory Panel (PCR) - Final Radiography Diagnostic Testing: Radiology Impression Chest CT 06/23/22 21:45 IMPRESSION: Tiny groundglass nodules scattered throughout both lungs are probably infectious/inflammatory. Electronically Signed: Tristin Ng MD at 22:13 EDT , Physical Exam Narrative GENERAL: cooperative HEENT: Atraumatic; normocephalic EYES; Anicteric, Normal Conjunctiva NECK; supple, normal thyroid, RESPIRATORY: Diminished to auscultation CARDIOVASCULAR: Regular S1 S2, GI: soft, normoactive bowel sounds, : No Renal angle tenderness; EXTREMITIES: No edema, no clubbing, MUSCULOSKELETAL: no muscle wasting NEURO: Awake; no lateralizing signs. SKIN: No Rash PSYCH; Flat affect Assessment & Plan Assessment/Plan (1) Bilateral interstitial pneumonia: PLAN: Plan Patient is a 76-year-old lady admitted with shortness of breath and persistent cough. Checks x-ray demonstrated bilateral infiltrates. An assessment of pneumonia made admitted for further inpatient treatment 1. Pneumonia - Suspected to be secondary to streptococcal pneumonia, Blood and sputum cultures sent. Patient placed on Rocephin and Zithromax and placed on oxygen titrated to keep Pulse Ox greater than 90 2. Lactic acidosis ? Patient did not meet criteria for sepsis lactic acidosis attributed to increased work of breathing as well as patient being on metformin 3. Diabetes mellitus type II -patient's oral hypoglycemics held. Placed on long acting insulin, Accu-Cheks a.c. and at bedtime and covered with sliding scale insulin 4. Dyslipidemia -Patient is on statin therapy, continued at home dose 5. Hypertension - Blood pressure controlled, home medications continued with dose adjustment as needed 6. Hypothyroidism - Patient is on levothyroxine home dose continued 7. GERD ? Patient is on Pepcid at home 8. DVT prophylaxis - On enoxaparin Time spent in the patient's overall evaluation,decision-making process, review of diagnostic data, adjustment of management, discussion with other providers, nursing nursing and ancillary staff involved in patient's care documentation,40 Minutes Charges/Coding Visit Charges Inpatient E&M: 30362 Subs Hosp L2 06/24/22 0929 <Electronically signed by Guanako Gary MD> Cosigner Signature (if applicable): CC: ~ Signed [facility] Work Phone: 1(201) 106-346003-23-2023 History and physical note Author Dr. Phan [facility] June 24, 2022 1:32am Note Date/Time June 23, 2022 11: 12pm [facility] Medical Records Department [address] [place] [address] History & Physical Exam 06/23/22 5069 MR#: [id number] Acct: [id number] Name: ALFRED JACKSON Rep #:[id number] : 1945 76 From: Stacy Phan MD PCP: Dr. Segundo Conn MD Status:ADM I N Location: [place] [address] HPI - General General Date of Admission: 06/23/22 Date of Service: 06/23/22 Chief Complaint: Cough, congestion, dyspnea, chest heaviness. HPI Narrative The patient is a 76 y/o F w/ PMHx: Hx Bowel obstruction requiring partial resection, Overweight, HTN, HLD, GERD, Hypothyroidism, Diabetes mellitus type II, Nonobstructive CAD, Former tobacco use who presents to the [facility] ED on 06/23/22from her PCP Office Dr. Conn secondary to history of persistent worsening cough,congestion, dyspnea, chest heaviness ongoing x2 weeks with recent checks x-ray demonstrating bilateral pneumonia with initially more sinus type symptoms that started at the onset 2 weeks prior with concurrent midsternal chest discomfort specifically while active improving with rest. She reported specifically discomfort when going to the mailbox and upstairs with associated dyspnea. She denies any nausea, emesis or diaphoresis. Pain remained in the midsternal chestregion and was described as primarily a pressure-like sensation. She denies anyrecent history of fevers or chills with her recent viral illness. She does report a headache as well as pressure in the frontal sinus region initially withonset of her illness. She has been coughing with a white to clear sputum over the last several days. No one else in her family has been ill. Work-up in the ED included T97.5, heart rate 105, BP 156/87, respiratory rate 18, 96% on room air, CBC with WC 20, hemoglobin 12.6, platelet 356 with significant left shift, recent chest x- ray performed 06/22/2022 with noted bibasilar interstitial infiltrate, BMP with chloride 108, BUN/creatinine 20/1.06, glucose 310, lactic acid 3.5, troponin 6, D-dimer 0.39, CT Chest w/ tiny groundglass nodules scattered throughout both lungs are probably infectious/inflammatory, EKG SR without acute evidence of ischemia. In the ED patient ministered IV azithromycinand Rocephin. [facility] Medical History (Updated 06/24/22 @ 01:[address] Stacy Phan MD) Atherosclerotic heart disease of [place] coronary artery without angina pectoris Former tobacco use GERD (gastroesophageal reflux disease) HTN (hypertension) Hyperlipidemia Hypothyroidism Type 2 diabetes mellitus Home Medications famotidine 40 mg tablet (Pepcid) 40 mg PO QHS acid reflux 10/11/16 [History Last Taken Unknown] levothyroxine 50 mcg tablet 50 mcg PO DAILY hypothyroidism 10/11/16 [History Last Taken 10/12/16] losartan 50 mg tablet 50 mg PO DAILY high bp 10/11/16 [History Last Taken 10/12/16] nitroglycerin 0.4 mg sublingual tablet 0.4 mg sublingual Q5M PRN Chest Pain 10/11/16 [History Last Taken Unknown] simvastatin 80 mg tablet 80 mg PO DAILY high cholesterol 10/11/16 [History Last Taken Unknown] clobetasol 0.05 % topical cream 1 applic topical DAILY itching 06/06/19 [History Last Taken Unknown] metformin 500 mg tablet 500 mg PO TID diabetes 12/19/19 [History Last Taken Unknown] aspirin 81 mg tablet,delayed release 81 mg PO .every other day heart health 03/13/21 [History Last Taken Unknown] albuterol sulfate 90 mcg/actuation aerosol inhaler 2 puff inhalation Q6H PRN Wheezing 06/23/22 [History Last Taken Unknown] cefdinir 300 mg capsule 300 mg PO BID resp infection 06/23/22 [History Last Taken Unknown] codeine 10 mg-guaifenesin 100 mg/5 mL oral liquid 10 ml PO Q4H cough 06/23/22 [History Last Taken Unknown] doxycycline hyclate 100 mg tablet 100 mg PO BID resp infection 06/23/22 [History Last Taken Unknown] prednisone 10 mg tablet 10 mg PO BID resp infection 06/23/22 [History Last Taken Unknown] Allergy/AdvReac Type Severity Reaction Status Date / Time chlorzoxazone Allergy Unknown Verified 06/23/22 17:37 [From Parafon Forte] ciprofloxacin [From Cipro] Allergy Unknown Verified 06/23/22 17:37 lovastatin [From Mevacor] Allergy Unknown Verified 06/23/22 17:37 metronidazole [From Flagyl] Allergy Unknown Verified 06/23/22 17:37 naproxen [From Naprosyn] Allergy Unknown Verified 06/23/22 17:37 tramadol Allergy Unknown Verified 06/23/22 17:37 Family History (Updated 06/24/22 @ 01:[address] Stacy Phan MD) Father Diabetes Brother Colon cancer 2015 diagnosis Mother Thyroid disorder Surgical History (Updated 06/24/22 @ 01:[address] Stacy Phan MD) History of delivery History of colon resection Social History (Updated 06/24/22 @ 01:[address] Stacy Phan MD) household members: spouse and family Smoking Status: Former smoker how long ago did patient quit smoking: Quit age 62, smoked 1/2 ppd from teen until quit. alcohol intake: never substance use type: does not use caffeine: Yes what type of physical activity do you participate in: walking seatbelt use: always do you feel safe at home: Yes additional social history: Randolph- Both are retired ROS ROS Narrative Admission Review of Systems: CONSTITUTIONAL: No weight loss, fever, chills, + weakness or fatigue. HEENT: Facial pressure/congestion. Eyes: No visual loss, blurred vision, double vision or yellow sclerae. Ears, Nose, Throat: No hearing loss, sneezing. SKIN: No rash or itching, lesions, wounds. CARDIOVASCULAR: + chest pain, chest pressure or chest discomfort. No palpitations, edema, orthopnea, syncopal events. RESPIRATORY: + shortness of breath, cough without marked sputum. No wheezing, hemoptysis. GASTROINTESTINAL: No anorexia, nausea, vomiting or diarrhea, abdominal pain, melena, BRBPR. GENITOURINARY: No dysuria, frequency, urgency or retention. NEUROLOGICAL: No headache, dizziness, syncope, paralysis, ataxia, numbness or tingling in the extremities, focal weakness, change in bowel or bladder control,seizure. MUSCULOSKELETAL: No muscle, back pain, joint pain or stiffness. HEMATOLOGIC: No anemia, bleeding or bruising. LYMPHATICS: No enlarged nodes. No history of splenectomy. PSYCHIATRIC: No history of depression or anxiety. ENDOCRINOLOGIC: No reports of sweating, cold or heat intolerance. No polyuria orpolydipsia. ALLERGIES: No history of asthma, hives, eczema or rhinitis Vital Signs Vital Signs Vital Signs: 06/23/22 17:34 06/23/22 17:51 06/23/22 17:51 Temperature 97.5 F L Temperature Source Temporal Pulse Rate 105 H Respiratory Rate 18 19 H Respiratory Effort Respiratory Depth Respiratory Pattern Blood Pressure 156/87 H Blood Pressure Mean 110 Pulse Ox 96 97 97 Oxygen Delivery Method Room Air Room Air Room Air 06/23/22 19:34 06/23/22 19:34 06/23/22 21:31 Temperature 98.3 F Temperature Source Oral Pulse Rate 91 87 Respiratory Rate 16 18 Respiratory Effort Normal Non-Labored Respiratory Depth Normal Respiratory Pattern Normal Blood Pressure 123/68 H Blood Pressure Mean 86 Pulse Ox 97 95 Oxygen Delivery Method Room Air Room Air Room Air 06/23/22 21:31 06/23/22 22:30 Temperature 98.2 F Temperature Source Oral Pulse Rate 84 Respiratory Rate 18 Respiratory Effort Respiratory Depth Respiratory Pattern Blood Pressure 123/68 H 136/73 H Blood Pressure Mean 86 94 Pulse Ox 95 Oxygen Delivery Method Room Air Weight Weight: 158 lb Body Mass Index (BMI) 28.9 Physical Exam Narrative Physical Examination: General: Awake, alert, oriented x 3 and cooperative, seated upright in the ED bed, fatigued, no acute distress. Skin: Normal color, normal turgor, no icterus, no cyanosis. HEENT: AT/NC, EOMI, PERRLA, mildly dry MM, no carotid bruits or JVD noted. Lungs: Diminished, greater bases, mildly decreased right base to mid posteriorlycompared to left, mildly coarse right base, no current wheezing or any evidence of respiratory distress. Heart: Mildly tachycardic with regular rhythm; no gallop, rub audible. Abdomen: Soft, overweight, NTTP, ND, mildly hyperactive BS, no HSM. Extremities: No cyanosis, clubbing, or edema. Neurological: Patient awake, alert, oriented as noted, cognitive function intact; pupils equally reactive to light and accommodation, cranial nerves II-XII grossly normal, moving all 4 extremities, no focal deficits, strength mildly to moderately decreased given ongoing illness and acute presentation. Psychiatric: Affect appears fatigued, no acute evidence of depressive or anxietyfeelings. Results Lab / Micro Data Result Diagrams: 06/23/22 19:15 06/23/22 19:15 Labs: Laboratory Results - last 24 hr 06/23/22 19:15: WBC 20.0 H, RBC 4.17 L, Hgb 12.6, Hct 39.0, MCV 93.5, MCH 30.2, MCHC 32.3, RDW Std Deviation 44.8 H, RDW Coeff of Manish 13.2, Plt Count 356, MPV 10.0, Immature Gran % (Auto) 0.700, Neut % (Auto) 83.6 H, Lymph % (Auto) 8.8 L, [place] % (Auto) 6.7, Eos % (Auto) 0.0, Baso % (Auto) 0.2, Absolute Neuts (auto) 16.7 H, Absolute Lymphs (auto) 1.76, Nucleated RBC % 0 06/23/22 19:15: Sodium 140, Potassium 4.5, Chloride 108 H, Carbon Dioxide 23.0, Anion Gap 9, BUN 20 H, Creatinine 1.06 H, Estim Creat Clear Calc 36.83, Est GFR (MDRD) Af Amer 65, Est GFR (MDRD) Non-Af 54 L, BUN/Creatinine Ratio 18.9, Glucose 310 H, Calcium 9.6 06/23/22 19:15: Troponin I High Sens 6 06/23/22 19:53: D-Dimer Quant (PE/DVT) 0.39 06/23/22 19:53: Lactic Acid 3.5 H* Radiology Impression Chest CT 06/23/22 21:45 IMPRESSION: Tiny groundglass nodules scattered throughout both lungs are probably infectious/inflammatory. Electronically Signed: Tristin Ng MD at 22:13 EDT , Assessment & Plan Assessment/Plan (1) Bilateral interstitial pneumonia: PLAN: Plan The patient is a 76 y/o F w/ PMHx: Hx Bowel obstruction requiring partial resection, Overweight, HTN, HLD, GERD, Hypothyroidism, Diabetes mellitus type II, Nonobstructive CAD, Former tobacco use who presents to the [facility] ED on 06/23/22from her PCP Office Dr. Conn secondary to history of persistent worsening cough,congestion, dyspnea, chest heaviness ongoing x2 weeks with recent checks x-ray demonstrating bilateral pneumonia with initially more sinus type symptoms that started at the onset 2 weeks prior with concurrent midsternal chest discomfort specifically while active improving with rest. #1. Bilateral bibasilar pneumonia, community-acquired with associated lactic acidosis: Will PCU given concurrent #2, maintain on oxygen with wean as tolerated to room air, PRN albuterol, maintained on IV Rocephin and Azithromycin,HOB, IS parameters w/ pending sputum cultures, full respiratory viral panel, COVID PCR and urine antigens. Bld cx x 2 obtained in the ED. #2. Chest Pain, likely related with #1 but still certainly given underlying history does have elevated cardiac risk factors: EKG in ED SR without acute evidence of ischemia, initial trop 6. Will maintain on monitored bed to assure no acute myocardial infarction with serial cardiac enzymes and EKGs. Given number 1 we will continue to treat and if appropriate may necessitate future cardiac stress testing pending further enzyme trending, EKGs. Magnesium level requested. FLP in AM. ASA, NG, morphine. #3. Mild acute renal insufficiency: Admission BUN/creatinine 20/1.06, baseline creatinine primarily 0.7-0.8, will continue hydration, repeat CMP in AM. #4. Nonobstructive CAD: Patient previously following with Dr. Lundberg, will continue aspirin, statin, losartan, not on any beta-yoandy therapy. #5. Diabetes mellitus type II with hyperglycemia, likely secondary to acute presentation #1: Hold oral home regimen, ADA diet, accu checks w/ ISS. #6. Hypertension: Continue home regimen including losartan, PRN hydralazine. #7. Hyperlipidemia: We will continue patient on statin therapy. #8. Hypothyroidism: We will continue patient home levothyroxine regimen. #9. GERD: We will continue patient on famotidine regimen. #10. Overweight: Weight loss and lifestyle changes encouraged. #11. Former tobacco use: Encourage continued tobacco cessation. #12. DVT prophylaxis: Lovenox. #13. CODE status: Patient AMBROSE is her and daughter as secondary and living will is currently in place. Discussed CODE status at length including difference between FULL code, DNR-CCA and DNR-CC status. Following discussions about the differences in these status, requested Full Code status. Advanced CarePlanning Face to Face Time: 16 minutes. Admission Evaluation Time spent evaluating chart, patient history, patient evaluation, care planning and discussion with specialists: 76 minutes. Charges/Coding Visit Charges Inpatient E&M: 52693 Init Hosp L3 Procedures Hospitalists Procedures: 86310 Advncd Care Plan 30 Min 06/24/22 0132 <Electronically signed by Stacy Phan MD> Cosigner Signature (if applicable): CC: Dr. Stacy Phan MD; Dr. Segundo Conn MD~ Signed [facility] Work Phone: [phone]) 972-824603-23-[address] Bahena [facility] June 23, 2022 11:18pm Note Date/Time June 23, 2022 7:4 7pm [facility] Medical Records Department [address] [place] [address] Emergency Department Summary 06/23/22 MR#: [id number] Acct: [id number] Name: ALFRED JACKSON Rep #:[id number] : 1945 76 From: Jaspreet Bahena MD PCP: Dr. Segundo Conn MD Status:REG E R Location: ED HPI History of Present Illness Chief Complaint: Shortness of Breath Detail of Chief Complaint: Contacted by Dr. Conn because chest x-ray was interpreted as bilateral inte Informant: patient Onset/Context/Timing Onset: - (Sinus likes symptoms that started 2 weeks ago.) Context: Sudden Onset Timing: Lasts (No longer has upper respiratory symptoms.) Quality: Read HPI narrative Location: Per HPI narrative Maximum Severity: Moderate Worsened by: Midsternal chest discomfort with walking to the mailbox and going up and do Relieved by: Rest Associated Symptoms Associated Symptoms: Dyspnea Narrative Narrative: Patient is a 76-year-old woman who has history of heart disease, diabetes, hypertension, GERD who was sent to the emergency department because radiologist interpreted her chest x-ray as bilateral interstitial basilar infiltrates. The x-ray was reviewed by me. I do not agree with the radiology interpretation. Patient does report midsternal chest discomfort described as a pressure sensation that occurred when she walked to the mailbox today and stopped after resting for 3 minutes. She also had chest discomfort going up a flight of stepsthat was alleviated after she rested for several minutes. This was associated with shortness of breath. There was no nausea, vomiting or diaphoresis. The pain did not radiate. Patient denies fever, chills night sweats. She denies headache, ocular auditorysymptoms. She states when she had the nasal congestion that started greater than 2 weeks ago she had pressure in the frontal region. Patient does report cough. She has cough productive of clear to white sputum for the past several days. She has not smoked in 14 years. She denies history of PE or DVT. She denies leg pain, swelling or discoloration. She denies symptoms of claudication. She denies pleuritic chest pain. She denies GI or symptoms. She denies neurologic symptoms. Prior similar symptoms: No Recent Illness/Hospitalization: No PFSH [facility] Medical History Atherosclerotic heart disease of [place] coronary artery without angina pectoris GERD (gastroesophageal reflux disease) HTN (hypertension) Hyperlipidemia Hypothyroidism Type 2 diabetes mellitus Home Medications famotidine 40 mg tablet (Pepcid) 40 mg PO DAILY 10/11/16 [History Last Taken Unknown] levothyroxine 50 mcg tablet 50 mcg PO DAILY 10/11/16 [History Last Taken 10/12/16] losartan 50 mg tablet 50 mg PO DAILY 10/11/16 [History Last Taken 10/12/16] nitroglycerin 0.4 mg sublingual tablet 0.4 mg sublingual Q5M PRN Chest Pain 10/11/16 [History Last Taken Unknown] simvastatin 80 mg tablet 80 mg PO DAILY 10/11/16 [History Last Taken Unknown] clobetasol 0.05 % topical cream 1 applic topical DAILY 06/06/19 [History Last Taken Unknown] estradiol 0.01% (0.1 mg/gram) vaginal cream (Estrace) See Rx Instructions vaginal .COMPLEX #42.5 grams 06/06/19 [Rx Last Taken Unknown] metformin 500 mg tablet 500 mg PO TID 12/19/19 [History Last Taken Unknown] aspirin 81 mg tablet,delayed release 81 mg PO .every other day 03/13/21 [History Last Taken Unknown] albuterol sulfate 90 mcg/actuation aerosol inhaler 2 puff inhalation Q6H PRN Wheezing 06/23/22 [History Last Taken Unknown] cefdinir 300 mg capsule 300 mg PO BID 06/23/22 [History Last Taken Unknown] codeine 10 mg-guaifenesin 100 mg/5 mL oral liquid ml 06/23/22 [History Last Taken Unknown] doxycycline hyclate 100 mg tablet 100 mg PO BID 06/23/22 [History Last Taken Unknown] prednisone 10 mg tablet 10 mg PO BID 06/23/22 [History Last Taken Unknown] Allergy/AdvReac Type Severity Reaction Status Date / Time chlorzoxazone Allergy Unknown Verified 06/23/22 17:37 [From Parafon Forte] ciprofloxacin [From Cipro] Allergy Unknown Verified 06/23/22 17:37 lovastatin [From Mevacor] Allergy Unknown Verified 06/23/22 17:37 metronidazole [From Flagyl] Allergy Unknown Verified 06/23/22 17:37 naproxen [From Naprosyn] Allergy Unknown Verified 06/23/22 17:37 tramadol Allergy Unknown Verified 06/23/22 17:37 Family History Father Diabetes Brother Colon cancer 2015 diagnosis Surgical History History of delivery History of colon resection Social History Smoking Status: Former smoker alcohol intake: never substance use type: does not use caffeine: Yes what type of physical activity do you participate in: walking seatbelt use: always do you feel safe at home: Yes additional social history: Randolph- Both are retired ROS ROS ED Constitutional Constitutional ED: Denies chills, fever(s), subjective, sweats or weight loss Eyes Eyes: Denies blurry vision, change in vision or diplopia ENT ENT ED: Denies ear pain, rhinorrhea or sore throat Cardiovascular Cardiovascular: Reports chest pain; Denies orthopnea, palpitations, paroxysmal nocturnal dyspnea or racing heartbeat Respiratory/Chest Respiratory/Chest: Reports cough, dyspnea, dyspnea on exertion and sputum; Denies orthopnea or paroxysmal nocturnal dyspnea Gastrointestinal Gastrointestinal: Denies abdominal pain, constipation, diarrhea, melena, nausea or vomiting Genitourinary Genitourinary ED: Denies dysuria, hematuria or urinary frequency Musculoskeletal Musculoskeletal: Denies arthralgias, back pain, myalgias or neck pain Integumentary Denies Abrasions or rash Neurologic Neurologic: Denies headache(s), paresthesias or weakness Psychiatric Psychiatric: Denies anxiety Endocrine Endocrinology: Denies cold intolerance or heat intolerance Hematologic/Lymphatic Hematologic/Lymphatic: Reports systems reviewed and no addt'l complaints, exceptas documented EXAM Physical Exam Const Vital Signs: 06/23/22 17:34 06/23/22 17:51 06/23/22 17:51 Temperature 97.5 F L Temperature Source Temporal Pulse Rate 105 H Respiratory Rate 18 19 H Respiratory Effort Respiratory Depth Respiratory Pattern Blood Pressure 156/87 H Blood Pressure Mean 110 Pulse Ox 96 97 97 Oxygen Delivery Method Room Air Room Air Room Air 06/23/22 19:34 06/23/22 19:34 06/23/22 21:31 Temperature 98.3 F Temperature Source Oral Pulse Rate 91 87 Respiratory Rate 16 18 Respiratory Effort Normal Non-Labored Respiratory Depth Normal Respiratory Pattern Normal Blood Pressure 123/68 H Blood Pressure Mean 86 Pulse Ox 97 95 Oxygen Delivery Method Room Air Room Air Room Air 06/23/22 21:31 06/23/22 22:30 Temperature 98.2 F Temperature Source Oral Pulse Rate 84 Respiratory Rate 18 Respiratory Effort Respiratory Depth Respiratory Pattern Blood Pressure 123/68 H 136/73 H Blood Pressure Mean 86 94 Pulse Ox 95 Oxygen Delivery Method Room Air Positive well nourished and well developed General Appearance ED: well developed and NAD; Negative for cyanotic or diaphoretic HEENT Reports moist mucous membranes HEENT Narrative: There is no tenderness over the frontal, ethmoid or maxillary sinuses. TMs are normal. Posterior pharynx out erythema or exudate. Uvula is midline. Nares patent without discharge. Eyes PERRL and EOMs intact bilaterally General Eye ED: Negative for pale conjunctiva or scleral icterus Neck no lymphadenopathy and supple Neck Narrative: Trachea is midline. The inspiratory expiratory stridor. Chest Wall inspection of chest normal and palpation of chest normal Resp normal respiratory effort and clear to auscultation bilaterally Resp Narrative: No egophony. There is no tactile or vocal fremitus. Auscultation: Negative for rales, rhonchi, wheezes or diminished lung sounds Cardio regular rhythm, S1 normal heart sound, S2 normal heart sound and no murmurs Rate: tachycardic GI normal to inspection, nondistended, normoactive bowel sounds, non-tender, non-distended and no masses; Negative for hepatosplenomegaly Auscultation: normoactive bowel sounds Palpation: soft Back/Spine no CVA tenderness Extremity normal to inspection Extremity Narrative: There is no asymmetry, swelling, discoloration, leg vein distention, palpable cords or tenderness along the distribution of the deep venous system. General Extremety ED: Negative for edema General Extremity: Negative for edema Neuro oriented x3 and CN's II-XII intact bilaterally Sensorium / Orientation: alert Skin no rashes or lesions noted, no wounds and skin turgor normal MDM MDM MDM Narrative Medical decision making narrative: Certain patient's chest discomfort is cardiac in etiology. Will obtain EKG to evaluate for ischemia and troponin to rule out injury. CBC was obtained to assess white count differential and H&H. Basic metabolic panel was obtained to assess for renal function in the event she needs a CTA because PE is in the differential. Chest x-ray was not repeated. The x-ray that was performed earlier today was reviewed and as previously stated I do not agree with the radiologist interpretation. History & Record Review Discussion w/independent historian: Patient and Family Additional record(s) reviewed:: Prior inpatient record and Prior labs Lab Data Attestation: I reviewed the patient's lab results. Lab results narrative: White count is elevated at 20,000 with slight shift with no bandemia. There is no evidence of anemia. Basic metabolic panel reveals a creatinine of 1.06 with a GFR of 54. Blood sugar is elevated 310 with a normal CO2 and anion gap. Labs: Laboratory Results - last 24 hr 06/23/22 06/23/22 06/23/22 19:15 19:15 19:15 WBC 20.0 H RBC 4.17 L Hgb 12.6 Hct 39.0 MCV 93.5 MCH 30.2 MCHC 32.3 RDW Std Deviation 44.8 H RDW Coeff of Manish 13.2 Plt Count 356 MPV 10.0 Immature Gran % (Auto) 0.700 Neut % (Auto) 83.6 H Lymph % (Auto) 8.8 L [place] % (Auto) 6.7 Eos % (Auto) 0.0 Baso % (Auto) 0.2 Absolute Neuts (auto) 16.7 H Absolute Lymphs (auto) 1.76 Nucleated RBC % 0 D-Dimer Quant (PE/DVT) Sodium 140 Potassium 4.5 Chloride 108 H Carbon Dioxide 23.0 Anion Gap 9 BUN 20 H Creatinine 1.06 H Estim Creat Clear Calc 36.83 Est GFR (MDRD) Af Amer 65 Est GFR (MDRD) Non-Af 54 L BUN/Creatinine Ratio 18.9 Glucose 310 H Lactic Acid Calcium 9.6 Troponin I High Sens 6 06/23/22 06/23/22 19:53 19:53 WBC RBC Hgb Hct MCV MCH MCHC RDW Std Deviation RDW Coeff of Manish Plt Count MPV Immature Gran % (Auto) Neut % (Auto) Lymph % (Auto) [place] % (Auto) Eos % (Auto) Baso % (Auto) Absolute Neuts (auto) Absolute Lymphs (auto) Nucleated RBC % D-Dimer Quant (PE/DVT) 0.39 Sodium Potassium Chloride Carbon Dioxide Anion Gap BUN Creatinine Estim Creat Clear Calc Est GFR (MDRD) Af Amer Est GFR (MDRD) Non-Af BUN/Creatinine Ratio Glucose Lactic Acid 3.5 H* Calcium Troponin I High Sens Radiography Diagnostic Testing: Clinical Impression(s) from Imaging Studies Chest CT 06/23/22 21:45 IMPRESSION: Tiny groundglass nodules scattered throughout both lungs are probably infectious/inflammatory. Electronically Signed: Tristin Ng MD at 22:13 EDT , EKG Initial EKG: Attestation: I personally reviewed and interpreted this EKG as follows: Interpretation: Sinus Rhythm (EKG is normal. Ventricular rate is 82. DE interval is 126. QRS duration 80 ms. QT durations 150 ms. [place] is normal.) Treatment and Re-Evaluation :: Patient received IV antibiotics. Case discussed with hospitalist. Discharge Plan Dx/Rx/DC Orders Clinical Impression: Bilateral interstitial pneumonia, Hyperlipidemia, Type 2 diabetes mellitus, HTN(hypertension), Acidosis, lactic, Exertional chest pain Disposition Disposition: Acute Care Hospital [facility] What to do if you have Problems For any increased pain, shortness of breath, bleeding, nausea or vomiting, chestpain, or any unexpected problems, contact your Primary Care Provider. Call [facility] ([phone]) or report to the closest Emergency Room. Call 911 if necessary. 06/23/222317 <Electronically signed by Jaspreet Bahena MD> Cosigner Signature (if applicable): CC: Dr. Segundo Conn MD ~ Signed [facility] Work Phone: 1(386) 886-563803-22-[address] [facility] June 23, 2022 11:18pm Note Date/Time June 23, 2022 7:4 7pm [facility] Medical Records Department [address] [place] [address] Emergency Department Summary 06/23/22 MR#: [id number] Acct: [id number] Name: AFLRED JACKSON Rep #:[id number] : 1945 76 From: Jaspreet Bahena MD PCP: Dr. Segundo Conn MD Status:REG E R Location: ED HPI History of Present Illness Chief Complaint: Shortness of Breath Detail of Chief Complaint: Contacted by Dr. Conn because chest x-ray was interpreted as bilateral inte Informant: patient Onset/Context/Timing Onset: - (Sinus likes symptoms that started 2 weeks ago.) Context: Sudden Onset Timing: Lasts (No longer has upper respiratory symptoms.) Quality: Read HPI narrative Location: Per HPI narrative Maximum Severity: Moderate Worsened by: Midsternal chest discomfort with walking to the mailbox and going up and do Relieved by: Rest Associated Symptoms Associated Symptoms: Dyspnea Narrative Narrative: Patient is a 76-year-old woman who has history of heart disease, diabetes, hypertension, GERD who was sent to the emergency department because radiologist interpreted her chest x-ray as bilateral interstitial basilar infiltrates. The x-ray was reviewed by me. I do not agree with the radiology interpretation. Patient does report midsternal chest discomfort described as a pressure sensation that occurred when she walked to the mailbox today and stopped after resting for 3 minutes. She also had chest discomfort going up a flight of stepsthat was alleviated after she rested for several minutes. This was associated with shortness of breath. There was no nausea, vomiting or diaphoresis. The pain did not radiate. Patient denies fever, chills night sweats. She denies headache, ocular auditorysymptoms. She states when she had the nasal congestion that started greater than 2 weeks ago she had pressure in the frontal region. Patient does report cough. She has cough productive of clear to white sputum for the past several days. She has not smoked in 14 years. She denies history of PE or DVT. She denies leg pain, swelling or discoloration. She denies symptoms of claudication. She denies pleuritic chest pain. She denies GI or symptoms. She denies neurologic symptoms. Prior similar symptoms: No Recent Illness/Hospitalization: No [facility] Medical History Atherosclerotic heart disease of [place] coronary artery without angina pectoris GERD (gastroesophageal reflux disease) HTN (hypertension) Hyperlipidemia Hypothyroidism Type 2 diabetes mellitus Home Medications famotidine 40 mg tablet (Pepcid) 40 mg PO DAILY 10/11/16 [History Last Taken Unknown] levothyroxine 50 mcg tablet 50 mcg PO DAILY 10/11/16 [History Last Taken 10/12/16] losartan 50 mg tablet 50 mg PO DAILY 10/11/16 [History Last Taken 10/12/16] nitroglycerin 0.4 mg sublingual tablet 0.4 mg sublingual Q5M PRN Chest Pain 10/11/16 [History Last Taken Unknown] simvastatin 80 mg tablet 80 mg PO DAILY 10/11/16 [History Last Taken Unknown] clobetasol 0.05 % topical cream 1 applic topical DAILY 06/06/19 [History Last Taken Unknown] estradiol 0.01% (0.1 mg/gram) vaginal cream (Estrace) See Rx Instructions vaginal .COMPLEX #42.5 grams 06/06/19 [Rx Last Taken Unknown] metformin 500 mg tablet 500 mg PO TID 12/19/19 [History Last Taken Unknown] aspirin 81 mg tablet,delayed release 81 mg PO .every other day 03/13/21 [History Last Taken Unknown] albuterol sulfate 90 mcg/actuation aerosol inhaler 2 puff inhalation Q6H PRN Wheezing 06/23/22 [History Last Taken Unknown] cefdinir 300 mg capsule 300 mg PO BID 06/23/22 [History Last Taken Unknown] codeine 10 mg-guaifenesin 100 mg/5 mL oral liquid ml 06/23/22 [History Last Taken Unknown] doxycycline hyclate 100 mg tablet 100 mg PO BID 06/23/22 [History Last Taken Unknown] prednisone 10 mg tablet 10 mg PO BID 06/23/22 [History Last Taken Unknown] Allergy/AdvReac Type Severity Reaction Status Date / Time chlorzoxazone Allergy Unknown Verified 06/23/22 17:37 [From Parafon Forte] ciprofloxacin [From Cipro] Allergy Unknown Verified 06/23/22 17:37 lovastatin [From Mevacor] Allergy Unknown Verified 06/23/22 17:37 metronidazole [From Flagyl] Allergy Unknown Verified 06/23/22 17:37 naproxen [From Naprosyn] Allergy Unknown Verified 06/23/22 17:37 tramadol Allergy Unknown Verified 06/23/22 17:37 Family History Father Diabetes Brother Colon cancer 2015 diagnosis Surgical History History of delivery History of colon resection Social History Smoking Status: Former smoker alcohol intake: never substance use type: does not use caffeine: Yes what type of physical activity do you participate in: walking seatbelt use: always do you feel safe at home: Yes additional social history: Randolph- Both are retired ROS ROS ED Constitutional Constitutional ED: Denies chills, fever(s), subjective, sweats or weight loss Eyes Eyes: Denies blurry vision, change in vision or diplopia ENT ENT ED: Denies ear pain, rhinorrhea or sore throat Cardiovascular Cardiovascular: Reports chest pain; Denies orthopnea, palpitations, paroxysmal nocturnal dyspnea or racing heartbeat Respiratory/Chest Respiratory/Chest: Reports cough, dyspnea, dyspnea on exertion and sputum; Denies orthopnea or paroxysmal nocturnal dyspnea Gastrointestinal Gastrointestinal: Denies abdominal pain, constipation, diarrhea, melena, nausea or vomiting Genitourinary Genitourinary ED: Denies dysuria, hematuria or urinary frequency Musculoskeletal Musculoskeletal: Denies arthralgias, back pain, myalgias or neck pain Integumentary Denies Abrasions or rash Neurologic Neurologic: Denies headache(s), paresthesias or weakness Psychiatric Psychiatric: Denies anxiety Endocrine Endocrinology: Denies cold intolerance or heat intolerance Hematologic/Lymphatic Hematologic/Lymphatic: Reports systems reviewed and no addt'l complaints, exceptas documented EXAM Physical Exam Const Vital Signs: 06/23/22 17:34 06/23/22 17:51 06/23/22 17:51 Temperature 97.5 F L Temperature Source Temporal Pulse Rate 105 H Respiratory Rate 18 19 H Respiratory Effort Respiratory Depth Respiratory Pattern Blood Pressure 156/87 H Blood Pressure Mean 110 Pulse Ox 96 97 97 Oxygen Delivery Method Room Air Room Air Room Air 06/23/22 19:34 06/23/22 19:34 06/23/22 21:31 Temperature 98.3 F Temperature Source Oral Pulse Rate 91 87 Respiratory Rate 16 18 Respiratory Effort Normal Non-Labored Respiratory Depth Normal Respiratory Pattern Normal Blood Pressure 123/68 H Blood Pressure Mean 86 Pulse Ox 97 95 Oxygen Delivery Method Room Air Room Air Room Air 06/23/22 21:31 06/23/22 22:30 Temperature 98.2 F Temperature Source Oral Pulse Rate 84 Respiratory Rate 18 Respiratory Effort Respiratory Depth Respiratory Pattern Blood Pressure 123/68 H 136/73 H Blood Pressure Mean 86 94 Pulse Ox 95 Oxygen Delivery Method Room Air Positive well nourished and well developed General Appearance ED: well developed and NAD; Negative for cyanotic or diaphoretic HEENT Reports moist mucous membranes HEENT Narrative: There is no tenderness over the frontal, ethmoid or maxillary sinuses. TMs are normal. Posterior pharynx out erythema or exudate. Uvula is midline. Nares patent without discharge. Eyes PERRL and EOMs intact bilaterally General Eye ED: Negative for pale conjunctiva or scleral icterus Neck no lymphadenopathy and supple Neck Narrative: Trachea is midline. The inspiratory expiratory stridor. Chest Wall inspection of chest normal and palpation of chest normal Resp normal respiratory effort and clear to auscultation bilaterally Resp Narrative: No egophony. There is no tactile or vocal fremitus. Auscultation: Negative for rales, rhonchi, wheezes or diminished lung sounds Cardio regular rhythm, S1 normal heart sound, S2 normal heart sound and no murmurs Rate: tachycardic GI normal to inspection, nondistended, normoactive bowel sounds, non-tender, non-distended and no masses; Negative for hepatosplenomegaly Auscultation: normoactive bowel sounds Palpation: soft Back/Spine no CVA tenderness Extremity normal to inspection Extremity Narrative: There is no asymmetry, swelling, discoloration, leg vein distention, palpable cords or tenderness along the distribution of the deep venous system. General Extremety ED: Negative for edema General Extremity: Negative for edema Neuro oriented x3 and CN's II-XII intact bilaterally Sensorium / Orientation: alert Skin no rashes or lesions noted, no wounds and skin turgor normal MDM MDM MDM Narrative Medical decision making narrative: Certain patient's chest discomfort is cardiac in etiology. Will obtain EKG to evaluate for ischemia and troponin to rule out injury. CBC was obtained to assess white count differential and H&H. Basic metabolic panel was obtained to assess for renal function in the event she needs a CTA because PE is in the differential. Chest x-ray was not repeated. The x-ray that was performed earlier today was reviewed and as previously stated I do not agree with the radiologist interpretation. History & Record Review Discussion w/independent historian: Patient and Family Additional record(s) reviewed:: Prior inpatient record and Prior labs Lab Data Attestation: I reviewed the patient's lab results. Lab results narrative: White count is elevated at 20,000 with slight shift with no bandemia. There is no evidence of anemia. Basic metabolic panel reveals a creatinine of 1.06 with a GFR of 54. Blood sugar is elevated 310 with a normal CO2 and anion gap. Labs: Laboratory Results - last 24 hr 06/23/22 06/23/22 06/23/22 19:15 19:15 19:15 WBC 20.0 H RBC 4.17 L Hgb 12.6 Hct 39.0 MCV 93.5 MCH 30.2 MCHC 32.3 RDW Std Deviation 44.8 H RDW Coeff of Manish 13.2 Plt Count 356 MPV 10.0 Immature Gran % (Auto) 0.700 Neut % (Auto) 83.6 H Lymph % (Auto) 8.8 L [place] % (Auto) 6.7 Eos % (Auto) 0.0 Baso % (Auto) 0.2 Absolute Neuts (auto) 16.7 H Absolute Lymphs (auto) 1.76 Nucleated RBC % 0 D-Dimer Quant (PE/DVT) Sodium 140 Potassium 4.5 Chloride 108 H Carbon Dioxide 23.0 Anion Gap 9 BUN 20 H Creatinine 1.06 H Estim Creat Clear Calc 36.83 Est GFR (MDRD) Af Amer 65 Est GFR (MDRD) Non-Af 54 L BUN/Creatinine Ratio 18.9 Glucose 310 H Lactic Acid Calcium 9.6 Troponin I High Sens 6 06/23/22 06/23/22 19:53 19:53 WBC RBC Hgb Hct MCV MCH MCHC RDW Std Deviation RDW Coeff of Manish Plt Count MPV Immature Gran % (Auto) Neut % (Auto) Lymph % (Auto) [place] % (Auto) Eos % (Auto) Baso % (Auto) Absolute Neuts (auto) Absolute Lymphs (auto) Nucleated RBC % D-Dimer Quant (PE/DVT) 0.39 Sodium Potassium Chloride Carbon Dioxide Anion Gap BUN Creatinine Estim Creat Clear Calc Est GFR (MDRD) Af Amer Est GFR (MDRD) Non-Af BUN/Creatinine Ratio Glucose Lactic Acid 3.5 H* Calcium Troponin I High Sens Radiography Diagnostic Testing: Clinical Impression(s) from Imaging Studies Chest CT 06/23/22 21:45 IMPRESSION: Tiny groundglass nodules scattered throughout both lungs are probably infectious/inflammatory. Electronically Signed: Tristin Ng MD at 22:13 EDT , EKG Initial EKG: Attestation: I personally reviewed and interpreted this EKG as follows: Interpretation: Sinus Rhythm (EKG is normal. Ventricular rate is 82. DE interval is 126. QRS duration 80 ms. QT durations 150 ms. [place] is normal.) Treatment and Re-Evaluation :: Patient received IV antibiotics. Case discussed with hospitalist. Discharge Plan Dx/Rx/DC Orders Clinical Impression: Bilateral interstitial pneumonia, Hyperlipidemia, Type 2 diabetes mellitus, HTN(hypertension), Acidosis, lactic, Exertional chest pain Disposition Disposition: Acute Care Hospital [facility] What to do if you have Problems For any increased pain, shortness of breath, bleeding, nausea or vomiting, chestpain, or any unexpected problems, contact your Primary Care Provider. Call [facility] ([phone]) or report to the closest Emergency Room. Call 911 if necessary. 06/23/222317 <Electronically signed by Jaspreet Bahena MD> Cosigner Signature (if applicable): CC: Dr. Segundo Conn MD ~ Signed [facility] Work Phone: Evaluation noteNo assessment information available [facility] Work Phone: Evaluation note* Diagnosis Onset Date Resolution Status Acidosis, lactic acute Bilateral interstitial pneumonia acute Exertional chest pain acute HTN (hypertension) chronic Hyperlipidemia chronic Type 2 diabetes mellitus chr onic [facility] Work Phone: Evaluation note* Diagnosis Onset Date Resolution Status Exertional chest pain acute HTN (hypertension) chronic Hyperlipidemia chronic Type 2 diabetes mellitus chr onic Acidosis, lactic resolved Bilateral interstitial pneumonia resolved [facility] Work Phone: evalutnetr note* Diagnosis Abnormal weight loss- Primary Loss of weight Abdominal pain, right lower quadrant Diarrhea, unspecified type documented in this encounter [facility] note* Diagnosis Gastroesophageal reflux disease, unspecified whether esophagitis present- Primary Special screening for malignant neoplasms, colon Abdominal pain, right lower quadrant Abnormal weight loss Loss of weight Diarrhea, unspecified type documented in this encounter [facility] note* Diagnosis Lower abdominal pain- Primary Abdominal pain, other specified site documented in this encounter [facility] note* Diagnosis Lower abdominal pain Abdominal pain, other specified site documented in this encounter [facility] note* Diagnosis Abdominal pain, right lower quadrant- Primary Abnormal weight loss Loss of weight Pancreatic mass Unspecified disease of pancreas documented in this encounter [facility] note* Diagnosis Abdominal pain, right lower quadrant Abnormal weight loss Loss of weight Pancreatic mass Unspecified disease of pancreas documented in this encounter [facility] note* Diagnosis IPMN (intraductal papillary mucinous neoplasm)- Primary Neoplasm of unspecified nature of digestive system Lung nodules Other nonspecific abnormal finding of lung field documented in this encounter [facility] for referral (narrative)* Outpatient Procedure (Routine) - Authorized Specialty Diagnoses / Procedures Referred By Jonelle tijerina Referred To Contact [facility] Diagnoses Abdominal pain, right lower quadrant Abnormal weight loss Diarrhea, unspecified type Procedures EGD DIAGNOSTIC ESOPHAGOGASTRODUODENOSC OPY TRANSORAL DIAGNOSTIC Temi Arnold MD [address] [facility] [place] [address] Referral ID Status Reason Start Date Expiration Date Visits Requested Visits Authorized [id number] Authorized Auto-Generat ed Referral 08/12/2023 08/11/2024 1 1 * Outpatient Procedure (Routine) - Authorized Specialty Diagnoses / Procedures Referred By Jonelle tijerina Referred To Contact [facility] Diagnoses Abdominal pain, right lower quadrant Abnormal weight loss Diarrhea, unspecified type Procedures COLONOSCOPY DIAGNOSTIC COLONOSCOPY FLX DX W/COLLJ SPEC WHEN Temi Costa MD [address] [address] [facility] [address] [place] [id number] Referral ID Status Reason Start Date Expiration Date Visits Requested Visits Authorized [id number] Authorized Auto-Generat ed Referral 08/12/2023 08/11/[address] [facility] for referral (narrative)* Outpatient Procedure (Routine) - Closed Specialty Diagnoses / Procedures Referred By Jonelle tijerina Referred To Contact [facility] Diagnoses Abdominal pain, right lower quadrant Abnormal weight loss Diarrhea, unspecified type Procedures EGD DIAGNOSTIC ESOPHAGOGASTRODUODENOSC OPY TRANSORAL DIAGNOSTIC Temi Arnold MD [address] [place] [address] [address] Referral ID Status Reason Start Date Expiration Date V isits Requested Visits Authorized [id number] Closed Auto-Generate d Referral 08/12/2023 08/11/2024 1 1 * Outpatient Procedure (Routine) - Closed Specialty Diagnoses / Procedures Referred By Jonelle tijerina Referred To Contact [facility] Diagnoses Abdominal pain, right lower quadrant Abnormal weight loss Diarrhea, unspecified type Procedures COLONOSCOPY DIAGNOSTIC COLONOSCOPY FLX DX W/COLLJ SPEC WHEN Temi Costa MD [address] [address] [place] [id number] [place] [address] Referral ID Status Reason Start Date Expiration Date V isits Requested Visits Authorized [id number] Closed Auto-Generate d Referral 08/12/2023 08/11/[address] [facility] for referral (narrative)No reason for referral [facility]: Reason for visit Narrative* Outpatient Procedure (Routine) - Closed Specialty Diagnoses / Procedures Referred By Jonelle tijerina Referred To Contact [facility] Diagnoses Abdominal pain, right lower quadrant Abnormal weight loss Diarrhea, unspecified type Procedures EGD DIAGNOSTIC ESOPHAGOGASTRODUODENOSC OPY TRANSORAL DIAGNOSTIC Temi Arnold MD [address] [address] [facility] [place] [address] [place] [address] Referral ID Status Reason Start Date Expiration Date V isits Requested Visits Authorized [id number] Closed Auto-Generate d Referral 08/12/2023 08/11/2024 1 1 [facility] Family History No Family History Records Found Relationship Condition Age at Onset Recorded Date/T chris father Diabetes mellitus Unknown brother Malignant neoplasm of colon Unknown Relationship Condition Age at Onset Recorded Date/T chris father Diabetes mellitus Unknown brother Malignant neoplasm of colon Unknown mother Disorder of thyroid Unknown Advance Directives No Advanced Directives Records Found Advance Directive Response Recorded Date/ Time Living Will No May 15, 021 5:34pm Power of Knowledge Management Consultant No May 15, 2020 5:34pm Advance Directive Response Recorded Date/ Time Living Will No May 15 021 4:34pm Power of Knowledge Management Consultant No May 15, 2020 4:34pm Advance Directive Response Recorded Date/ Time Living Will No June 23, 2022 7:34pm Power of Knowledge Management Consultant No June 23 7:34pm Advance Directive Response Recorded Date/ Time Name of Medical Power of Knowledge Management Consultant ramana jackson June 24, 2022 12:29am Living Will Yes June 24, 2022 12:29am Power of Knowledge Management Consultant Yes June 24 12:29am Advance Directive Response Recorded Date/ Time Living Will Yes June 23, 2022 11:29pm Power of Knowledge Management Consultant Yes June 23 11:29pm Chief Complaint and Reason for Visit Chief Complaint BL PNA, CHEST PAIN Reason for Visit Acidosis, lactic Bilateral interstitial pneumonia Exertional chest pain HTN (hypertension) Hyperlipidemia Type 2 diabetes mellitus Chief Complaint BL PNA, CHEST PAIN BL PNA, CHEST PAIN Reason for Visit Acidosis, lactic Bilateral interstitial pneumonia Exertional chest pain HTN (hypertension) Hyperlipidemia Type 2 diabetes mellitus Chief Complaint BL PNA, CHEST PAIN BL PNA, CHEST PAIN Reason for Visit Exertional chest rony n HTN (hypertension) Hyperlipidemia Type 2 diabetes mellitus Acidosis, lactic Bilateral interstitial pneumonia Chief Complaint BL PNA, CHEST PAIN BL PNA, CHEST PAIN Type 2 diabetes mellitus with hyperglycemia Reason for Visit Exertional chest rony n HTN (hypertension) Hyperlipidemia Type 2 diabetes mellitus Acidosis, lactic Bilateral interstitial pneumonia Chief Complaint Diarrhea Chief Complaint Admit Date CIRRHOSIS June 27, 2024 10: 04am Chief Complaint Admit Date CIRRHOSIS June 27, 2024 10: 04am SEE ORDER July 17, 2024 2:0 5pm Reason for Referral Specialty Diagnoses / Procedures Referred By Jonelle tijerina Referred To Contact CT [facility] Diagnoses Lower abdominal pain Procedures CT ABD/PEL W IVCON CT ABD & PELVIS W/CONTRAST Temi Arnold MD [address] [place] [address] Ct Imaging [facility] Referral ID Status Reason Start Date Expiration Date Visits Requested Visits Authorized [id number] Authorized Auto-Generat ed Referral 08/24/2023 09/22/2024 1 1 Specialty Diagnoses / Procedures Referred By Jonelle tijerina Referred To Contact [facility] Diagnoses Abdominal pain, right lower quadrant Abnormal weight loss Pancreatic mass Procedures MRI 3D POST PROCESSING 3D RENDERING W/INTERP&POSTPROC DIFF WORK STATION Temi Arnold MD [address] [place] [address] Mr Imaging [facility] Referral ID Status Reason Start Date Expiration Date Visits Requested Visits Authorized [id number] Pending Review Auto-Generat ed Referral 09/11/2023 10/10/2024 1 1 Specialty Diagnoses / Procedures Referred By Jonelle tijerina Referred To Contact [facility] Diagnoses Abdominal pain, right lower quadrant Abnormal weight loss Pancreatic mass Procedures MRI PANC/ARISTEO WO/W IVCON MRI ABDOMEN W/O & W/CONTRAST MATERIAL Temi Arnold MD [address] [place] [address] Mr Imaging [facility] Referral ID Status Reason Start Date Expiration Date Visits Requested Visits Authorized [id number] Pending Review Auto-Generat ed Referral 09/11/2023 10/10/2024 1 1 Specialty Diagnoses / Procedures Referred By Contac t Referred To Contact CT IMAGING Diagnoses Lung nodules Procedures CT CHEST WO IVCON DIAGNOSTIC COMPUTED TOMOGRAPHY THORAX W/O CNTRST Temi Arnold MD [address] [address] [place] [address] Referral ID Status Reason Start Date Expiration Date Visits Requested Visits Authorized [id number] New Request Auto-Generat ed Referral 10/24/2024 11/23/2024 1 1 Specialty Diagnoses / Procedures Referred By Contac t Referred To Contact [facility] Diagnoses IPMN (intraductal papillary mucinous neoplasm) Procedures MRI 3D POST PROCESSING 3D RENDERING W/INTERP&POSTPROC DIFF WORK STATION Temi Arnold MD [address] [address] Mr Imaging [facility] Referral ID Status Reason Start Date Expiration Date Visits Requested Visits Authorized [id number] New Request Auto-Generat ed Referral 10/25/2023 11/23/2024 1 1 Specialty Diagnoses / Procedures Referred By Contac t Referred To Contact [facility] Diagnoses IPMN (intraductal papillary mucinous neoplasm) Procedures MRI PANC/ARISTEO WO IVCON MRI, ABDOMEN (MRI) Temi Arnold MD [address] [address] [place] [address] Referral ID Status Reason Start Date Expiration Date Visits Requested Visits Authorized [id number] New Request Auto-Generat ed Referral 10/24/2024 11/23/2024 1 1 Summary Purpose Additional Source Comments Goals (unrecognized section and content) Goals may be documented in a n alternate sectionGoals may be documented in an alternate sectionGoals may be documented in an alternate sectionGoals may be documented in an alternate sectionGoals may be documented in an alternate sectionGoals may be documented in an alternate sectionGoals may be documented in an alternate sectionGoals may be documented in an alternate section Care Teams (unrecognized sec tion and content) Team Status: Active Member Role Status Dates Dr. Segundo Conn MD Family Provider Active Dr. Segundo Conn MD Primary Care Provider Active Team Status: Inactive Member Role Status Dates Dr. Segundo Conn MD Primary Care Provider, Attending Provider Active Team Status: Active Member Role Status Dates Dr. Segundo Conn MD Primary Care Provider, Attending Provider Active Team Status: Active Member Role Status Dates Dr. Segundo Conn MD Primary Care Provider Active Dr. Jaspreet Bahena MD Emergency Provider Active Dr. Stacy Phan MD Admit Provider, Attending Prov ider Active Team Status: Active Member Role Status Dates Dr. Segundo Conn MD Primary Care Provider Active Dr. Jaspreet Bahena MD Emergency Provider Active Dr. Stacy Phan MD Admit Provider, Other Provider Active Dr. Guanako Gary MD Attending Provider, Other Provid er Active Team Status: Inactive Member Role Status Dates Dr. Segundo Conn MD Primary Care Provider Active Dr. Jaspreet Bahena MD Emergency Provider Active Dr. Stacy Phan MD Admit Provider, Other Provider Active Dr. Guanako Gary MD Attending Provider Active Team Status: Inactive Member Role Status Dates Dr. Segundo Conn MD Primary Care Provi ankush, Attending Provider, Referring Provider Active Network Support Manager Relationship Specialty Start Date End Date Segundo Conn [place] [address] [place], [place] [id number] PCP - General Gerontology 06/21/23 Network Support Manager Relationship Specialty Start Date End Date Segundo Conn Chi [address] [place], [place] [phone] PCP - General Gerontology 06/21/23 Network Support Manager Relationship Specialty Start Date End Date Segundo Conn [place] [address] [place], [place] [id number] PCP - General Gerontology 06/21/23 Network Support Manager Relationship Specialty Start Date End Date Segundo Conn [place] [address] [place], [place] [phone] PCP - General Gerontology 06/21/23 Network Support Manager Relationship Specialty Start Date End Date Segundo Conn [place] [address] [place], [place] [id number] PCP - General Gerontology 06/21/23 Network Support Manager Relationship Specialty Start Date End Date Segundo Conn Chi [address] [place], [place] [id number] PCP - General Gerontology 06/21/23 Network Support Manager Relationship Specialty Start Date End Date Segundo Conn Chi [address] [place], [place] [id number] PCP - General Gerontology 06/21/23 Team Status: Active Member Role Status Dates Dr. Segundo Conn MD Primary Care Provider Active Team Status: Inactive Member Role Status Dates Dr. Segundo Conn MD Primary Care Provider Active Start: March 26, 2024 End: March 26, 2024 Dr. Segundo Conn MD Attending Provider Active Start: March 26, 2024 End: March 26, 2024 Dr. Segundo Conn MD Referring Provider Active Start: March 26, 2024 End: March 26, 2024 Team Status: Inactive Member Role Status Dates Dr. Segundo Conn MD Primary Care Provider Active Start: June 07, 2024 End: June 07, 2024 Dr. Stephan Medeiros MD Attending Provider Active Start: June 07, 2024 End: June 07, 2024 Dr. Stephan Medeiros MD Referring Provider Active Start: June 07, 2024 End: June 07, 2024 Team Status: Inactive Member Role Status Dates Dr. Segundo Conn MD Primary Care Provider Active Start: June 27, 2024 End: June 27, 2024 Dr. Stephan Medeiros MD Attending Provider Active Start: June 27, 2024 End: June 27, 2024 Dr. Stephan Medeiros MD Referring Provider Active Start: June 27, 2024 End: June 27, 2024 Team Status: Inactive Member Role Status Dates Dr. Segundo Conn MD Primary Care Provider Active Start: July 17, 2024 End: July 17, 2024 Dr. Stephan Medeiros MD Attending Provider Active Start: July 17, 2024 End: July 17, 2024 Dr. Stephan Medeiros MD Referring Provider Active Start: July 17, 2024 End: July 17, 2024 Team Status: Active Member Role/Relationship Status Dates Dr. Segundo Conn MD Primary Care Provider Active Team Status: Inactive Member Role/Relationship Status Dates Dr. Segundo Conn MD Primary Care Provider Active Start: June 07, 2024 End: June 07, 2024 Dr. Stephan Medeiros MD Attending Provider Active Start: June 07, 2024 End: June 07, 2024 Dr. Stephan Medeiros MD Referring Provider Active Start: June 07, 2024 End: June 07, 2024 Team Status: Inactive Member Role/Relationship Status Dates Dr. Segundo Conn MD Primary Care Provider Active Start: June 27, 2024 End: June 27, 2024 Dr. Stephan Medeiros MD Attending Provider Active Start: June 27, 2024 End: June 27, 2024 Dr. Stephan Medeiros MD Referring Provider Active Start: June 27, 2024 End: June 27, 2024 Team Status: Inactive Member Role/Relationship Status Dates Dr. Segundo Conn MD Primary Care Provider Active Start: July 17, 2024 End: July 17, 2024 Dr. Stephan Medeiros MD Attending Provider Active Start: July 17, 2024 End: July 17, 2024 Dr. Stephan Medeiros MD Referring Provider Active Start: July 17, 2024 End: July 17, 2024 Team Status: Inactive Member Role/Relationship Status Dates Dr. Segundo Conn MD Primary Care Provider Active Start: September 26, 2024 End: September 26, 2024 Dr. Segundo Conn MD Attending Provider Active Start: September 26, 2024 End: September 26, 2024 Dr. Segundo Conn MD Referring Provider Active Start: September 26, 2024 End: September 26, 2024 Source Comments (unrecognize d section and content) In the event this informatio n is protected by the [facility] Confidentiality of Alcohol and Drug Abuse Patient Records regulations: The Federal rules restrict any use of the information to criminally investigate or prosecute any alcohol or drug abuse patient.[facility] [place] the event this information is protected by the Federal Confidentiality of Alcohol and Drug Abuse Patient Records regulations: The Federal rules restrict any use of the information to criminally investigate or prosecute any alcohol or drug abuse patient.[facility] [place] the event this information is protected by the Federal Confidentiality of Alcohol and Drug Abuse Patient Records regulations: The Federal rules restrict any use of the information to criminally investigate or prosecute any alcohol or drug abuse patient.[facility] [place] the event this information is protected by the Federal Confidentiality of Alcohol and Drug Abuse Patient Records regulations: The Federal rules restrict any use of the information to criminally investigate or prosecute any alcohol or drug abuse patient.[facility] [place] the event this information is protected by the Federal Confidentiality of Alcohol and Drug Abuse Patient Records regulations: The Federal rules restrict any use of the information to criminally investigate or prosecute any alcohol or drug abuse patient.[facility] [place] the event this information is protected by the Federal Confidentiality of Alcohol and Drug Abuse Patient Records regulations: The Federal rules restrict any use of the information to criminally investigate or prosecute any alcohol or drug abuse patient.[facility] [place] the event this information is protected by the Federal Confidentiality of Alcohol and Drug Abuse Patient Records regulations: The Federal rules restrict any use of the information to criminally investigate or prosecute any alcohol or drug abuse patient.[facility] [place] the event this information is protected by the Federal Confidentiality of Alcohol and Drug Abuse Patient Records regulations: The Federal rules restrict any use of the information to criminally investigate or prosecute any alcohol or drug abuse patient.[facility] [place] the event this information is protected by the Federal Confidentiality of Alcohol and Drug Abuse Patient Records regulations: The Federal rules restrict any use of the information to criminally investigate or prosecute any alcohol or drug abuse patient.[facility] [place] the event this information is protected by the Federal Confidentiality of Alcohol and Drug Abuse Patient Records regulations: The Federal rules restrict any use of the information to criminally investigate or prosecute any alcohol or drug abuse patient.[facility] [place] Reason for Visit (unrecogniz ed section and content) Reason Comments Consult Abdominal Pain Diarrhea Reason Comments Results Reason Comments Follow Up colonoscopy/egd from 08/15/[address] Specialty Diagnoses / Procedures Referred By Jonelle tijerina Referred To Contact CT IMAGING Diagnoses Lower abdominal pain Procedures CT ABD/PEL W IVCON CT ABD & PELVIS W/CONTRAST Temi Arnold MD [address] [address] [address] [id number] Referral ID Status Reason Start Date Expiration Date V isits Requested Visits Authorized [id number] Closed Auto-Generate d Referral 08/24/2023 09/22/2024 1 1 Specialty Diagnoses / Procedures Referred By Jonelle tijerina Referred To Contact CT IMAGING Diagnoses Lower abdominal pain Procedures CT ABD/PEL W IVCON CT ABD & PELVIS W/CONTRAST Temi Arnold MD [address] [address] [place] [address] Specialty Diagnoses / Procedures Referred By Jonelle tijerina Referred To Contact MR IMAGING Diagnoses Abdominal pain, right lower quadrant Abnormal weight loss Pancreatic mass Procedures MRI PANC/ARISTEO WO/W IVCON MRI ABDOMEN W/O & W/CONTRAST MATERIAL Temi Arnold MD [address] [address] [place] [id number] Referral ID Status Reason Start Date Expiration Date V isits Requested Visits Authorized [id number] Closed Auto-Generate d Referral 09/11/2023 10/10/2024 1 1 Reason Comments Follow Up MRI 10/18/23 INFORMATION SOURCE (unrecogn ized section and content) DATE CREATED AUTHOR 10/21/2023 [facility] DATE CREATED AUTHOR AUTHOR'S ORGANIZ ATION 10/28/2023 [facility] DATE CREATED AUTHOR AUTHOR'S ORGANIZ ATION 02/14/2025 [facility] FOR RECORDS PERTAINING TO PATIENTS WHO ARE OR HAVE BEEN ENROLLED IN A CHEMICAL DEPENDENCY/SUBSTANCEABUSE PROGRAM, SOME INFORMATION MAY BE OMITTED. This clinical summary was aggregated from multiple sources. Caution should be exercised in using it in the provision of clinical care. This summary normalizes information from multiple sources, and as a consequence, information in this document may materially change the coding, format and clinical context of patient data. In addition, data may be omitted in some cases. CLINICAL DECISIONS SHOULD BE BASED ON THE PRIMARY CLINICAL RECORDS. [facility]. provides no warranty or guarantee of the accuracy or completeness of information in this document.
--- NOTE | 2025-02-16 07:39 | US_ITS ---
PROCEDURE: ABDOMEN LIMITED 02/16/2025 REASON FOR EXAM: CIRRHOSIS TECHNIQUE: Procedure Code: USABDL Modality: US Procedure: ABDOMEN LIMITED COMPARISON: November 18, 2023. FINDINGS: Liver: Diffusely echogenic suggesting fatty infiltration. Gallbladder: No stones, sludge, wall thickening or tenderness. Common bile duct: Normal measuring 5.4 mm . Pancreas: Normal Other: Visualized portions of the right kidney are unremarkable. No right upper quadrant ascites. US/Abdomen Limited IMPRESSION: Fatty infiltration of the liver. Reading Location: [id number]
== END | disposition home or self-care (01) ==
LOC: US 07:35
PROVIDERS: PCP Family Medicine Geriatric Medicine; Referring Provider Internal Medicine Gastroenterology; Visit Provider Internal Medicine Gastroenterology
DX: K74.60 Unspecified cirrhosis of liver (principal)
CPT/HCPCS: 76705

== ENCOUNTER → 2025-03-21 | Outpatient (CLI) | payer MEDICARE, OTHER, SELFPAY ==
[2025-03-21 11:55] LABS: Hematocrit 40.3 % (37-47); Hemoglobin 12.5 g/dL (12.0-15.0); Immature Granulocytes Count 0.020 X10^3/uL (0.0-0.0); Mean Corp Hgb Conc 31.0 g/dL (32-36); Mean Corpuscular Volume 93.3 fL (81-99); Mean Platelet Vol. 10.8 fl (6.2-12.0); NRBC Flagged by Analyzer 0 % (0-5); Platelet Count 312 K/mm3 (150-450); RBC Distribution Width CV 13.0 % (11.6-14.6); RBC Distribution Width SD 43.9 fl (35.1-43.9); Red Blood Count 4.32 M/mm3 (4.2-5.4); White Blood Count 7.2 K/mm3 (4.4-11.0)
[2025-03-21 13:36] LABS: AST(SGOT) 29 U/L (<=31); Alanine Aminotransfer ALT/SGPT 22 U/L (<=34); Albumin, Serum 4.5 g/dL (3.4-4.8); Alkaline Phosphatase 70 U/L (35-104); Anion Gap 14 (5-15); BUN 11 mg/dL (4-19); BUN/Creat Ratio 12.8 RATIO (10-20); Calcium,Total 10.2 mg/dL (7.6-11.0); Carbon Dioxide 24.8 mmol/L (21.0-32.0); Chloride 103 mmol/L (98-108); Globulin 3.2 g/dL (2.2-4.2); Glucose 196 mg/dL (70-99); Potassium 4.3 mmol/L (3.3-5.1); Vitamin D,25 Hydroxy 15.7 ng/mL (30-100)
[2025-03-21 19:19] LABS: Xtra Tube Kwok EXTRA TUBE
== END | disposition home or self-care (01) ==
LOC: POLAB3 11:18
PROVIDERS: PCP Family Medicine Geriatric Medicine; Visit Provider Family Medicine Geriatric Medicine
DX: E03.9 Hypothyroidism, unspecified (principal); E55.9 Vitamin D deficiency, unspecified; I10 Essential (primary) hypertension
CPT/HCPCS: 36415; 80053; 82306; 84443; 85025